=== PATIENT | female | born 1965 ===

== ENCOUNTER 2025-03-18 13:56 | Outpatient (NON) | payer MEDICARE, SELFPAY ==
--- OUTSIDE RECORDS SUMMARY | 2024-11-28 04:45 | XMS_ITS ---
Author Organization [facility] Address [address] [place] [address] Care Team Providers Care Breaking Machine Operator Name Role Phone Tam Key Primary Care Provider [phone] REASON FOR VISIT 4 wk fu Encounters Encounter Location Date Provider Diagnosis [facility] [address] [place] [address] 11/28/2024 Tam Key Plan Of Treatment No Information Progress Notes * Nabila CLARKDOB:[birth year] (59 yo F)Acc No.[id number]:11/28/2024 Progress Notes Patient: Nils Tapianculi Mraley Provider: Jalen Key MD :1965 A ge:59 Y S ex:Female Date:11/28/2024 Address:[address] [place], [place] [phone] Subjective: * Chief Complaints: * 4 wk fu Care Plan Details* * Electronic signature of Carol Ann Key MD on 03/18/2025 at 04:28 PM POOL COORDINATOR Sign off status: Pending Visit Status: N /S (No-Show) * Provider: Jalen Key MD Date: 0 11/28/2024 Generated for Kellie carvalho/Fagloryg/eTransmitting on: 1 05/19/2024 04:28 PM POOL COORDINATOR
--- OUTSIDE RECORDS SUMMARY | 2024-12-19 03:30 | XMS_ITS ---
Author Organization [facility] Address [address] [place] [address] Care Team Providers Care Supply Crib Attendant Name Role Phone Tam Key Primary Care Provider [phone] REASON FOR VISIT follow up Encounters Encounter Location Date Provider Diagnosis [facility] [address] [place] [address] 12/19/2024 Tam Key Plan Of Treatment No Information Progress Notes * Nabila CLARKDOB:[birth year] (59 yo F)Acc No.[id number]:12/19/2024 Progress Notes Patient: Nils Tapianculi Marley Provider: Jalen Key MD :1965 A ge:59 Y S ex:Female Date:12/19/2024 Address:[address] [place], [place] [phone] Subjective: * Chief Complaints: * F ollow up Care Plan Details* * Electronic signature of Carol Ann Key MD on 03/18/2025 at 04:28 PM TAPEMAN Sign off status: Pending Visit Status: N /S (No-Show) * Provider: Jalen Key MD Date: 0 12/19/2024 Generated for Kellie carvalho/Fagloryg/eTransmitting on: 1 05/19/2024 04:28 PM TAPEMAN
--- OUTSIDE RECORDS SUMMARY | 2024-12-26 03:45 | XMS_ITS ---
Author Organization [facility] Address [address] [place] [address] Care Team Providers Care Mailroom Supervisor Name Role Phone Tam Key Primary Care Provider [phone] REASON FOR VISIT Follow up Encounters Encounter Location Date Provider Diagnosis [facility] [address] [place] [address] 12/26/2024 Tam Key Plan Of Treatment No Information Progress Notes * Nabila CLARKDOB:[birth year] (59 yo F)Acc No.[id number]:12/26/2024 Progress Notes Patient: Nils Tapianculi Marley Provider: Jalen Key MD :1965 A ge:59 Y S ex:Female Date:12/26/2024 Address:[address] [place], [place] [phone] Subjective: * Chief Complaints: * F ollow up Care Plan Details* * Electronic signature of Carol Ann Key MD on 03/18/2025 at 04:27 PM LOOM FIXER APPRENTICE Sign off status: Pending Visit Status: N /S (No-Show) * Provider: aJlen Key MD Date: 0 12/26/2024 Generated for Kellie carvalho/Fagloryg/eTransmitting on: 1 05/19/2024 04:27 PM LOOM FIXER APPRENTICE
--- OUTSIDE RECORDS SUMMARY | 2025-01-16 04:30 | XMS_ITS ---
Author Organization [facility] Address [address] [place] [address] Care Team Providers Care Pump House Engineer Name Role Phone Tam Key Primary Care Provider REASON FOR VISIT CHECK UP Encounters Encounter Location Date Provider Diagnosis [facility] [address] [place] [address] 01/16/2025 Tam Key Plan Of Treatment No Information Progress Notes * Nabila CLARKDOB:[birth year] (59 yo F)Acc No.[id number]:01/16/2025 Progress Notes Patient: Nils Tapianculi Marley Provider: Jalen Key MD :1965 A ge:59 Y S ex:Female Date:01/16/2025 Address:[address] [place], [place] [phone] Subjective: * Chief Complaints: * C HECK UP Care Plan Details* * Electronic signature of Carol Ann Key MD on 03/18/2025 at 04:26 PM FURNACE PUNCHER Sign off status: Pending Visit Status: N /S (No-Show) * Provider: Jalen Key MD Date: Generated for Kellie carvalho/Yee/eTransmitting on: 1 05/19/2024 04:26 PM FURNACE PUNCHER
--- OUTSIDE RECORDS SUMMARY | 2025-01-24 08:15 | XMS_ITS ---
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 Name Role Phone Tam Key Primary Care Provider [phone] Allergies No Known Allergies REASON FOR VISIT [facility] / F/U Medications Medication SIG (Take, Route, Frequency, Duration) Notes Start Date End Date Status Gabapentin 600 MG Tablet 1 tablet Orally three times daily; Duration: 90 days Active ARIPiprazole 5 MG Tablet 1 tablet Orally Once a day; Duration: 90 days Active OLANZapine 5 MG Tablet 1 tablet Orally Once a day; Duration: 90 days Active Mirtazapine 15 MG Tablet 1 tablets at bedtime Orally Once a day; Duration: 90 days Active Topiramate 50 MG Tablet 1.5 tablets Orally twice daily; Duration: 90 days Active Vitamin D3 125 MCG (5000 UT) Tablet 1 tablet Orally Once a day; Duration: 90 days Last seen 208 days ago - needs appointment for further refills Active Pantoprazole Sodium 40 MG Tablet Delayed Release 1 tablet Orally Twice a day; Duration: 90 days Active Vitamin B-12 3000 MCG/ML Liquid 1 mls orally once a day; Duration: 90 days Last seen 208 days ago - needs appointment for further refills Active Folic Acid 200 MCG/ML Liquid 2 mL Orally Once a day; Duration: 90 days Last seen 208 days ago - needs appointment for further refills Active Iron Supplement 220 (44 Fe) MG/5ML Solution TAKE 10.2ML BY MOUTH ONCE DAILY; Duration: 90 days Last seen 208 days ago - needs appointment for further refills Active Bisacodyl 10 MG Suppository 1 suppository as needed Rectal Once a day; Duration: 90 days Active oxyBUTYnin Chloride 5 MG/5ML Solution 5 ML BY MOUTH TWO TIMES DAILY Orally Twice a day; Duration: 90 days Active Enulose 10 GM/15ML Solution TAKE 15ML BY MOUTH THREE TIMES A DAY NEEDED; Duration: 30 Last seen 208 days ago - needs appointment for further refills Not-Taking/ PRN Famotidine 20 MG Tablet TAKE 1 TABLET BY MOUTH TWO TIMES DAILY Orally twice a day; Duration: 90 days Not-Taking/ PRN Ferrous Sulfate 300 (60 Fe) MG/5ML Solution 5 mL Orally daily; Duration: 90 days 01/06/2025 Active Vitamin C 500 MG Tablet Chewable CHEW AND SWALLOW 1 TABLET BY MOUTH DAILY; Duration: 90 Not-Taking/ PRN Ondansetron 4 MG Tablet Disintegrating 1 tablet on the tongue and allow to dissolve for nausea when needed Orally 3 times a day; Duration: 90 days Active Albuterol Sulfate HFA 108 (90 Base) MCG/ACT Aerosol Solution 2 - 4 puff when having SHORTNESS OF BREATH Inhalation every 6 hrs; Duration: 90 days Active Melatonin 1 MG/4ML Liquid 4 mL at bedtime as needed Orally Once a day; Duration: 90 days 02/05/2024 Not-Taking/ PRN levETIRAcetam 100 MG/ML Solution 10 ML BY MOUTH EVERY EIGHT HOURS Orally 3 times a day; Duration: 90 days Not-Taking/ PRN Parenteral Electrolytes ; Duration: 90 days 1 dose into vein evry 12 hours; See sticky note Not-Taking/ PRN HYDROcodone-Acetamin ophen 7.5-325 MG Tablet 1 tablet as needed Orally 3 times a day; Duration: 30 days 11/11/2024 Active Multivitamin & Mineral ; Duration: 90 days Active Maalox Max 400-400-40 MG/5ML Suspension 10 mL as needed Orally every 6 hours as needed; Duration: 90 days Active Sodium Chloride Flush 0.9 % Solution 10 mL Intravenous 4 times a day; Duration: 90 days Active Sucralfate 1 GM/10ML Suspension TAKE 10 ML BY MOUTH FOUR TIMES DAILY, ONE HOUR BEFORE MEALS AND AT BEDTIME, ON AN EMPTY STOMACH 90; Duration: 90 Active Heparin Sodium Lock Flush ; Duration: 90 days 5 mL into the vein daily Active Narcan 4 MG/0.1ML Liquid in case of overdose Nasally Once; Duration: 1 days 01/24/2025 Active Methocarbamol 750 MG Tablet 1 tablet Orally 3 times a day; Duration: 90 days Active levETIRAcetam 1000 MG Tablet Disintegrating Soluble 1 tablet on the tongue and allow to dissolve Orally Twice a day; Duration: 90 days Active Fosfomycin Tromethamine 3 GM Packet 3gm Orally one time; Duration: 1 days 02/05/2024 Active Gabapentin 300 MG Capsule 1 capsule Orally 3 times a day; Duration: 90 days Active Midodrine HCl 10 MG Tablet 1 TABLET VIA J TUBE THREE TIMES DAILY J Tube 3 times a day; Duration: 90 days Active oxyCODONE HCl 5 MG/5ML Solution 10 mL as needed Orally 3 times a day; Duration: 30 days 01/24/2025 Active Social History Tobacco Use: Social History Observation Description Date Details (start date - stop date) Former Smoker NA - NA Social History Social Determinants Social Info Question Answer Notes PRAPARE Date Completed/Updated: 01/24/2025 What is your current housing situation? I choose not to answer this question Are you worried about losing your housing? I cho ose not to answer this question What is the highest level of school that you have finished? I choose not to answer this question What is your current work situation? I choose no t to answer this question In the past year, have you o r any family members you live with been unable to get any of the following when it was really needed? Check all that apply I choose not to answer this question Has lack of transportation k ept you from medical appointments, meetings, work or from getting things needed for daily living? I choose not to answer this question How often do you see or talk to people that you care about and feel close to? (For example: talking to friends on the phone, visiting friends or family, going to sabianism or club meetings) I choose not to answer this question How stressed are you? Stress is when someone feels tense, nervous, anxious, or can't sleep at night because their mind is troubled I choose not to answer this question PRAPARE Score: 1 Sexual History: Social Info Question Answer Notes Details of Sexual History Are you sexually active? No Are you having any sexual problems? No Have you had any sexually transmitted diseases ( STDs)? No How many sexual partners have you had? 4 Sexual Abuse History: none Sexual History Had sex in the past 12 months (vaginal, oral, or anal)? No Have you ever had a Sexually transmitted disease ? 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 Yes Communication needs (hearing , visual or cognitive): No Good ability to interact with other people: Yes Insecurities in? (list all that apply) None Advanced Care Planning in min? (Must have copy of legal document) No Advanced Care Planning Date 01/24/2025 Reviewed/Updated 01/24/2025 Drugs/Alcohol: Social Info Question Answer Notes Drugs Have you used drugs other than those for medical reasons in the past 12 months? No Caffeine Intake: none Tobacco Use: Social Info Question Answer Notes Are you a second hand smoker? Are you a second hand sm oker? No Tobacco Control (Standard) Tobacco use: Former smoker How long has it been since you last smoked? 1-5 years Section Notes: no alcohol / drugs / smoking at this time Problems Problem Type SNOMED Code ICD Code Onset Dates Problem Status W/U Status Risk Notes Problem Colostomy present (723464383) Status post colostomy (Z93.3) Active confirmed Vital Signs Temperature 98 degrees Fahrenheit 01/24/2025 Blood pressure systolic 130 mm Hg 01/25/20 25 Blood pressure diastolic 72 mm Hg 025 Heart Rate 65 /min 01/24/2025 Respiratory Rate 16 /min 01/24/2025 Height 61 in 01/24/2025 Weight 149.0 lbs 01/24/2025 BMI 28.15 kg/m2 01/24/2025 Oximetry 98 % 01/24/2025 Height-cm 154.94 cm 01/24/2025 Weight-kg 67.59 kg 01/24/2025 Encounters Encounter Location Date Provider Diagnosis [facility] [address] [place] [address] 01/24/2025 Tamdavey Kye BMI 28.0-28.9,adult Z68.28 ; Exercise counseling Z71.82 ; Dietary counseling Z71.3 ; Open wound T14.8XXA ; Acute lower UTI N39.0 ; Chronic pain G89.29 ; Conversion disorder with seizures or convulsions F44.5 ; Intestinal malabsorption, unspecified K90.9 ; Status post colostomy Z93.3 and Bladder incontinence R32 Assessments Encounter Date Diagnosis (ICD Code) Assessment Notes Treatment Notes Treatment Clinical Notes Section Notes 01/24/2025 BMI 28.0-28.9,adult (ICD-10 - Z68.28) Body Mass Index: Care Instructions material was published 01/24/2025 Exercise counseling (ICD-10 - Z71.82) 01/24/2025 Dietary counseling (ICD-10 - Z71.3) 01/24/2025 Open wound (ICD-10 - T14.8XXA) 01/24/2025 Acute lower UTI (ICD-10 - N39.0) 01/24/2025 Chronic pain (ICD-10 - G89.29) 01/24/2025 Conversion disorder with seizures or convulsions (ICD-10 - F44.5) 01/24/2025 Intestinal malabsorption, unspecified (ICD-10 - K90.9) 01/24/2025 Status post colostomy (ICD-10 - Z93.3) 01/24/2025 Bladder incontinence (ICD-10 - R32) 01/24/2025 Other [id number]/02/02 0 25011/11/2024E TAMINOPHEN 325 MG / HYDROcodone BITARTRATE 7.5 MG ORAL HRPOPQ64.0307.5 MG/325.0 MG22.50Sahni Tam - [id number]-lm rt Pharmacy [id number] oxyCODONE HCL15.035 MG37.50Mou Adilson - [id number]-nq rt Pharmacy [id number] Methocarba mol90.814801 MGNANA - [id number]-nn rt Pharmacy [id number] Gabapentin 90.789315 MGNANA - [id number]-xm rt Pharmacy [place] [id number] /5ACETAMINOP HEN 325 MG / HYDROcodone BITARTRATE 5 MG ORAL ANZEZA69.075.0 MG/325.0 AP26Krsghxnqmyg [place] - [id number]-wj rt [facility], [place], [id number] /2024oxyCODONE TQE099.041 MG/PM98FhbatiChava platt Md - [id number], ,[id number] //08/02 025oxyCODONE HCL70.021 MG/ML52.50Anzal ayo Jennings - [id number], ,[id number] /25/202502/28/05 025oxyCODONE HCL70.021 MG/ML52.50Kbrian Islas - [id number], ,NA0IL1 Plan Of Treatment Medication Medication Name Sig Start Date Stop Date Notes Gabapentin 600 MG Tablet 1 tablet Orally three times daily; Duration: 90 days ARIPiprazole 5 MG Tablet 1 tablet Orally Once a day; Duration: 90 days OLANZapine 5 MG Tablet 1 tablet Orally O nce a day; Duration: 90 days Mirtazapine 15 MG Tablet 1 tablets at be dtime Orally Once a day; Duration: 90 days Topiramate 50 MG Tablet 1.5 tablets Oral ly twice daily; Duration: 90 days Vitamin D3 125 MCG (5000 UT) Tablet 1 tablet Orally Once a day; Duration: 90 days Last seen 208 days ago - needs appointment for further refills Pantoprazole Sodium 40 MG Tablet Delayed Release 1 tablet Orally Twice a day; Duration: 90 days Vitamin B-12 3000 MCG/ML Liquid 1 mls orally once a day; Duration: 90 days Last seen 208 days ago - needs appointment for further refills Folic Acid 200 MCG/ML Liquid 2 mL Orally Once a day; Duration: 90 days Last seen days ago - needs appointment for further refills Iron Supplement 220 (44 Fe) MG/5ML Solution TAKE 10.2ML BY MOUTH ONCE DAILY; Duration: 90 days Last seen 208 days ago - needs appointment for further refills Bisacodyl 10 MG Suppository 1 suppository as needed Rectal Once a day; Duration: 90 days oxyBUTYnin Chloride 5 MG/5ML Solution 5 ML BY MOUTH TWO TIMES DAILY Orally Twice a day; Duration: 90 days Ferrous Sulfate 300 (60 Fe) MG/5ML Solution 5 mL Orally daily; Duration: 90 days 01/06/2025 Ondansetron 4 MG Tablet Disintegrating 1 tablet on the tongue and allow to dissolve for nausea when needed Orally 3 times a day; Duration: 90 days Albuterol Sulfate HFA 108 (90 Base) MCG/ACT Aerosol Solution 2 - 4 puff when having SHORTNESS OF BREATH Inhalation every 6 hrs; Duration: 90 days Multivitamin & Mineral ; Duration: 90 days Maalox Max 400-400-40 MG/5ML Suspension 10 mL as needed Orally every 6 hours as needed; Duration: 90 days Sodium Chloride Flush 0.9 % Solution 10 mL Intravenous 4 times a day; Duration: 90 days Heparin Sodium Lock Flush ; Duration: 90 days 5 mL into th e vein daily Narcan 4 MG/0.1ML Liquid in case of over dose Nasally Once; Duration: 1 days 01/24/2025 Methocarbamol 750 MG Tablet 1 tablet Orally 3 times a day; Duration: 90 days levETIRAcetam 1000 MG Tablet Disintegrating Soluble 1 tablet on the tongue and allow to dissolve Orally Twice a day; Duration: 90 days Gabapentin 300 MG Capsule 1 capsule Orally 3 times a day; Duration: 90 days oxyCODONE HCl 5 MG/5ML Solution 10 mL as needed Orally 3 times a day; Duration: 30 days 01/24/2025 Treatment Notes Assessment Notes BMI 28.0-28.9,adult Body Mass Index: Car e Instructions material was published History and Physical Notes * HPI (History of Present Illness) Category Sub-Category Detail Notes Category Not es Family Planning Reproductive Life Plan Do you wa nt to talk about contraception or prevention during your visit today?: No Do any of these apply to you?: I am here for something else Progress Notes * Nabila CONTRERASDOB:[birth year] (59 yo F)Acc No.[id number]:01/24/2025 Progress Note Patient: Nabila Tapia Provider: Jalen Key MD :[id number] A ge:59 Y S ex:Female Date:01/24/2025 Address:[address] [place], [place] [id number] Check In:02:07 PM CSTCheck O ut:03:19 PM [employer]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 N o D o any of these apply to you? 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9) Osteoarthritis Post traumatic stress disorder Schizoaffective disorder, unspecified Sleep apnea History of abdominal hernia Thyroid nodule Tremor Trigger finger, unspecified index finger Bladder incontinence Vitamin D deficiency Weight gain Medication side effects present, initial encounter Abdominal discomfort Acute pancreatitis Arthralgia B12 deficiency Bradycardia Dizziness Esophagitis Easy fatigability Gastric intestinal metaplasia Heart palpitations Hemoptysis H/O gastric bypass Hypotension Incisional hernia Chest pain Nausea & vomiting Has a tremor Medical History Verified * Slurry Blender History: D ate of Last Period L MP M enopause * Surgical History: reverse gastric bypass 09/2018 Total left knee replacement 10/2018 Janessa-en-Y gastric bypass 1994 cholecystectomy Surgical History verified. * Hospitalization/Major Diagno stic Procedure: [facility] admission for 17 days perforated ulcer. malnutrition, severe GI bleeding 01/2024 Hospitalization Verified. * Family History: F ather: . M other: , alzheimer's dementia, arthritis, hearing loss, Lupus, diagnosed with Diabetes, Heart Dz. F amily History Verified.. 4 children. * Social History: T obacco Use: A re you a second hand smoker? A re you a second hand smoker? 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 Y es C ommunication needs (hearing, visual or cognitive): N o G ood ability to interact with other people:?Yes I nsecurities in? (list all that apply) N one A dvanced Care Planning in place? (Must have copy of legal document) N o A dvanced Care Planning Date R eviewed/Updated S exual History: S exual History H ad sex in the past 12 months (vaginal, oral, or anal)? N o H ave you ever had a Sexually transmitted disease? N o Details of Sexual History A re you sexually active? N o A re you having any sexual problems? N o H ave you had any sexually transmitted diseases (STDs)? N o H ow many sexual partners have you had? 4 Sexual Abuse H istory: n one D rugs/Alcohol: D rugs H ave you used drugs other than those for medical reasons in the past 12 months? N o Caffeine I ntake: n one S ocial Determinants: P DEAN Tracey ate Completed/Updated: W hat is your current housing situation? I choose not to answer this question A re you worried about losing your housing??I choose not to answer this question W hat is the highest level of school that you have finished? I choose not to answer this question W hat is your current work situation? I choose not to answer this question I n the past year, have you or any family members you live with been unable to get any of the following when it was really needed? Check all that apply I choose not to answer this question H as lack of transportation kept you from medical appointments, meetings, work or from getting things needed for daily living? I choose not to answer this question H ow often do you see or talk to people that you care about and feel close to? (For example: talking to friends on the phone, visiting friends or family, going to sabianism or club meetings) I choose not to answer this question H ow stressed are you? Stress is when someone feels tense, nervous, anxious, or can't sleep at night because their mind is troubled I choose not to answer this question P RAPARE Score: 1 S ocial History Verified. n o alcohol / drugs / smoking at this time. * Medications: T akingGabapentin 300 MG Capsule 1 capsule Orally 3 times a day Methocarbamol 750 MG Tablet 1 tablet Orally 3 times a day levETIRAcetam 1000 MG Tablet Disintegrating Soluble 1 tablet on the tongue and allow to dissolve Orally Twice a day Heparin Sodium Lock Flush , Notes to Pharmacist: 5 mL into the vein dailySodium Chloride Flush 0.9 % Solution 10 mL Intravenous As needed Fosfomycin Tromethamine 3 GM Packet 3gm Orally one time Multivitamin & Mineral Maalox Max 400-400-40 MG/5ML Suspension 10 mL as needed Orally every 6 hours as needed Midodrine HCl 10 MG Tablet 1 TABLET VIA J TUBE THREE TIMES DAILY J Tube 3 times a day Ondansetron 4 MG Tablet Disintegrating 1 tablet on the tongue and allow to dissolve for nausea when needed Orally Twice a day Albuterol Sulfate HFA 108 (90 Base) MCG/ACT Aerosol Solution 2 - 4 puff when having SHORTNESS OF BREATH Inhalation every 6 hrs Bisacodyl 10 MG Suppository 1 suppository as needed Rectal Once a day oxyBUTYnin Chloride 5 MG/5ML Solution 5 ML BY MOUTH TWO TIMES DAILY Orally Twice a day Sucralfate 1 GM/10ML Suspension TAKE 10 ML BY MOUTH FOUR TIMES DAILY, ONE HOUR BEFORE MEALS AND AT BEDTIME, ON AN EMPTY STOMACH 90 HYDROcodone-Acetaminophen 7.5-325 MG Tablet 1 tablet as needed Orally 3 times a day Ferrous Sulfate 300 (60 Fe) MG/5ML Solution 5 mL Orally daily Taking Gabapentin 300 MG Capsule 1 capsule Orally 3 times a day Taking Methocarbamol 750 MG Tablet 1 tablet Orally 3 times a day Taking levETIRAcetam 1000 MG Tablet Disintegrating Soluble 1 tablet on the tongue and allow to dissolve Orally Twice a day Taking Heparin Sodium Lock Flush , Notes to Pharmacist: 5 mL into the vein dailyTaking Sodium Chloride Flush 0.9 % Solution 10 mL Intravenous As needed Taking Fosfomycin Tromethamine 3 GM Packet 3gm Orally one time Taking Multivitamin & Mineral Taking Maalox Max 400-400-40 MG/5ML Suspension 10 mL as needed Orally every 6 hours as needed Taking Midodrine HCl 10 MG Tablet 1 TABLET VIA J TUBE THREE TIMES DAILY J Tube 3 times a day Taking Ondansetron 4 MG Tablet Disintegrating 1 tablet on the tongue and allow to dissolve for nausea when needed Orally Twice a day Taking Albuterol Sulfate HFA 108 (90 Base) MCG/ACT Aerosol Solution 2 - 4 puff when having SHORTNESS OF BREATH Inhalation every 6 hrs Taking Bisacodyl 10 MG Suppository 1 suppository as needed Rectal Once a day Taking oxyBUTYnin Chloride 5 MG/5ML Solution 5 ML BY MOUTH TWO TIMES DAILY Orally Twice a day Taking Sucralfate 1 GM/10ML Suspension TAKE 10 ML BY MOUTH FOUR TIMES DAILY, ONE HOUR BEFORE MEALS AND AT BEDTIME, ON AN EMPTY STOMACH 90 Taking HYDROcodone-Acetaminophen 7.5-325 MG Tablet 1 tablet as needed Orally 3 times a day Taking Ferrous Sulfate 300 (60 Fe) MG/5ML Solution 5 mL Orally daily Not-Taking/PRNParenteral Electrolytes , Notes to Pharmacist: 1 dose into vein evry 12 hours; See sticky noteVitamin C 500 MG Tablet Chewable CHEW AND SWALLOW 1 TABLET BY MOUTH DAILY levETIRAcetam 100 MG/ML Solution 10 ML BY MOUTH EVERY EIGHT HOURS Orally 3 times a day Melatonin 1 MG/4ML Liquid 4 mL at bedtime as needed Orally Once a day Famotidine 20 MG Tablet TAKE 1 TABLET BY MOUTH TWO TIMES DAILY Orally twice a day Enulose 10 GM/15ML Solution TAKE 15ML BY MOUTH THREE TIMES A DAY NEEDED , Notes to Pharmacist: Last seen 208 days ago - needs appointment for further refillsFolic Acid 1 MG Tablet TAKE 1 TABLET BY MOUTH ONCE DAILY , Notes to Pharmacist: Last seen 208 days ago - needs appointment for further refillsIron Supplement 220 (44 Fe) MG/5ML Solution TAKE 10.2ML BY MOUTH ONCE DAILY , Notes to Pharmacist: Last seen 208 days ago - needs appointment for further refillsVitamin B-12 1000 MCG Tablet TAKE 1 TABLET BY MOUTH ONCE DAILY , Notes to Pharmacist: Last seen 208 days ago - needs appointment for further refillsVitamin D3 125 MCG (5000 UT) Tablet TAKE 1 TABLET BY MOUTH ONCE DAILY , Notes to Pharmacist: Last seen days ago - needs appointment for further refillsPantoprazole Sodium 40 MG Tablet Delayed Release 1 tablet Orally Twice a day OLANZapine 5 MG Tablet 1 tablet Orally Once a day Mirtazapine 7.5 MG Tablet 1 tablets at bedtime Orally Once a day Gabapentin 600 MG Tablet 1 tablet Orally three times daily ARIPiprazole 5 MG Tablet 1 tablet Orally Once a day Topiramate 50 MG Tablet 1.5 tablets Orally twice daily Medication List reviewed and reconciled with the patientNot-Taking/PRN Parenteral Electrolytes , Notes to Pharmacist: 1 dose into vein evry 12 hours; See sticky noteNot-Taking/PRN Vitamin C 500 MG Tablet Chewable CHEW AND SWALLOW 1 TABLET BY MOUTH DAILY Not-Taking/PRN levETIRAcetam 100 MG/ML Solution 10 ML BY MOUTH EVERY EIGHT HOURS Orally 3 times a day Not-Taking/PRN Melatonin 1 MG/4ML Liquid 4 mL at bedtime as needed Orally Once a day Not-Taking/PRN Famotidine 20 MG Tablet TAKE 1 TABLET BY MOUTH TWO TIMES DAILY Orally twice a day Not-Taking/PRN Enulose 10 GM/15ML Solution TAKE 15ML BY MOUTH THREE TIMES A DAY NEEDED , Notes to Pharmacist: Last seen days ago - needs appointment for further refillsNot-Taking/PRN Folic Acid 1 MG Tablet TAKE 1 TABLET BY MOUTH ONCE DAILY , Notes to Pharmacist: Last seen days ago - needs appointment for further refillsNot-Taking/PRN Iron Supplement 220 (44 Fe) MG/5ML Solution TAKE 10.2ML BY MOUTH ONCE DAILY , Notes to Pharmacist: Last seen days ago - needs appointment for further refillsNot-Taking/PRN Vitamin B-12 1000 MCG Tablet TAKE 1 TABLET BY MOUTH ONCE DAILY , Notes to Pharmacist: Last seen days ago - needs appointment for further refillsNot-Taking/PRN Vitamin D3 125 MCG (5000 UT) Tablet TAKE 1 TABLET BY MOUTH ONCE DAILY , Notes to Pharmacist: Last seen days ago - needs appointment for further refillsNot-Taking/PRN Pantoprazole Sodium 40 MG Tablet Delayed Release 1 tablet Orally Twice a day Not-Taking/PRN OLANZapine 5 MG Tablet 1 tablet Orally Once a day Not-Taking/PRN Mirtazapine 7.5 MG Tablet 1 tablets at bedtime Orally Once a day Not-Taking/PRN Gabapentin 600 MG Tablet 1 tablet Orally three times daily Not-Taking/PRN ARIPiprazole 5 MG Tablet 1 tablet Orally Once a day Not-Taking/PRN Topiramate 50 MG Tablet 1.5 tablets Orally twice daily Medication List reviewed and reconciled with the patient * Allergies: Omkar RobAllergies Verified. 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 Mandi C arlson INSTRUCTIONAL ASSISTANT Ht* 61 in 01/24/2025 02:47:40 PM HOUSECALLS NURSE Mandi C arlson INSTRUCTIONAL ASSISTANT Ht-cm* 154.94 cm 01/24/2025 02:47:40 PM HOUSECALLS NURSE Mandi C arlson INSTRUCTIONAL ASSISTANT BMI* 28.15Index 01/24/2025 02:47:40 PM HOUSECALLS NURSE Mandi C arlson INSTRUCTIONAL ASSISTANT BP* 130/72mm Hg 01/24/2025 02:47:40 PM HOUSECALLS NURSE Mandi C arlson INSTRUCTIONAL ASSISTANT Temp* 98F 01/24/2025 02:47:40 PM HOUSECALLS NURSE Mandi C arlson INSTRUCTIONAL ASSISTANT HR* 65/min 01/24/2025 02:47:40 PM HOUSECALLS NURSE Mandi C arlson INSTRUCTIONAL ASSISTANT RR* 16/min 01/24/2025 02:47:40 PM HOUSECALLS NURSE Mandi C arlson INSTRUCTIONAL ASSISTANT Oxygen sat %* 98% 01/24/2025 02:47:40 PM HOUSECALLS NURSE Mandi C arlson INSTRUCTIONAL ASSISTANT Assessment: * Assessment: 1. B LA 28.0-28.9,adult - Z68.28 (Primary) 2 . E xercise counseling - Z71.82 3 . O pen wound - T14.8XXA 4 . D ietary counseling - Z71.3? 5. A cute lower UTI - N39.0 6 . C hronic pain - G89.29 7. 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 S tatus post colostomy - Z93.3 1 0. B ladder incontinence - R32 Plan: * Treatment: 2. O pen wound Start oxyCODONE HCl Solution, 5 MG/5ML, 10 mL as needed, Orally, 3 times a day, 30 days, 900 ML, Refills 0; S tart Narcan Liquid, 4 MG/0.1ML, in case of overdose, Nasally, Once, 1 days, 1, Refills 1. 3. C hronic pain Refill Gabapentin Capsule, 300 MG, 1 capsule, Orally, 3 times a day, 90 days, 270, Refills 0; R efill Methocarbamol Tablet, 750 MG, 1 tablet, Orally, 3 times a day, 90 days, 270, Refills 0. ? 4. C onversion disorder with seizures or convulsions Refill levETIRAcetam Tablet Disintegrating Soluble, 1000 MG, 1 tablet on the tongue and allow to dissolve, Orally, Twice a day, 90 days, 180, Refills 0; R efill Albuterol Sulfate HFA Aerosol Solution, 108 (90 Base) MCG/ACT, 2 - 4 puff when having SHORTNESS OF BREATH, Inhalation, every 6 hrs, 90 days, 3 Each, Refills 0. 5. I ntestinal malabsorption, unspecified Refill Ondansetron Tablet Disintegrating, 4 MG, 1 tablet on the tongue and allow to dissolve for nausea when needed, Orally, 3 times a day, 90 days, 270 Tablet, Refills 0. 6. S tatus post colostomy Refill Bisacodyl Suppository, 10 MG, 1 suppository as needed, Rectal, Once a day, 90 days, 90, Refills 0. 7. B ladder incontinence Refill oxyBUTYnin Chloride Solution, 5 MG/5ML, 5 ML BY MOUTH TWO TIMES DAILY, Orally, Twice a day, 90 days, 900, Refills 0. 8. O thers Refill Heparin Sodium Lock Flush, 90 days, Refills 0, Notes to Pharmacist: 5 mL into the vein daily; R efill Sodium Chloride Flush Solution, 0.9 %, 10 mL, Intravenous, 4 times a day, 90 days, 3600 ML, Refills 0; R efill Multivitamin & Mineral, 90 days, Refills 0; R efill Maalox Max Suspension, 400-400-40 MG/5ML, 10 mL as needed, Orally, every 6 hours as needed, 90 days, Refills 0; Refill Ferrous Sulfate Solution, 300 (60 Fe) MG/5ML, 5 mL, Orally, daily, 90 days, 450, Refills 0; R efill Folic Acid Liquid, 200 MCG/ML, 2 mL, Orally, Once a day, 90 days, 180 ML, Refills 0, Notes to Pharmacist: Last seen 208 days ago - needs appointment for further refills; R efill Iron Supplement Solution, 220 (44 Fe) MG/5ML, TAKE 10.2ML BY MOUTH ONCE DAILY, 90 days, Refills 0, Notes to Pharmacist: Last seen 208 days ago - needs appointment for further refills; R efill Vitamin B-12 Liquid, 3000 MCG/ML, 1 mls, orally, once a day, 90 days, 90 ML, Refills 0, Notes to Pharmacist: Last seen 208 days ago - needs appointment for further refills; R efill Vitamin D3 Tablet, 125 MCG (5000 UT), 1 tablet, Orally, Once a day, 90 days, 90 Tablet, Refills 0, Notes to Pharmacist: Last seen 208 days ago - needs appointment for further refills; R efill Pantoprazole Sodium Tablet Delayed Release, 40 MG, 1 tablet, Orally, Twice a day, 90 days, 180, Refills 0; R efill OLANZapine Tablet, 5 MG, 1 tablet, Orally, Once a day, 90 days, 90, Refills 0; R efill Mirtazapine Tablet, 15 MG, 1 tablets at bedtime, Orally, Once a day, 90 days, 90 Tablet, Refills 0; R efill Gabapentin Tablet, 600 MG, 1 tablet, Orally, three times daily, 90 days, 270 Tablet, Refills 0; R efill ARIPiprazole Tablet, 5 MG, 1 tablet, Orally, Once a day, 90 days, 90, Refills 0; R efill Topiramate Tablet, 50 MG, 1.5 tablets, Orally, twice daily, 90 days, 270 Tablet, Refills 0. ? Clinical Notes: [id number]//[id number]/5ACETAMINOPHEN 325 MG / H YDROcodone BITARTRATE 7.5 MG ORAL BMLJVG48.0307.5 MG/325.0 MG22.50Sahni Tam Vann [id number]/507/oxyCODONE H CL15.035 MG37.50Mou Adilson Vann [id number]-kcgh [facility], [id number]//Methocarb amol90.365220 MGNANA - [id number]-xenr Pharmacy [facility], [id number]//Gabapenti n90.282611 MGNANA - [id number]-fcso Pharmacy [facility], [id number]//ETAMINO PHEN 325 MG / H YDROcodone BITARTRATE 5 MG ORAL TDOTVN81.075.0 MG/325.0 OI36WrbacutflayAustin morrow - [id number]-yinr Pharmacy [facility], [id number]//oxyCODONE H CL120.041 MG/JF68DookmyChava Sherman Md - [id number], ,[id number]//08/2024oxyCODONE H CL70.021 MG/ML52.50Laura Jennings - [id number], ,[id number]//oxyCODONE H CL70.021 MG/ML52.50Adriana Islas - [id number], ,NA0IL1 * Preventive Medicine: Counseling: C are goal follow-up plan: BMI management provided Y es Above Normal BMI Follow-up G iving encouragement to exercise, Lifestyle education regarding diet Exercise Counseling Provided- Y es Nutrition/Dietary Counseling provided?Yes * Electronic signature of Carol Ann Key MD on 03/18/2025 at 04:27 PM HOUSECALLS NURSE Sign off status: Pending Visit Status: González MCNAIR (Check Out) * Provider: Jalen Key MD Date: Generated for Kellie carvalho/Yee/eTransmhusam on: 05/19/2024 04:27 PM HOUSECALLS NURSE
--- OUTSIDE RECORDS SUMMARY | 2025-02-07 08:45 | XMS_ITS ---
Author Organization [facility] Address [address] [place] [address] Care Team Providers Care White Sourer Name Role Phone Tam Key Primary Care Provider REASON FOR VISIT 2w Encounters Encounter Location Date Provider Diagnosis [facility] [address] [place] [address] 02/07/2025 Tam Key Plan Of Treatment No Information Progress Notes * Nabila CLARKDOB:[birth year] (59 yo F)Acc No.[id number]:02/07/2025 Progress Notes Patient: Nils Tapianculi Marley Provider: Jalen Key MD :1965 A ge:59 Y S ex:Female Date:02/07/2025 Address:[address] [place], [place] [phone] Subjective: * Chief Complaints: * 2 w Care Plan Details* * Electronic signature of Carol Ann Key MD on 03/18/2025 at 04:27 PM IMPLEMENTATION SPECIALIST Sign off status: Pending Visit Status: C ANCPHONE (Voice) * Provider: Jalen Key MD Date: 04/09/2024 Generated for Kellie ng/Fagloryg/eTransmitting on: 1 05/19/2024 04:27 PM IMPLEMENTATION SPECIALIST
--- OUTSIDE RECORDS SUMMARY | 2025-03-10 08:15 | XMS_ITS ---
Author Organization [facility] Address [address] [place] [address] Care Team Providers Care Beet Worker Name Role Phone Tam Key Primary Care Provider [phone] REASON FOR VISIT 1 month f/u Cont Med refill Encounters Encounter Location Date Provider Diagnosis [facility] [address] [place] [address] 03/10/2025 Tam Key Plan Of Treatment No Information Progress Notes * Nabila CLARKDOB:[birth year] (59 yo F)Acc No.[id number]:03/10/2025 Progress Notes Patient: Nils Tapianca Donell Provider: Jalen Key MD :1965 A ge:59 Y S ex:Female Date:03/10/2025 Address:[address] [place], [place] [phone] Subjective: * Chief Complaints: * 1 month f/u Cont Med refill Care Plan Details* * Electronic signature of Carol Ann Key MD on 03/18/2025 at 04:27 PM HEALTH PROGRAM ANALYST Sign off status: Pending Visit Status: N /S (No-Show) * Provider: Jalen Key MD Date: 05/11/2024 Generated for Printi ng/Faxing/eTransmitting on: 05/19/2024 04:27 PM HEALTH PROGRAM ANALYST
[2025-03-18 15:03] LABS: Immature Granulocyte Percent A 0.4 % (0.0-0.0); Lymphocytes Absolute Auto 4.42 K/mm3 (1.10-4.50); Mean Corpuscular HGB Conc 34.0 g/dL (32-36); Mean Corpuscular Hemoglobin 29.4 pg (27.0-31.0); Mean Corpuscular Volume 86.6 fL (78.0-102.0); Nucleated Red Blood Cells Absolute Auto 0.06 K/mm3 (0.00-0.00); Nucleated Red Blood Cells Perc 0.7 % (0-0.0); Platelet Count Result 476 K/mm3 (150-420); Red Blood Count 2.31 M/mm3 (4.20-5.40); White Blood Count 9.1 K/mm3 (4.8-10.8)
[2025-03-18 15:15] LABS: Alanine Aminotransferase 21 U/L (6-35); Albumin Level 2.7 g/dL (3.5-5.1); Alkaline Phosphatase 192 U/L (38-126); Anion Gap 6 mmol/L (4-12); Aspartate Amino Transferase 22 U/L (14-36); Bilirubin,Total 0.1 mg/dL (0.2-1.3); Blood Urea Nitrogen 18 mg/dL (7-17); Calcium 8.2 mg/dL (8.4-10.2); Carbon Dioxide 23 mmol/L (22-30); Chloride 109 mmol/L (98-107); Estimated Glomerular Filt Rate > 60; Glucose 102 mg/dL (65-110); Magnesium 2.2 mg/dL (1.6-2.3); Osmolality Calculated 287 mOsm/kg (285-295); Potassium 4.1 mmol/L (3.4-5.0); Sodium 138 mmol/L (137-145); Total Protein 5.8 g/dL (6.3-8.2); Triglycerides 116 mg/dL (<150)
[2025-03-18 15:21] LABS: Hemoglobin 6.8 g/dL (12.0-15.0)
[2025-03-18 15:22] LABS: Hematocrit 20.0 % (35.0-49.0)
--- OUTSIDE RECORDS SUMMARY | 2025-03-18 16:27 | XMS_ITS | Patient Health Record ---
Author Organization [facility] Centers Address [address] [place] [address] Care Team Providers Care Patient Access Coordinator Name Role Phone Tam Key Primary Care Provider [phone] Rose Hodge Unavailable [phone] Allergies No Known Allergies Results Component Value Reference Range Flag Notes ARUP MISCELLANEOUS TEST Reviewed date:02/16/2025 10:58:47 PM Interpretation:Negative Performing Lab:[facility], [address] [place] [address] Notes/Report: ARUP MISC TEST RESULT SEE NOTE N Test name Result Flag Units RefIntvl Fentanyl, S/P, Quant <0.10 ng/mL Norfentanyl, S/P, Quant <0.10 ng/mL INTERPRETIVE INFORMATION: Fentanyl and Metabolite, Serum or Plasma, Quantitative Methodology: Quantitative Liquid Chromatography-Tandem Mass Spectrometry Positive cutoff: 0.1 ng/mL For medical purposes only; not valid for forensic use. The absence of expected drug(s) and/or drug metabolite(s) may indicate non-compliance, inappropriate timing of specimen collection relative to drug administration, poor drug absorption, or limitations of testing. The concentration value must be greater than or equal to the cutoff to be reported as positive. Interpretive questions should be directed to the laboratory. This test was developed and its performance characteristics determined by [facility]. It has not been cleared or approved by the US Food and Drug Administration. This test was performed in a CLIA certified laboratory and is intended for clinical purposes. Performed By: [facility] [address] [place], [place] [id number] Manager Registration: Jose Holliday MD, PhD CLIA Number: [id number] CANNABINOIDS, CONF Reviewed date:02/16/2025 10:58:47 PM Interpretation:159 Performing Lab:[facility], [address] [place] [address] Notes/Report: 52-TZA-0-CARBOXY-THC, S/P, QUANT 159 N INTERPRETIVE INFORMATION: THC Metabolite, Serum or Plasma, Quantitative Methodology: Quantitative Liquid Chromatography-Tandem Mass Spectrometry. Positive cutoff: 5 ng/mL For medical purposes only; not valid for forensic use. The drug analyte detected in this assay, 9-carboxy THC, is a metabolite of wqkqx-8-pwakpxhcdnsaitmlo nol (THC). Detection of 9-carboxy THC suggests use of, or exposure to, a product containing THC. This test cannot distinguish between prescribed or non-prescribed forms of THC, nor can it distinguish between active or passive use. The plasma half-life for 9-carboxy THC metabolite is estimated to range from 4-12 hours. This test was developed and its performance characteristics determined by [facility]. It has not been cleared or approved by the US Food and Drug Administration. This test was performed in a CLIA certified laboratory and is intended for clinical purposes. Performed By: [facility] [address] [place] [id number] Manager Registration: Jose Holliday MD, PhD CLIA Number: [id number] TRAMADOL AND METABOLITE, JUAN NTITATIVE, SERUM OR PLASMA Reviewed date:02/22/2025 11:24:10 AM Interpretation:Negative Performing Lab:[facility], [address] [place] [id number] Notes/Report: TRAMADOL, SERUM/PLASMA None Det Serum or Plasma Reporting Limit: 10 ng/mL Synonym(s): Ultrex(R); Ultram(R) Peak plasma levels following a single 100 mg oral dose: 230-380 ng/mL. Steady-state plasma levels following a 100 mg 4 times daily regimen: 420-770 ng/mL. Analysis by [facility] Liquid Chromatography/ Tandem Mass Spectrometry (LC-MS/MS) O-DESMETHYLTRAMADOL, SERUM/PLASMA None Det Serum or Plasma Reporting Limit: 10 ng/mL Synonym(s): Tramadol Metabolite Peak plasma concentration following a single 100 mg oral dose: 35-75 ng O-Desmethyltramadol/mL. Steady-state plasma concentration following a 100 mg 4 times daily regimen: 80-140 ng O-Desmethyltramadol/mL. The ratio of whole blood concentration to serum or plasma concentration is unknown for this analyte. Analysis by [facility] Liquid Chromatography/ Tandem Mass Spectrometry (LC-MS/MS) This test was developed and its performance characteristics determined by [facility]. It has not been cleared or approved by the US Food and Drug Administration. Digital data review may have taken place remotely by qualified [facility] staff utilizing a secure VPN connection for some or all of the reported results. This is in accordance with and follows CLIA regulations. Testing performed at [facility] [address] [place] [phone] Thanh Myers, PhD, -AB, [facility], Manager Registration [facility] [id number] DRUG SCREEN 9, SERUM OR PLAS MA W/ CONFIRM * Reviewed date:02/16/2025 10:58:47 PM Interpretation:THC Performing Lab:[facility], [address] [place] [address] Notes/Report: AMPHETAMINES, S/P, SCREEN Negative N Presumptively Negative by immunoassay. Testing by mass spectrometry is available on request. Interpretive Information: Amphetamines Screen, S/P Methodology: Immunoassay Positive Cutoff: 20 ng/mL METHAMPHETAMINE, S/P, SCREEN Negative N Presumptively Negative by immunoassay. Testing by mass spectrometry is available on request. Interpretive Information: Methamphetamine Screen, S/P Methodology: Immunoassay Positive Cutoff: 20 ng/mL BARBITURATES, S/P, SCREEN Negative N Presumptively Negative by immunoassay. Testing by mass spectrometry is available on request. Interpretive Information: Barbiturates Screen, S/P Methodology: Immunoassay Positive Cutoff: 50 ng/mL BENZODIAZEPINES, S/P, SCREEN Negative N Presumptively Negative by immunoassay. Testing by mass spectrometry is available on request. Interpretive Information: Benzodiazepines Screen, S/P Methodology: Immunoassay Positive Cutoff: 50 ng/mL BUPRENORPHINE, S/P, SCREEN Negative N Presumptively Negative by immunoassay. Testing by mass spectrometry is available on request. Interpretive Information: Buprenorphine Screen, S/P Methodology: Immunoassay Positive Cutoff: 1 ng/mL COCAINE, S/P, SCREEN Negative N Presumptively Negative by immunoassay. Testing by mass spectrometry is available on request. Interpretive Information: Cocaine Screen, S/P Methodology: Immunoassay Positive Cutoff: 20 ng/mL METHADONE, S/P, SCREEN Negative N Presumptively Negative by immunoassay. Testing by mass spectrometry is available on request. Interpretive Information: Methadone Screen, S/P Methodology: Immunoassay Positive Cutoff: 25 ng/mL OPIATES, S/P, SCREEN Negative N Presumptively Negative by immunoassay. Testing by mass spectrometry is available on request. Interpretive Information: Opiates Screen, S/P Methodology: Immunoassay Positive Cutoff: 20 ng/mL OXYCODONE, S/P, SCREEN Negative N Presumptively Negative by immunoassay. Testing by mass spectrometry is available on request. Interpretive Information: Oxycodone/Oxymorphone Screen, S/P Methodology: Immunoassay Positive Cutoff: 20 ng/mL PHENCYCLIDINE, S/P, SCREEN Negative N Presumptively Negative by immunoassay. Testing by mass spectrometry is available on request. Interpretive Information: Phencyclidine Screen, S/P Methodology: Immunoassay Positive Cutoff: 10 ng/mL CANNABINOIDS, S/P, SCREEN Presumptivepos N Presumptive positive results are automatically reflexed to confirmation testing by mass spectrometry. Interpretive Information: Carboxy-THC Screen, S/P Methodology: Immunoassay Positive Cutoff: 20 ng/mL This test does not distinguish between the delta-8 and delta-9 forms of Carboxy-THC or their metabolites. DRUG SCREEN COMMENTS, SERUM OR PLASMA See Note N Interpretive Information: Drug Screen with Reflex to Quant S/P Presumptive negative results for drug(s) and/or drug metabolite(s) may indicate non-compliance, inappropriate timing of specimen collection relative to drug administration, poor drug absorption, or limitations of testing. The concentration at which the screening test can detect a drug or metabolite varies within a drug class. For medical purposes only; not valid for forensic use. This test was developed and its performance characteristics determined by [facility]. It has not been cleared or approved by the US Food and Drug Administration. This test was performed in a CLIA certified laboratory and is intended for clinical purposes. Performed By: [facility] [address] [place] [id number] Manager Registration: Jose Holliday MD, PhD CLIA Number: [id number] Reason For Referral Reason Please dispense ONE BLOOD PRESSURE APPARATUS with APPROPRIATE SIZED CUFF. Thank you. Diagnosis 1 Hypertension, unspec ified type (I10) Diagnosis 2 Severe protein-calor ie malnutrition (E43) Diagnosis 3 Metabolic encephalop athy (G93.41) Referral Organization [facility] Referring Provider First Name [facility] Referring Provider Last Name [facility] Referring Provider [facility] Referred Provider Specialty DME Referral Priority Routine Reason Please evaluate and treat this lady with iron deficiency anemia secondary to multiple abdominal surgeries, GI bleed and resultant total parenteral nutrition. TPN insufficient with iron content. kindly also evaluate for iron infusion. Diagnosis 1 Iron deficiency anem ia (D50.9) Referral Organization [facility] Referring Provider First Name [facility] Referring Provider Last Name [facility] Referring Provider [facility] Referred Provider Specialty Hematology General Notes Niko Huff 02/14 11:07:48 AM [employer] > Faxed to [facility] Referrals. Referral Priority Routine Reason Please dispense ONE BLOOD PRESSURE APPARATUS with APPROPRIATE SIZED CUFF. Thank you. Diagnosis 1 Hypertension, unspec ified type (I10) Referral Organization [facility] Referring Provider First Name [facility] Referring Provider Last Name [facility] Referring Provider [facility] Referred Provider Specialty DME Referral Priority Routine Medications Medication SIG (Take, Route, Frequency, Duration) Notes Start Date End Date Status Albuterol Sulfate HFA 108 (90 Base) MCG/ACT Aerosol Solution 2 - 4 puff when having SHORTNESS OF BREATH Inhalation every 6 hrs; Duration: 90 days Active Ondansetron 4 MG Tablet Disintegrating 1 tablet on the tongue and allow to dissolve for nausea when needed Orally 3 times a day; Duration: 90 days Active Maalox Max 400-400-40 MG/5ML Suspension 10 mL as needed Orally every 6 hours as needed; Duration: 90 days Active Enulose 10 GM/15ML Solution TAKE 15ML BY MOUTH THREE TIMES A DAY NEEDED; Duration: 30 Last seen 208 days ago - needs appointment for further refills Not-Taking/ PRN Multivitamin & Mineral ; Duration: 90 days Active Famotidine 20 MG Tablet TAKE 1 TABLET BY MOUTH TWO TIMES DAILY Orally twice a day; Duration: 90 days Not-Taking/ PRN fentaNYL 25 MCG/HR Patch 72 Hour 1 patch to skin for SEVERE PAIN Transdermal every three days; Duration: 30 days 02/10/2025 Active Melatonin 1 MG/4ML Liquid 4 mL at bedtime as needed Orally Once a day; Duration: 90 days 02/05/2024 Not-Taking/ PRN levETIRAcetam 100 MG/ML Solution 10 ML BY MOUTH EVERY EIGHT HOURS Orally 3 times a day; Duration: 90 days Not-Taking/ PRN Sodium Chloride Flush 0.9 % Solution 10 mL Intravenous 4 times a day; Duration: 90 days Active Heparin Sodium Lock Flush ; Duration: 90 days 5 mL into the vein daily Active levETIRAcetam 1000 MG Tablet Disintegrating Soluble 1 tablet on the tongue and allow to dissolve Orally Twice a day; Duration: 90 days Active Vitamin C 500 MG Tablet Chewable CHEW AND SWALLOW 1 TABLET BY MOUTH DAILY; Duration: 90 Not-Taking/ PRN Methocarbamol 750 MG Tablet 1 tablet Orally 3 times a day; Duration: 90 days Active Parenteral Electrolytes ; Duration: 90 days 1 dose into vein evry 12 hours; See sticky note Not-Taking/ PRN Gabapentin 300 MG Capsule 1 capsule Orally 3 times a day; Duration: 90 days Active Narcan 4 MG/0.1ML Liquid in case of overdose Nasally Once; Duration: 01/24/2025 Active Topiramate 50 MG Tablet 1.5 tablets Orally twice daily; Duration: 90 days Active ARIPiprazole 5 MG Tablet 1 tablet Orally Once a day; Duration: 90 days Active Sucralfate 1 GM/10ML Suspension TAKE 10 ML BY MOUTH FOUR TIMES DAILY, ONE HOUR BEFORE MEALS AND AT BEDTIME, ON AN EMPTY STOMACH 90; Duration: 90 Active Gabapentin 600 MG Tablet 1 tablet Orally three times daily; Duration: 90 days Active Midodrine HCl 10 MG Tablet 1 TABLET VIA J TUBE THREE TIMES DAILY J Tube 3 times a day; Duration: 90 days Active Fosfomycin Tromethamine 3 GM Packet 3gm Orally one time; Duration: 02/05/2024 Active OLANZapine 5 MG Tablet 1 tablet Orally Once a day; Duration: 90 days Active Pantoprazole Sodium 40 MG Tablet Delayed Release 1 tablet Orally Twice a day; Duration: 90 days Active Vitamin D3 125 MCG (5000 UT) Tablet 1 tablet Orally Once a day; Duration: 90 days Active Vitamin B-12 3000 MCG/ML Liquid 1 mls orally once a day; Duration: 90 days Active Iron Supplement 220 (44 Fe) MG/5ML Solution TAKE 10.2ML BY MOUTH ONCE DAILY; Duration: 90 days Active Folic Acid 200 MCG/ML Liquid 2 mL Orally Once a day; Duration: 90 days Active Ferrous Sulfate 300 (60 Fe) MG/5ML Solution 5 mL Orally daily; Duration: 90 days 01/06/2025 Active Mirtazapine 30 MG Tablet 1 tablet at bedtime Orally Once a day; Duration: 30 day(s) 02/10/2025 Active oxyBUTYnin Chloride 5 MG/5ML Solution 5 ML BY MOUTH TWO TIMES DAILY Orally Twice a day; Duration: 90 days Active Bisacodyl 10 MG Suppository 1 suppository as needed Rectal Once a day; Duration: 90 days Active Immunizations Vaccine Route Administration Date Status Comme nts FLU VAC NO PRSV 4 ROCKY >6 MO Unknown 2020 Administ ered FLU VAC NO PRSV 4 ROCKY >6 MO Unknown 02/10/2023 Administ ered FLU VAC TRIVAL (3 ROCKY) NO TX SV >6 MO Unknown 01/08/2016 Administered FLU VAC TRIVAL (3 ROCKY) NO TX SV >6 MO Unknown 01/02/2024 Administered Flucelvax, quadrivalent, wit h preservative Unknown 03/29/2022 Administered influenza, recombinant, quadrivalent,injectable, preservative free Unknown 04/10/2019 Administered Influenza, seasonal, injecta ble (split), for 3 yrs and up Unknown 04/10/2017 Administered Pfizer COVID-19 Unknown 10/14/2020 Administered Pfizer COVID-19 Unknown 12/21/2020 Administered Social History Tobacco Use: Social History Observation Description Date Details (start date - stop date) Former Smoker NA - NA Social History Social Determinants Social Info Question Answer Notes PRAPARE Date Completed/Updated: 02/10/2025 What is your current housing situation? I [...] phone, visiting friends or family, going to yazdanism or club meetings) I choose not to [...] had a Sexually transmitted disease ? 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 Yes Communication needs (hearing , visual or cognitive): No Good ability to interact with other people: Yes Insecurities in? (list all that apply) None Advanced Care Planning in pl min? (Must have copy of legal document) No Advanced Care Planning Date 02/10/2025 Reviewed/Updated 02/10/2025 Drugs/Alcohol: Social Info Question Answer Notes Drugs Have you used drugs other than those for medical reasons in the past 12 months? No Caffeine Intake: none Drug/Alcohol: Social Info Question Answer Notes AUDIT-C (Standard) Did you have a drink containing alcohol in the past year? No Points 0 Interpretation Negative Tobacco Use: Social Info Question Answer Notes Are you a second hand smoker? Are you a second hand sm oker? No Tobacco Control (Standard) Tobacco use: Former smoker How long has it been since you last smoked? 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) Active confirmed Problem Dissociative disorder (26893422) Dissociative and conversion disorder, unspecified (F44.9) Active confirmed Problem Metabolic encephalopathy (08960976) Metabolic encephalopathy (G93.41) Active confirmed Problem Intestinal malabsorption (122115744) Intestinal malabsorption, unspecified (K90.9) Active confirmed Problem Fibromyalgia (740888451) Fibromyalgia (M79.7) Active confirmed Problem 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) Active confirmed Problem Allergic rhinitis (86243297) Allergic rhinitis (J30.9) Active confirmed Problem Obesity (395418243) Obesity (BMI 30-39.9) (E66.9) Active confirmed Problem Insomnia (376071327) Insomnia (G47.00) Active confirmed Problem Hyperlipidemia (00839129) Hyperlipidemia (E78.5) 024 Active confirmed Problem Chronic pain (29407239) Other chronic pain (G89.29) Active confirmed Problem Vitamin D deficiency (54829952) Vitamin D deficiency (E55.9) Active confirmed Problem Anemia (084577645) Anemia (D64.9) Active confir med Problem Anxiety disorder (267251778) Anxiety disorder (F41.9) Active confirmed Problem Constipation (10504016) Constipation (K59.00) Active confirmed Problem Sleep apnea (73649148) Sleep apnea (G47.30) Active confirmed Problem Dental caries (71265331) Dental caries (K02.9) Active confirmed Problem Malnutrition (0257924) Malnutrition (E46) Active confirmed Problem Gastritis (8802550) Gastritis (K29.70) Active confirmed Problem Iron deficiency anemia (10244064) Iron deficiency anemia (D50.9) Active confirmed Problem Arachnoid cyst (12939298) Arachnoid cyst (G93.0) Active confirmed Problem Steatosis of liver (938825109) Hepatic steatosis (K76.0) Active confirmed Problem Major depressive disorder (069404008) Major depressive disorder (F32.9) Active confirmed Problem Post traumatic stress disorder (95429100) Post traumatic stress disorder (F43.10) Active confirmed Problem Osteoarthritis (850294664) Osteoarthritis (M19.90) Active confirmed Problem Chronic pain (72419432) Chronic pain (G89.29) Active confirmed Problem Bladder incontinence (132771480) Bladder incontinence (R32) Active confirmed Problem 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) Active confirmed Problem Thyroid nodule (566788387) Thyroid nodule (E04.1) Active confirmed Problem Nightmares (541274558) Nightmares (F51.5) Active confirmed Problem Severe protein calorie malnutrition (935583002) Severe protein-calorie malnutrition (E43) Active confirmed Problem History of endocrine disorder (026309441) Hx of caloric malnutrition (Z86.39) Active confirmed Problem Microcytic anemia (210873714) Microcytic anemia (D50.9) Active confirmed Problem Hallucinations (4004492) Auditory hallucination (R44.0) Active confirmed Problem Colostomy present (034090649) Status post colostomy (Z93.3) Active confirmed Problem Periodontal disease (9280204) Periodontal disease (K05.6) Active confirmed Problem Osteoarthritis of knee (852943795) Knee osteoarthritis (M17.9) Active confirmed Problem Memory deficit (832270951) Memory deficit (R41.3) Active confirmed Problem Malabsorption (47062617) Malabsorption (K90.9) Active confirmed Problem Dependence on wheelchair (971232757) Wheelchair dependence (Z99.3) 024 Active confirmed Problem Essential hypertension (37967513) Hypertension, unspecified type (I10) Active confirmed Problem Intestinal malabsorption (320588353) Intestinal malabsorption, unspecified type (K90.9) Active confirmed Problem BMI 30+ - obesity (647207194) BMI 32.0-32.9,adult (Z68.32) Active confirmed Problem Gastroesophageal reflux disease with esophagitis and hemorrhage (K21.01) Active confirmed Problem Body mass index 30+ - obesity (310757251) BMI 30.0-30.9,adult (Z68.30) Active confirmed Problem Body mass index 30.00 to 34.99 (236845785347687) BMI 31.0-31.9,adult (Z68.31) Active confirmed Problem History of psychiatric disorder (478202959) H/O borderline personality disorder (Z86.59) Active confirmed Problem Persistent vomiting (399404055) Persistent vomiting (R11.15) Active confirmed Vital Signs Heart Rate 83 /min 02/10/2025 Temperature 98 degrees Fahrenheit 02/10/2025 Respiratory Rate 16 /min 02/10/2025 Blood pressure diastolic 95 mm Hg 02/10/2025 Oximetry 97 % 02/10/2025 Height-cm 154.94 cm 02/10/2025 Weight-kg 66.23 kg 02/10/2025 Height 61 in 02/10/2025 Blood pressure systolic 115 mm Hg 02/10/2025 Weight 146.0 lbs 02/10/2025 BMI 27.58 kg/m2 02/10/2025 Encounters Encounter Location Date Provider Diagnosis [facility] [address] [place] [address] 01/24/2025 Tam Key BMI 28.0-28.9,adult Z68.28 ; Exercise counseling Z71.82 ; Dietary counseling Z71.3 ; Open wound T14.8XXA ; Acute lower UTI N39.0 ; Chronic pain G89.29 ; Conversion disorder with seizures or convulsions F44.5 ; Intestinal malabsorption, unspecified K90.9 ; Status post colostomy Z93.3 and Bladder incontinence R32 [facility] [address] [place] [address] 10/31/2024 Tam Key Metabolic encephalopathy G93.41 ; Hypertension, unspecified type I10 ; BMI 29.0-29.9,adult Z68.29 ; Exercise counseling Z71.82 and Dietary counseling Z71.3 [facility] [address] [place] [address] 02/10/2025 Tam Key Insomnia G47.00 ; Chronic pain G89.29 ; Abdominal wound dehiscence, sequela T81.321S ; Hypertension, unspecified type I10 ; Iron deficiency anemia D50.9 ; BMI 27.0-27.9,adult Z68.27 ; Exercise counseling Z71.82 and Dietary counseling Z71.3 [facility] [address] [place] [address] 03/18/2025 Tam Key [place] [address] [place] [address] 03/18/2024 [facility] [address] [place] [address] 03/20/2024 [facility] [address] [place] [address] 03/20/2024 Tam Key Unspecified abdomina l pain R10.9 [facility] [address] [place] [address] 03/29/2024 Tam Key [facility] [address] [place] [address] 04/04/2024 Tam Yesi [facility] [address] [place] [address] 04/17/2024 Tam Yesi [facility] [address] [place] [address] 04/17/2024 Tam Ysei [facility] [address] [place] [address] 04/18/2024 Tam Yesi [facility] [address] [place] [address] 04/18/2024 Tam Key Unspecified abdomina l pain R10.9 [facility] [address] [place] [address] 05/01/2024 Tam Yesi [facility] [address] [place] [address] 05/16/2024 Tam Yesi [facility] [address] [place] [address] 06/28/2024 Tam Key Insomnia G47.00 [facility] [address] [place] [address] 07/01/2024 Tam Yesi [facility] [address] [place] [address] 07/17/2024 Tam Yesi [facility] [address] [place] [address] 07/17/2024 Tam Key Insomnia G47.00 ; Unspecified abdominal pain R10.9 and Acute lower UTI N39.0 [facility] [address] [place] [address] 09/06/2024 Tam Key Insomnia G47.00 [facility] [address] [place] [address] 10/08/2024 [facility] [address] [place] [address] 10/11/2024 [facility] [address] [place] [address] 10/23/2024 [facility] [address] [place] [address] 10/25/2024 [facility] [address] [place] [address] 11/04/[address] [facility] [address] [place] [address] 11/05/2024 Tamdavey Key Unspecified abdomina l pain R10.9 [facility] [address] [place] [address] 11/06/2024 Tam Key Unspecified abdomina l pain R10.9 [facility] [address] [place] [address] 11/06/2024 [facility] [address] [place] [address] 11/11/2024 [facility] [facility] [address] [place] [address] 12/03/2024 [facility] [address] [place] [address] 12/09/2024 [facility] [address] [place] [address] 12/26/2024 [facility] [address] [place] [address] 12/30/2024 [facility] [address] [place] [address] 01/06/2025 [facility] [address] [place] [address] 01/24/2025 [facility] [address] [place] [address] 01/26/2025 [place] deficiency anem ia D50.9 [facility] [address] [place] [address] 01/27/2025 [facility] [address] [place] [address] 01/27/2025 [facility] [address] [place] [address] 01/27/2025 [facility] [address] [place] [address] 02/11/2025 [facility] [address] [place] [address] 02/16/2025 [facility] [address] [place] [address] 02/18/2025 [facility] [address] [place] [address] 02/25/2025 [facility] [address] [place] [address] 03/04/2025 [facility] [address] [place] [address] 03/11/2025 [facility] [address] [place] [address] 03/11/2025 [facility] Assessments Encounter Date Diagnosis (ICD Code) Assessment Notes Treatment Notes Treatment Clinical Notes Section Notes 03/20/2024 Unspecified abdominal pain (ICD-10 - R10.9) 04/18/2024 Unspecified abdominal pain (ICD-10 - R10.9) 06/28/2024 Insomnia (ICD-10 - G47.00) 09/06/2024 Insomnia (ICD-10 - G47.00) 10/31/2024 Metabolic encephalopathy (ICD-10 - G93.41) 10/31/2024 Hypertension, unspecified type (ICD-10 - I10) 1.Take medications as prescribed - emphasized importance of compliance. 2. Eat a low sodium diet and include fruits/vegetable s, lean meats, and low fat dairy products. 3. Get 30 minutes of moderate-intensi ty exercise daily to help maintain a healthy weight. 4. Follow up with your provider as scheduled. 5. Please check blood pressure 2-3 times per week and bring readings to next appointment. 6. Avoid smoking (if you smoke). Use caution with over the counter medications such as sudafed, ibuprofen and naproxen, as these can increase your blood pressure. 07/17/2024 Insomnia (ICD-10 - G47.00) 11/05/2024 Unspecified abdominal pain (ICD-10 - R10.9) 11/06/2024 Unspecified abdominal pain (ICD-10 - R10.9) 01/24/2025 BMI 28.0-28.9,adult (ICD-10 - Z68.28) Body Mass Index: Care Instructions material was published 01/26/2025 Iron deficiency anemia (ICD-10 - D50.9) 02/10/2025 Insomnia (ICD-10 - G47.00) Patient reported ongoing sleep difficulties. Previously received sleep medication in hospital. Currently taking mirtazapine, recently increased to address sleep issues. - Increase mirtazapine to 30 mg; start taking 2 tablets as directed. - Dispense 30 tablets of mirtazapine. 02/10/2025 Chronic pain (ICD-10 - G89.29) Persistent, constant pain reported, especially in the foot. Pain medication (oxycodone) not fully effective; Tylenol tried without relief. Pharmacy limitations resulted in only two weeks of liquid oxycodone dispensed. Patient expressed emotional distress due to pain and barriers to medication access. - Disontinue oxycodone 10 mg three times a day and plan to take Fentanyl patch considering patient is on TPN and should avoid oral medications as well, needs better pain control. - Monitor pharmacy refill schedule and ensure monthly in-person visits for controlled medication refills. - Urinalysis ordered for controlled medication monitoring. 02/10/2025 Abdominal wound dehiscence, sequela (ICD-10 - T81.321S) continue daily dressing per surgical team recommendations. 01/24/2025 Exercise counseling (ICD-10 - Z71.82) 10/31/2024 BMI 29.0-29.9,adult (ICD-10 - Z68.29) Body Mass Index: Care Instructions material was printed 07/17/2024 Unspecified abdominal pain (ICD-10 - R10.9) 10/31/2024 Exercise counseling (ICD-10 - Z71.82) 07/17/2024 Acute lower UTI (ICD-10 - N39.0) 01/24/2025 Open wound (ICD-10 - T14.8XXA) 01/24/2025 Dietary counseling (ICD-10 - Z71.3) 02/10/2025 Hypertension, unspecified type (ICD-10 - I10) Diastolic blood pressure noted at 95, raising concern for elevated blood pressure. Patient takes midodrine three times daily for blood pressure management. Provider advised home blood pressure monitoring. - Continue midodrine three times daily. - Monitor blood pressure at home as instructed. 02/10/2025 Iron deficiency anemia (ICD-10 - D50.9) currently on TPn awaiting hematology appointment for inron infusion. 01/24/2025 Acute lower UTI (ICD-10 - N39.0) 10/31/2024 Dietary counseling (ICD-10 - Z71.3) 02/10/2025 BMI 27.0-27.9,adult (ICD-10 - Z68.27) Body Mass Index: Care Instructions material was published 02/10/2025 Exercise counseling (ICD-10 - Z71.82) Patient advised to exercise 30-45 minutes per day 5 to 7 days a week. Patient advised to build up gradually as tolerated. Regular physical activity such as walking, climbing stairs, doing regional controller or even dancing help build and strengthen muscles, increases appetite, helps manage stress, and improves health and alertness. 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 5 MG/325.0 MG22.50Sahni [facility] [id number] [id number] / oxyCODO NE HCL15.035 MG37.50Mou Adilson - [id number]-[id number] art Pharmacy [place], [id number] / Methoca .12174 0 MGNANA - [id number]-r art Pharmacy [facility], [id number] / Gabapen tin90.498706 MGNANA - [id number]-[id number] art Pharmacy [facility], [id number] 60/ ETAMI NOPHEN 325 MG / HYDROcodone BITARTRATE 5 MG ORAL UURKLD29.075.0 MG/325.0 KG77Vrtnyinclj aAustin - [id number]-h art Pharmacy [place], [id number] /09/2024oxyCODON E UGR391.041 MG/IF01MjynzhChava platt Md - [id number], ,[id number] /oxyCODONE HCL70.021 MG/ML52.50Anza susie Jennings - [id number], ,[id number] /oxyCODONE HCL70.021 MG/ML52.50Chevy Islas - [id number], ,[id number] 10/31/2024 Other medications previously sent to pharmacy under care of [facility] Plan Of Treatment Pending Test Test Name Order Date MISCELLANEOUS SO * 02/10/2025 Insurance Providers Payer Name Payer Address Payer Phone Subscriber Number Group Number Insured Name Patient Relationship to Insured Coverage Start Date Coverage End Date [employer] [address] [place] [address] [id number] Nabila Clark Self - patient is the insured 5 Medicaid [facility] Secondary To Medicare [address] [place] [address] [id number] Nabila Clark Self - patient is the insured Dental [employer] [facility] [address] [place] [address] [phone] [id number] Nabila Clark Self - patient is the insured Medical (General) History Medical History History ICD Code congenital heart defect (heart murmur) headaches Hx of seizures, last episode 2013 Intestinal malabsorption, unspecified ty pe K90.9 History of gastric bypass Z98.84 Acute abdominal pain R10.9 Gastroesophageal reflux disease with eso phagitis and hemorrhage K21.01 Microcytic anemia D50.9 Acute pancreatitis K85.90 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 Allergic rhinitis J30.9 Anemia D64.9 Iron deficiency anemia D50.9 Anxiety disorder F41.9 Arachnoid cyst G93.0 Arthralgia of multiple sites M25.50 Auditory hallucination R44.0 B12 deficiency E53.8 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 59 Hx of caloric malnutrition Z86.39 History of Janessa-en-Y gastric bypass Z98. 84 History of trigeminal neuralgia Z86.69 Hyperlipidemia E78.5 Hypotension I95.9 Incisional hernia K43.2 Insomnia G47.00 Intestinal malabsorption, unspecified K9 0.9 Knee osteoarthritis M17.9 Left sided chest pain R07.9 Malnutrition E46 Major depressive disorder F32.9 Memory deficit R41.3 Nausea & vomiting R11.2 Need for immunization against influenza Z23 Nightmares F51.5 Obesity (BMI 30-39.9) E66.9 Osteoarthritis M19.90 Post traumatic stress disorder F43.10 Schizoaffective disorder, unspecified F2 5.9 Sleep apnea G47.30 History of abdominal hernia Z87.19 Thyroid nodule E04.1 Tremor R25.1 Trigger finger, unspecified index finger M65.329 Bladder incontinence R32 Vitamin D deficiency E55.9 Weight gain R63.5 Medication side effects present, initial encounter T50.905A Abdominal discomfort R10.9 Acute pancreatitis K85.90 Arthralgia M25.50 B12 deficiency E53.8 Bradycardia R00.1 Dizziness R42 Esophagitis K20.90 Easy fatigability R53.83 Gastric intestinal metaplasia K31.A0 Heart palpitations R00.2 Hemoptysis R04.2 H/O gastric bypass Z98.84 Hypotension I95.9 Incisional hernia K43.2 Chest pain R07.9 Nausea & vomiting R11.2 Has a tremor R25.1 Surgical History Surgery Date(Month/Year) reverse gastric bypass 09/2018 Total left knee replacement 10/2018 Janessa-en-Y gastric bypass 1994 cholecystectomy Hospitalization History Reason Date(Month/Year) [facility] admis paty for 17 days perforated ulcer. malnutrition, severe GI bleeding 01/2024
--- OUTSIDE RECORDS SUMMARY | 2025-03-18 16:27 | XMS_ITS | Encounter Summary ---
Author Organization Health Address [address] [place] [address] Care Team Providers Care Import Export Coordinator Name Role Phone Unavailable Primary Care Provider Unavailabl e Encounter Details Date Type Department Care Team (Latest Contact Info) Description 01/08/2024 Lab Requisition [facility] [address] [place] [address] Rose Hodge Encounter for screening for other suspected endocrine disorder; Encounter for screening for diabetes mellitus; Encounter for screening for diseases of the blood and blood-forming organs and certain disorders involving the immune mechanism; Encounter for screening for infections with a predominantly sexual mode of transmission; Other specified health status; Encounter for screening for lipoid disorders Social History Tobacco Use Types Packs/Day Years Used Date Smoking Tobacco: Never Assessed Comments Unknown Sex and Gender Information Value Date Recorded Sex Assigned at Not on file Legal Sex Female 12:28 PM CDT Gender Identity Not on file Sexual Orientation Not on file documented as of this encounter Plan of Treatment Not on file documented as of this encounter Procedures Procedure Name Priority Date/Time Associated Diagnosis Comments DIFFERENTIAL Routine 01/08/2024 12:25 PM CDT Encounter for screening for diseases of the blood and blood-forming organs and certain disorders involving the immune mechanism TSH W/ REFLEX FREE T4 Routine 01/08/2024 12:25 PM CDT Encounter for screening for other suspected endocrine disorder HEPATITIS C ANTIBODY Routine 01/08/2024 12:25 PM CDT Encounter for screening for infections with a predominantly sexual mode of transmission CBC Routine 01/08/2024 12:25 PM CDT Encounter for screening for diseases of the blood and blood-forming organs and certain disorders involving the immune mechanism PREALBUMIN Routine 01/08/2024 12:25 PM CDT Other specified health status LIPID PANEL Routine 01/08/2024 12:25 PM CDT Encounter for screening for lipoid disorders COMPREHENSIVE METABOLIC PANEL Routine 01/08/2024 12:25 PM CDT Encounter for screening for diabetes mellitus documented in this encounter Results * (ABNORMAL) Lipid panel (01/08/2024 12:25 PM CDT) CHOLESTEROL 160 <200 MG/DL 01/09/2024 5:34 AM CDT [facility] HDL 32(L) >40 MG/DL 01/09/2024 5:34 AM CDT [facility] TRIGLYCERIDE 152(H) <150 MG/DL 01/09/2024 5:34 AM CDT [facility] LDL, CALCULATED 98 <130 MG/DL 5:34 AM CDT [facility] Blood Venous blood specimen / Unknown 01/08/2024 12:25 PM CDT 01/09/2024 4:33 AM CDT [facility] LAB BLOOD ORDERABLES Final Resul t [facility] [address] [place] [address] ([place] [address] * (ABNORMAL) Prealbumin (01/08/2024 12:25 PM CDT) Pathologist [facility] PREALBUMIN 12(L) 18 - 38 MG/DL 01/09/2024 5:34 AM CDT [facility] Blood Venous blood specimen / Unknown 01/08/2024 12:25 PM CDT 01/09/2024 4:33 AM CDT [employer] [facility] BLOOD ORDERABLES Final Resul t [facility] [address] [place] [address] ([facility]) [place] [address] * Hepatitis C antibody (01/08/2024 12:25 PM CDT) Pathologist [facility] HEPATITIS C AB Negative Negative [employer] IT CONSULTING MANAGER I2000 INSTRUMENT 01/09/2024 6:10 AM CDT [facility] Blood Venous blood specimen / Unknown 01/08/2024 12:25 PM CDT 01/09/2024 4:33 AM CDT us Rose Hodge LAB BLOOD ORDERABLES Final Resul t [facility] [address] [facility] [address] [facility] [address] ([facility]) [place] [address] * (ABNORMAL) DIFFERENTIAL (01/08/2024 12:25 PM CDT) [facility] Differential Type Automated Differential 01/09/2024 5:09 AM CDT [facility] % NEUTROPHIL 73.0(H) 40.0 - 70.0 % 01/09/2024 5:09 AM CDT [facility] % LYMPHOCYTE 16.2(L) 25.0 - 45.0 % 01/09/2024 5:09 AM CDT [facility] % MONOCYTE 7.6 2.0 - 12.0 % 01/09/2024 5:09 AM CDT [facility] % EOSINOPHIL 2.1 0.0 - 6.0 % 01/09/2024 5:09 AM CDT [facility] % BASOPHIL 1.1 0.0 - 2.0 % 01/09/2024 5:09 AM CDT [facility] ABSOLUTE NEUTROPHIL 8.2(H) 1.3 - 7.5 K/UL 01/09/2024 5:09 AM CDT [facility] ABSOLUTE LYMPHOCYTE 1.8 1.3 - 4.2 K/UL 01/09/2024 5:09 AM CDT [facility] ABSOLUTE MONOCYTE 0.8 0.2 - 1.0 K/UL 01/09/2024 5:09 AM CDT [facility] ABSOLUTE EOSINOPHIL 0.2 0.0 - 0.5 K/UL 01/09/2024 5:09 AM CDT [facility] ABSOLUTE BASOPHIL 0.1 <=0.2 K/UL 01/09/2024 5:09 AM CDT [facility] NUCLEATED RBC'S 0.0 /100 5:09 AM CDT [facility] Blood Venous blood specimen / Unknown 01/08/2024 12:25 PM CDT 01/09/2024 4:33 AM CDT us Rose Hodge LAB BLOOD ORDERABLES Final Resul t [facility] [address] [facility] [address] [facility] [address] ([facility]) [place] [address] * (ABNORMAL) CBC (01/08/2024 12:25 PM CDT) WBC 11.2 3.9 - 12.0 K/UL 01/09/2024 5:09 AM CDT [facility] RBC 3.48(L) 3.80 - 5.40 M/UL 01/09/2024 5:09 AM CDT [facility] HEMOGLOBIN 11.1(L) 11.7 - 16.0 GM/DL 01/09/2024 5:09 AM CDT [facility] HEMATOCRIT 34.4(L) 35.0 - 49.0 % 01/09/2024 5:09 AM CDT [facility] MCV 98.9 80.0 - 99.0 FL 01/09/2024 5:09 AM CDT [facility] MCH 32.1 26.0 - 35.0 PG 01/09/2024 5:09 AM CDT [facility] MCHC 32.4 32.0 - 37.0 GM/DL 01/09/2024 5:09 AM CDT [facility] RDW 21.4(H) 11.6 - 15.0 % 01/09/2024 5:09 AM CDT [facility] PLATELET 432 150 - 450 K/UL 01/09/2024 5:09 AM CDT [facility] MPV 9.0 6.5 - 11.0 FL 01/09/2024 5:09 AM CDT [facility] Blood Venous blood specimen / Unknown 01/08/2024 12:25 PM CDT 01/09/2024 4:33 AM CDT us Rose Hodge LAB BLOOD ORDERABLES Final Resul t [facility] [address] [facility] Room [address] [place] [address] ([facility]) [place] [address] * (ABNORMAL) Comprehensive metabolic panel (01/08/2024 12:25 PM CDT) BLOOD UREA NITROGEN 20 6 - 20 MG/DL 01/09/2024 5:34 AM CDT [facility] SODIUM 136 135 - 145 MMOL/L 01/09/2024 5:34 AM CDT [facility] POTASSIUM 4.3 3.5 - 5.2 MMOL/L 01/09/2024 5:34 AM CDT [facility] CHLORIDE 105 98 - 108 MMOL/L 01/09/2024 5:34 AM CDT [facility] CO2 CONTENT 20(L) 24 - 32 MMOL/L 01/09/2024 5:34 AM CDT [facility] GLUCOSE 159(H) 65 - 110 MG/DL 01/09/2024 5:34 AM CDT [facility] CALCIUM 9.1 8.6 - 10.6 MG/DL 01/09/2024 5:34 AM CDT [facility] CREATININE 0.52 0.40 - 1.20 MG/DL 01/09/2024 5:34 AM CDT [facility] TOTAL PROTEIN 7.5 6.0 - 8.0 GM/DL 01/09/2024 5:34 AM CDT [facility] ALBUMIN 3.0(L) 3.4 - 5.0 GM/DL 01/09/2024 5:34 AM CDT [facility] ALK PHOS 157(H) 40 - 125 U/L 01/09/2024 5:34 AM CDT [facility] ALT 27 7 - 50 U/L 01/09/2024 5:34 AM CDT [facility] AST 36 10 - 40 U/L 01/09/2024 5:34 AM CDT [facility] BILIRUBIN, TOTAL 0.3 0.0 - 1.2 MG/DL 01/09/2024 5:34 AM CDT [facility] ANION GAP 11 3 - 11 MMOL/L 01/09/2024 5:34 AM CDT [facility] ESTIMATED GFR, CKD-EPI 109 >=60 mL/min/1.7 3m*2 01/09/2024 5:34 AM CDT [facility] Blood Venous blood specimen / Unknown 01/08/2024 12:25 PM CDT 01/09/2024 4:33 AM CDT [facility] BLOOD ORDERABLES Final Resul t Performing Organization Address City/[facility] Co de Phone Number [facility] [address] [address] ([facility]) [place] [address] * TSH W/ Reflex Free T4 (01/08/2024 12:25 PM CDT) TSH W/ FT4 REFLEX 2.18 0.35 - 4.00 MCIU/ML 01/09/2024 5:38 AM CDT [facility] Blood Venous blood specimen / Unknown 01/08/2024 12:25 PM CDT 01/09/2024 4:33 AM CDT [facility] BLOOD ORDERABLES Final Resul t Performing Organization Address City/[facility] Co de Phone Number [facility] [address] [place] [address] ([facility]) [place] [address] documented in this encounter Visit Diagnoses Diagnosis Encounter for screening for other suspected endocrine disorder Encounter for screening for diabetes mellitus Encounter for screening for diseases of the blood and blood-forming organs and certain disorders involving the immune mechanism Encounter for screening for infections with a predominantly sexual mode of transmission Other specified health status Encounter for screening for lipoid disorders documented in this encounter
--- OUTSIDE RECORDS SUMMARY | 2025-03-18 16:27 | XMS_ITS | Encounter Summary ---
Author Organization Health Address [address] [place] [address] Care Team Providers Care Entry Level Software Developer Name Role Phone Unavailable Primary Care Provider Unavailabl e Encounter Details Date Type Department Care Team (Late st Contact Info) Description 02/10/2025 Lab Requisition [facility] [address] [place] [address] [place] Key Other chronic pain Social History Tobacco Use Types Packs/Day Years [...] Procedure Name Priority Date/Time Associated Diagnosis Comments OUTREACH VENIPUNCTURE Routine 02/10/2025 3:10 PM SALES COACH Other chronic pain [facility] Routine 02/10/2025 3:10 PM SALES COACH Other chronic pain DRUG SCREEN 9 PANEL W/CONF Routine 02/10/2025 3:10 PM SALES COACH Other chronic pain CANNABINOIDS, CONF Routine 02/10/2025 3: 10 PM SALES COACH Other chronic pain documented in this encounter Results * Cannabinoids, Conf (02/10/2025 3:10 PM SALES COACH) 90-Pni-9-carboxy-TH C, S/P, Quant 159 ng/mL 02/16/2025 7:04 AM SALES COACH [facility] Comment: INTERPRETIVE INFORMATION: THC Metabolite, Serum or Plasma, Quantitative Methodology: Quantitative Liquid Chromatography-Tandem Mass Spectrometry. Positive cutoff: 5 ng/mL For medical purposes only; not valid for forensic use. The drug analyte detected in this assay, 9-carboxy THC, is a metabolite of cvyqd-4-scbpgkipjqxvzmmkbhuy (THC). Detection of 9-carboxy THC suggests use of, or exposure to, a product containing THC. This test cannot distinguish between prescribed or non-prescribed forms of THC, nor can it distinguish between active or passive use. The plasma half-life for 9-carboxy THC metabolite is estimated to range from 4-12 hours. This test was developed and its performance characteristics determined by [employer]. It has not been cleared or approved by the US Food and Drug Administration. This test was performed in a CLIA certified laboratory and is intended for clinical purposes. Performed By: [facility] [address] [place] [address] Manager Mail: Jose Holliday MD, PhD CLIA Number: [id number] Blood Venous blood specimen / Unknown 02/10/2025 3:10 PM SALES COACH 02/11/2025 2:34 AM SALES COACH [facility] BLOOD ORDERABLES Final Resul t [facility] [address] [place] [address] * - [facility] Test (02/10/2025 3:10 PM SALES COACH) [facility] Test Result SEE NOTE 02/14/2025 6:38 PM SALES COACH [facility] Comment: Test name Result Flag Units RefIntvl Fentanyl, [...] developed and its performance characteristics determined by [employer]. It has not been cleared or approved by the US Food and Drug Administration. This test was performed in a CLIA certified laboratory and is intended for clinical purposes. Performed By: [facility] [address] [address] [place] [address] Manager Mail: Jose Holliday MD, PhD CLIA Number: [id number] Blood Venous blood specimen / Unknown 02/10/2025 3:10 PM SALES COACH 02/11/2025 2:38 AM SALES COACH [facility] BLOOD ORDERABLES Final Resul t [address] [address] * Drug Screen 9 Panel W/Conf (02/10/2025 3:10 PM SALES COACH) Amphetamines, S/P, Screen Negative 02/14/2025 1:57 AM SALES COACH [facility] Comment: Presumptively Negative by immunoassay. Testing by mass spectrometry is available on request. Interpretive Information: Amphetamines Screen, S/P Methodology: Immunoassay Positive Cutoff: 20 ng/mL Methamphetamine, S/P, Screen Negative 02/14/2025 1:57 AM SALES COACH [facility] Comment: Presumptively Negative by immunoassay. Testing by mass spectrometry is available on request. Interpretive Information: Methamphetamine Screen, S/P Methodology: Immunoassay Positive Cutoff: 20 ng/mL Barbiturates, S/P, Screen Negative 02/14/2025 1:57 AM SALES COACH [facility] Comment: Presumptively Negative by immunoassay. Testing by mass spectrometry is available on request. Interpretive Information: Barbiturates Screen, S/P Methodology: Immunoassay Positive Cutoff: 50 ng/mL Benzodiazepines, S/P, Screen Negative 02/14/2025 1:57 AM SALES COACH [facility] Comment: Presumptively Negative by immunoassay. Testing by mass spectrometry is available on request. Interpretive Information: Benzodiazepines Screen, S/P Methodology: Immunoassay Positive Cutoff: 50 ng/mL Buprenorphine, S/P, Screen Negative 02/14/2025 1:57 AM SALES COACH [facility] Comment: Presumptively Negative by immunoassay. Testing by mass spectrometry is available on request. Interpretive Information: Buprenorphine Screen, S/P Methodology: Immunoassay Positive Cutoff: 1 ng/mL Cocaine, S/P, Screen Negative 02/14/2025 1:57 AM SALES COACH [facility] Comment: Presumptively Negative by immunoassay. Testing by mass spectrometry is available on request. Interpretive Information: Cocaine Screen, S/P Methodology: Immunoassay Positive Cutoff: 20 ng/mL Methadone, S/P, Screen Negative 02/14/2025 1:57 AM SALES COACH [facility] Comment: Presumptively Negative by immunoassay. Testing by mass spectrometry is available on request. Interpretive Information: Methadone Screen, S/P Methodology: Immunoassay Positive Cutoff: 25 ng/mL Opiates, S/P, Screen Negative 02/14/2025 1:57 AM SALES COACH [facility] Comment: Presumptively Negative by immunoassay. Testing by mass spectrometry is available on request. Interpretive Information: Opiates Screen, S/P Methodology: Immunoassay Positive Cutoff: 20 ng/mL Oxycodone, S/P, Screen Negative 02/14/2025 1:57 AM SALES COACH [facility] Comment: Presumptively Negative by immunoassay. Testing by mass spectrometry is available on request. Interpretive Information: Oxycodone/Oxymorphone Screen, S/P Methodology: Immunoassay Positive Cutoff: 20 ng/mL Phencyclidine, S/P, Screen Negative 02/14/2025 1:57 AM SALES COACH [facility] Comment: Presumptively Negative by immunoassay. Testing by mass spectrometry is available on request. Interpretive Information: Phencyclidine Screen, S/P Methodology: Immunoassay Positive Cutoff: 10 ng/mL Cannabinoids, S/P, Screen Presumptivepos ng/mL 02/14/2025 1:57 AM SALES COACH [facility] Comment: Presumptive positive results are automatically reflexed to confirmation testing by mass spectrometry. Interpretive Information: Carboxy-THC Screen, S/P Methodology: Immunoassay Positive Cutoff: 20 ng/mL This test does not distinguish between the delta-8 and delta-9 forms of Carboxy-THC or their metabolites. Drug Screen Comments, Serum or Plasma See Note 02/14/2025 1:57 AM SALES COACH [facility] Comment: Interpretive Information: Drug Screen with Reflex to [...] developed and its performance characteristics determined by [employer]. It has not been cleared or approved by the US Food and Drug Administration. This test was performed in a CLIA certified laboratory and is intended for clinical purposes. Performed By: [facility] [address] [address] [place] [address] Manager Mail: Jose Holliday MD, PhD CLIA Number: [id number] Blood Venous blood specimen / Unknown 02/10/2025 3:10 PM SALES COACH 02/11/2025 2:34 AM SALES COACH [facility] BLOOD ORDERABLES Final Resul t Performing Organization Address [facility] de Phone Number [facility] [address] [place] [address] * Outreach Venipuncture (02/10/2025 3:10 PM SALES COACH) Blood Venous blood specimen / Unknown 02/10/2025 3:10 PM SALES COACH 02/11/2025 2:34 AM SALES COACH [facility] BLOOD ORDERABLES Final Resul t [facility] [address] [facility] Room [address] [place] [address] ([facility]) [place] [address] documented in this encounter Visit Diagnoses Diagnosis Other chronic pain documented in this encounter
--- OUTSIDE RECORDS SUMMARY | 2025-03-18 16:27 | XMS_ITS | Encounter Summary ---
Author Organization [facility] Address [address] [place] [address] Care Team Providers Care Ladderman Name Role Phone Unavailable Primary Care Provider Unavailabl e Encounter Details Date Type Department Care Team (Late st Contact Info) Description 02/05/2024 Lab Requisition CLINICAL PATH LAB [address] [place] [address] TuckerRenetta anthonyica Urinary tract infection, site not specified Social History Tobacco Use Types Packs/Day Years [...] Procedure Name Priority Date/Time Associated Diagnosis Comments URINE CULTURE Routine 02/05/2024 10:00 AM MEDICAL LOGISTICS SPECIALIST Urinary tract infection, site not specified documented in this encounter Results * (ABNORMAL) Urine culture (02/05/2024 10:00 AM MEDICAL LOGISTICS SPECIALIST) Urine Culture >100,000 CFU/ML Escherichia coli(A) 02/09/2024 7:03 AM MEDICAL LOGISTICS SPECIALIST [facility] Urine Culture >100,000 CFU/ML Klebsiella pneumoniae(A) 02/09/2024 7:03 AM MEDICAL LOGISTICS SPECIALIST [facility] Urine Urine specimen obtained by clean catch procedure / Unknown 02/05/2024 10:00 AM MEDICAL LOGISTICS SPECIALIST 02/06/2024 4:08 AM MEDICAL LOGISTICS SPECIALIST Narrative Organism Antibiotic Method Susceptibility Escherichia coli Ampicillin LAB SUSCEPTIBIL ITY METHOD (KIP) >=32 ug/ml: Resistant Escherichia coli Ampicillin + Sulbactam LAB SUSC EPTIBILITY METHOD (KIP) >=32 ug/ml: Resistant Escherichia coli Cefazolin LAB SUSCEPTIBIL ITY METHOD (KIP) 16 ug/ml: Susceptible Comment:Cefazolin re sults are used to predict results for oral cephalosporins when used for therapy of uncomplicated UTI caused by E. coli, K. pneumoniae and P. mirabilis. Escherichia coli Cefepime LAB SUSCEPTIBIL ITY METHOD (KIP) <=0.12 ug/ml: Susceptible Escherichia coli Ceftazidime LAB SUSCEPTIBIL ITY METHOD (KPI) <=1 ug/ml: Susceptible Escherichia coli Ceftriaxone LAB SUSCEPTIBIL ITY METHOD (KIP) <=0.25 ug/ml: Susceptible Escherichia coli Ciprofloxacin LAB SUSCEPTIBIL ITY METHOD (KIP) >=4 ug/ml: Resistant Escherichia coli ESBL LAB SUSCEPTIBIL ITY METHOD (KIP) Neg ug/ml: Negative Escherichia coli Gentamicin LAB SUSCEPTIBIL ITY METHOD (KIP) <=1 ug/ml: Susceptible Escherichia coli Imipenem LAB SUSCEPTIBIL ITY METHOD (KIP) <=0.25 ug/ml: Susceptible Escherichia coli Levofloxacin LAB SUSCEPTIBIL ITY METHOD (KIP) >=8 ug/ml: Resistant Escherichia coli Nitrofurantoin LAB SUSCEPTIBIL ITY METHOD (KIP) <=16 ug/ml: Susceptible Escherichia coli Piperacillin + Tazobactam LAB SUSCEPTIBILITY METHOD (KIP) <=4 ug/ml: Susceptible Escherichia coli Tobramycin LAB SUSCEPTIBIL ITY METHOD (KIP) <=1 ug/ml: Susceptible Escherichia coli Trimethoprim + Sulfamethoxazole LAB SUSCEPTIBILITY METHOD (KIP) >=320 ug/ml: Resistant Klebsiella pneumoniae Ampicillin + Sulbactam LAB SUSCEPTIBILITY METHOD (KIP) 8 ug/ml: Susceptible Klebsiella pneumoniae Cefazolin LAB SUSCEPTIBILITY METHOD (KIP) <=4 ug/ml: Susceptible Comment:Cefazolin re sults are used to predict results for oral cephalosporins when used for therapy of uncomplicated UTI caused by E. coli, K. pneumoniae and P. mirabilis. Klebsiella pneumoniae Cefepime LAB SUSCEPTIBILITY METHOD (KIP) <=0.12 ug/ml: Susceptible Klebsiella pneumoniae Ceftazidime LAB SUSCEPTIBILITY METHOD (KIP) <=1 ug/ml: Susceptible Klebsiella pneumoniae Ceftriaxone LAB SUSCEPTIBILITY METHOD (KIP) <=0.25 ug/ml: Susceptible Klebsiella pneumoniae Ciprofloxacin LAB SUSCEPTIBILITY METHOD (KIP) <=0.25 ug/ml: Susceptible Klebsiella pneumoniae ESBL LAB SUSCEPTIBILITY METHOD (KIP) Neg ug/ml: Negative Klebsiella pneumoniae Gentamicin LAB SUSCEPTIBILITY METHOD (KIP) <=1 ug/ml: Susceptible Klebsiella pneumoniae Imipenem LAB SUSCEPTIBILITY METHOD (KIP) <=0.25 ug/ml: Susceptible Klebsiella pneumoniae Levofloxacin LAB SUSCEPTIBILITY METHOD (KIP) <=0.12 ug/ml: Susceptible Klebsiella pneumoniae Nitrofurantoin LAB SUSCEPTIBILITY METHOD (KIP) 64 ug/ml: Intermediate Klebsiella pneumoniae Piperacillin + Tazobactam LAB SUSCEPTIBILITY METHOD (KIP) <=4 ug/ml: Susceptible Klebsiella pneumoniae Tobramycin LAB SUSCEPTIBILITY METHOD (KIP) <=1 ug/ml: Susceptible Klebsiella pneumoniae Trimethoprim + Sulfamethoxazole LAB SUSCEPTIBILITY METHOD (KIP) <=20 ug/ml: Susceptible [facility] MICROBIOLOGY - GENERAL ORDER AUGUST Final Result [facility] [address] [facility] [address] [address] ([facility]) [place] [address] documented in this encounter Visit Diagnoses Diagnosis Urinary tract infection, site not specified documented in this encounter
--- OUTSIDE RECORDS SUMMARY | 2025-03-18 16:27 | XMS_ITS ---
Author Organization [facility] Care Team Providers Care Electrical Technician Name Role Phone Dash Echeverria Unavailable Unavailable Monica Blood Unavailable Unavailable Allergies and adverse reactions No Known Allergies Care Team Name Role Address Phone Organization Dates Dash Echeverria [facility] [address] [place], [address], [place] (Office): : [facility] 06/12/2023 - 07/08/2023 Monica Blood [address] [facility] , [place], [address], [place] (Office): [facility] 06/12/2023 - 07/08/2023 Goals Section Goals Description Status Target Date Minimize pain and discomfort with wound through next review Active 08/31/2023 The resident will maintain a dequate nutritional and hydration status aeb weight stable, no s/sx of malnutrition or dehydration through review date. Active 08/31/2023 The resident will remain linda e of side effects or complications related to tube feeding through review date. Active This resident will remain fr ee of potential adverse reactions from medication through next review Active 08/31/2023 Ambulation, will maintain ab ility to ambulate with walker and one, up to 20ft Active 08/31/2023 Care team will avoid inadver tently triggering any past trauma events through the next review Active 08/31/2023 Minimize risk for skin break down and No pressure ulcer will develop by the next review Active 08/31/2023 Minimize risks of developing a urinary tract infection through next review Active 08/31/2023 Minimize/manage risk for falls Active 0 08/31/2023 Promote healing of wound, following 02/18/23 lea john Active 08/31/2023 Promote weight stability through next review. Ac tive 08/31/2023 Resident will continue to pe rform current level of ADL function through review date Active 08/31/2023 Resident will have no advers e reaction related to black box medication through next review Active 08/31/2023 Resident will maintain accep table quality of life through next review Active 08/31/2023 Resident will receive servic es as directed per screening requirements through the next review Active 08/31/2023 Resident will safely utilize d the designated side rails to promote independence with bed mobility and repositioning through next review Active 08/31/2023 Resident wishes will be honored thru next review Active 08/31/2023 The resident will maintain o ptimal quality of life within limitation imposed by visual function through review date. Active 08/31/2023 The resident will not have a n interruption in normal activities due to pain through next review Active 08/31/2023 The resident will verbalize adequate pain relief of pain or ability to cope with incompletely relieved pain through next review Active 08/31/2023 Will participate in rehabili tation program and return to prior living arrangements thru next review. Active 08/31/2023 Immunizations Immunization Status Vaccine Details Vaccine Code CodeSystem Date Notes Influenza completed Influenza, high-dose, split virus, quadrivalent, injectable, preservative free 197 CVX created date: 04/03/2023 administer ed date: 02/10/2023 Influenza completed Influenza, high-dose, split virus, quadrivalent, injectable, preservative free 197 CVX created date: 04/03/2023 administer ed date: 03/29/2022 Influenza completed Influenza, high-dose, split virus, quadrivalent, injectable, preservative free 197 CVX created date: 04/03/2023 administer ed date: 2020 Influenza completed Influenza, high-dose, split virus, quadrivalent, injectable, preservative free 197 CVX created date: 04/03/2023 administer ed date: 04/10/2019 Influenza completed Influenza, high-dose, split virus, quadrivalent, injectable, preservative free 197 CVX created date: 04/03/2023 administer ed date: 04/10/2017 Influenza completed Influenza, high-dose, split virus, quadrivalent, injectable, preservative free 197 CVX created date: 04/03/2023 administer ed date: 01/08/2016 TB 1 Step Mantoux (PPD) completed tuberculin skin test; unspecified formulation lotNumber: [id number] expiry: 03/03/2026 Mfg: Mantoux Tubersol Given 0.1 ml Left Forearm subcutaneously 98 CVX created date: 03/28/2023 consent date: 03/28/2023 administer ed date: 03/14/2023 Educated by on 03/14/2023 TB 2 Step Mantoux Skin Test completed tuberculin skin test; unspecified formulation lotNumber: [id number] expiry: 03/28/2023 Mfg: Mantoux Tubersol Given 0.1 ml Right Forearm subcutaneously Step 1 of Multi-step with next step required 98 CVX created date: 03/28/2023 consent date: 03/28/2023 administer ed date: 03/28/2023 SARS-COV-2 (COVID-19) completed SARS-COV-2 (COVID-19) vaccine, UNSPECIFIED Step 2 of Multi-step with next step required 213 CVX created date: 04/03/2023 administer ed date: 12/21/2020 SARS-COV-2 (COVID-19) completed SARS-COV-2 (COVID-19) vaccine, UNSPECIFIED Step 1 of Multi-step with next step required 213 CVX created date: 04/03/2023 administer ed date: 10/14/2020 SARS-COV-2 (COVID-19) Updated monovalent completed SARS-COV-2 (COVID-19) vaccine, mRNA, spike protein, LNP, preservative free, steff-sucrose, 30 mcg/0.3 mL dose lotNumber: [id number] expiry: 08/02/2023 Mfg: pfizer Given 0.3 ml Left Deltoid intramuscularly 309 CVX created date: 04/03/2023 consent date: 04/03/2023 administer ed date: 04/03/2023 Mental Status Section Date Assessment Total Score Description 07/07/2023 CAM 0 No delirium ind icated 06/21/2023 BIMS 15 cognitively int act CAM 0 No delirium ind icated PHQ-9 04 minimal depress ion Insurance Providers Coverage Status Coverage Type Relationship to Subscriber Member Identifier Subscriber Identifier Group Identifier Payer Identifier and Other information 2023 Code: 2 Code System OID:2.16.840 .1.646792.3. 221.5 Code System Name: Source of Payment Typology (PHDSC) Display: Medicaid Translation: Code: 48 Code System: OID:2.16.840 .1.906178.6. 255.1336 Code System Name: Insurance Type Code ([id number]) Display Name: Medicaid Code: SELF Code System Name: HL7 RoleCode Code System OID:2.16.840.1 .607107.5.111 Display Name: Self [id number] Root: [id number] Payer Name: [place] Address: [facility] City: [place] State: [place] Country: [facility] Code: 81 Code System OID:2.16.840 .1.487579.3. 221.5 Code System Name: Source of Payment Typology (PHDSC) Display: Self Pay Translation: Code: 09 Code System: OID:2.16.840 .1.556631.6. 255.1336 Code System Name: Insurance Type Code ([id number]) Display Name: Self-pay Code: 1 Code System OID:2.16.840 .1.460598.3. 221.5 Code System Name: Source of Payment Typology (PHDSC) Display: Medicare Translation: Code: MB Code System: OID:2.16.840 .1.158855.6. 255.1336 Code System Name: Insurance Type Code ([id number]) Display Name: Medicare Part B 2023 Code: 349 Code System OID:2.16.840 .1.193364.3. 221.5 Code System Name: Source of Payment Typology (PHDAZ) Display: Other Translation: Code: C1 Code System: OID:2.16.840 .1.472970.6. 255.1336 Code System Name: Insurance Type Code ([id number]) Display Name: Commercial Insurance Code: SELF Code System Name: HL7 RoleCode Code System OID:2.16.840.1 .088610.5.111 Display Name: Self [id number] Root: [id number] Payer Name: [email or web address] Address: [address] 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 [address] active 6 BORDERLINE PERSONALITY DISORDER [address] active 7 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 [address] active 8 DEFICIENCY OF OTHER SPECIFIED B GROUP VITAMINS [address] active 9 DEPENDENCE ON RENAL DIALYSIS 3 04/23/[address] completed 10 DEPRESSION, UNSPECIFIED [address] active 11 ENCOUNTER FOR ATTENTION TO OTHER ARTIFICIAL OPENINGS OF DIGESTIVE TRACT [address] active 12 ENCOUNTER FOR SURGICAL AFTERCARE FOLLOWING SURGERY ON THE DIGESTIVE SYSTEM [address] active 13 END STAGE RENAL DISEASE [address] active 14 ESOPHAGITIS, UNSPECIFIED WITHOUT BLEEDING [address] active 15 FATTY (CHANGE OF) LIVER, NOT ELSEWHERE CLASSIFIED [address] active 16 [address]ROMYALGIA [address] active 17 GASTRO-ESOPHAGEAL REFLUX DISEASE WITHOUT ESOPHAGITIS [address] active 18 HYPERLIPIDEMIA, UNSPECIFIED [address] active 19 IRON DEFICIENCY ANEMIA, UNSPECIFIED [address] active 20 MORBID (SEVERE) OBESITY DUE TO EXCESS CALORIES [address] active 21 OBSTRUCTIVE SLEEP APNEA (ADULT) (PEDIATRIC) [address] active 22 PERITONEAL ABSCESS [address] active 23 SCHIZOAFFECTIVE DISORDER, UNSPECIFIED [address] active 24 UNSPECIFIED GLAUCOMA [address] active 25 UNSPECIFIED OSTEOARTHRITIS, UNSPECIFIED SITE [address] active 26 UNSPECIFIED SEVERE PROTEIN-CALORIE MALNUTRITION [address] active Reason for Referral No Reasons for Referral Entered Social History Social History Observation Description Start Date End Date Code Code System Current Smoking Status Tobacco smoking consumption unknown 222981845 SNOMED CT Sex Assigned At Female 1965 79997-1 LOINC Gender Identity Female [id number] [address] Sexual Orientation Heterosexual (finding) 68038052 SNOMED CT Vital Signs Code Code System Vitals Name Values and Units Timing Information 92385-4 LOINC Pain Level Value=4.0 07/08/2023 8462-4 LOINC Blood Pressure-Diastolic Value=70 Un its=mmHg 07/07/2023 8480-6 LOINC Blood Pressure-Systolic Iiwii=669 Un its=mmHg 07/07/2023 96788-4 LOINC O2 % BldC Oximetry Value=96.0 Units= % 07/07/2023 9279-1 LOINC Respiratory Rate Value=18.0 Units=/m in 07/07/2023 8310-5 LOINC Body Temperature Value=97.6 Units= F 07/07/2023 8867-4 LOINC Heart rate Value=74.0 Units=/min 08/2023 42593-6 LOINC Weight Hilda=405.0 Units=Lbs 06/2023 8302-2 LOINC Height Value=61.0 Units=Inches 03/13/2023
--- OUTSIDE RECORDS SUMMARY | 2025-03-18 16:27 | XMS_ITS | Clinical Summary ---
Author Organization [employer] Address [address] [place] [address] Care Team Providers Care Rubber Extrusion Machine Operator Name Role Phone Unavailable Primary Care Provider Unavailabl e Source Comments This disclosure is being made pursuant to the Chalkboard program and maynot contain all information available regarding this patient.[employer] Immunizations Immunization Administration Dates Next Due Influenza Split 06/19/2012,02/01/2011 Family History Medical History Relation Name Comments Other Other 1 Heart disease - All Family: Noted on 2011-02-03 13:44:31 Other Other 2 Hypertension - All Family: Noted on 2011-02-03 13:44:31 Other Other 3 Diabetes mellit us - All Family: Noted on 2011-02-03 13:44:31 Other Other 4 Depressive diso rder - All Family: Noted on 2011-02-03 13:44:31 Other Other 5 Mental disorder - All Family: Noted on 2011-02-03 13:44:31 Other Other 6 Smoking tobacco - All Family: Noted on 2011-02-03 13:44:31 Other Other 7 Systemic lupus - All Family: Noted on 2011-02-03 13:44:31 Other Other 8 Alzheimer's dis ease - All Family: Noted on 2011-02-03 13:44:31 Other Other 9 Asthma - All Fa suha: Noted on 2011-02-03 13:44:31 Relation Name Status Comments Other 1 Other 2 Other 3 Other 4 Other 5 Other 6 Other 7 Other 8 Other 9 Social History Tobacco Use Types Packs/Day Years Used Date Smoking Tobacco: Every Day Comments Unknown Sex and Gender Information Value Date Recorded Sex Assigned at Not on file Legal Sex Female 9:19 PM CDT Gender Identity Not on file Sexual Orientation Not on file Last Filed Vital Signs Vital Sign Reading Time Taken Comments Blood Pressure 118/76 01/03/2013 10:10 AM CDT Pulse 72 01/03/2013 10:10 AM CDT Temperature 35.9 C (96.7 F) 06/14/2012 9:15 AM CDT Respiratory Rate - - Oxygen Saturation - - Inhaled Oxygen Concentration - - Weight 83.8 kg (184 lb 12.8 oz) 013 10:10 AM CDT Height 156.2 cm (5' 1.5) 01/03/2013 10 :10 AM CDT Body Mass Index 34.35 01/03/2013 10:10 AM CDT Plan of Treatment Health Maintenance Due Date Last Done Comments Breast Cancer Screening-Mammogram 1967 CT Colonography 1967 Cervical Cancer Screening 1967 Colonoscopy 1967 Colorectal Cancer Screening 1967 Fecal DNA Test 1967 HPV 1967 Lab-Hepatitis C Screening 1967 Sigmoidoscopy 1967 Annual Wellness Visit 06/04/1985 Hepatitis B Vaccine (1 of 3 - 19+ 3-dose series) 06/04/1986 Tetanus/Pertussis Vaccine Teen/Adult (1 - Tdap) 06/04/1986 FOBT/FIT 1987 Pap Smear 06/04/1988 Pneumococcal Vaccines 50+ (1 of 1 - PCV) 06/04/2017 Zoster (Shingles) Vaccine 50 + (1 of 2) 06/04/2017 Lab-Cholesterol Screening 06/14/20172012, 09/22/2011 COVID-19 Vaccine ( - 2024-2 6 season) 2024 Influenza Vaccine (#1) 2024 3, 02/01/2011 RSV Adult (1 - 1-dose 75+ series) 06/04/2042 HIB Vaccine Aged Out No longer eligi ble based on patient's age to complete this topic HPV Vaccine (9-26yo & Shared Decision 27-45yo) Aged Out No longer eligible b ased on patient's age to complete this topic Hepatitis A Vaccine Aged Out No longe r eligible based on patient's age to complete this topic IPV Vaccine Aged Out No longer eligi ble based on patient's age to complete this topic Meningococcal Conjugate Vaccine Aged Out No longer eligible b ased on patient's age to complete this topic RSV < 20 Months Aged Out No longer el igible based on patient's age to complete this topic Procedures Procedure Name Priority Date/Time Associated Diagnosis Comments LIPID PANEL Routine 06/14/2012 from Last 3 Months or Most Recently Relevant to Health Maintenance Results * (ABNORMAL) Lipid panel (06/14/2012) Cholesterol 209(H) >0 <200 MG/DL [facility] Triglycerides 89 >0 <200 MG/DL [facility] HDL Cholesterol 66 >>60 < MG/DL [facility] LDL, Calculated 125.2 > < MG/DL [facility] Cholesterol/HDL Ratio 3.2 > < [facility] 06/14/2012 us Scooter Prescott MD LAB BLOOD ORDERABLES Final R esult [facility] from Last 3 Months or Most Recently Relevant to Health Maintenance
--- OUTSIDE RECORDS SUMMARY | 2025-03-18 16:27 | XMS_ITS | Encounter Summary ---
Author Organization Health Address [address] [place] [address] Care Team Providers Care Bowling Alley Floors Installer Name Role Phone Unavailable Primary Care Provider Unavailabl e Encounter Details Date Type Department Care Team (Latest Contact Info) Description 01/08/2024 Lab Requisition [facility] [address] [place] [address] Rose Hodge Encounter for screening for infections with a predominantly sexual mode of transmission; Other specified health status Social History Tobacco Use Types Packs/Day Years [...] Date/Time Associated Diagnosis Comments OUTREACH VENIPUNCTURE Routine 01/08/2024 12:25 PM CDT Encounter for screening for infections with a predominantly sexual mode of transmission BIOPLEX TOTAL SYPHILIS (IGG AND IGM) SEROLOGY Routine 01/08/2024 12:25 PM CDT Encounter for screening for infections with a predominantly sexual mode of transmission HIV ANTIBODY/ANTIGEN SCREEN WITH REFLEX Routine 01/08/2024 12:25 PM CDT Encounter for screening for infections with a predominantly sexual mode of transmission MAGNESIUM Routine 01/08/2024 12:25 PM CDT Other specified health status documented in this encounter Results * Outreach Venipuncture (01/08/2024 12:25 PM CDT) Blood Venous blood specimen / Unknown 01/08/2024 12:25 PM CDT 01/09/2024 4:33 AM CDT Rose Hodge LAB BLOOD ORDERABLES Final Resul t [facility] [address] [facility] [address] [address] ([facility]) [place] [address] * Magnesium (01/08/2024 12:25 PM CDT) MAGNESIUM 1.8 1.8 - 2.4 MG/DL 01/09/2024 5:24 AM CDT [facility] Blood Venous blood specimen / Unknown 01/08/2024 12:25 PM CDT 01/09/2024 4:33 AM CDT Zahroof Valves LAB BLOOD ORDERABLES Final Resul t Performing Organization Address [facility] Co de Phone Number [facility] [address] [facility] [address] [address] ([facility]) [place] [address] * Total Syphilis (01/08/2024 12:25 PM CDT) Total Syphilis Non-Reacti ve Non-Reacti ve 01/09/2024 6:01 AM CDT [facility] Blood Venous blood specimen / Unknown 01/08/2024 12:25 PM CDT 01/09/2024 4:33 AM CDT Zahroof Valves LAB BLOOD ORDERABLES Final Resul t Performing Organization Address [facility] Co de Phone Number [facility] [address] [facility] [address] [address] ([facility]) [place] [address] * HIV Antibody/Antigen Screen with Reflex (01/08/2024 12:25 PM CDT) Screening, 5th Generation HIV Antigen-Antibod y Non-Reacti ve Non-React libby 01/09/2024 7:02 AM CDT [facility] Screening, HIV-1 Antibody Non-Reacti ve Non-React libby 01/09/2024 7:02 AM CDT [facility] Screening, HIV-1 Antigen Non-Reacti ve Non-React libby 01/09/2024 7:02 AM CDT [facility] Screening, HIV-2 Antibody Non-Reacti ve Non-React libby 01/09/2024 7:02 AM CDT [facility] Blood Venous blood specimen / Unknown 01/08/2024 12:25 PM CDT 01/09/2024 4:33 AM CDT us Rose Hodge LAB BLOOD ORDERABLES Final Resul t [facility] [address] [facility] [address] [place] [address] ([facility]) [place] [address] documented in this encounter Visit Diagnoses Diagnosis Encounter for screening for infections with a predominantly sexual mode of transmission Other specified health status documented in this encounter
--- OUTSIDE RECORDS SUMMARY | 2025-03-18 16:27 | XMS_ITS | Encounter Summary ---
Author Organization Health Address [address] [place] [address] Care Team Providers Care Catering Driver Name Role Phone Unavailable Primary Care Provider Unavailabl e Encounter Details Date Type Department Care Team (Late st Contact Info) Description 02/10/2025 Lab Requisition [facility] [address] [place] [address] Tam Key Other chronic pain Social History [...] Procedure Name Priority Date/Time Associated Diagnosis Comments TRAMADOL AND METABOLITE, QUANTITATIVE, SERUM OR PLASMA Routine 02/10/2025 3:11 PM BUSINESS COMMUNICATIONS INSTRUCTOR Other chronic pain documented in this encounter Results * Tramadol and Metabolite, Quantitative, Serum or Plasma (02/10/2025 3:11 PM BUSINESS COMMUNICATIONS INSTRUCTOR) Tramadol, Serum/Plasma None Det ng/mL 02/19/2025 8:04 AM BUSINESS COMMUNICATIONS INSTRUCTOR [facility] Comment: Serum or Plasma Reporting Limit: 10 ng/mL Synonym(s): Ultrex(R); Ultram(R) Peak plasma levels following a single 100 mg oral dose: 230-380 ng/mL. Steady-state plasma levels following a 100 mg 4 times daily regimen: 420-770 ng/mL. Analysis by High Performance Liquid Chromatography/ Tandem Mass Spectrometry (LC-MS/MS) O-Desmethyltramad ol, Serum/Plasma None Det ng/mL 02/19/2025 8:04 AM BUSINESS COMMUNICATIONS INSTRUCTOR [facility] Comment: Serum or Plasma Reporting Limit: 10 ng/mL [...] developed and its performance characteristics determined by [employer]. It has not been cleared or approved by the [place] Food and Drug Administration. Digital data review may have taken place remotely by qualified [facility] staff utilizing a secure VPN connection for some or all of the reported results. This is in accordance with and follows CLIA regulations. Testing performed at [employer] [address] [place] [id number] Thanh Myers, PhD, [facility], [facility], Food Products Tester [facility] [id number] Blood Venous blood specimen / Unknown 02/10/2025 3:11 PM BUSINESS COMMUNICATIONS INSTRUCTOR 02/11/2025 2:33 AM BUSINESS COMMUNICATIONS INSTRUCTOR Tam Key LAB MICROBIOLOGY - GENERAL ORDER AUGUST Final Result [facility] [address] [place] [address] documented in this encounter Visit Diagnoses Diagnosis Other chronic pain documented in this encounter
--- OUTSIDE RECORDS SUMMARY | 2025-03-18 16:27 | XMS_ITS | Clinical Summary ---
Author Organization [facility] Address [address] [place] [address] Care Team Providers Care Intelligence Director Name Role Phone Yesi Caldera MD, [facility] Primary Care Provider [phone] Allergies No known active allergies Medications * This document contains information received from the source organization and may not represent a complete record from that organization. sucralfate (CARAFATE) 1 G tabletIndications :reflux Take 1 tablet (1 g total) by mouth 4 (four) times daily before meals and nightly. Indications: reflux 12/12/19 23 Active VENTOLIN HFA 108 (90 Base) MCG/ACT inhalerIndication s:Shortness of breath Inhale 1 puff into the lungs every 4 (four) hours as needed for Wheezing or Shortness of breath. Indications: Shortness of breath 10/16/19 24 Active mirtazapine (REMERON) 7.5 MG Tab tabletIndications :Restless Leg Syndrome Take 1 tablet by mouth nightly at bedtime. Indications: Restless Leg Syndrome 10/16/19 24 Active TF peptide based w/MCT (VITAL AF 1.2) LiquidIndications :Nutrition 85 mL/hr by Per J Tube route nightly at bedtime. Indications: Nutrition 11/28/19 24 Active vitamin B-1 (THIAMINE) 100 MG tablet 1 tablet (100 mg total) by Tube route daily. 30 tablet 11/29/19 24 Active ARIPiprazole (ABILIFY) 5 MG tablet 1 tablet (5 mg total) daily. 11/30/19 24 Active OLANZapine (ZYPREXA ZYDIS) 5 MG TABLET DISPERSIBLE disintegrating tabletIndications :depression 1 tablet nightly at bedtime. Indications: depression 11/29/19 24 Active ARIPiprazole (ABILIFY) 15 MG tabletIndications :psychiatric disorder Take 15 mg by mouth daily. Indications: psychiatric disorder 12/01/19 24 Active acetaminophen (TYLENOL) 500 MG tabletIndications :pain Take 1,000 mg by mouth every 6 (six) hours as needed for Pain. Indications: pain 12/01/19 24 Active levETIRAcetam (KEPPRA) 100 MG/ML solutionIndicatio ns:Seizure Take 10 mLs by mouth every 8 (eight) hours. Indications: Seizure 01/04/20 24 Active oxybutynin (DITROPAN) 5 MG/5ML syrupIndications: Overactive Bladder Take 5 mg by mouth daily. Indications: Overactive Bladder 01/04/20 24 Active Parenteral Electrolytes (TPN ELECTROLYTES IV)Indications:Nu trition Inject 1 Dose into the vein every 12 (twelve) hours. Total ADLE=6392, Infusion volume 1800 ml, cycle 12 hours (12 hours on, 12 off), Rate:150 ml/hr via CADD pump. Amino acid 90 gm, Dextrose 250 gm, Lip 36 gm Electrolytes Sodium 100 mEq, Potassium 60 mEq, Calcium 4.6 mEq, Magnesium 30 mEq, Phosphorus 16 mM, chloride 172.5 mEq, Acetate 79.2 mEq Trace elements: Tralement 1 mL Patient additives: Infuvite 10 mL 3x per week Indications: Nutrition 01/04/20 24 Active sodium chloride 0.9 % solutionIndicatio ns:first line supervisor Inject 10 mLs into the vein as needed (first line supervisor). Flush CVC lumens daily and PRN. Flush before and after TPN administration. Indications: first line supervisor 01/05/20 24 Active Heparin Sodium, Porcine, (HEPARIN, PORCINE, LOCK FLUSH IV)Indications:li ne maintenance Inject 5 mLs into the vein daily. Flush CVC lumens per [facility] method after use and daily when line is not in use. Indications: first line supervisor 01/05/20 24 Active melatonin 1 MG/4ML oral liquidIndications :Sleep Disorder Take 1 mg by mouth nightly at bedtime. Gtube Indications: Sleep Disorder 05/07/19 25 Active vitamin C (ASCORBIC ACID) 500 MG tabletIndications :Vitamin C Imbalance (Inactive) Take 500 mg by mouth daily. Gtube Indications: Excess or Deficiency of Vitamin C 05/07/19 25 Active ondansetron (ZOFRAN-ODT) 4 MG disintegrating tabletIndications :Nausea Take 4 mg by mouth 2 (two) times daily as needed for Nausea. Indications: Nausea 05/07/19 25 Active bisacodyl (DULCOLAX) 10 MG suppositoryIndica tions:Constipatio n Place 10 mg rectally daily as needed for Constipation. Indications: Constipation 05/07/19 25 Active famotidine (PEPCID) 20 MG tabletIndications :Gastroesophageal reflux Take 20 mg by mouth 2 (two) times daily. Indications: Gastroesophageal reflux 05/07/19 25 Active pantoprazole (PROTONIX) 40 MG packetIndications :Gastroesophageal reflux Take 40 mg by mouth 2 (two) times a day. Indications: Gastroesophageal reflux 05/07/19 25 Active Vitamin D3 125 mcg TabIndications:De layed Bone Healing,Vitamin D Deficiency 125 mcg by Per G-J tube route daily. Indications: Delayed Healing of the Bone, Vitamin D Deficiency 05/07/19 25 Active HYDROmorphone (DILAUDID) 1 MG/ML oral liquidIndications :Chronic Pain 2 mg by Per J Tube route every 6 (six) hours as needed for Pain. Indications: Chronic Pain 05/07/19 25 Active Multiple Vitamin (INFUVITE ADULT IV)Indications:Vi tamin Deficiency 2 vials by Intravascular route 3 (three) times a week. add to TPN prior to infusion Indications: Vitamin Deficiency 05/07/19 25 Active midodrine (PROAMATINE) 10 MG tabletIndications :Hypotension Take 10 mg by mouth 3 (three) times daily. Indications: Disorder of Low Blood Pressure 05/07/19 25 Active Active Problems Problem Noted Date Diagnosed Date SBO (small bowel obstruction) 03/04/2025 Leukocytosis 11/21/2023 Altered mental status 11/19/2023 Internal hernia 01/17/2023 History of Janessa-en-Y gastric bypass 01/17/2023 History of bowel resection 01/17/2023 Abdominal pain 01/01/2023 Anemia, unspecified Encounters Date Type Department Care Team Description 03/04/2025 3:02 PM [facility] - 03/05/2025 10:50 PM [facility] Hospital Encounter [address] [address] Jerod Bashir MD Zhen, MD Will Toro Ashis, Constipation; Abdominal Pain Discharge Disposition: Transfer to Acute Care Hospital 03/04/2025 Travel from Last 3 Months Social History Tobacco Use Types Packs/Day Years Used Date Smoking Tobacco: Never Smokeless Tobacco: Never Tobacco Cessation:Counseling Given: Not Answered OASIS D0700: Social Isolation Answer Da te Recorded Frequency of experiencing loneliness or isolatio n Sometimes 05/07/2024 OASIS A1250: Transportation Answer Date Recorded Lack of Transportation (Medical) No 05/07/2024 Lack of Transportation (Non-Medical) No 05/07/2024 Patient Unable or Declines to Respond No 05/07/2024 OASIS B1300: Health Literacy Answer Jayden e Recorded Frequency of needing help to read materials from doctor or pharmacy Always 05/07/2024 Humiliation, Afraid, Rape, and Kick questionnair e Answer Date Recorded Within the last year, have y ou been afraid of your partner or ex-partner? No 01/01/2023 Within the last year, have y ou been humiliated or emotionally abused in other ways by your partner or ex-partner? No Within the last year, have y ou been kicked, hit, slapped, or otherwise physically hurt by your partner or ex-partner? No 01/01/2023 Within the last year, have y ou been raped or forced to have any kind of sexual activity by your partner or ex-partner? No 01/01/2023 Social Connection and Isolation Panel Answer Date Recorded In a typical week, how many times do you talk on the phone with family, friends, or neighbors? More than three times a week 01/01/2023 How often do you get togethe r with friends or relatives? More than three times a week 01/01/2023 How often do you attend chur ch or druze services? 1 to 4 times per year 01/01/2023 Active Member of Clubs or Organizations Not on f ile 01/01/2023 Attends Club or Organization Meetings Not on sandip e 01/01/2023 Are you , , di vorced, , never , or living with a partner? 01/01/2023 AUDIT-C Answer Date Recorded Q1: How often do you have a drink containing alcohol? Never 01/01/2023 Q2: How many drinks containi ng alcohol do you have on a typical day when you are drinking? Patient does not drink 3 Q3: How often do you have si x or more drinks on one occasion? Never 01/01/2023 Overall Financial Resource Strain (CARDIA) Answe r Date Recorded How hard is it for you to pa y for the very basics like food, housing, medical care, and heating? Not very hard 01/01/2023 [facility] - Occupational Stress Questionnaire Answer Date Recorded Do you feel stress - tense, restless, nervous, or anxious, or unable to sleep at night because your mind is troubled all the time - these days? To some extent 01/01/2023 Exercise Vital Sign Answer Date Recorde d On average, how many days pe r week do you engage in moderate to strenuous exercise (like a brisk walk)? 7 days 01/01/2023 On average, how many minutes do you engage in exercise at this level? 30 min 01/01/2023 Hunger Vital Sign Answer Date Recorded Within the past 12 months, y ou worried that your food would run out before you got the money to buy more. Never true 01/02/20 23 Within the past 12 months, t he food you bought just didn't last and you didn't have money to get more. Never true 01/01/2023 PRAPARE - Transportation Answer Date Re corded In the past 12 months, has l ack of transportation kept you from medical appointments or from getting medications? No 01/01/2023 In the past 12 months, has l ack of transportation kept you from meetings, work, or from getting things needed for daily living? Patient declined 01/01/2023 Housing Stability Vital Sign Answer Jayden e Recorded In the last 12 months, was t here a time when you were not able to pay the mortgage or rent on time? No 01/01/2023 In the last 12 months, how many places have you lived? 1 01/01/2023 In the last 12 months, was t here a time when you did not have a steady place to sleep or slept in a [place] [facility] [place] (including now)? No 01/01/2023 Hunger Vital Sign Answer Date Recorded Within the past 12 months, y ou worried that your food would run out before you got the money to buy more. Never true 03/05/20 25 Within the past 12 months, t he food you bought just didn't last and you didn't have money to get more. Never true 03/05/2025 Comments Unknown Sex and Gender Information Value Date Recorded Sex Assigned at Female 03/04/2025 5:15 PM [facility] Legal Sex Female 9:10 PM [facility] Gender Identity Not on file Sexual Orientation Not on file Last Filed Vital Signs Vital Sign Reading Time Taken Comments Blood Pressure 115/70 03/05/2025 8:04 PM [facility] Pulse 93 03/05/2025 8:04 PM [facility] Temperature 36.7 C (98.1 F) 03/05/2025 8:04 PM [facility] Respiratory Rate 18 03/05/2025 4:00 PM [facility] Oxygen Saturation 100% 03/05/2025 8:04 PM [facility] Inhaled Oxygen Concentration - - Weight 69.9 kg (154 lb) 03/04/2025 3:13 PM [facility] Height 154.9 cm (5' 1) 03/04/2025 3:13 PM [facility] Body Mass Index 29.1 03/04/2025 3:13 PM [facility] Plan of Treatment Health Maintenance Due Date Last Done Comments Cervical Cancer Screening Pap Smear (Age 30 to 64) Every 3 Years 1967 Colorectal Cancer Screening Colonoscopy (10 Years) 1967 Annual Physical 06/04/1970 DTaP, Tdap and Td Vaccines (1 - Tdap) 06/04/1986 Hepatitis B Vaccines (1 of 3 - 19+ 3-dose series) 06/04/1986 Cervical Cancer Screening Pap with HPV Testing (Age 30 to 64) Every 5 Years 06/04/1997 Cervical Cancer Screening with HPV 06/04/1997 Mammogram Screening 2007 Pneumococcal Vaccine: 50+ Years (1 of 1 - PCV) 06/04/2017 Zoster Vaccines (1 of 2) 06/04/2017 COVID-19 Vaccine (4 - season) 2024 04/03/2023, 12/21/2020, 12/21/2020, Additional history exists Influenza Adult (#1) 2025 01/02/2024, 02/10/2023, 03/29/2022, Additional history exists Hepatitis C Completed 01/08/2024, 11/20/2023 Hepatitis A Vaccines Aged Out No long er eligible based on patient's age to complete this topic Meningococcal B Vaccine Aged Out No l onger eligible based on patient's age to complete this topic Meningococcal Vaccine Aged Out No kiera osiel eligible based on patient's age to complete this topic RSV Immunizations Under 20 Months Aged Out No longer eligible based on patient's age to complete this topic Goals Goal Patient Goal Type Associated Problems Recent Progress Patient-Stated? Author Family - family caregiver with be involved in care transitions and discharge planning Lifestyle No Wanda Butterfield RN Procedures Procedure Name Priority Date/Time Associated Diagnosis Comments LACTIC ACID STAT 03/05/2025 5:40 AM [facility] PHOSPHORUS, INORGANIC PHOSPHATE STAT 03/05/2025 5:40 AM [facility] MAGNESIUM STAT 03/05/2025 5:40 AM [facility] HC CBC AUTO W/AUTO DIFF STAT 03/05/2025 5:40 AM [facility] BASIC METABOLIC PANEL STAT 03/05/2025 5:40 AM [facility] POCT GLUCOSE - DOCKED DEVICE Routine 03/05/2025 5:28 AM [facility] CT ABD+PEL W CON STAT 03/04/2025 4:42 PM [facility] LIPASE STAT 03/04/2025 3:23 PM [facility] COMPREHENSIVE METABOLIC PANEL STAT 03/04/2025 3:23 PM [facility] HC CBC AUTO W/AUTO DIFF STAT 03/04/2025 3:23 PM [facility] HEPATITIS PANEL,ACUTE Routine 11/20/2023 1:04 AM CDT from Last 3 Months or Most Recently Relevant to Health Maintenance Results * PHOSPHORUS, INORGANIC PHOSPHATE (03/05/2025 5:40 AM [facility]) PHOSPHORUS 3.0 2.5 - 4.9 MG/DL 03/05/2025 6:22 AM [facility] BLOOD VENOUS BLOOD SPECIMEN / Unknown 03/05/2025 5:40 AM [facility] WORK[facility] us Carlos Richey MD LABORATORY Final Result Performing Organization Address [facility] Co de Phone Number [facility] [address] [place] [address], [id number] * MAGNESIUM (03/05/2025 5:40 AM [facility]) [facility] MAGNESIUM 1.8 1.6 - 2.6 MG/DL 03/05/2025 6:22 AM [facility] BLOOD VENOUS BLOOD SPECIMEN / Unknown 03/05/2025 5:40 AM [facility] us Carlos Richey MD LABORATORY Final Result Performing Organization Address [facility] de Phone Number [facility] [address] [place] [address], [id number] * LACTIC ACID (03/05/2025 5:40 AM [facility]) [facility] LACTIC ACID VENOUS 1.2 0.4 - 2.0 MMOL/L 03/05/2025 6:15 AM [facility] BLOOD VENOUS BLOOD SPECIMEN / Unknown 03/05/2025 5:40 AM [facility] us Carlos Richey MD LABORATORY Final Result Performing Organization Address [facility] de Phone Number [facility] [address] [place] [address], [id number] * (ABNORMAL) CBC W/DIFF (03/05/2025 5:40 AM [facility]) Only the most recent of2 resultswithin the time period is included. Pathologist [facility] WBC 7.04 4.00 - 10.80 x10'3/uL 03/05/2025 5:57 AM [facility] RBC 3.30(L) 4.10 - 5.40 x10'6/uL 03/05/2025 5:57 AM [facility] HGB 9.6(L) 12.0 - 16.0 G/DL 03/05/2025 5:57 AM [facility] HCT 29.1(L) 36.0 - 47.0 % 03/05/2025 5:57 AM [facility] MCV 88.2 78.0 - 100.0 FL 03/05/2025 5:57 AM [facility] MCH 29.1 27.0 - 31.0 PG 03/05/2025 5:57 AM [facility] MCHC 33.0 33.0 - 36.0 G/DL 03/05/2025 5:57 AM [facility] RDW 18.7(H) 11.5 - 14.5 % 03/05/2025 5:57 AM [facility] PLT 542(H) 150 - 350 x10'3/uL 03/05/2025 5:57 AM [facility] MPV 9.2 7.4 - 10.4 FL 03/05/2025 5:57 AM [facility] DIFFERENTIAL TYPE AUTOMATED DIFFERENTIAL 03/05/2025 5:57 AM [facility] SEG NEUTROPHILS 58.5 % 5:57 AM [facility] LYMPHOCYTES 33.9 % 03/05/2025 5:57 AM [facility] MONOCYTES 5.7 % 03/05/2025 5:57 AM [facility] EOSINOPHILS 1.0 % 03/05/2025 5:57 AM [facility] BASOPHILS 0.6 % 03/05/2025 5:57 AM [facility] IMMATURE GRANS % 0.3 % 03/05/20 5:57 AM [facility] ABS. NEUTROPHILS 4.12 1.60 - 8.30 x10'3/uL 03/05/2025 5:57 AM [facility] ABS. LYMPHOCYTES 2.39 0.80 - 4.70 x10'3/uL 03/05/2025 5:57 AM [facility] ABS. MONOCYTES 0.40 0.00 - 1.50 x10'3/uL 03/05/2025 5:57 AM [facility] ABS. EOSINOPHILS 0.07 0.00 - 0.40 x10'3/uL 03/05/2025 5:57 AM [facility] ABS. BASOPHILS 0.04 0.00 - 0.20 x10'3/uL 03/05/2025 5:57 AM [facility] ABS. IMMATURE GRANULOCYTES 0.02 0.00 - 0.03 x10'3/uL 03/05/2025 5:57 AM [facility] ABS. NUCLEATED RBC'S 0.00 0.00 - 0.01 x10'3/uL 03/05/2025 5:57 AM [facility] NRBC % 0.0 % 03/05/2025 5:57 AM [facility] BLOOD VENOUS BLOOD SPECIMEN / Unknown 03/05/2025 5:40 AM [facility] us Carlos Richey MD LABORATORY Final Result [facility] [address] [place] [address], [id number] * (ABNORMAL) BASIC METABOLIC PANEL (03/05/2025 5:40 AM [facility]) SODIUM S/P/B 138 136 - 145 MMOL/L 03/05/2025 6:22 AM [facility] POTASSIUM S/P/B 3.7 3.5 - 5.1 MMOL/L 03/05/2025 6:22 AM [facility] CHLORIDE S/P/B 104 97 - 115 MMOL/L 03/05/2025 6:22 AM [facility] CO2 25.1 21.0 - 32.0 MMOL/L 03/05/2025 6:22 AM [facility] GLUCOSE 148(H) 74 - 106 MG/DL 03/05/2025 6:22 AM [facility] BUN 13 7 - 18 MG/DL 03/05/2025 6:22 AM [facility] CREATININE S/P/B 0.47(L) 0.55 - 1.02 MG/DL 03/05/2025 6:22 AM [facility] CALCIUM S/P/B 9.5 8.5 - 10.1 MG/DL 03/05/2025 6:22 AM [facility] ANION GAP 8.9 2.0 - 10.0 MMOL/L 03/05/2025 6:22 AM [facility] OSMOLALITY (CALC) 289 MOSM/KG 025 6:22 AM [facility] Comment:REFERENCE RANGE NOT ESTABLISHED GFR ESTIMATE >90 >90 ML/MIN/1. 73 M2 03/05/2025 6:22 AM [facility] GFR NOTES GFR REFERENCE S: 03/05/2025 6:22 AM [facility] Comment: THE ESTIMATED GFR IS CALCULATED USING THE 2020 CKD-EPI EQUATION. THE FOLLOWING CATEGORIES FOR GRADING RENAL FUNCTION ARE RECOMMENDED BY THE INTERNATIONAL SOCIETY OF NEPHROLOGY (KDIGO 2012 CLINICAL PRACTICE GUIDELINE). G1,NORMAL OR HIGH: >89 ml/min/1.73 m2 G2,MILDLY DECREASED: 60-89 ml/min/1.73 m2 G3A,MILDLY TO MODERATELY DECREASED: 45-59 ml/min/1.73 m2 G3B,MODERATELY TO SEVERELY DECREASED: 30-44 ml/min/1.73 m2 G4,SEVERELY DECREASED: 15-29 ml/min/1.73 m2 G5,KIDNEY FAILURE: <15 ml/min/1.73 m2 BLOOD VENOUS BLOOD SPECIMEN / Unknown 03/05/2025 5:40 AM [facility] us Carlos Richey MD LABORATORY Final Result Performing Organization Address [facility] Co de Phone Number [facility] [address] [place] [address], [place] [phone] * (ABNORMAL) POCT glucose (03/05/2025 5:28 AM [facility]) GLUCOSE POC 133(H) 70 - 109 03/05/2025 6:49 AM [facility] 03/05/2025 5:28 AM [facility] us Carlos Richey MD POCT ORDERABLES - DEVICE Final Result Performing Organization Address [facility] de Phone Number [facility] [address] [place] [address], [place] [phone] * CT ABD+PEL W CON (03/04/2025 4:42 PM [facility]) Anatomical Region Laterality Modality Abdomen Computed Tomogra phy 03/04/2025 5:27 PM [facility] Impressions 03/04/2025 6:26 PM [facility] IMPRESSION: 1. Decompressed small bowel within the mid abdomen with suggestion of proximal and distal transition points, as above. The decompressed bowel enhances normally. However, although less likely, cannot completely exclude closed loop obstruction, possibly secondary to multiple adhesions. 2. Dilated fluid-filled loops of jejunum proximal to the decompressed small bowel extending to the gastrojejunal anastomosis, possible mild low-grade mechanical obstruction. No CT evidence of bowel perforation. 3. Stool-filled proximal large bowel with otherwise normal appearance of the ostomy. 4. Wall thickening and fluid-filled distal esophagus. Findings can be seen in the setting of esophagitis and/or reflux. Small hiatal hernia. 5. Mild biliary ductal dilatation. No findings of biliary obstruction on MRCP dated 11/20/2023. 6. Additional chronic, incidental, and nonemergent findings as detailed above. Dictated By: Robbie Manning DO on 03/04/2025 5:27 PM The attending radiologist has reviewed the image(s) and agrees with the content of this report. Ordered By: JEROD BASHIR Interpreted By: Robbie Manning DO, 03/04/2025 5:27 PM Narrative 03/04/2025 6:26 PM [facility] [address] [address] EXAMINATION: CT ABD+PEL W CON EXAM TIME: 03/04/2025 4:26 PM INDICATION: Constipation. History of gastric bypass with attempted reversal with complications resulting in colostomy. Abdominal pain and no bowel movement for greater than 10 days. COMPARISON: CT abdomen and pelvis 01/01/2023. Abdominal radiograph 11/24/2023. TECHNIQUE: Computed tomography of the abdomen, and pelvis was performed after administration of intravenous contrast, 100mL of IOPAMIDOL 76 % IV SOLN, without immediate complication, according to routine protocol. A dose lowering technique was used for this procedure, which may include, but is not limited to, dose reduction technique, automated exposure control, and/or the use of iterative reconstruction, in accordance with ALARA (As Low As Reasonably Achievable)/Image Gently principle. FINDINGS: Lower Chest: Small calcified granuloma at the left lung base with calcified left hilar lymph nodes as evidence for prior granulomatous disease. There is linear scarring/atelectasis in the left lower lobe. Mitral annular calcifications. Partially included PICC line. Surgical anastomosis at the gastroesophageal junction, possibly secondary to prior fundoplication or related to reported history of gastric bypass. Small hiatal hernia. Fluid within the distal esophagus with a mildly thickened appearance of the distal esophageal wall near the gastroesophageal junction. Hepatobiliary: The liver is normal in size and contour. Cholecystectomy clips are noted. Mild central biliary ductal dilatation, overall similar to the comparison CT. The common bile duct measures up to 1.4 cm with smooth tapering to the ampulla. Pancreas: Mild diffuse fatty atrophy of the pancreas. Spleen: Spleen is absent. Small presumed splenic tissue/residual spleen in the left upper quadrant. Adrenal glands: Unremarkable. Genitourinary: The kidneys enhance symmetrically. No obstructive renal calculus or hydronephrosis. No urinary bladder wall thickening. No reproductive abnormality is seen. Gastrointestinal: There are surgical changes of gastric bypass. The duodenum and hepatobiliary limb are decompressed. There is a dilated fluid-filled appearance of the jejunum adjacent to the presumed gastrojejunal anastomosis in the left upper abdomen. There is decompressed small bowel in the anterior abdominal wall with suggestion of a distal transition point within the mid lower abdomen (axial series 2 image 93) and an additional transition point near the gastrojejunal anastomosis (axial series 2 image 76) series. The decompressed segment of small bowel demonstrates normal enhancement. There is a colostomy in the right mid abdomen. Stool filled large bowel at this location extending to the cecum with mildly thickened wall distally. The terminal ileum is unremarkable. Rectum and excluded descending colon is unremarkable to a surgical anastomosis in the left upper abdomen. Peritoneum: No free intraperitoneal air. No free intraperitoneal fluid. Vascular: The abdominal aorta is normal in caliber. The visceral arteries are patent. Lymphatics: No mesenteric or retroperitoneal lymphadenopathy. No pelvic or inguinal lymphadenopathy. Musculoskeletal: No acute osseous abnormality or destructive bony lesion. Multilevel degenerative changes throughout the spine. Procedure Note Woody Salomon MD - 03/04/[address] [address] EXAMINATION: CT ABD+PEL W CON EXAM TIME: 03/04/2025 4:26 PM INDICATION: Constipation. History of gastric bypass with attemptedreversal with complications resulting in colostomy. Abdominal pain and nobowel movement for greater than 10 days. COMPARISON: CT abdomen and pelvis 01/01/2023. Abdominal radiograph11/24/2023. TECHNIQUE: Computed tomography of the abdomen, and pelvis was performedafter administration of intravenous contrast, 100mL of IOPAMIDOL 76 % IVSOLN, without immediate complication, according to routine protocol. Adose lowering technique was used for this procedure, which may include,but is not limited to, dose reduction technique, automated exposurecontrol, and/or the use of iterative reconstruction, in accordance withALARA (As Low As Reasonably Achievable)/Image Gently principle. FINDINGS: Lower Chest: Small calcified granuloma at the left lung base withcalcified left hilar lymph nodes as evidence for prior granulomatousdisease. There is linear scarring/atelectasis in the left lower lobe.Mitral annular calcifications. Partially included PICC line. Surgicalanastomosis at the gastroesophageal junction, possibly secondary to priorfundoplication or related to reported history of gastric bypass. Smallhiatal hernia. Fluid within the distal esophagus with a mildly thickenedappearance of the distal esophageal wall near the gastroesophagealjunction. Hepatobiliary: The liver is normal in size and contour. Cholecystectomyclips are noted. Mild central biliary ductal dilatation, overall similarto the comparison CT. The common bile duct measures up to 1.4 cm withsmooth tapering to the ampulla. Pancreas: Mild diffuse fatty atrophy of the pancreas. Spleen: Spleen is absent. Small presumed splenic tissue/residual spleen inthe left upper quadrant. Adrenal glands: Unremarkable. Genitourinary: The kidneys enhance symmetrically. No obstructive renalcalculus or hydronephrosis. No urinary bladder wall thickening. Noreproductive abnormality is seen. Gastrointestinal: There are surgical changes of gastric bypass. Theduodenum and hepatobiliary limb are decompressed. There is a dilatedfluid-filled appearance of the jejunum adjacent to the presumedgastrojejunal anastomosis in the left upper abdomen. There is decompressedsmall bowel in the anterior abdominal wall with suggestion of a distaltransition point within the mid lower abdomen (axial series 2 image 93)and an additional transition point near the gastrojejunal anastomosis(axial series 2 image 76) series. The decompressed segment of small boweldemonstrates normal enhancement. There is a colostomy in the right midabdomen. Stool filled large bowel at this location extending to the cecumwith mildly thickened wall distally. The terminal ileum is unremarkable.Rectum and excluded descending colon is unremarkable to a surgicalanastomosis in the left upper abdomen. Peritoneum: No free intraperitoneal air. No free intraperitoneal fluid. Vascular: The abdominal aorta is normal in caliber. The visceral arteriesare patent. Lymphatics: No mesenteric or retroperitoneal lymphadenopathy. No pelvicor inguinal lymphadenopathy. Musculoskeletal: No acute osseous abnormality or destructive bony lesion.Multilevel degenerative changes throughout the spine. IMPRESSION: 1. Decompressed small bowel within the mid abdomen with suggestion ofproximal and distal transition points, as above. The decompressed bowelenhances normally. However, although less likely, cannot completelyexclude closed loop obstruction, possibly secondary to multiple adhesions.2. Dilated fluid-filled loops of jejunum proximal to the decompressedsmall bowel extending to the gastrojejunal anastomosis, possible mildlow-grade mechanical obstruction. No CT evidence of bowel perforation. 3. Stool-filled proximal large bowel with otherwise normal appearance ofthe ostomy. 4. Wall thickening and fluid-filled distal esophagus. Findings can be seenin the setting of esophagitis and/or reflux. Small hiatal hernia. 5. Mild biliary ductal dilatation. No findings of biliary obstruction onMRCP dated 11/20/2023. 6. Additional chronic, incidental, and nonemergent findings as detailedabove. Dictated By: Robbie Manning DO on 03/04/2025 5:27 PM The attending radiologist has reviewed the image(s) and agrees with thecontent of this report. Ordered By: JEROD BASHIR Interpreted By: Robbie Manning DO, 03/04/2025 5:27 PM Jerod Bashir MD CT Final Result * (ABNORMAL) LIPASE (03/04/2025 3:23 PM CHILD DAY CARE CENTER WORKER) Pathologist [facility] LIPASE 8(L) 13 - 75 UNITS/L 03/04/2025 3:59 PM CHILD [employer] CARE CENTER WORKER [facility] BLOOD VENOUS BLOOD SPECIMEN / Unknown 03/04/2025 3:23 PM CHILD [employer] WORKER Jerod Bashir MD LABORATORY Final Result [facility] [address] [place] [address], [id number] * (ABNORMAL) COMPREHENSIVE METABOLIC PANEL (03/04/2025 3:23 PM CHILD [facility] [employer]ARE [facility] WORKER) Pathologist [facility] SODIUM S/P/B 136 136 - 145 MMOL/L 03/04/2025 3:59 PM CHILD [employer] [facility]ARE C[facility] WORKER [facility] POTASSIUM S/P/B 3.7 3.5 - 5.1 MMOL/L 03/04/2025 3:59 PM [facility] CHLORIDE S/P/B 103 97 - 115 MMOL/L 03/04/2025 3:59 PM [facility] CO2 25.3 21.0 - 32.0 MMOL/L 03/04/2025 3:59 PM [facility] GLUCOSE 147(H) 74 - 106 MG/DL 03/04/2025 3:59 PM [facility] BUN 17 7 - 18 MG/DL 03/04/2025 3:59 PM [facility] CREATININE S/P/B 0.43(L) 0.55 - 1.02 MG/DL 03/04/2025 3:59 PM [facility] CALCIUM S/P/B 9.2 8.5 - 10.1 MG/DL 03/04/2025 3:59 PM [facility] BILIRUBIN TOTAL S/P/B 0.3 0.2 - 1.0 MG/DL 03/04/2025 3:59 PM [facility] ALKALINE PHOSPHATASE S/P/B 180(H) 46 - 118 U/L 03/04/2025 3:59 PM [facility] AST 22 15 - 37 U/L 03/04/2025 3:59 PM [facility] ALT 16 13 - 56 U/L 03/04/2025 3:59 PM [facility] TOTAL PROTEIN S/P/B 8.0 6.4 - 8.2 G/DL 03/04/2025 3:59 PM [facility] ALBUMIN S/P/B 2.6(L) 3.4 - 5.0 G/DL 03/04/2025 3:59 PM [facility] ANION GAP 7.7 2.0 - 10.0 MMOL/L 03/04/2025 3:59 PM [facility] OSMOLALITY (CALC) 286 MOSM/KG 025 3:59 PM [facility]ILD [facility] [facility] WORKER [facility] Comment:REFERENCE RANGE NOT ESTABLISHED GFR ESTIMATE >90 >90 ML/MIN/1. 73 M2 03/04/2025 3:59 PM CHILD [employer] [facility] WORKER [facility] GFR NOTES GFR REFERENCE S: 03/04/2025 3:59 PM CHILD [employer] CARE C[employer] WORKER [facility] Comment: THE ESTIMATED GFR IS CALCULATED USING THE 2020 CKD-EPI EQUATION. THE FOLLOWING CATEGORIES FOR GRADING RENAL FUNCTION ARE RECOMMENDED BY THE INTERNATIONAL SOCIETY OF NEPHROLOGY (KDIGO 2012 CLINICAL PRACTICE GUIDELINE). G1,NORMAL OR HIGH: >89 ml/min/1.73 m2 G2,MILDLY DECREASED: 60-89 ml/min/1.73 m2 G3A,MILDLY TO MODERATELY DECREASED: 45-59 ml/min/1.73 m2 G3B,MODERATELY TO SEVERELY DECREASED: 30-44 ml/min/1.73 m2 G4,SEVERELY DECREASED: 15-29 ml/min/1.73 m2 G5,KIDNEY FAILURE: <15 ml/min/1.73 m2 BLOOD VENOUS BLOOD SPECIMEN / Unknown 03/04/2025 3:23 PM CHILD [employer] [facility] C[facility] WORKER us Jerod Bashir MD LABORATORY Final Result [facility] [address] [place] [address], [id number] * HEPATITIS PANEL,ACUTE (11/20/2023 1:04 AM CDT) HEPATITIS B SURFACE AG NON-REACT ROSENDA NON-REACT ROSENDA 11/20/2023 2:44 AM CDT [facility] Comment:HBsAg NOT DETECTED. HEP B CORE IGM NON-REACT ROSENDA NON-REACT ROSENDA 11/20/2023 2:44 AM CDT [facility] Comment: IgM ANTI HBc NOT DETECTED. DOES NOT EXCLUDE THE POSSIBILITY OF EXPOSURE TO OR INFECTION WITH HBV. NO RETEST REQUIRED. HIGH DOSES OF BIOTIN MAY INTERFERE WITH THIS TEST RESULT. CORRELATION TO CLINICAL HISTORY AND PRESENTATION RECOMMENDED. HAV IGM NON-REACT ROSENDA NON-REACT ROSENDA 11/20/2023 2:44 AM CDT [facility] Comment: IgM ANTI HAV NOT DETECTED. DOES NOT EXCLUDE THE POSSIBILITY OF EXPOSURE TO OR INFECTION WITH HAV. LEVELS OF IgM ANTI HAV MAY BE BELOW THE CUTOFF IN EARLY INFECTION. HEPATITIS C AB NON-REACT ROSENDA NON-REACT ROSENDA 11/20/2023 2:44 AM CDT [facility] Comment: ANTIBODIES TO HCV NOT DETECTED. DOES NOT EXCLUDE THE POSSIBILITY OF EXPOSURE TO HCV. 11/20/2023 1:04 AM CDT us Mikhail Vieira MD LABORATORY Final Result [facility] [address] 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 Expl anation Power of Sort Operations Supervisor * Full Code (Latest Code Status on File) Date Activated Date Inactivated Comments 05/07/2024 1:05 PM 03/04/2025 3:03 PM * Full Code Date Activated Date Inactivated Comments 03/07/2024 11:29 PM 05/07/2024 1:05 PM * Full Code Date Activated Date Inactivated Comments 01/05/2024 9:24 AM 03/07/2024 11:29 PM * Full Code Date Activated Date Inactivated Comments 12/02/2023 9:30 AM 01/05/2024 9:24 AM * Full Code Date Activated Date Inactivated Comments 11/19/2023 10:32 PM 11/29/2023 5:56 PM Care Teams Intelligence Director Relationship Specialty Start Date End Date Tam Key MD [address] [place] [address] PCP - General FAMILY PRACTICE 03/29/24
--- OUTSIDE RECORDS SUMMARY | 2025-03-18 16:27 | XMS_ITS | Clinical Summary ---
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 Name Role Phone Unavailable Primary Care Provider Unavailabl e Encounters Date Type Department Care Team Description 02/10/2025 Lab Requisition [facility] [address] [place] [address] Tam Key Other chronic pain 02/10/2025 Lab Requisition [facility] [address] [place] [address] Tam Key Other chronic pain from Last 3 Months Social History Tobacco Use Types Packs/Day Years Used Date Smoking Tobacco: Never Assessed Comments Unknown Sex and Gender Information Value Date Recorded Sex Assigned at Not on file Legal Sex Female 12:28 PM CDT Gender Identity Not on file Sexual Orientation Not on file Plan of Treatment Health Maintenance Due Date Last Done Comments CT Colonography 1967 Colonoscopy 1967 Colorectal Cancer Screening 1967 FIT-DNA (Cologuard ) 1967 FIT 1967 FOBT 1967 Sigmoidoscopy 1967 DTaP,Tdap,and Td Vaccines (1 - Tdap) 06/04/1986 Hepatitis B Vaccines (1 of 3 - 19+ 3-dose series) 06/04/1986 Cervical Cancer Screening 06/04/1988 Mammogram 2007 Pneumococcal Vaccine: 50+ Ye ars (1 of 1 - PCV) 06/04/2017 Zoster Vaccines (1 of 2) 06/04/2017 Medicare Initial AWV [id number] 04/03/2023 COVID-19 Vaccine ( - 2024-2 6 season) 2024 Influenza Vaccine (#1) 2024 RSV Vaccine 60+ and Patients (1 - 1-dose 75+ series) 06/04/2042 HIV Screening Completed 01/08/2024 Hepatitis C Screening Completed 01/08/2024 HIB Vaccines Aged Out No longer eligi ble based on patient's age to complete this topic HPV Vaccines (No Doses Required) Completed Hepatitis A Vaccines Aged Out No long er eligible based on patient's age to complete this topic IPV Vaccines Aged Out No longer eligi ble based on patient's age to complete this topic Meningococcal ACWY Vaccine Aged Out N o longer eligible based on patient's age to complete this topic Meningococcal B Vaccine Aged Out No l onger eligible based on patient's age to complete this topic RSV Pediatric <20 Months Aged Out No longer eligible based on patient's age to complete this topic Procedures Procedure Name Priority Date/Time Associated Diagnosis Comments TRAMADOL AND METABOLITE, QUANTITATIVE, SERUM OR PLASMA Routine 02/10/2025 3:11 PM ASSEMBLY MEMBER Other chronic pain CANNABINOIDS, CONF Routine 02/10/2025 3: 10 PM ASSEMBLY MEMBER Other chronic pain [facility]CELLANEOUS [facility] Routine 02/10/2025 3:10 PM ASSEMBLY MEMBER Other chronic pain DRUG SCREEN 9 PANEL W/CONF Routine 02/10/2025 3:10 PM ASSEMBLY MEMBER Other chronic pain OUTREACH VENIPUNCTURE Routine 02/10/2025 3:10 PM ASSEMBLY MEMBER Other chronic pain HEPATITIS C ANTIBODY Routine 01/08/2024 12:25 PM CDT Encounter for screening for infections with a predominantly sexual mode of transmission HIV ANTIBODY/ANTIGEN SCREEN WITH REFLEX Routine 01/08/2024 12:25 PM CDT Encounter for screening for infections with a predominantly sexual mode of transmission from Last 3 Months or Most Recently Relevant to Health Maintenance Results * Tramadol and Metabolite, Quantitative, Serum or Plasma (02/10/2025 3:11 PM ASSEMBLY MEMBER) Tramadol, Serum/Plasma None Det ng/mL 02/19/2025 8:04 AM ASSEMBLY MEMBER [facility] Comment: Serum or Plasma Reporting Limit: 10 ng/mL Synonym(s): Ultrex(R); Ultram(R) Peak plasma levels following a single 100 mg oral dose: 230-380 ng/mL. Steady-state plasma levels following a 100 mg 4 times daily regimen: 420-770 ng/mL. Analysis by [facility] Liquid Chromatography/ Tandem Mass Spectrometry (LC-MS/MS) O-Desmethyltramad ol, Serum/Plasma None Det ng/mL 02/19/2025 8:04 AM ASSEMBLY MEMBER [facility] Comment: Serum or Plasma Reporting Limit: [...] developed and its performance characteristics determined by [facility]. It has not been cleared or approved by the US Food and Drug Administration. Digital data review may have taken place remotely by qualified [facility] staff utilizing a secure VPN connection for some or all of the reported results. This is in accordance with and follows CLIA regulations. Testing performed at [facility] [employer] [address] [place] [id number] Thanh Myers, PhD, F-ABFT, DABCC-TC, Clinical Research Associate [facility] [id number] Blood Venous blood specimen / Unknown 02/10/2025 3:11 PM ASSEMBLY MEMBER 02/11/2025 2:33 AM ASSEMBLY MEMBER [facility] MICROBIOLOGY - GENERAL ORDER AUGUST Final Result Performing Organization Address City/[facility]/ZIP Co de Phone Number [facility] [address] [place] [address] * Outreach Venipuncture (02/10/2025 3:10 PM ASSEMBLY MEMBER) Blood Venous blood specimen / Unknown 02/10/2025 3:10 PM ASSEMBLY MEMBER 02/11/2025 2:34 AM ASSEMBLY MEMBER [facility] BLOOD ORDERABLES Final Resul t [facility] [address] [address] ([facility]) [place] [address] * - [facility] Misc Test (02/10/2025 3:10 PM ASSEMBLY MEMBER) [facility] Test Result SEE NOTE 02/14/2025 6:38 PM ASSEMBLY MEMBER [facility] Comment: Test name Result Flag Units [...] developed and its performance characteristics determined by [facility] [email or web address]. It has not been cleared or approved by the US Food and Drug Administration. This test was performed in a CLIA certified laboratory and is intended for clinical purposes. Performed By: [facility] [email or web address] [address] [place], [place] [id number] Clinical Research Associate: Jose Holliday MD, PhD CLIA Number: [id number] Blood Venous blood specimen / Unknown 02/10/2025 3:10 PM ASSEMBLY MEMBER 02/11/2025 2:38 AM ASSEMBLY MEMBER [facility] BLOOD ORDERABLES Final Resul t [address] [address] * Drug Screen 9 Panel W/Conf (02/10/2025 3:10 PM ASSEMBLY MEMBER) [facility] Amphetamines, S/P, Screen Negative 02/14/2025 1:57 AM ASSEMBLY MEMBER [facility] Comment: Presumptively Negative by immunoassay. Testing by mass spectrometry is available on request. Interpretive Information: Amphetamines Screen, S/P Methodology: Immunoassay Positive Cutoff: 20 ng/mL Methamphetamine, S/P, Screen Negative 02/14/2025 1:57 AM ASSEMBLY MEMBER [facility] Comment: Presumptively Negative by immunoassay. Testing by mass spectrometry is available on request. Interpretive Information: Methamphetamine Screen, S/P Methodology: Immunoassay Positive Cutoff: 20 ng/mL Barbiturates, S/P, Screen Negative 02/14/2025 1:57 AM ASSEMBLY MEMBER [facility] Comment: Presumptively Negative by immunoassay. Testing by mass spectrometry is available on request. Interpretive Information: Barbiturates Screen, S/P Methodology: Immunoassay Positive Cutoff: 50 ng/mL Benzodiazepines, S/P, Screen Negative 02/14/2025 1:57 AM ASSEMBLY MEMBER [facility] Comment: Presumptively Negative by immunoassay. Testing by mass spectrometry is available on request. Interpretive Information: Benzodiazepines Screen, S/P Methodology: Immunoassay Positive Cutoff: 50 ng/mL Buprenorphine, S/P, Screen Negative 02/14/2025 1:57 AM ASSEMBLY MEMBER [facility] Comment: Presumptively Negative by immunoassay. Testing by mass spectrometry is available on request. Interpretive Information: Buprenorphine Screen, S/P Methodology: Immunoassay Positive Cutoff: 1 ng/mL Cocaine, S/P, Screen Negative 02/14/2025 1:57 AM ASSEMBLY MEMBER [facility] Comment: Presumptively Negative by immunoassay. Testing by mass spectrometry is available on request. Interpretive Information: Cocaine Screen, S/P Methodology: Immunoassay Positive Cutoff: 20 ng/mL Methadone, S/P, Screen Negative 02/14/2025 1:57 AM ASSEMBLY MEMBER [facility] Comment: Presumptively Negative by immunoassay. Testing by mass spectrometry is available on request. Interpretive Information: Methadone Screen, S/P Methodology: Immunoassay Positive Cutoff: 25 ng/mL Opiates, S/P, Screen Negative 02/14/2025 1:57 AM ASSEMBLY MEMBER [facility] Comment: Presumptively Negative by immunoassay. Testing by mass spectrometry is available on request. Interpretive Information: Opiates Screen, S/P Methodology: Immunoassay Positive Cutoff: 20 ng/mL Oxycodone, S/P, Screen Negative 02/14/2025 1:57 AM ASSEMBLY MEMBER [facility] Comment: Presumptively Negative by immunoassay. Testing by mass spectrometry is available on request. Interpretive Information: Oxycodone/Oxymorphone Screen, S/P Methodology: Immunoassay Positive Cutoff: 20 ng/mL Phencyclidine, S/P, Screen Negative 02/14/2025 1:57 AM ASSEMBLY MEMBER [facility] Comment: Presumptively Negative by immunoassay. Testing by mass spectrometry is available on request. Interpretive Information: Phencyclidine Screen, S/P Methodology: Immunoassay Positive Cutoff: 10 ng/mL Cannabinoids, S/P, Screen Presumptivepos ng/mL 02/14/2025 1:57 AM ASSEMBLY MEMBER [facility] Comment: Presumptive positive results are automatically reflexed to confirmation testing by mass spectrometry. Interpretive Information: Carboxy-THC Screen, S/P Methodology: Immunoassay Positive Cutoff: 20 ng/mL This test does not distinguish between the delta-8 and delta-9 forms of Carboxy-THC or their metabolites. Drug Screen Comments, Serum or Plasma See Note 02/14/2025 1:57 AM ASSEMBLY MEMBER [facility] Comment: Interpretive Information: Drug Screen [...] developed and its performance characteristics determined by [facility]. It has not been cleared or approved by the US Food and Drug Administration. This test was performed in a CLIA certified laboratory and is intended for clinical purposes. Performed By: [address] [address] Clinical Research Associate: Jose Holliday MD, PhD CLIA Number: [id number] Blood Venous blood specimen / Unknown 02/10/2025 3:10 PM ASSEMBLY MEMBER 02/11/2025 2:34 AM ASSEMBLY MEMBER Tam Yesi LAB BLOOD ORDERABLES Final Resul t [facility] [address] [place] [address] * Cannabinoids, Conf (02/10/2025 3:10 PM ASSEMBLY MEMBER) 80-Orf-6-carboxy-TH C, S/P, Quant 159 ng/mL 02/16/2025 7:04 AM ASSEMBLY MEMBER [facility] Comment: INTERPRETIVE INFORMATION: THC Metabolite, Serum or Plasma, Quantitative Methodology: Quantitative Liquid Chromatography-Tandem Mass Spectrometry. Positive cutoff: 5 ng/mL For medical purposes only; not valid for forensic use. The drug analyte detected in this assay, 9-carboxy THC, is a metabolite of xbnrx-6-tcnveuzvtycjloqcocal (THC). Detection of 9-carboxy THC suggests use of, or exposure to, a product containing THC. This test cannot distinguish between prescribed or non-prescribed forms of THC, nor can it distinguish between active or passive use. The plasma half-life for 9-carboxy THC metabolite is estimated to range from 4-12 hours. This test was developed and its performance characteristics determined by [facility]. It has not been cleared or approved by the US Food and Drug Administration. This test was performed in a CLIA certified laboratory and is intended for clinical purposes. Performed By: [facility] [email or web address] [address] [place] [address] Clinical Research Associate: Jose Holliday MD, PhD CLIA Number: [id number] Blood Venous blood specimen / Unknown 02/10/2025 3:10 PM ASSEMBLY MEMBER 02/11/2025 2:34 AM ASSEMBLY MEMBER Tam Key LAB BLOOD ORDERABLES Final Resul t Performing Organization Address [facility] Co de Phone Number [facility] [address] [place] [address] * Hepatitis C antibody (01/08/2024 12:25 PM CDT) HEPATITIS C AB Negative Negative GOMEZ GAS FITTER I2000 INSTRUMENT 01/09/2024 6:10 AM CDT [facility] Blood Venous blood specimen / Unknown 01/08/2024 12:25 PM CDT 01/09/2024 4:33 AM CDT Rose Hodge LAB BLOOD ORDERABLES Final Resul t Performing Organization Address City/[facility] Co de Phone Number [facility] [address] [address] ([place] [address] * HIV Antibody/Antigen Screen with Reflex (01/08/2024 [...] Hodge LAB BLOOD ORDERABLES Final Resul t Performing Organization Address City/State/[facility] Co de Phone Number [facility] [address] [address] ([facility]) [place] [address] from Last 3 Months or Most Recently Relevant to Health Maintenance Insurance [place] MEDICA[place] [employer] MEDICARE ADVANTAGE-MEDICARE [facility]
--- OUTSIDE RECORDS SUMMARY | 2025-03-18 16:27 | XMS_ITS ---
Author Organization [facility] Address [address] [place] [address] Care Team Providers Care Motor Adjuster Name Role Phone Unavailable Unavailable Unavailable Allergies, Adverse Reactions, Alerts Allergy Name Allergy Type Status Severity Reaction(s) Onset Date Inactive Date Treating Clinician Comments No Known Allergies Allergy Active 2023-03 19:26:1 0 Problems This patient has no known problems. Procedures Procedure Date / Time Performed Performing Clinician Marleen ce Details Central Venous Catheter (CVC) 2023-02-24 06:00:00 Access Site Other Access Use Start Date 2023-03-15 00:00:0 0 DIALYSIS TREATMENT INFORMATION Conventional Hemodialysis Date Type Treatment Start Date Treatment End Date Pre-Treatment Vitals Post-Treatment Vitals Weight Gain BFR DFR Actual UF Dialysis Access 2023 In-Ce nter Hemod ialys is Treat ment 2023-04-21 T22:07:00. 000Z 2023-04-22 T01:42:33. 000Z BP Sitting (Pre-Dialysis) 97/40 mmHg BP Sitting (Post-D ialysis ) 109/ 45 mmHg Sitting Heart Rate Pre-Dialysis 96 BPM Sitting H eart Rate Post-Dialysis 88 BPM Temperature Pre-Dialysis 98 degF Temperature Post -Dialysis 97.5 degF April 19, 2023 In-Center Hemodialysis Treatment [id number]:13:00.000Z [id number]:31:42.000Z BP Sitting (Pre-Dialysis) 97/51 mmHg BP Sitting (Post-Dialysis) 115/56 mmHg Concurrent Access: falseCentral Venous Catheter (CVC) Other Arterial Sitting Heart Rate Pre-Dialysis 91 BPM Sitting H eart Rate Post-Dialysis 90 BPM Temperature Pre-Dialysis 98.2 degF Temperature Post -Dialysis 97.7 degF April 17, 2023 In-Center Hemodialysis Treatment [id number]:07:25.000Z [id number]:40:26.000Z BP Sitting (Pre-Dialysis) 94/45 mmHg BP Sitting (Post-Dialysis) 99/51 mmHg Concurrent Access: falseCentral Venous Catheter (CVC) Other Arterial Sitting Heart Rate Pre-Dialysis 81 BPM Sitting H eart Rate Post-Dialysis 82 BPM Temperature Pre-Dialysis 97.5 degF Temperature Post -Dialysis 98.1 degF April 14, 2023 In-Center Hemodialysis Treatment [id number]:08:00.000Z [id number]:37:48.000Z BP Sitting (Pre-Dialysis) 90/51 mmHg BP Sitting (Post-Dialysis) 101/47 mmHg Concurrent Access: falseCentral Venous Catheter (CVC) Other Arterial Sitting Heart Rate Pre-Dialysis 93 BPM Sitting H eart Rate Post-Dialysis 90 BPM Temperature Pre-Dialysis 98.1 degF Temperature Post -Dialysis 97 degF April 12, 2023 In-Center Hemodialysis Treatment [id number]:22:39.000Z [id number]:45:39.000Z BP Sitting (Pre-Dialysis) 157/72 mmHg BP Sitting (Post-Dialysis) 93/57 mmHg Concurrent Access: falseCentral Venous Catheter (CVC) Other Arterial Sitting Heart Rate Pre-Dialysis 107 BPM Sitting H eart Rate Post-Dialysis 85 BPM Temperature Pre-Dialysis 98.2 degF Temperature Post -Dialysis 97.5 degF April 10, 2023 In-Center Hemodialysis Treatment [id number]:52:00.000Z [id number]:31:32.000Z BP Sitting (Pre-Dialysis) 99/54 mmHg BP Sitting (Post-Dialysis) 106/54 mmHg Concurrent Access: falseCentral Venous Catheter (CVC) Other Arterial Sitting Heart Rate Pre-Dialysis 88 BPM Sitting H eart Rate Post-Dialysis 89 BPM Temperature Pre-Dialysis 97.6 degF Temperature Post -Dialysis 98.7 degF April 07, 2023 In-Center Hemodialysis Treatment [id number]:27:00.000Z [id number]:53:20.000Z BP Sitting (Pre-Dialysis) 121/47 mmHg BP Sitting (Post-Dialysis) 105/56 mmHg Concurrent Access: falseCentral Venous Catheter (CVC) Other Arterial Sitting Heart Rate Pre-Dialysis 86 BPM Sitting H eart Rate Post-Dialysis 88 BPM Temperature Pre-Dialysis 97.3 degF Temperature Post -Dialysis 97.4 degF April 05, 2023 In-Center Hemodialysis Treatment [id number]:09:00.000Z [id number]:40:15.000Z BP Sitting (Pre-Dialysis) 106/59 mmHg BP Sitting (Post-Dialysis) 104/47 mmHg Concurrent Access: falseCentral Venous Catheter (CVC) Other Arterial Sitting Heart Rate Pre-Dialysis 87 BPM Sitting H eart Rate Post-Dialysis 86 BPM Temperature Pre-Dialysis 97.6 degF Temperature Post -Dialysis 98 degF April 02, 2023 In-Center Hemodialysis Treatment [id number]:23:00.000Z [id number]:59:00.000Z BP Sitting (Pre-Dialysis) 114/51 mmHg BP Sitting (Post-Dialysis) 108/53 mmHg Concurrent Access: falseCentral Venous Catheter (CVC) Other Arterial Sitting Heart Rate Pre-Dialysis 87 BPM Sitting H eart Rate Post-Dialysis 85 BPM Temperature Pre-Dialysis 97.2 degF Temperature Post -Dialysis 97.2 degF March 31, 2023 In-Center Hemodialysis Treatment [id number]:28:00.000Z [id number]:35:09.000Z BP Sitting (Pre-Dialysis) 119/41 mmHg BP Sitting (Post-Dialysis) 92/47 mmHg Concurrent Access: falseCentral Venous Catheter (CVC) Other Arterial Sitting Heart Rate Pre-Dialysis 96 BPM Sitting H eart Rate Post-Dialysis 84 BPM Temperature Pre-Dialysis 97.4 degF Temperature Post -Dialysis 97 degF March 29, 2023 In-Center Hemodialysis Treatment [id number]:21:21.000Z [id number]:25:22.000Z BP Sitting (Pre-Dialysis) 129/51 mmHg BP Sitting (Post-Dialysis) 98/54 mmHg Concurrent Access: falseCentral Venous Catheter (CVC) Other Arterial Sitting Heart Rate Pre-Dialysis 92 BPM Sitting H eart Rate Post-Dialysis 90 BPM Temperature Pre-Dialysis 97.8 degF Temperature Post -Dialysis 97.2 degF March 28, 2023 In-Center Hemodialysis Treatment [id number]:10:47.000Z [id number]:07:47.000Z BP Sitting (Pre-Dialysis) 122/64 mmHg BP Sitting (Post-Dialysis) 100/59 mmHg Concurrent Access: falseCentral Venous Catheter (CVC) Other Arterial Sitting Heart Rate Pre-Dialysis 95 BPM Sitting H eart Rate Post-Dialysis 99 BPM Temperature Pre-Dialysis 97.2 degF Temperature Post -Dialysis 97.2 degF March 24, 2023 In-Center Hemodialysis Treatment [id number]:10:43.000Z [id number]:29:43.000Z BP Sitting (Pre-Dialysis) 120/67 mmHg BP Sitting (Post-Dialysis) 110/60 mmHg Concurrent Access: falseCentral Venous Catheter (CVC) Other Arterial Sitting Heart Rate Pre-Dialysis 74 BPM Sitting H eart Rate Post-Dialysis 92 BPM Temperature Pre-Dialysis 97 degF Temperature Post -Dialysis 97.8 degF March 22, 2023 In-Center Hemodialysis Treatment [id number]:55:40.000Z [id number]:28:41.000Z BP Sitting (Pre-Dialysis) 124/69 mmHg BP Sitting (Post-Dialysis) 113/57 mmHg Concurrent Access: falseCentral Venous Catheter (CVC) Other Arterial Sitting Heart Rate Pre-Dialysis 79 BPM Sitting H eart Rate Post-Dialysis 83 BPM Temperature Pre-Dialysis 97.2 degF Temperature Post -Dialysis 97.6 degF March 21, 2023 In-Center Hemodialysis Treatment [id number]:54:33.000Z [id number]:03:34.000Z BP Sitting (Pre-Dialysis) 123/63 mmHg BP Sitting (Post-Dialysis) 117/67 mmHg Concurrent Access: falseCentral Venous Catheter (CVC) Other Arterial Sitting Heart Rate Pre-Dialysis 81 BPM Sitting H eart Rate Post-Dialysis 88 BPM Temperature Pre-Dialysis 97 degF Temperature Post -Dialysis 97.2 degF March 17, 2023 In-Center Hemodialysis Treatment [id number]:08:00.000Z [id number]:08:56.000Z BP Sitting (Pre-Dialysis) 155/84 mmHg BP Sitting (Post-Dialysis) 124/67 mmHg Concurrent Access: falseCentral Venous Catheter (CVC) Other Arterial Sitting Heart Rate Pre-Dialysis 99 BPM Sitting H eart Rate Post-Dialysis 94 BPM Temperature Pre-Dialysis 97 degF Temperature Post -Dialysis 97.5 degF March 15, 2023 In-Center Hemodialysis Treatment [id number]:26:56.000Z [id number]:56:56.000Z BP Sitting (Pre-Dialysis) 149/74 mmHg BP Sitting (Post-Dialysis) 143/68 mmHg Concurrent Access: falseCentral Venous Catheter (CVC) Other Arterial Sitting Heart Rate Pre-Dialysis 106 BPM Sitting H eart Rate Post-Dialysis 123 BPM Temperature Pre-Dialysis 97 degF Temperature Post -Dialysis 97.9 degF Encounters No encounter information to report Immunizations Ordered Immunization Name Filled Immunization Name Date Status Comments Refusal Reason TST-PPD intradermal 2023-03-22 12:50:00 Influenza Vaccination 2023-01-18 05:00:00
--- OUTSIDE RECORDS SUMMARY | 2025-03-18 16:27 | XMS_ITS | Clinical Summary ---
Author Organization [facility] Address [address] [place] [address] Phone Care Team Providers Care Material Handler 2Nd Shift Name Role Phone Chava Sherman MD Primary Care Provider [phone] Allergies No known active allergies Medications albuterol sulfate HFA 90 mcg/actuation aerosol inhaler Take 1 Puff by inhalation every 6 hours as needed for Shortness of Breath or Wheezing. 4 Active bisacodyL (DULCOLAX) 10 mg Suppository Insert 10 mg by rectum 2 times daily as needed. 5 Active levETIRAcetam (KEPPRA) 100 mg/mL Solution Take 10 mL by mouth every 8 hours. 4 Active midodrine (PROAMATINE) 10 mg Tablet Take 5 mg by mouth every 8 hours. 5 Active mirtazapine (REMERON) 7.5 mg tablet Take 7.5 mg by mouth daily at bedtime. 4 Active OLANZapine (ZyPREXA) 20 mg tablet Take 20 mg by mouth daily at bedtime. Active ondansetron (ZOFRAN ODT) 4 mg Tablet, Rapid Dissolve Take 4 mg by mouth 2 times daily as needed. 5 Active oxyBUTYnin (DITROPAN) 5 mg/5 mL Syrup Take 5 mg by mouth daily. 4 Active phenytoin (DILANTIN) 125 mg/5 mL suspension Take 75 mg by mouth 2 times daily. Active omeprazole (PriLOSEC) 40 mg Capsule, Delayed Release(E.C.) Take 40 mg by mouth daily. Active melatonin 5 mg Tablet Take 5 mg by mouth nightly as needed for Insomnia. Active gabapentin (NEURONTIN) 250 mg/5 mL solution Take 300 mg by mouth every 8 hours. Active ARIPiprazole 10 mg Film Take 1 Each by mouth daily. 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 Partial small bowel obstruction 06/21/2024 Protein-calorie malnutrition, severe 06/19/2024 Complete intestinal obstruction 06/19/2024 Large bowel obstruction 06/18/2024 Jejunostomy tube fell out 06/18/2024 Mood disorder 06/18/2024 Seizure disorder 06/18/2024 Encounters Date Type Department Care Team Description 03/04/2025 External Device Data [facility] ABSTRACTION Provider, Abstract 02/25/2025 External Device Data [facility] ABSTRACTION Provider, Abstract 02/25/2025 External Device Data [facility] ABSTRACTION Provider, Abstract 02/04/2025 External Device Data [facility] ABSTRACTION Provider, Abstract 01/21/2025 External Device Data [facility] ABSTRACTION Provider, Abstract 01/14/2025 External Device Data [facility] ABSTRACTION Provider, Abstract 01/07/2025 External Device Data [facility] ABSTRACTION Provider, Abstract 12/31/2024 External Device Data [facility] ABSTRACTION Provider, Abstract 12/18/2024 External Device Data [facility] ABSTRACTION Provider, Abstract from Last 3 Months Social History Tobacco Use Types Packs/Day Years Used Date Smoking Tobacco: Former Cigarettes 0 Q uit: 2017 Tobacco Cessation:Counseling Given: Not Answered Alcohol Use Standard Drinks/Week Comments Never 0 (1 standard drink = 0.6 oz pur e alcohol) Feeling Safe Answer Date Recorded Are you in a relationship wi th someone who hurts you emotionally and/or physically? No 06/19/2024 Food Insecurity Answer Date Recorded Patient needs follow up regardin 08/07/2024 Transportation Needs Answer Date Record ed Patient needs follow up regardin 08/07/2024 Housing Stability Answer Date Recorded Social/Environmental Concerns No concerns Utility Needs Answer Date Recorded Patient needs follow up regardin 08/07/2024 Comments Unknown Sex and Gender Information Value Date Recorded Sex Assigned at Not on file Legal Sex Female 1:58 PM CDT Gender Identity Not on file Sexual Orientation Not on file Last Filed Vital Signs Vital Sign Reading Time Taken Comments Blood Pressure 100/57 06/22/2024 7:18 AM CDT Pulse 79 06/22/2024 7:18 AM CDT Temperature 36.7 C (98 F) 06/22/2024 3:50 AM CDT Respiratory Rate 14 06/22/2024 3:50 AM CDT Oxygen Saturation 100% 06/22/2024 3:50 AM CDT Inhaled Oxygen Concentration - - Weight 72.9 kg (160 lb 11.2 oz) 06/22/2024 3:50 AM CDT Height 154.9 cm (5' 1) 06/18/2024 4:46 PM CDT Body Mass Index 30.36 06/18/2024 4:46 PM CDT Plan of Treatment Health Maintenance Due Date Last Done Comments DIABETES ANNUAL FOOT EXAM 06/04/1985 DIABETES ANNUAL RETINAL EXAM 06/04/1985 DIABETES MICROALBUMIN ANNUAL SCREEN 06/04/1985 LDL CHOLESTEROL ANNUAL 06/04/1985 DTAP/TDAP/TD VACCINES (1 - Tdap) 06/04/1986 HEPATITIS B VACCINES (1 of 3 - 19+ 3-dose series) 06/04/1986 HPV/Cotest (21-29) 06/04/1988 CERVICAL CANCER SCREENING 06/04/1997 HPV/Cotest (30-65) 06/04/1997 PAP SMEAR 06/04/1997 BREAST CANCER SCREENING 07/08/2010 07/08/2009 COLORECTAL SCREENING 06/04/2012 Colorectal Cancer Screening 06/04/2012 FIT-DNA Q 3 years 06/04/2012 FIT/FOBT Q 1 year 06/04/2012 Flex Sig/CT Colonography Q 5 years 06/04/2012 ZOSTER VACCINE (1 of 2) 06/04/2017 INFLUENZA VACCINE (#1) 2024 , 02/10/2023, 03/29/2022, Additional history exists COVID-19 Vaccine (2 - 2024-2 6 season) 2024 04/03/2023 DIABETES HBA1C Q 6 MONTHS 02/18/20252024, 05/09/2024, 01/12/2023 Insurance MEDICARE PART A AND B Advance Directives For more information, please contact: [phone] * Full Code (Latest Code Status on File) Date Activated Date Inactivated Comments 06/18/2024 8:12 PM 06/22/2024 12:19 PM Care Teams Material Handler 2Nd Shift Relationship Specialty Start Date End Date Chava Sherman MD [address] [place] [phone] PCP - General Internal Medicine 06/19/24
--- OUTSIDE RECORDS SUMMARY | 2025-03-18 16:28 | XMS_ITS | Encounter Summary ---
Author Organization [facility] Address [address] [place] [address] Care Team Providers Care Quality Assurance Director Name Role Phone Chava Sherman MD Primary Care Provider Encounter Details Date Type Department Care Team (Late st Contact Info) Description 08/29/2024 Lab Requisition [facility] Services [address] [place] [address] [place] [phone] Pérez Pinzon MD [address] [place] [address] Social History Tobacco Use Types Packs/Day Years Used Date Smoking Tobacco: Former Cigarettes 0 Q uit: 2017 Alcohol Use Standard Drinks/Week Comments Never 0 [...] Procedure Name Priority Date/Time Associated Diagnosis Comments CBC WITH DIFFERENTIAL Stat 08/29/2024 2:25 AM CDT TRIGLYCERIDE Stat 08/29/2024 2:25 AM CDT PHOSPHORUS Stat 08/29/2024 2:25 AM CDT MAGNESIUM LEVEL Stat 08/29/2024 2:25 AM CDT COMPREHENSIVE METABOLIC PANEL Stat 08/29/2024 2:25 AM CDT documented in this encounter Results * PHOSPHORUS (08/29/2024 2:25 AM CDT) PHOSPHORUS 4.0 2.5 - 4.8 mg/dL 08/29/2024 7:42 AM CDT [facility] Blood Collection / Unknown 08/29/2024 2:25 AM CDT 08/29/2024 6:20 AM CDT us Pérez Pinzon MD CHEMISTRY ORDERABLES Final Resul t [facility] [id number] [address] [place] [address] * TRIGLYCERIDE (08/29/2024 2:25 AM CDT) TRIGLYCERIDE 99 <150 mg/dL 08/29/2024 7:42 AM CDT [facility] Blood Collection / Unknown 08/29/2024 2:25 AM CDT 08/29/2024 6:20 AM CDT Narrative [facility] - 08/29/2024 7:42 AM CDT TRIGLYCERIDES mg/dL Normal < 150 Borderline High 150 - 199 High 200 - 499 Very High >= 500 Based on AHA/NCEP Guidelines. us Pérez Pinzon MD CHEMISTRY ORDERABLES Final Resul t Performing Organization Address City/[facility]/ZIP Co de Phone Number [facility] [id number] [address] [place] [phone] * MAGNESIUM LEVEL (08/29/2024 2:25 AM CDT) Pathologist [facility] MAGNESIUM 1.9 1.6 - 2.6 mg/dL 08/29/2024 7:42 AM CDT [facility] Blood Collection / Unknown 08/29/2024 2:25 AM CDT 08/29/2024 6:20 AM CDT Pérez Pinzon MD CHEMISTRY ORDERABLES Final Resul t [facility] [employer] [facility] [id number] [address] [place] [address] * (ABNORMAL) CBC WITH DIFFERENTIAL (08/29/2024 2:25 AM CDT) Pathologist [facility] WBC 6.7 3.5 - 11.0 K/uL 08/29/2024 7:50 AM T [facility] [employer] [facility] RBC 2.66(L) 3.80 - 5.00 M/uL 08/29/2024 7:50 AM T [facility] [employer] [facility] HEMOGLOBIN 8.2(L) 11.7 - 15.7 g/dL 08/29/2024 7:50 AM [facility] [employer] [facility] HEMATOCRIT 24.9(L) 35.0 - 47.0 % 08/29/2024 7:50 AM [facility] [employer] [facility] MCV 93.6 80.8 - 100.0 fL 08/29/2024 7:50 AM [facility] MCH 30.6 26.4 - 34.0 pg 08/29/2024 7:50 AM T [facility] MCHC 32.7 31.4 - 36.3 g/dL 08/29/2024 7:50 AM [facility] RDW 19.5(H) 11.0 - 15.0 % 08/29/2024 7:50 AM [facility] PLATELETS 443 150 - 450 K/uL 08/29/2024 7:50 AM CDT [facility] MPV 8.3 7.5 - 11.2 fL 08/29/2024 7:50 AM CDT [facility] NEUTROPHILS 51 50 - 75 % 08/29/2024 7:50 AM CDT [facility] LYMPHOCYTES 35 19 - 48 % 08/29/2024 7:50 AM CDT [facility] MONOCYTES 7 0 - 10 % 08/29/2024 7:50 AM CDT [facility] EOSINOPHILS 6 0 - 6 % 08/29/2024 7:50 AM CDT [facility] BASOPHILS 1 0 - 2 % 08/29/2024 7:50 AM CDT [facility] NEUTROPHIL ABSOLUTE 3.39 >=0.50 K/uL 08/29/2024 7:50 AM CDT [facility] LYMPHOCYTE ABSOLUTE 2.35 K/uL 08/29/2024 7:50 AM CDT [facility] MONOCYTE ABSOLUTE 0.43 K/uL 08/29/2024 7:50 AM CDT [facility] EOSINOPHIL ABSOLUTE 0.42 K/uL 08/29/2024 7:50 AM CDT [facility] BASOPHILS ABSOLUTE 0.07 K/uL 08/29/2024 7:50 AM CDT [facility] Blood 08/29/2024 2:25 AM CDT 08/29/2024 6:20 AM CDT us Pérez Pinzon MD HEMATOLOGY ORDERABLES Final Resu lt [facility] [id number] [address] [place] [address] * (ABNORMAL) COMPREHENSIVE METABOLIC PANEL (08/29/2024 2:25 AM CDT) SODIUM 137 136 - 145 mmol/L 08/29/2024 7:42 AM CDT [facility] [employer] [facility] POTASSIUM 3.8 3.2 - 4.9 mmol/L 08/29/2024 7:42 AM CDT [facility] CHLORIDE 108 98 - 111 mmol/L 08/29/2024 7:42 AM [facility] CO2 25 22 - 29 mmol/L 08/29/2024 7:42 AM [facility] CALCIUM 8.8 8.4 - 10.5 mg/dL 08/29/2024 7:42 AM [facility] BUN 21 6 - 24 mg/dL 08/29/2024 7:42 AM [facility] CREATININE 0.49(L) 0.50 - 1.20 mg/dL 08/29/2024 7:42 AM [facility] GLUCOSE 92 70 - 115 mg/dL 08/29/2024 7:42 AM [facility] TOTAL PROTEIN 7.3 6.0 - 8.4 g/dL 08/29/2024 7:42 AM [facility] ALBUMIN 2.8(L) 3.5 - 5.2 g/dL 08/29/2024 7:42 AM [facility] BILIRUBIN TOTAL 0.2(L) 0.3 - 1.2 mg/dL 08/29/2024 7:42 AM [facility] ALKALINE PHOSPHATASE 190(H) 25 - 117 U/L 08/29/2024 7:42 AM [facility] AST 39(H) <=33 U/L 08/29/2024 7:42 AM [facility] ALT 20 <=55 U/L 08/29/2024 7:42 AM [facility] GFR >60 >=60 mL/min/1.7 3 sq meter 08/29/2024 7:42 AM [facility] Comment:eGFR calculated with 2020 CKD-EPI equation. Vegetarian diet, extremely high or low muscle mass, and may affect results. Cystatin C with Glomerular Filtration Rate is a suitable alternative for these patients. ANION GAP 4(L) 7 - 16 mmol/L 08/29/2024 7:42 AM [facility] Blood Collection / Unknown 08/29/2024 2:25 AM CDT 08/29/2024 6:20 AM CDT us Pérez Pinzon MD CHEMISTRY ORDERABLES Final Resul t [facility] [id number] [address] [place] [address] documented in this encounter Visit Diagnoses Not on filedocumented in this encounter Care Teams Quality Assurance Director Relationship Specialty Start Date End Date Chava Sherman MD [address] [place] [phone] PCP - General Internal Medicine 06/19/24 documented as of this encounter
--- OUTSIDE RECORDS SUMMARY | 2025-03-18 16:28 | XMS_ITS | Encounter Summary ---
Author Organization [facility] Address [address] [place] [address] Care Team Providers Care Antique Finisher Name Role Phone Yesi Caldera MD, Tam Primary Care Provider [phone] Reason for Visit * Reason Onset Date Comments Advice 11/21/2024 Nurse Triage - A fter Hours ([id number]) Encounter Details Date Type Department Care Team (Late st Contact Info) Description 11/21/2024 Telephone [facility] Home Care [facility] [address] [place] [address] Tam Key MD [address] [place] [address] Advice (Nurse Triage - After Hours ([id number]) ) Social History Tobacco Use Types Packs/Day Years Used Date Smoking Tobacco: Never Smokeless Tobacco: Never OASIS D0700: Social Isolation Answer Da te [...] week 01/01/2023 How often do you attend [facility] or latter-day services? 1 to 4 times per year [...] you are drinking? Patient does not drink Q3: How often do you have si x or more drinks on one occasion? Never 01/01/2023 Overall Financial Resource Strain (CARDIA) Answe r Date Recorded How hard is it for you to pa y for the very basics like food, housing, medical care, and heating? Not very hard 01/01/2023 [facility] - Occupational [...] place to sleep or slept in a penitentiary (including now)? No 01/01/2023 Comments Unknown Sex and Gender Information Value Date Recorded Sex Assigned at Female 03/04/2025 5:15 PM CUTTING MACHINE TENDER Legal Sex Female 9:10 PM CUTTING MACHINE TENDER Gender Identity Not on file Sexual Orientation Not on file documented as of this encounter Functional Status * Are you deaf or do you have serious difficulty hearing Answer Date of Assessment Author Status No 11/20/2023 7:29 AM Kathleen Obando RN Active * Are you blind or do you have serious difficulty seeing, even when wearing glasses? Answer Date of Assessment Author Status No 11/20/2023 7:29 AM Kathleen Obando RN Active * Do you have serious difficulty walking or climbing stairs? Answer Date of Assessment Author Status Yes 11/20/2023 7:29 AM Kathleen Obando RN Active * Do you have difficulty dressing or bathing? Answer Date of Assessment Author Status Yes 11/20/2023 7:29 AM Kathleen Obando RN Active * Because of a physical, mental, or emotional condition, do you have difficulty doing errands alone such as visiting a doctor's office or shopping? Answer Date of Assessment Author Status Yes 11/20/2023 7:29 AM CDT Kathleen Calvin, RN Active documented as of this encounter Mental Status * Because of a physical, mental, or emotional condition, do you have serious difficulty concentrating, remembering, or making decisions? Answer Entry Date Author Status Yes 11/20/2023 7:29 AM CDT Kathleen Calvin, RN Active documented in this encounter Progress Notes * Belinda Whittington - 11/21/2024 5:05 PM CDT Nurse Triage - After Hours ([id number]) Comments Calling To See If You Have This Pt On Your Case Load Is She Getting Home Health Services -[facility]) Assessment Notes 1st attempt chart accessed no answer music only plays [email or web address] 2nd attempt chart accessed Reached a verifiable voicemail from a Marianela Computer Lab Assistant at [facility] [place], no contact No Contact or Duplicate Contact Call (Adult) guideline. [email or web address] documented in this encounter Plan of Treatment Not on file documented as of this encounter Goals Goal Patient Goal Type Associated Problems Recent Progress Patient-Stated? Author Family - family caregiver with be involved in care transitions and discharge planning Lifestyle No Wanda Butterfield RN documented as of this encounter Visit Diagnoses Not on filedocumented in this encounter Additional Health Concerns Infection Onset Date Last Indicated Resolved Time MRSA 11/20/2023 11/20/2023 documented as of this encounter Care Teams Antique Finisher Relationship Specialty Start Date End Date Tam Key MD [address] [place] [address] PCP - General FAMILY PRACTICE 03/29/24 documented as of this encounter
--- OUTSIDE RECORDS SUMMARY | 2025-03-18 16:28 | XMS_ITS | Encounter Summary ---
Author Organization [facility] Address [address] [place] [address] Care Team Providers Care Client Specialist Name Role Phone Chava Sherman MD Primary Care Provider [phone] Encounter Details Date Type Department Care Team (Late st Contact Info) Description 09/16/2024 Lab Requisition [facility] Services [address] [place] [address] [place] [phone] Pérez Pinzon MD [address] [place] [address] Social History Tobacco Use Types [...] Procedure Name Priority Date/Time Associated Diagnosis Comments TRIGLYCERIDE Stat 09/16/2024 3:49 AM CDT PHOSPHORUS Stat 09/16/2024 3:49 AM CDT MAGNESIUM LEVEL Stat 09/16/2024 3:49 AM CDT COMPREHENSIVE METABOLIC PANEL Stat 09/16/2024 3:49 AM CDT documented in this encounter Results * PHOSPHORUS (09/16/2024 3:49 AM CDT) PHOSPHORUS 4.5 2.5 - 4.8 mg/dL 09/16/2024 7:14 AM CDT [facility] Blood Collection / Unknown 09/16/2024 3:49 AM CDT 09/16/2024 6:01 AM CDT us Pérez Pinzon MD CHEMISTRY ORDERABLES Final Resul t Performing Organization Address City/[facility]/ZIP Co de Phone Number [facility] [id number] [address] [place] [address] [phone] * TRIGLYCERIDE (09/16/2024 3:49 AM CDT) Pathologist [facility] TRIGLYCERIDE 63 <150 mg/dL 09/16/2024 7:14 AM CDT [facility] Blood Collection / Unknown 09/16/2024 3:49 AM CDT 09/16/2024 6:01 AM CDT Narrative [facility] - 09/16/2024 7:14 AM CDT TRIGLYCERIDES mg/dL Normal < 150 Borderline High 150 - 199 High 200 - 499 Very High >= 500 Based on AHA/NCEP Guidelines. us Pérez Pinzon MD CHEMISTRY ORDERABLES Final Resul t Performing Organization Address City/[facility]/ZIP Co de Phone Number [facility] [id number] [address] [place] [phone] * MAGNESIUM LEVEL (09/16/2024 3:49 AM CDT) MAGNESIUM 1.9 1.6 - 2.6 mg/dL 09/16/2024 7:14 AM T [facility] Blood Collection / Unknown 09/16/2024 3:49 AM CDT 09/16/2024 6:01 AM CDT Pérez Pinzon MD CHEMISTRY ORDERABLES Final Resul t [facility] [id number] [address] [place] [address] * (ABNORMAL) COMPREHENSIVE METABOLIC PANEL (09/16/2024 3:49 AM CDT) SODIUM 137 136 - 145 mmol/L 09/16/2024 7:14 AM [facility] POTASSIUM 4.0 3.2 - 4.9 mmol/L 09/16/2024 7:14 AM [facility] CHLORIDE 108 98 - 111 mmol/L 09/16/2024 7:14 AM [facility] CO2 23 22 - 29 mmol/L 09/16/2024 7:14 AM [facility] CALCIUM 8.4 8.4 - 10.5 mg/dL 09/16/2024 7:14 AM [facility] BUN 23 6 - 24 mg/dL 09/16/2024 7:14 AM [facility] CREATININE 0.48(L) 0.50 - 1.20 mg/dL 09/16/2024 7:14 AM [facility] GLUCOSE 101 70 - 115 mg/dL 09/16/2024 7:14 AM [facility] TOTAL PROTEIN 6.8 6.0 - 8.4 g/dL 09/16/2024 7:14 AM [facility] ALBUMIN 2.6(L) 3.5 - 5.2 g/dL 09/16/2024 7:14 AM [facility] BILIRUBIN TOTAL 0.1(L) 0.3 - 1.2 mg/dL 09/16/2024 7:14 AM [facility] ALKALINE PHOSPHATASE 191(H) 25 - 117 U/L 09/16/2024 7:14 AM [facility] AST 34(H) <=33 U/L 09/16/2024 7:14 AM [facility] ALT 15 <=55 U/L 09/16/2024 7:14 AM [facility] GFR >60 >=60 mL/min/1.7 3 sq meter 09/16/2024 7:14 AM [facility] Comment:eGFR calculated with 2020 CKD-EPI equation. Vegetarian diet, extremely high or low muscle mass, and may affect results. Cystatin C with Glomerular Filtration Rate is a suitable alternative for these patients. ANION GAP 6(L) 7 - 16 mmol/L 09/16/2024 7:14 AM [facility] Blood Collection / Unknown 09/16/2024 3:49 AM CDT 09/16/2024 6:01 AM CDT us Pérez Pinzon MD CHEMISTRY ORDERABLES Final Resul t [facility] [id number] [address] [place] [address] documented in this encounter Visit Diagnoses Not on filedocumented in this encounter Care Teams Client Specialist Relationship Specialty Start Date End Date Chava Sherman MD [address] [place], [place] [phone] PCP - General Internal Medicine 06/19/24 documented as of this encounter
--- OUTSIDE RECORDS SUMMARY | 2025-03-18 16:28 | XMS_ITS | Encounter Summary ---
Author Organization [facility] Address [address] [place] [address] Care Team Providers Care Silvering Applicator Name Role Phone Chava Sherman MD Primary Care Provider Encounter Details Date Type Department Care Team (Late st Contact Info) Description 08/12/2024 Lab Requisition [facility] Services [address] [place] [address] [place] [phone] Pérez Pinzon MD [address] [place] [address] Social History Tobacco Use Types [...] Priority Date/Time Associated Diagnosis Comments TRIGLYCERIDE Stat 08/12/2024 3:11 AM CDT PHOSPHORUS Stat 08/12/2024 3:11 AM CDT MAGNESIUM LEVEL Stat 08/12/2024 3:11 AM CDT COMPREHENSIVE METABOLIC PANEL Stat 08/12/2024 3:11 AM CDT documented in this encounter Results * PHOSPHORUS (08/12/2024 3:11 AM CDT) PHOSPHORUS 4.4 2.5 - 4.8 mg/dL 08/12/2024 7:08 AM CDT [facility] Blood Collection / Unknown 08/12/2024 3:11 AM CDT 08/12/2024 5:54 AM CDT us Pérez Pinzon MD CHEMISTRY ORDERABLES Final Resul t Performing Organization Address City/[facility]/ZIP Co de Phone Number [facility] [id number] [address] [place] [address] [phone] * (ABNORMAL) TRIGLYCERIDE (08/12/2024 3:11 AM CDT) TRIGLYCERIDE 157(H) <150 mg/dL 08/12/2024 7:08 AM CDT [facility] Blood Collection / Unknown 08/12/2024 3:11 AM CDT 08/12/2024 5:54 AM CDT Narrative [facility] - 08/12/2024 7:08 AM CDT TRIGLYCERIDES mg/dL Normal < 150 Borderline High 150 - 199 High 200 - 499 Very High >= 500 Based on AHA/NCEP Guidelines. us Pérez Pinzon MD CHEMISTRY ORDERABLES Final Resul t Performing Organization Address City/[facility]/ZIP Co de Phone Number [facility] [id number] [address] [place] [phone] * MAGNESIUM LEVEL (08/12/2024 3:11 AM CDT) MAGNESIUM 1.9 1.6 - 2.6 mg/dL 08/12/2024 7:08 AM [facility] Blood Collection / Unknown 08/12/2024 3:11 AM CDT 08/12/2024 5:54 AM CDT Pérez Pinzon MD CHEMISTRY ORDERABLES Final Resul t [facility] [id number] [address] [place] [address] [phone] * (ABNORMAL) COMPREHENSIVE METABOLIC PANEL (08/12/2024 3:11 AM CDT) SODIUM 134(L) 136 - 145 mmol/L 08/12/2024 7:08 AM [facility] POTASSIUM 4.2 3.2 - 4.9 mmol/L 08/12/2024 7:08 AM [facility] CHLORIDE 107 98 - 111 mmol/L 08/12/2024 7:08 AM [facility] CO2 22 22 - 29 mmol/L 08/12/2024 7:08 AM [facility] CALCIUM 8.9 8.4 - 10.5 mg/dL 08/12/2024 7:08 AM [facility] BUN 26(H) 6 - 24 mg/dL 08/12/2024 7:08 AM [facility] CREATININE 0.49(L) 0.50 - 1.20 mg/dL 08/12/2024 7:08 AM [facility] GLUCOSE 102 70 - 115 mg/dL 08/12/2024 7:08 AM [facility] TOTAL PROTEIN 7.5 6.0 - 8.4 g/dL 08/12/2024 7:08 AM [facility] ALBUMIN 2.7(L) 3.5 - 5.2 g/dL 08/12/2024 7:08 AM [facility] BILIRUBIN TOTAL 0.3 0.3 - 1.3 mg/dL 08/12/2024 7:08 AM [facility] ALKALINE PHOSPHATASE 229(H) 25 - 117 U/L 08/12/2024 7:08 AM [facility] AST 37(H) <=33 U/L 08/12/2024 7:08 AM [facility] ALT 28 <=55 U/L 08/12/2024 7:08 AM [facility] GFR >60 >=60 mL/min/1.7 3 sq meter 08/12/2024 7:08 AM [facility] Comment:eGFR calculated with 2020 CKD-EPI equation. Vegetarian diet, extremely high or low muscle mass, and may affect results. Cystatin C with Glomerular Filtration Rate is a suitable alternative for these patients. ANION GAP 5(L) 7 - 16 mmol/L 08/12/2024 7:08 AM [facility] Blood Collection / Unknown 08/12/2024 3:11 AM CDT 08/12/2024 5:54 AM T Pérez Pinzon MD CHEMISTRY ORDERABLES Final Resul t [facility] [id number] [address] [place] [address] documented in this encounter Visit Diagnoses Not on filedocumented in this encounter Care Teams Silvering Applicator Relationship Specialty Start Date End Date Chava Sherman MD [address] [place] [phone] PCP - General Internal Medicine 06/19/24 documented as of this encounter
--- OUTSIDE RECORDS SUMMARY | 2025-03-18 16:28 | XMS_ITS | Clinical Summary ---
Author Organization [facility] Address [address] [place] [address] Phone Care Team Providers Care Tactical Intelligence Officer Name Role Phone Radha Spivey MD Primary Care Provider [phone] Allergies No known active allergies Medications Ibuprofen 200 MG PO CAPS take 2 Tabs by mouth daily as needed. Active Naproxen 500 MG PO TBECIndications :DJD (degenerative joint disease) of knee Take 1 Tab by mouth 2 times daily. 60 Tab 3 0 Active cyclobenzaprine 5 MG PO TABSIndications :Low back pain Take 1 Tab by mouth nightly as needed. 60 Tab 1 0 Active fluoxetine 10 MG PO CAPSIndications :PTSD (post-traumatic stress disorder) Take 1 Cap by mouth daily. 90 Cap 1 0 Active fluticasone-jose meterol 250-50 MCG/DOSE IN AEPBIndications :Asthma take 1 Puff by inhalation 2 times daily. 3 Inhaler 3 0 Active omeprazole 20 MG PO [id number] cations:GERD (gastroesophage al reflux disease) Take 1 Cap by mouth daily. 90 Cap 3 0 Active albuterol (PROAIR HFA) 108 (90 BASE) MCG/ACT IN AERSIndications :Asthma take 2 Puffs by inhalation every 6 hours as needed for Wheezing. 2 Inhaler 3 0 Active hydrocodone-min taminophen (VICODIN) 5-500 MG PO TABS 1QDPRN - TAKE ONE TABLET BY MOUTH EVERY DAY NEEDED 30 Each 0 1 Active alprazolam 0.25 MG PO TABS TAKE ONE TABLET BY MOUTH EVERY DAY AT BEDTIME NEEDED 30 Each 0 1 Active Active Problems Problem Noted Date Diagnosed Date Asthma 03/08/2010 GERD (gastroesophageal reflux disease) 0 Low back pain 11/30/2009 Fibrocystic breast 10/29/2009 Preventative health care (Adult) 03/23/2009 Overview (07/10/2009): 07/08/09 Mammogram DJD (degenerative joint disease) of knee 009 S/P Gastric Bypass - 2000 in [place] 03/23/20 09 Depression 03/23/2009 Headache 03/23/2009 r/o PTSD (Post-Traumatic Stress Disorder) 2008 Immunizations Immunization Administration Dates Next Due PUR FLU W/PRES AGE 3+ FULL IM 03/08/2010 Family History Medical History Relation Name Comments Diabetes Mother Relation Name Status Comments Father unknown Mother (Age 62) Lupus Social History Tobacco Use Types Packs/Day Years Used Date Smoking Tobacco: Every Day Cigarettes 0.5 26 Alcohol Use Standard Drinks/Week Comments No 0 (1 standard drink = 0.6 oz pur e alcohol) Comments No Sex and Gender Information Value Date Recorded Sex Assigned at Not on file Legal Sex Female 3:48 AM PHONOGRAPH NEEDLE TIP MAKER Gender Identity Not on file Sexual Orientation Not on file 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 [employer] Not on file Not on file Not on file Last Filed Vital Signs Vital Sign Reading Time Taken Comments Blood Pressure 100/60 05/27/2010 2:56 PM PHONOGRAPH NEEDLE TIP MAKER Pulse 60 05/27/2010 2:56 PM PHONOGRAPH NEEDLE TIP MAKER Temperature 36.9 C (98.5 F) 05/27/2010 2:56 PM PHONOGRAPH NEEDLE TIP MAKER Respiratory Rate - - Oxygen Saturation - - Inhaled Oxygen Concentration - - Weight 84.8 kg (187 lb) 05/27/2010 2:56 PM PHONOGRAPH NEEDLE TIP MAKER With steel toe shoes Height 154.9 cm (5' 1) 04/24/2009 2:27 PM PHONOGRAPH NEEDLE TIP MAKER Body Mass Index 35.33 04/24/2009 2:27 PM PHONOGRAPH NEEDLE TIP MAKER Plan of Treatment Health Maintenance Due Date Last Done Comments TdaP Immunization 1965 Hepatitis B Immunization (1 of 3 - 19+ 3-dose series) 06/04/1986 Pneumococcal Immunization (5 0+ years) (1 of 2 - PCV) 06/04/1986 Pap Smear 06/04/1988 Cervical Cancer Screening (CCS) 06/04/1997 HPV/Cotest 06/04/1997 Mammogram 07/08/2010 07/08/2009 Cologuard 06/04/2012 Colonoscopy 06/04/2012 Colorectal Cancer Screening 06/04/2012 Immunochemical Fecal Occult Blood 06/04/2012 Respiratory Syncytial Virus (RSV) Immunization (Adult) (1 - Risk 50-74 years 1-dose series) 06/04/2017 Zoster Immunization (1 of 2) 06/04/2017 Influenza Immunization (#1) 12/02/202406/01, 02/01/2011, 03/08/2010 SARS-COV-2 Immunization (1 - 2024- season) 2024 Hepatitis C Virus (HCV) Screening Completed 01/08/2024, 11/20/2023 Human Papillomavirus (HPV) Immunization (No Doses Required) Completed Meningococcal Immunization (ACWY) Aged Out No longer eligible b ased on patient's age to complete this topic Rotavirus Immunization Aged Out No lo nger eligible based on patient's age to complete this topic Procedures Procedure Name Priority Date/Time Associated Diagnosis Comments [facility] DIA BILATERAL DIGITAL W CAD Routine 07/08/2009 1:48 PM CDT Breast lump from Last 3 Months or Most Recently Relevant to Health Maintenance Results * [facility] DIAG BILATERAL DIGITAL W CAD (07/08/2009 1:48 PM CDT) Anatomical Region Laterality Modality breast Bilateral Mammography 07/08/2009 1:48 PM CDT Impressions 07/08/2009 4:45 PM CDT IMPRESSION: 1. No mammographic or sonographic finding is seen in the areas of palpable concern. The lateral left breast lump and superior right breast lump corresponds to ridges of normal appearing fibroglandular tissue. Any further management should be based on clinical assessment. 2. There is no mammographic or sonographic evidence of malignancy. 3. In the absence of clinical concern, a bilateral screening mammogram is recommended in one year. Written results and recommendations were given to the patient at the conclusion of this examination today. Mammogram BI-RADS: 1 - Negative. Ultrasound BI-RADS: 1 - Negative. Narrative 07/08/2009 4:45 PM CDT Dictating Physician: Rose Dow M.D. Exam: [facility] Bilateral Digital W CAD and bilateral breast sonogram Date: Jul 08, 2009 1:48:00 PM Comparison: None History: Self-detected lateral left breast lump with associated tenderness. Physician- detected superior right breast lump. Findings: DIAGNOSTIC MAMMOGRAM: Bilateral standard views were obtained. Current study was also evaluated with a Computer Aided Detection (CAD) system. The tissue density of both breasts is heterogeneously dense. No significant masses, calcifications, or other significant findings are seen. There has been no significant interval change. No mammographic finding seen to account for the patient's breast symptoms. Further evaluation with ultrasound was subsequently performed. BREAST SONOGRAM: Direct real-time ultrasound was performed to evaluate the areas of palpable concern. She directs attention toward the lateral left breast centered at 3:00 position where she reports a palpable area of thickening with associated tenderness. There is sonographically benign appearing tissue, and no cystic or solid mass or area of abnormal shadowing seen. Area of concern corresponds to a ridge of fibroglandular tissue and underlying rib. Attention was then directed toward the superior right breast in the area physician-detected concern. There is a palpable area thickening centered at 10:00 position 4 cm from the nipple. Coordinated breast ultrasound exam demonstrates sonographically benign appearing tissue, and no cystic or solid mass or area of abnormal shadowing is seen. Area of palpable concern corresponds to a rigid fibroglandular tissue. Procedure Note Rose Dow MD - 07/08/2009 Dictating Physician: Rose Dow M.D. Exam: [facility] Bilateral Digital W CAD and bilateral breast sonogram Date: Jul 08, 2009 1:48:00 PM Comparison: None History: Self-detected lateral left breast lump with associatedtenderness. Physician-detected superior right breast lump. Findings: DIAGNOSTIC MAMMOGRAM: Bilateral standard views were obtained. Current study was also evaluatedwith a Computer Aided Detection (CAD) system. The tissue density of both breasts is heterogeneously dense. Nosignificant masses, calcifications, or other significant findings areseen. There has been no significant interval change. No mammographicfinding seen to account for the patient's breast symptoms. Furtherevaluation with ultrasound was subsequently performed. BREAST SONOGRAM: Direct real-time ultrasound was performed to evaluate the areas ofpalpable concern. She directs attention toward the lateral left breastcentered at 3:00 position where she reports a palpable area of thickeningwith associated tenderness. There is sonographically benign appearingtissue, and no cystic or solid mass or area of abnormal shadowing seen.Area of concern corresponds to a ridge of fibroglandular tissue andunderlying rib. Attention was then directed toward the superior right breast in the areaphysician-detected concern. There is a palpable area thickening centeredat 10:00 position 4 cm from the nipple. Coordinated breast ultrasound examdemonstrates sonographically benign appearing tissue, and no cystic orsolid mass or area of abnormal shadowing is seen. Area of palpable concerncorresponds to a rigid fibroglandular tissue. IMPRESSION: 1. No mammographic or sonographic finding is seen in the areas of palpableconcern. The lateral left breast lump and superior right breast lumpcorresponds to ridges of normal appearing fibroglandular tissue. Anyfurther management should be based on clinical assessment. 2. There is no mammographic or sonographic evidence of malignancy. 3. In the absence of clinical concern, a bilateral screening mammogram isrecommended in one year. Written results and recommendations were given to the patient at theconclusion of this examination today. Mammogram BI-RADS: 1 - Negative. Ultrasound BI-RADS: 1 - Negative. Pedro Martínez MD IMG MAMMO ORDERABLES F inal Result from Last 3 Months or Most Recently Relevant to Health Maintenance Insurance [facility] Advance Directives * No Code Status (Latest Code Status on File) Date Activated Date Inactivated Comments 05/27/2010 2:58 PM Patient doesn' t have and not interested Care Teams Tactical Intelligence Officer Relationship Specialty Start Date End Date Radha Spivey MD [address] [place] [address] PCP - General Family Medicine 02/06/14
--- OUTSIDE RECORDS SUMMARY | 2025-03-18 16:28 | XMS_ITS | Encounter Summary ---
Author Organization [facility] Address [address] [place] [address] Care Team Providers Care Communication Equipment Repairer Name Role Phone Chava Sherman MD Primary Care Provider [phone] Encounter Details Date Type Department Care Team (Late st Contact Info) Description 08/24/2024 Lab Requisition [facility] Services [address] [place] [phone] Pérez Pinzon MD [address] [place] [address] Social History Tobacco Use Types [...] Procedure Name Priority Date/Time Associated Diagnosis Comments C-REACTIVE PROTEIN Stat 08/24/2024 3: 34 AM CDT documented in this encounter Results * (ABNORMAL) C-REACTIVE PROTEIN (08/24/2024 3:34 AM CDT) CRP 4.8(H) <=0.5 mg/dL 08/24/2024 4:49 AM CDT [facility] Blood 08/24/2024 3:34 AM CDT 08/24/2024 4:31 AM CDT Pérez Pinzon MD CHEMISTRY ORDERABLES Final Resul t [facility] [address] [facility] [id number] [address] [place] [phone] documented in this encounter Visit Diagnoses Not on filedocumented in this encounter Care Teams Communication Equipment Repairer Relationship Specialty Start Date End Date Chava Sherman MD [address] [place] [phone] PCP - General Internal Medicine 06/19/24 documented as of this encounter
--- OUTSIDE RECORDS SUMMARY | 2025-03-18 16:28 | XMS_ITS | Encounter Summary ---
Author Organization [facility] Address [address] [place] [address] Care Team Providers Care Oil Pipe Inspector Name Role Phone Chava Sherman MD Primary Care Provider [phone] Encounter Details Date Type Department Care Team (Late st Contact Info) Description 08/10/2024 Lab Requisition [facility] Laboratory Services [address] [place] [address] [phone] Pérez Pinzon MD [address] [place] [phone] Social History Tobacco Use Types [...] Procedure Name Priority Date/Time Associated Diagnosis Comments SPUTUM CULTURE WITH GRAM STAIN Stat 08/09/2024 9:00 PM CDT documented in this encounter Results * (ABNORMAL) SPUTUM CULTURE WITH GRAM STAIN (08/09/2024 9:00 PM CDT) CULTURE PSEUDOMONAS AERUGINOSA(A) 08/12/2024 7:19 AM CDT [facility] Comment: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 If inpatient, place patient in Contact Isolation. GRAM STAIN >25 PMN WBC/LPF 7:19 AM CDT [facility] GRAM STAIN Smear contains </=10 squamous epithelial cells per low power field 08/12/2024 7:19 AM CDT [facility] GRAM STAIN 1+ (Rare or Occasional) Mixed sandeep with no predominate morphology 08/12/2024 7:19 AM CDT [facility] Sputum 08/09/2024 9:00 PM CDT 08/10/2024 3:59 AM CDT Narrative Organism Antibiotic Method Susceptibility Pseudomonas aeruginosa CEFEPIME 8: Susceptible Pseudomonas aeruginosa IMIPENEM >=16: Resistant Pseudomonas aeruginosa MEROPENEM >=16: Resistant Pseudomonas aeruginosa TOBRAMYCIN <=1: Susceptible Pseudomonas aeruginosa CIPROFLOXACIN 0.5: Susceptible Pseudomonas aeruginosa LEVOFLOXACIN 2: Intermediate Pseudomonas aeruginosa PIPERACILLIN/ TAZOBACTAM >=128: Resistant Pseudomonas aeruginosa CEFTAZIDIME/ AVIBACTAM 2: Susceptible Pérez Pinzon MD MICROBIOLOGY - GENERAL ORDERABLE S Final Result [facility] [id number] [address] [place] [address] [phone] documented in this encounter Visit Diagnoses Not on filedocumented in this encounter Care Teams Oil Pipe Inspector Relationship Specialty Start Date End Date Chava Sherman MD [address] [place] [phone] PCP - General Internal Medicine 06/19/24 documented as of this encounter
--- OUTSIDE RECORDS SUMMARY | 2025-03-18 16:28 | XMS_ITS | Encounter Summary ---
Author Organization [facility] Address [address] [place] [address] Care Team Providers Care Electronics Recycler Name Role Phone Chava Sherman MD Primary Care Provider Encounter Details Date Type Department Care Team (Late st Contact Info) Description 09/09/2024 Lab Requisition [facility] Laboratory Services [address] [place] [address] [place] [address] [phone] Pérez Pinzon MD [address] [place] [phone] Social History Tobacco Use Types [...] Priority Date/Time Associated Diagnosis Comments TRIGLYCERIDE Stat 09/09/2024 3:20 AM CDT PHOSPHORUS Stat 09/09/2024 3:20 AM CDT MAGNESIUM LEVEL Stat 09/09/2024 3:20 AM CDT COMPREHENSIVE METABOLIC PANEL Stat 09/09/2024 3:20 AM CDT documented in this encounter Results * PHOSPHORUS (09/09/2024 3:20 AM CDT) PHOSPHORUS 4.3 2.5 - 4.8 mg/dL 09/09/2024 7:53 AM CDT [facility] Blood Collection / Unknown 09/09/2024 3:20 AM CDT 09/09/2024 6:05 AM CDT us Pérez Pinzon MD CHEMISTRY ORDERABLES Final Resul t Performing Organization Address City/[facility]/ZIP Co de Phone Number [facility] [id number] [address] [place] [address] [phone] * TRIGLYCERIDE (09/09/2024 3:20 AM CDT) Pathologist [facility] TRIGLYCERIDE 63 <150 mg/dL 09/09/2024 7:53 AM CDT [facility] Blood Collection / Unknown 09/09/2024 3:20 AM CDT 09/09/2024 6:05 AM CDT Narrative [facility] - 09/09/2024 7:53 AM CDT TRIGLYCERIDES mg/dL Normal < 150 Borderline High 150 - 199 High 200 - 499 Very High >= 500 Based on AHA/NCEP Guidelines. us Pérez Pinzon MD CHEMISTRY ORDERABLES Final Resul t Performing Organization Address City/[facility]/ZIP Co de Phone Number [facility] [id number] [address] [place] [phone] * MAGNESIUM LEVEL (09/09/2024 3:20 AM CDT) MAGNESIUM 1.9 1.6 - 2.6 mg/dL 09/09/2024 7:53 AM T [facility] Blood Collection / Unknown 09/09/2024 3:20 AM CDT 09/09/2024 6:05 AM CDT Pérez Pinzon MD CHEMISTRY ORDERABLES Final Resul t [facility] [id number] [address] [place] [address] * (ABNORMAL) COMPREHENSIVE METABOLIC PANEL (09/09/2024 3:20 AM CDT) SODIUM 135(L) 136 - 145 mmol/L 09/09/2024 7:53 AM [facility] POTASSIUM 4.1 3.2 - 4.9 mmol/L 09/09/2024 7:53 AM [facility] CHLORIDE 106 98 - 111 mmol/L 09/09/2024 7:53 AM [facility] CO2 23 22 - 29 mmol/L 09/09/2024 7:53 AM [facility] CALCIUM 8.4 8.4 - 10.5 mg/dL 09/09/2024 7:53 AM [facility] BUN 21 6 - 24 mg/dL 09/09/2024 7:53 AM [facility] CREATININE 0.47(L) 0.50 - 1.20 mg/dL 09/09/2024 7:53 AM [facility] GLUCOSE 108 70 - 115 mg/dL 09/09/2024 7:53 AM [facility] TOTAL PROTEIN 6.9 6.0 - 8.4 g/dL 09/09/2024 7:53 AM [facility] ALBUMIN 2.8(L) 3.5 - 5.2 g/dL 09/09/2024 7:53 AM [facility] BILIRUBIN TOTAL 0.2(L) 0.3 - 1.2 mg/dL 09/09/2024 7:53 AM [facility] ALKALINE PHOSPHATASE 184(H) 25 - 117 U/L 09/09/2024 7:53 AM [facility] AST 21 <=33 U/L 09/09/2024 7:53 AM [facility] ALT 9 <=55 U/L 09/09/2024 7:53 AM [facility] GFR >60 >=60 mL/min/1.7 3 sq meter 09/09/2024 7:53 AM [facility] Comment:eGFR calculated with 2020 CKD-EPI equation. Vegetarian diet, extremely high or low muscle mass, and may affect results. Cystatin C with Glomerular Filtration Rate is a suitable alternative for these patients. ANION GAP 6(L) 7 - 16 mmol/L 09/09/2024 7:53 AM [facility] Blood Collection / Unknown 09/09/2024 3:20 AM CDT 09/09/2024 6:05 AM CDT us Pérez Pinzon MD CHEMISTRY ORDERABLES Final Resul t [facility] [id number] [address] [place] [address] documented in this encounter Visit Diagnoses Not on filedocumented in this encounter Care Teams Electronics Recycler Relationship Specialty Start Date End Date Chava Sherman MD [address] [place], [place] [phone] PCP - General Internal Medicine 06/19/24 documented as of this encounter
--- OUTSIDE RECORDS SUMMARY | 2025-03-18 16:28 | XMS_ITS | Encounter Summary ---
Author Organization [facility] Address [address] [place] [address] Care Team Providers Care Dining Service Inspector Name Role Phone Chava Sherman MD Primary Care Provider [phone] Encounter Details Date Type Department Care Team (Late st Contact Info) Description 08/10/2024 Lab Requisition [facility] Laboratory Services [address] [place] [address] [phone] Pérez Pinzon MD [address] [place] [phone] Social History Tobacco Use Types [...] Associated Diagnosis Comments CBC WITH DIFFERENTIAL Stat 08/10/2024 2:00 AM CDT documented in this encounter Results * (ABNORMAL) CBC WITH DIFFERENTIAL (08/10/2024 2:00 AM CDT) [facility] WBC 10.4 3.5 - 11.0 K/uL 08/10/2024 3:59 AM [facility] RBC 2.81(L) 3.80 - 5.00 M/uL 08/10/2024 3:59 AM [facility] HEMOGLOBIN 8.4(L) 11.7 - 15.7 g/dL 08/10/2024 3:59 AM [facility] HEMATOCRIT 25.5(L) 35.0 - 47.0 % 08/10/2024 3:59 AM [facility] MCV 90.9 80.8 - 100.0 fL 08/10/2024 3:59 AM [facility] MCH 30.0 26.4 - 34.0 pg 08/10/2024 3:59 AM [facility] MCHC 33.1 31.4 - 36.3 g/dL 08/10/2024 3:59 AM [facility] RDW 19.3(H) 11.0 - 15.0 % 08/10/2024 3:59 AM [facility] PLATELETS 482(H) 150 - 450 K/uL 08/10/2024 3:59 AM [facility] MPV 8.7 7.5 - 11.2 fL 08/10/2024 3:59 AM [facility] NEUTROPHILS 64 50 - 75 % 08/10/2024 3:59 AM [facility] LYMPHOCYTES 25 19 - 48 % 08/10/2024 3:59 AM [facility] MONOCYTES 7 0 - 10 % 08/10/2024 3:59 AM [facility] EOSINOPHILS 3 0 - 6 % 08/10/2024 3:59 AM [facility] BASOPHILS 1 0 - 2 % 08/10/2024 3:59 AM [facility] NEUTROPHIL ABSOLUTE 6.61 >=0.50 K/uL 08/10/2024 3:59 AM CDT [facility] LYMPHOCYTE ABSOLUTE 2.56 K/uL 08/10/2024 3:59 AM CDT [facility] MONOCYTE ABSOLUTE 0.73 K/uL 08/10/2024 3:59 AM CDT [facility] EOSINOPHIL ABSOLUTE 0.34 K/uL 08/10/2024 3:59 AM CDT [facility] - [facility] BASOPHILS ABSOLUTE 0.14 K/uL 08/10/2024 3:59 AM CDT [facility] Blood 08/10/2024 2:00 AM CDT 08/10/2024 3:55 AM CDT us Pérez Pinzon MD HEMATOLOGY ORDERABLES Final Resu lt [facility] [id number] [address] [place] [address] [phone] documented in this encounter Visit Diagnoses Not on filedocumented in this encounter Care Teams Dining Service Inspector Relationship Specialty Start Date End Date Chava Sherman MD [address] [place] [phone] PCP - General Internal Medicine 06/19/24 documented as of this encounter
--- OUTSIDE RECORDS SUMMARY | 2025-03-18 16:28 | XMS_ITS | Encounter Summary ---
Author Organization [facility] Address [address] [place] [address] Care Team Providers Care Termination Clerk Name Role Phone Chava Sherman MD Primary Care Provider [phone] Encounter Details Date Type Department Care Team (Late st Contact Info) Description 08/21/2024 Lab Requisition [facility] Laboratory Services [address] [place] [address] [place] [address] [phone] Pérez Pinzon MD [address] [place] [phone] Social History Tobacco Use Types [...] Associated Diagnosis Comments CBC WITH DIFFERENTIAL Stat 08/21/2024 4:00 AM CDT documented in this encounter Results * (ABNORMAL) CBC WITH DIFFERENTIAL (08/21/2024 4:00 AM CDT) [facility] WBC 8.4 3.5 - 11.0 K/uL 08/21/2024 7:21 AM [facility] RBC 2.68(L) 3.80 - 5.00 M/uL 08/21/2024 7:21 AM [facility] HEMOGLOBIN 8.1(L) 11.7 - 15.7 g/dL 08/21/2024 7:21 AM [facility] HEMATOCRIT 24.8(L) 35.0 - 47.0 % 08/21/2024 7:21 AM [facility] MCV 92.4 80.8 - 100.0 fL 08/21/2024 7:21 AM [facility] MCH 30.2 26.4 - 34.0 pg 08/21/2024 7:21 AM [facility] MCHC 32.7 31.4 - 36.3 g/dL 08/21/2024 7:21 AM [facility] RDW 20.6(H) 11.0 - 15.0 % 08/21/2024 7:21 AM [facility] PLATELETS 469(H) 150 - 450 K/uL 08/21/2024 7:21 AM [facility] MPV 8.7 7.5 - 11.2 fL 08/21/2024 7:21 AM [facility] NEUTROPHILS 60 50 - 75 % 08/21/2024 7:21 AM [facility] LYMPHOCYTES 28 19 - 48 % 08/21/2024 7:21 AM [facility] MONOCYTES 7 0 - 10 % 08/21/2024 7:21 AM [facility] EOSINOPHILS 4 0 - 6 % 08/21/2024 7:21 AM [facility] BASOPHILS 2 0 - 2 % 08/21/2024 7:21 AM [facility] NEUTROPHIL ABSOLUTE 5.07 >=0.50 K/uL 08/21/2024 7:21 AM CDT [facility] LYMPHOCYTE ABSOLUTE 2.34 K/uL 08/21/2024 7:21 AM CDT [facility] MONOCYTE ABSOLUTE 0.56 K/uL 08/21/2024 7:21 AM CDT [facility] EOSINOPHIL ABSOLUTE 0.31 K/uL 08/21/2024 7:21 AM CDT [facility] - [facility] BASOPHILS ABSOLUTE 0.17 K/uL 08/21/2024 7:21 AM CDT [facility] Blood Collection / Unknown 08/21/2024 4:00 AM CDT 08/21/2024 5:54 AM CDT Pérez Pinzon MD HEMATOLOGY ORDERABLES Final Resu lt [facility] [id number] [address] [place] [address] [phone] documented in this encounter Visit Diagnoses Not on filedocumented in this encounter Care Teams Termination Clerk Relationship Specialty Start Date End Date Chava Sherman MD [address] [place] [phone] PCP - General Internal Medicine 06/19/24 documented as of this encounter
--- OUTSIDE RECORDS SUMMARY | 2025-03-18 16:28 | XMS_ITS | Encounter Summary ---
Author Organization [facility] Address [address] [place] [address] Care Team Providers Care Senior Industrial Engineer Name Role Phone Chava Sherman MD Primary Care Provider Encounter Details Date Type Department Care Team (Late st Contact Info) Description 08/10/2024 Lab Requisition [facility] Laboratory Services [address] [place] [address] [phone] Pérez Pinzon MD [address] [place] [phone] Social History Tobacco Use Types [...] Procedure Name Priority Date/Time Associated Diagnosis Comments PHOSPHORUS Stat 08/10/2024 4:48 AM CDT MAGNESIUM LEVEL Stat 08/10/2024 4:48 AM CDT COMPREHENSIVE METABOLIC PANEL Stat 08/10/2024 4:48 AM CDT documented in this encounter Results * PHOSPHORUS (08/10/2024 4:48 AM CDT) PHOSPHORUS 4.0 2.5 - 4.8 mg/dL 08/10/2024 5:47 AM CDT [facility] Blood 08/10/2024 4:48 AM CDT 08/10/2024 5:28 AM CDT us Pérez Pinzon MD CHEMISTRY ORDERABLES Final Resul t Performing Organization Address [facility]/ZIP Co de Phone Number [facility] [id number] [address] [place] [address] [phone] * MAGNESIUM LEVEL (08/10/2024 4:48 AM CDT) Pathologist [facility] MAGNESIUM 2.0 1.6 - 2.6 mg/dL 08/10/2024 5:47 AM CDT [facility] Blood 08/10/2024 4:48 AM CDT 08/10/2024 5:28 AM CDT us Pérez Pinzon MD CHEMISTRY ORDERABLES Final Resul t Performing Organization Address City/[facility]/ZIP Co de Phone Number [facility] [id number] [address] [place] [address] [phone] * (ABNORMAL) COMPREHENSIVE METABOLIC PANEL (08/10/2024 4:48 AM CDT) Pathologist [facility] SODIUM 134(L) 136 - 145 mmol/L 08/10/2024 5:47 AM CDT [facility] POTASSIUM 4.4 3.2 - 4.9 mmol/L 08/10/2024 5:47 [facility] CHL[facility] 105 98 - 111 mmol/L 08/10/2024 5:47 AM [facility] CO2 21(L) 22 - 29 mmol/L 08/10/2024 5:47 AM [facility] CALCIUM 8.4 8.4 - 10.5 mg/dL 08/10/2024 5:47 AM [facility] BUN 18 6 - 24 mg/dL 08/10/2024 5:47 AM [facility] CREATININE 0.50 0.50 - 1.20 mg/dL 08/10/2024 5:47 AM [facility] GLUCOSE 153(H) 70 - 115 mg/dL 08/10/2024 5:47 AM [facility] TOTAL PROTEIN 7.3 6.0 - 8.4 g/dL 08/10/2024 5:47 AM [facility] ALBUMIN 2.4(L) 3.5 - 5.2 g/dL 08/10/2024 5:47 AM [facility] BILIRUBIN TOTAL 0.3 0.3 - 1.3 mg/dL 08/10/2024 5:47 AM [facility] ALKALINE PHOSPHATASE 266(H) 25 - 117 U/L 08/10/2024 5:47 AM [facility] AST 42(H) <=33 U/L 08/10/2024 5:47 AM [facility] ALT 37 <=55 U/L 08/10/2024 5:47 AM [facility] GFR >60 >=60 mL/min/1.7 3 sq meter 08/10/2024 5:47 AM [facility] Comment:eGFR calculated with 2020 CKD-EPI equation. Vegetarian diet, extremely high or low muscle mass, and may affect results. Cystatin C with Glomerular Filtration Rate is a suitable alternative for these patients. ANION GAP 8 7 - 16 mmol/L 08/10/2024 5:47 AM [facility] Blood 08/10/2024 4:48 AM CDT 08/10/2024 5:28 AM CDT us Pérez Pinzon MD CHEMISTRY ORDERABLES Final Resul t [facility] [id number] [address] [place] [phone] documented in this encounter Visit Diagnoses Not on filedocumented in this encounter Care Teams Senior Industrial Engineer Relationship Specialty Start Date End Date Chava Sherman MD [address] [place] [phone] PCP - General Internal Medicine 06/19/24 documented as of this encounter
--- OUTSIDE RECORDS SUMMARY | 2025-03-18 16:28 | XMS_ITS | Encounter Summary ---
Author Organization [facility] Address [address] [place] [address] Care Team Providers Care Squadron Worker Name Role Phone Chava Sherman MD Primary Care Provider Encounter Details Date Type Department Care Team (Late st Contact Info) Description 08/17/[address] [facility] Laboratory Services [address] [place] [address] [phone] Pérez Pinzon MD [address] [place] [phone] Social History Tobacco Use Types [...] Procedure Name Priority Date/Time Associated Diagnosis Comments PROCALCITONIN Stat 08/17/2024 2:32 AM CDT C-REACTIVE PROTEIN Stat 08/17/2024 2: 32 AM CDT documented in this encounter Results * PROCALCITONIN (08/17/2024 2:32 AM CDT) PROCALCITONIN 0.04 <=0.49 ng/mL 08/17/2024 4:05 AM CDT [facility] Blood 08/17/2024 2:32 AM CDT 08/17/2024 3:21 AM CDT Narrative [facility] - 08/17/2024 4:05 AM CDT Interpretation of Results: Sepsis: <0.5 ng/ml - Sepsis unlikely; local bacterial infection possible >=0.5 and <2 ng/ml - Sepsis possible; other conditions possible >=2 and <10 ng/ml - Sepsis likely >=10 ng/ml - Sever bacterial Sepsis or Septic Shock Lower respiratory tract infection: <0.1 ng/ml - No bacterial infection; antibiotics strongly discouraged >=0.1 and <0.25 ng/ml - Bacterial infection unlikely; antibiotics discouraged >=0.25 and <0.5 ng/ml - Bacterial infection possible; recommend antibiotics >=0.5 ng/ml - Bacterial infection present; antibiotics strongly recommended Cut-offs for clinical decision making are variable and depend on the clinical setting (e.g. Primary Care, Emergency Room, Intensive Care Unit, Post-Operative or Trauma patients). Decision to prescribe or withhold antibiotics should be reassessed within the next 6-24 hours based on patient's clinical picture and repeat Procalcitonin level. us Pérez Pinzon MD CHEMISTRY ORDERABLES Final Resul t [facility] [id number] [address] [place] [phone] * (ABNORMAL) C-REACTIVE PROTEIN (08/17/2024 2:32 AM CDT) Pathologist [facility] CRP 4.6(H) <=0.5 mg/dL 08/17/2024 3:53 AM CDT [facility] Blood 08/17/2024 2:32 AM CDT 08/17/2024 3:21 AM CDT Pérez Pinzon MD CHEMISTRY ORDERABLES Final Resul t [facility] - [facility] [id number] [address] [place] [address] [phone] documented in this encounter Visit Diagnoses Not on filedocumented in this encounter Care Teams Squadron Worker Relationship Specialty Start Date End Date Chava Sherman MD [address] [place] [phone] PCP - General Internal Medicine 06/19/24 documented as of this encounter
--- OUTSIDE RECORDS SUMMARY | 2025-03-18 16:28 | XMS_ITS | Encounter Summary ---
Author Organization [facility] Address [address] [place] [address] Care Team Providers Care Reed Or Wind Instrument Repairer Name Role Phone Chava Sherman MD Primary Care Provider Encounter Details Date Type Department Care Team (Late st Contact Info) Description 08/15/2024 Lab Requisition [facility] Laboratory Services [address] [place] [address] [place] [address] [phone] Pérez Pinzon MD [address] [place] [phone] Social History Tobacco Use Types [...] Associated Diagnosis Comments CBC WITH DIFFERENTIAL Stat 08/15/2024 2:15 AM CDT TRIGLYCERIDE Stat 08/15/2024 2:15 AM CDT PHOSPHORUS Stat 08/15/2024 2:15 AM CDT MAGNESIUM LEVEL Stat 08/15/2024 2:15 AM CDT COMPREHENSIVE METABOLIC PANEL Stat 08/15/2024 2:15 AM CDT documented in this encounter Results * PHOSPHORUS (08/15/2024 2:15 AM CDT) PHOSPHORUS 4.4 2.5 - 4.8 mg/dL 08/15/2024 8:38 AM CDT [facility] Blood Collection / Unknown 08/15/2024 2:15 AM CDT 08/15/2024 5:53 AM CDT us Pérez Pinzon MD CHEMISTRY ORDERABLES Final Resul t [facility] [id number] [address] [place] [address] * TRIGLYCERIDE (08/15/2024 2:15 AM CDT) TRIGLYCERIDE 63 <150 mg/dL 08/15/2024 8:38 AM CDT [facility] Blood Collection / Unknown 08/15/2024 2:15 AM CDT 08/15/2024 5:53 AM CDT Narrative [facility] - 08/15/2024 8:38 AM CDT TRIGLYCERIDES mg/dL Normal < 150 Borderline High 150 - 199 High 200 - 499 Very High >= 500 Based on AHA/NCEP Guidelines. us Pérez Pinzon MD CHEMISTRY ORDERABLES Final Resul t Performing Organization Address City/[facility]/ZIP Co de Phone Number [facility] [id number] [address] [place] [phone] * MAGNESIUM LEVEL (08/15/2024 2:15 AM CDT) Pathologist [facility] MAGNESIUM 1.8 1.6 - 2.6 mg/dL 08/15/2024 8:38 AM CDT [facility] Blood Collection / Unknown 08/15/2024 2:15 AM CDT 08/15/2024 5:53 AM CDT Pérez Pinzon MD CHEMISTRY ORDERABLES Final Resul t [facility] [id number] [address] [place] [address] * (ABNORMAL) CBC WITH DIFFERENTIAL (08/15/2024 2:15 AM CDT) [facility] WBC 14.9(H) 3.5 - 11.0 K/uL 08/15/2024 7:59 AM T [facility] RBC 2.49(L) 3.80 - 5.00 M/uL 08/15/2024 7:59 AM T [facility] HEMOGLOBIN 7.5(L) 11.7 - 15.7 g/dL 08/15/2024 7:59 AM [facility] HEMATOCRIT 22.8(L) 35.0 - 47.0 % 08/15/2024 7:59 AM [facility] MCV 91.6 80.8 - 100.0 fL 08/15/2024 7:59 AM T [facility] MCH 30.0 26.4 - 34.0 pg 08/15/2024 7:59 AM T [facility] MCHC 32.8 31.4 - 36.3 g/dL 08/15/2024 7:59 AM T [facility] RDW 20.8(H) 11.0 - 15.0 % 08/15/2024 7:59 AM [facility] PLATELETS 477(H) 150 - 450 K/uL 08/15/2024 7:59 AM CDT [facility] MPV 8.3 7.5 - 11.2 fL 08/15/2024 7:59 AM CDT [facility] NEUTROPHILS 73 50 - 75 % 08/15/2024 7:59 AM CDT [facility] LYMPHOCYTES 17(L) 19 - 48 % 08/15/2024 7:59 AM CDT [facility] MONOCYTES 7 0 - 10 % 08/15/2024 7:59 AM CDT [facility] EOSINOPHILS 3 0 - 6 % 08/15/2024 7:59 AM CDT [facility] BASOPHILS 1 0 - 2 % 08/15/2024 7:59 AM CDT [facility] NEUTROPHIL ABSOLUTE 10.80 >=0.50 K/uL 08/15/2024 7:59 AM CDT [facility] LYMPHOCYTE ABSOLUTE 2.46 K/uL 08/15/2024 7:59 AM CDT [facility] MONOCYTE ABSOLUTE 1.03 K/uL 08/15/2024 7:59 AM CDT [facility] EOSINOPHIL ABSOLUTE 0.48 K/uL 08/15/2024 7:59 AM CDT [facility] BASOPHILS ABSOLUTE 0.09 K/uL 08/15/2024 7:59 AM CDT [facility] Blood 08/15/2024 2:15 AM CDT 08/15/2024 5:53 AM CDT Pérez Pinzon MD HEMATOLOGY ORDERABLES Final Resu lt [facility] [employer] [facility] [id number] [address] [place] [phone] * (ABNORMAL) COMPREHENSIVE METABOLIC PANEL (08/15/2024 2:15 AM CDT) SODIUM 134(L) 136 - 145 mmol/L 08/15/2024 8:38 AM CDT [facility] POTASSIUM 3.9 3.2 - 4.9 mmol/L 08/15/2024 8:38 AM [facility] CHLORIDE 104 98 - 111 mmol/L 08/15/2024 8:38 AM [facility] CO2 25 22 - 29 mmol/L 08/15/2024 8:38 AM [facility] CALCIUM 8.3(L) 8.4 - 10.5 mg/dL 08/15/2024 8:38 AM [facility] BUN 18 6 - 24 mg/dL 08/15/2024 8:38 AM [facility] CREATININE 0.54 0.50 - 1.20 mg/dL 08/15/2024 8:38 AM [facility] GLUCOSE 161(H) 70 - 115 mg/dL 08/15/2024 8:38 AM [facility] TOTAL PROTEIN 6.5 6.0 - 8.4 g/dL 08/15/2024 8:38 AM [facility] ALBUMIN 2.5(L) 3.5 - 5.2 g/dL 08/15/2024 8:38 AM [facility] BILIRUBIN TOTAL 0.3 0.3 - 1.3 mg/dL 08/15/2024 8:38 AM [facility] ALKALINE PHOSPHATASE 218(H) 25 - 117 U/L 08/15/2024 8:38 AM [facility] AST 22 <=33 U/L 08/15/2024 8:38 AM [facility] ALT 16 <=55 U/L 08/15/2024 8:38 AM [facility] GFR >60 >=60 mL/min/1.7 3 sq meter 08/15/2024 8:38 AM [facility] Comment:eGFR calculated with 2020 CKD-EPI equation. Vegetarian diet, extremely high or low muscle mass, and may affect results. Cystatin C with Glomerular Filtration Rate is a suitable alternative for these patients. ANION GAP 5(L) 7 - 16 mmol/L 08/15/2024 8:38 AM [facility] Blood Collection / Unknown 08/15/2024 2:15 AM CDT 08/15/2024 5:53 AM CDT Pérez Pinzon MD CHEMISTRY ORDERABLES Final Resul t [facility] [id number] [address] [place] [address] documented in this encounter Visit Diagnoses Not on filedocumented in this encounter Care Teams Reed Or Wind Instrument Repairer Relationship Specialty Start Date End Date Chava Sherman MD [address] [place] [phone] PCP - General Internal Medicine 06/19/24 documented as of this encounter
--- OUTSIDE RECORDS SUMMARY | 2025-03-18 16:28 | XMS_ITS | Encounter Summary ---
Author Organization [facility] Address [address] [place] [address] Care Team Providers Care Accounts Payable Or Receivable Clerk Name Role Phone Chava Sherman MD Primary Care Provider [phone] Encounter Details Date Type Department Care Team (Late st Contact Info) Description 09/02/2024 Lab Requisition [facility] Laboratory Services [address] [place] [address] [place] [address] [phone] Pérez Pinzon MD [address] [place] [phone] Social History Tobacco Use Types [...] Priority Date/Time Associated Diagnosis Comments PHOSPHORUS Stat 09/02/2024 3:16 AM CDT MAGNESIUM LEVEL Stat 09/02/2024 3:16 AM CDT COMPREHENSIVE METABOLIC PANEL Stat 09/02/2024 3:16 AM CDT documented in this encounter Results * PHOSPHORUS (09/02/2024 3:16 AM CDT) PHOSPHORUS 4.6 2.5 - 4.8 mg/dL 09/02/2024 7:33 AM CDT [facility] [employer] [facility] Blood Collection / Unknown 09/02/2024 3:16 AM CDT 09/02/2024 6:31 AM CDT us Pérez Pinzon MD CHEMISTRY ORDERABLES Final Resul t Performing Organization Address City/[facility]/ZIP Co de Phone Number [facility] [employer] [facility] [id number] [address] [place] [address] [phone] * MAGNESIUM LEVEL (09/02/2024 3:16 AM CDT) MAGNESIUM 1.9 1.6 - 2.6 mg/dL 09/02/2024 7:33 AM CDT [facility] [employer] [facility] Blood Collection / Unknown 09/02/2024 3:16 AM CDT 09/02/2024 6:31 AM CDT us Pérez Pinzon MD CHEMISTRY ORDERABLES Final Resul t [facility] [employer] [facility] [id number] [address] [place] [address] * (ABNORMAL) COMPREHENSIVE METABOLIC PANEL (09/02/2024 3:16 AM CDT) SODIUM 139 136 - 145 mmol/L 09/02/2024 7:33 AM CDT [facility] [employer] [facility] POTASSIUM 4.4 3.2 - 4.9 mmol/L 09/02/2024 7:33 AM [facility] CHLORIDE 108 98 - 111 mmol/L 09/02/2024 7:33 AM [facility] CO2 24 22 - 29 mmol/L 09/02/2024 7:33 AM [facility] CALCIUM 8.5 8.4 - 10.5 mg/dL 09/02/2024 7:33 AM [facility] BUN 22 6 - 24 mg/dL 09/02/2024 7:33 AM [facility] CREATININE 0.47(L) 0.50 - 1.20 mg/dL 09/02/2024 7:33 AM [facility] GLUCOSE 97 70 - 115 mg/dL 09/02/2024 7:33 AM [facility] TOTAL PROTEIN 6.6 6.0 - 8.4 g/dL 09/02/2024 7:33 AM [facility] ALBUMIN 2.6(L) 3.5 - 5.2 g/dL 09/02/2024 7:33 AM [facility] BILIRUBIN TOTAL 0.1(L) 0.3 - 1.2 mg/dL 09/02/2024 7:33 AM [facility] ALKALINE PHOSPHATASE 189(H) 25 - 117 U/L 09/02/2024 7:33 AM [facility] AST 26 <=33 U/L 09/02/2024 7:33 AM [facility] ALT 12 <=55 U/L 09/02/2024 7:33 AM [facility] GFR >60 >=60 mL/min/1.7 3 sq meter 09/02/2024 7:33 AM [facility] Comment:eGFR calculated with 2020 CKD-EPI equation. Vegetarian diet, extremely high or low muscle mass, and may affect results. Cystatin C with Glomerular Filtration Rate is a suitable alternative for these patients. ANION GAP 7 7 - 16 mmol/L 09/02/2024 7:33 AM [facility] Blood Collection / Unknown 09/02/2024 3:16 AM CDT 09/02/2024 6:31 AM CDT us Pérez Pinzon MD CHEMISTRY ORDERABLES Final Resul t [facility] [id number] [address] [place] [address] documented in this encounter Visit Diagnoses Not on filedocumented in this encounter Care Teams Accounts Payable Or Receivable Clerk Relationship Specialty Start Date End Date Chava Sherman MD [address] [place] [phone] PCP - General Internal Medicine 06/19/24 documented as of this encounter
--- OUTSIDE RECORDS SUMMARY | 2025-03-18 16:28 | XMS_ITS | Encounter Summary ---
Author Organization [facility] Address [address] [place] [address] Care Team Providers Care Virology Teacher Name Role Phone Chava Sherman MD Primary Care Provider [phone] Encounter Details Date Type Department Care Team (Late st Contact Info) Description 08/16/[address] [facility] Laboratory Services [address] [place] [address] [place] [address] [phone] Pérez Pinzon MD [address] [place] [address] Social History Tobacco Use Types [...] Name Priority Date/Time Associated Diagnosis Comments PHOSPHORUS Routine 08/16/2024 12:59 PM CDT MAGNESIUM LEVEL Routine 08/16/2024 12:59 PM CDT COMPREHENSIVE METABOLIC PANEL Routine 08/16/2024 12:59 PM CDT documented in this encounter Results * PHOSPHORUS (08/16/2024 12:59 PM CDT) PHOSPHORUS 4.7 2.5 - 4.8 mg/dL 08/16/2024 2:52 PM CDT [facility] Blood Collection / Unknown 08/16/2024 12:59 PM CDT 08/16/2024 2:30 PM CDT us Pérez Pinzon MD CHEMISTRY ORDERABLES Final Resul t Performing Organization Address City/[facility]/ZIP Co de Phone Number [facility] [id number] [address] [place] [address] [phone] * MAGNESIUM LEVEL (08/16/2024 12:59 PM CDT) MAGNESIUM 1.8 1.6 - 2.6 mg/dL 08/16/2024 2:52 PM CDT [facility] Blood Collection / Unknown 08/16/2024 12:59 PM CDT 08/16/2024 2:30 PM CDT us Pérez Pinzon MD CHEMISTRY ORDERABLES Final Resul t [facility] [id number] [address] [place] [address] * (ABNORMAL) COMPREHENSIVE METABOLIC PANEL (08/16/2024 12:59 PM CDT) SODIUM 134(L) 136 - 145 mmol/L 08/16/2024 2:52 PM CDT [facility] POTASSIUM 4.4 3.2 - 4.9 mmol/L 08/16/2024 2:52 PM [facility] CHLORIDE 104 98 - 111 mmol/L 08/16/2024 2:52 PM [facility] CO2 25 22 - 29 mmol/L 08/16/2024 2:52 PM [facility] CALCIUM 8.4 8.4 - 10.5 mg/dL 08/16/2024 2:52 PM [facility] BUN 22 6 - 24 mg/dL 08/16/2024 2:52 PM [facility] CREATININE 0.50 0.50 - 1.20 mg/dL 08/16/2024 2:52 PM [facility] GLUCOSE 161(H) 70 - 115 mg/dL 08/16/2024 2:52 PM [facility] TOTAL PROTEIN 6.5 6.0 - 8.4 g/dL 08/16/2024 2:52 PM [facility] ALBUMIN 2.4(L) 3.5 - 5.2 g/dL 08/16/2024 2:52 PM [facility] BILIRUBIN TOTAL 0.2(L) 0.3 - 1.3 mg/dL 08/16/2024 2:52 PM [facility] ALKALINE PHOSPHATASE 205(H) 25 - 117 U/L 08/16/2024 2:52 PM [facility] AST 32 <=33 U/L 08/16/2024 2:52 PM [facility] ALT 23 <=55 U/L 08/16/2024 2:52 PM [facility] GFR >60 >=60 mL/min/1.7 3 sq meter 08/16/2024 2:52 PM [facility] Comment:eGFR calculated with 2020 CKD-EPI equation. Vegetarian diet, extremely high or low muscle mass, and may affect results. Cystatin C with Glomerular Filtration Rate is a suitable alternative for these patients. ANION GAP 5(L) 7 - 16 mmol/L 08/16/2024 2:52 PM [facility] Blood Collection / Unknown 08/16/2024 12:59 PM CDT 08/16/2024 2:30 PM CDT Pérez Pinzon MD CHEMISTRY ORDERABLES Final Resul t [facility] [id number] [address] [place] [address] documented in this encounter Visit Diagnoses Not on filedocumented in this encounter Care Teams Virology Teacher Relationship Specialty Start Date End Date Chava Sherman MD [address] [place] [phone] PCP - General Internal Medicine 06/19/24 documented as of this encounter
--- OUTSIDE RECORDS SUMMARY | 2025-03-18 16:28 | XMS_ITS | Encounter Summary ---
Author Organization [facility] Address [address] [place] [address] Care Team Providers Care Die Stamping Press Operator Name Role Phone Chava Sherman MD Primary Care Provider Encounter Details Date Type Department Care Team (Late st Contact Info) Description 08/30/2024 Lab Requisition [facility] Laboratory Services [address] [place] [address] [place] [address] [phone] Pérez Pinzon MD [address] [place] [phone] Social History Tobacco Use Types [...] Procedure Name Priority Date/Time Associated Diagnosis Comments BASIC METABOLIC PANEL Stat 08/30/2024 2:55 AM CDT documented in this encounter Results * (ABNORMAL) BASIC METABOLIC PANEL (08/30/2024 2:55 AM CDT) SODIUM 137 136 - 145 mmol/L 08/30/2024 7:24 AM CDT [facility] POTASSIUM 4.2 3.2 - 4.9 mmol/L 08/30/2024 7:24 AM [facility] CHLORIDE 107 98 - 111 mmol/L 08/30/2024 7:24 AM CDT [facility] CO2 24 22 - 29 mmol/L 08/30/2024 7:24 AM [facility] CALCIUM 8.5 8.4 - 10.5 mg/dL 08/30/2024 7:24 AM T [facility] BUN 24 6 - 24 mg/dL 08/30/2024 7:24 AM [facility] CREATININE 0.47(L) 0.50 - 1.20 mg/dL 08/30/2024 7:24 AM [facility] GLUCOSE 103 70 - 115 mg/dL 08/30/2024 7:24 AM [facility] GFR >60 >=60 mL/min/1.7 3 sq meter 08/30/2024 7:24 AM [facility] Comment:eGFR calculated with 2020 CKD-EPI equation. Vegetarian diet, extremely high or low muscle mass, and may affect results. Cystatin C with Glomerular Filtration Rate is a suitable alternative for these patients. ANION GAP 6(L) 7 - 16 mmol/L 08/30/2024 7:24 AM [facility] Blood Collection / Unknown 08/30/2024 2:55 AM CDT 08/30/2024 6:38 AM CDT us Pérez Pinzon MD CHEMISTRY ORDERABLES Final Resul t [facility] [id number] [address] [place] [address] documented in this encounter Visit Diagnoses Not on filedocumented in this encounter Care Teams Die Stamping Press Operator Relationship Specialty Start Date End Date Chava Sherman MD [address] [place] [phone] PCP - General Internal Medicine 06/19/24 documented as of this encounter
--- OUTSIDE RECORDS SUMMARY | 2025-03-18 16:28 | XMS_ITS | Encounter Summary ---
Author Organization [facility] Address [address] [place] [address] Care Team Providers Care Coat Joiner Name Role Phone Chava Sherman MD Primary Care Provider [phone] Encounter Details Date Type Department Care Team (Late st Contact Info) Description 08/10/2024 Lab Requisition [facility] Services [address] [place] [address] [phone] Pérez Pinzon MD [address] [place] [phone] Social History Tobacco Use Types [...] Procedure Name Priority Date/Time Associated Diagnosis Comments T4 TOTAL Stat 08/10/2024 2:00 AM CDT PROTIME-INR Stat 08/10/2024 2:00 AM CDT TSH Stat 08/10/2024 2:00 AM CDT T4 FREE Stat 08/10/2024 2:00 AM CDT PREALBUMIN Stat 08/10/2024 2:00 AM CDT documented in this encounter Results * (ABNORMAL) PREALBUMIN (08/10/2024 2:00 AM CDT) PREALBUMIN 15(L) 16 - 38 mg/dL 08/12/2024 8:58 AM CDT [facility] Blood 08/10/2024 2:00 AM CDT 08/10/2024 3:51 AM CDT us Pérez Pinzon MD CHEMISTRY ORDERABLES Final Resul t [facility] [id number] [address] [place] [address] * PROTIME-INR (08/10/2024 2:00 AM CDT) PROTIME 11.3 9.0 - 11.5 Seconds 08/10/2024 4:27 AM CDT [facility] INR 1.1 <=3.0 08/10/2024 4:27 AM CDT [facility] Blood 08/10/2024 2:00 AM CDT 08/10/2024 3:51 AM CDT us Pérez Pinzon MD HEMATOLOGY ORDERABLES Final Resu lt [facility] [id number] [address] [place] [phone] * T4 TOTAL (08/10/2024 2:00 AM CDT) Pathologist [facility] T4 TOTAL 6.4 4.5 - 11.7 ug/dL 08/12/2024 9:18 AM CDT [facility] Blood 08/10/2024 2:00 AM CDT 08/10/2024 3:51 AM CDT us Pérez Pinzon MD CHEMISTRY ORDERABLES Final Resul t [facility] [id number] [address] [place], [place] [address] * T4 FREE (08/10/2024 2:00 AM CDT) [facility] T4 FREE 1.01 0.70 - 1.48 ng/dL 08/10/2024 8:50 AM CDT [facility] Blood 08/10/2024 2:00 AM CDT 08/10/2024 3:51 AM CDT us Pérez Pinzon MD CHEMISTRY ORDERABLES Edited Resu lt - Final Performing Organization Address [facility]/ZIP Co de Phone Number [facility] [id number] [address] [place] [address] [phone] * TSH (08/10/2024 2:00 AM CDT) [facility] TSH 1.74 0.27 - 4.20 uIU/mL 08/10/2024 8:50 AM CDT [facility] Blood 08/10/2024 2:00 AM CDT 08/10/2024 3:51 AM CDT us Pérez Pinzon MD CHEMISTRY ORDERABLES Edited Resu lt - Final Performing Organization Address City/[facility]/ZIP Co de Phone Number [facility] [id number] [address] [place] [phone] documented in this encounter Visit Diagnoses Not on filedocumented in this encounter Care Teams Coat Joiner Relationship Specialty Start Date End Date Chava Sherman MD [address] [place] [phone] PCP - General Internal Medicine 06/19/24 documented as of this encounter
--- OUTSIDE RECORDS SUMMARY | 2025-03-18 16:28 | XMS_ITS | Encounter Summary ---
Author Organization [facility] Address [address] [place] [address] Care Team Providers Care Cobol Application Developer Name Role Phone Chava Sherman MD Primary Care Provider [phone] Encounter Details Date Type Department Care Team (Late st Contact Info) Description 08/26/[address] [facility] Laboratory Services [address] [place] [address] [phone] Pérez Pinzon MD [address] [place] [address] Social History Tobacco Use Types [...] Priority Date/Time Associated Diagnosis Comments TRIGLYCERIDE Stat 08/26/2024 3:00 AM CDT PHOSPHORUS Stat 08/26/2024 3:00 AM CDT MAGNESIUM LEVEL Stat 08/26/2024 3:00 AM CDT COMPREHENSIVE METABOLIC PANEL Stat 08/26/2024 3:00 AM CDT documented in this encounter Results * TRIGLYCERIDE (08/26/2024 3:00 AM CDT) Pathologist [facility] TRIGLYCERIDE 90 <150 mg/dL 08/26/2024 5:39 AM CDT [facility] Blood 08/26/2024 3:00 AM CDT 08/26/2024 4:57 AM CDT Narrative [facility] - 08/26/2024 5:39 AM CDT TRIGLYCERIDES mg/dL Normal < 150 Borderline High 150 - 199 High 200 - 499 Very High >= 500 Based on AHA/NCEP Guidelines. us Pérez Pinzon MD CHEMISTRY ORDERABLES Final Resul t Performing Organization Address [facility]/ZIP Co de Phone Number [facility] [id number] [address] [place] [address] [phone] * PHOSPHORUS (08/26/2024 3:00 AM CDT) Pathologist [facility] PHOSPHORUS 4.3 2.5 - 4.8 mg/dL 08/26/2024 5:39 AM CDT [facility] Blood 08/26/2024 3:00 AM CDT 08/26/2024 4:57 AM CDT us Pérez Pinzon MD CHEMISTRY ORDERABLES Final Resul t Performing Organization Address City/[facility]/ZIP Co de Phone Number [facility] [id number] [address] [place] [address] [phone] * MAGNESIUM LEVEL (08/26/2024 3:00 AM CDT) [facility] MAGNESIUM 1.9 1.6 - 2.6 mg/dL 08/26/2024 5:39 AM T [facility] Blood 08/26/2024 3:00 AM CDT 08/26/2024 4:57 AM CDT Pérez Pinzon MD CHEMISTRY ORDERABLES Final Resul t [facility] [id number] [address] [place] [address] * (ABNORMAL) COMPREHENSIVE METABOLIC PANEL (08/26/2024 3:00 AM CDT) [facility] SODIUM 136 136 - 145 mmol/L 08/26/2024 5:39 AM [facility] POTASSIUM 4.3 3.2 - 4.9 mmol/L 08/26/2024 5:39 AM [facility] CHLORIDE 104 98 - 111 mmol/L 08/26/2024 5:39 AM [facility] CO2 25 22 - 29 mmol/L 08/26/2024 5:39 AM [facility] CALCIUM 8.8 8.4 - 10.5 mg/dL 08/26/2024 5:39 AM [facility] BUN 23 6 - 24 mg/dL 08/26/2024 5:39 AM [facility] CREATININE 0.42(L) 0.50 - 1.20 mg/dL 08/26/2024 5:39 AM [facility] GLUCOSE 93 70 - 115 mg/dL 08/26/2024 5:39 AM [facility] TOTAL PROTEIN 7.0 6.0 - 8.4 g/dL 08/26/2024 5:39 AM [facility] ALBUMIN 2.7(L) 3.5 - 5.2 g/dL 08/26/2024 5:39 AM [facility] BILIRUBIN TOTAL 0.2(L) 0.3 - 1.2 mg/dL 08/26/2024 5:39 AM CDT [facility] ALKALINE PHOSPHATASE 194(H) 25 - 117 U/L 08/26/2024 5:39 AM [facility] AST 33 <=33 U/L 08/26/2024 5:39 AM [facility] ALT 18 <=55 U/L 08/26/2024 5:39 AM [facility] GFR >60 >=60 mL/min/1.7 3 sq meter 08/26/2024 5:39 AM [facility] Comment:eGFR calculated with 2020 CKD-EPI equation. Vegetarian diet, extremely high or low muscle mass, and may affect results. Cystatin C with Glomerular Filtration Rate is a suitable alternative for these patients. ANION GAP 7 7 - 16 mmol/L 08/26/2024 5:39 AM [facility] Blood 08/26/2024 3:00 AM CDT 08/26/2024 4:57 AM CDT Pérez Pinzon MD CHEMISTRY ORDERABLES Final Resul t [facility] [id number] [address] [place] [phone] documented in this encounter Visit Diagnoses Not on filedocumented in this encounter Care Teams Cobol Application Developer Relationship Specialty Start Date End Date Chava Sherman MD [address] [place] [phone] PCP - General Internal Medicine 06/19/24 documented as of this encounter
--- OUTSIDE RECORDS SUMMARY | 2025-03-18 16:28 | XMS_ITS | Encounter Summary ---
Author Organization [facility] Address [address] [place] [address] Care Team Providers Care Loom Operator Name Role Phone Chava Sherman MD Primary Care Provider [phone] Encounter Details Date Type Department Care Team (Late st Contact Info) Description 08/22/2024 Lab Requisition [facility] Laboratory Services [address] [place] [address] [place] [address] [phone] Pérez Pinzon MD [address] [place] [address] Social History Tobacco Use Types [...] Associated Diagnosis Comments CBC WITH DIFFERENTIAL Stat 08/22/2024 1:45 AM CDT TRIGLYCERIDE Stat 08/22/2024 1:45 AM CDT PHOSPHORUS Stat 08/22/2024 1:45 AM CDT MAGNESIUM LEVEL Stat 08/22/2024 1:45 AM CDT COMPREHENSIVE METABOLIC PANEL Stat 08/22/2024 1:45 AM CDT documented in this encounter Results * PHOSPHORUS (08/22/2024 1:45 AM CDT) PHOSPHORUS 4.5 2.5 - 4.8 mg/dL 08/22/2024 7:59 AM CDT [facility] Blood Collection / Unknown 08/22/2024 1:45 AM CDT 08/22/2024 6:39 AM CDT us Pérez Pinzon MD CHEMISTRY ORDERABLES Final Resul t [facility] [id number] [address] [place] [phone] * TRIGLYCERIDE (08/22/2024 1:45 AM CDT) TRIGLYCERIDE 87 <150 mg/dL 08/22/2024 7:59 AM CDT [facility] Blood Collection / Unknown 08/22/2024 1:45 AM CDT 08/22/2024 6:39 AM CDT Narrative [facility] - 08/22/2024 7:59 AM CDT TRIGLYCERIDES mg/dL Normal < 150 Borderline High 150 - 199 High 200 - 499 Very High >= 500 Based on AHA/NCEP Guidelines. us Pérez Pinzon MD CHEMISTRY ORDERABLES Final Resul t Performing Organization Address City/[facility]/ZIP Co de Phone Number [facility] [id number] [address] [place] [phone] * MAGNESIUM LEVEL (08/22/2024 1:45 AM CDT) Pathologist [facility] MAGNESIUM 1.9 1.6 - 2.6 mg/dL 08/22/2024 7:59 AM CDT [facility] Blood Collection / Unknown 08/22/2024 1:45 AM CDT 08/22/2024 6:39 AM CDT Pérez Pinzon MD CHEMISTRY ORDERABLES Final Resul t [facility] [id number] [address] [place] [address] * (ABNORMAL) CBC WITH DIFFERENTIAL (08/22/2024 1:45 AM CDT) [facility] WBC 10.8 3.5 - 11.0 K/uL 08/22/2024 7:50 AM T [facility] RBC 2.50(L) 3.80 - 5.00 M/uL 08/22/2024 7:50 AM T [facility] HEMOGLOBIN 7.5(L) 11.7 - 15.7 g/dL 08/22/2024 7:50 AM [facility] HEMATOCRIT 23.1(L) 35.0 - 47.0 % 08/22/2024 7:50 AM T [facility] MCV 92.5 80.8 - 100.0 fL 08/22/2024 7:50 AM T [facility] MCH 30.1 26.4 - 34.0 pg 08/22/2024 7:50 AM T [facility] MCHC 32.6 31.4 - 36.3 g/dL 08/22/2024 7:50 AM T [facility] RDW 20.2(H) 11.0 - 15.0 % 08/22/2024 7:50 AM [facility] PLATELETS 470(H) 150 - 450 K/uL 08/22/2024 7:50 AM CDT [facility] - [facility] MPV 8.7 7.5 - 11.2 fL 08/22/2024 7:50 AM CDT [facility] - [facility] NEUTROPHILS 69 50 - 75 % 08/22/2024 7:50 AM CDT [facility] LYMPHOCYTES 21 19 - 48 % 08/22/2024 7:50 AM CDT [facility] - [facility] MONOCYTES 7 0 - 10 % 08/22/2024 7:50 AM CDT [facility] EOSINOPHILS 2 0 - 6 % 08/22/2024 7:50 AM CDT [facility] BASOPHILS 1 0 - 2 % 08/22/2024 7:50 AM CDT [facility] NEUTROPHIL ABSOLUTE 7.49 >=0.50 K/uL 08/22/2024 7:50 AM CDT [facility] LYMPHOCYTE ABSOLUTE 2.27 K/uL 08/22/2024 7:50 AM CDT [facility] MONOCYTE ABSOLUTE 0.80 K/uL 08/22/2024 7:50 AM CDT [facility] EOSINOPHIL ABSOLUTE 0.20 K/uL 08/22/2024 7:50 AM CDT [facility] BASOPHILS ABSOLUTE 0.09 K/uL 08/22/2024 7:50 AM CDT [facility] Blood 08/22/2024 1:45 AM CDT 08/22/2024 6:39 AM CDT Pérez Pinzon MD HEMATOLOGY ORDERABLES Final Resu lt [facility] [id number] [address] [place] [address] * (ABNORMAL) COMPREHENSIVE METABOLIC PANEL (08/22/2024 1:45 AM CDT) SODIUM 139 136 - 145 mmol/L 08/22/2024 7:59 AM CDT [facility] POTASSIUM 4.4 3.2 - 4.9 mmol/L 08/22/2024 7:59 AM CDT [facility] CHLORIDE 105 98 - 111 mmol/L 08/22/2024 7:59 AM [facility] CO2 26 22 - 29 mmol/L 08/22/2024 7:59 AM [facility] CALCIUM 8.7 8.4 - 10.5 mg/dL 08/22/2024 7:59 AM [facility] BUN 17 6 - 24 mg/dL 08/22/2024 7:59 AM [facility] CREATININE 0.45(L) 0.50 - 1.20 mg/dL 08/22/2024 7:59 AM [facility] GLUCOSE 115 70 - 115 mg/dL 08/22/2024 7:59 AM [facility] TOTAL PROTEIN 6.8 6.0 - 8.4 g/dL 08/22/2024 7:59 AM [facility] ALBUMIN 2.9(L) 3.5 - 5.2 g/dL 08/22/2024 7:59 AM [facility] BILIRUBIN TOTAL 0.2(L) 0.3 - 1.2 mg/dL 08/22/2024 7:59 AM [facility] ALKALINE PHOSPHATASE 178(H) 25 - 117 U/L 08/22/2024 7:59 AM [facility] AST 20 <=33 U/L 08/22/2024 7:59 AM [facility] ALT 10 <=55 U/L 08/22/2024 7:59 AM [facility] GFR >60 >=60 mL/min/1.7 3 sq meter 08/22/2024 7:59 AM [facility] Comment:eGFR calculated with 2020 CKD-EPI equation. Vegetarian diet, extremely high or low muscle mass, and may affect results. Cystatin C with Glomerular Filtration Rate is a suitable alternative for these patients. ANION GAP 8 7 - 16 mmol/L 08/22/2024 7:59 AM [facility] Blood Collection / Unknown 08/22/2024 1:45 AM CDT 08/22/2024 6:39 AM CDT Pérez Pinzon MD CHEMISTRY ORDERABLES Final Resul t [facility] - [facility] [id number] [address] [place] [phone] documented in this encounter Visit Diagnoses Not on filedocumented in this encounter Care Teams Loom Operator Relationship Specialty Start Date End Date Chava Sherman MD [address] [place] [address] [phone] PCP - General Internal Medicine 06/19/24 documented as of this encounter
--- OUTSIDE RECORDS SUMMARY | 2025-03-18 16:28 | XMS_ITS ---
Author Organization [facility] Care Team Providers Care Order Entry Clerk Name Role Phone Adam Carina Unavailable Unavailable Deon Hankins Unavailable Unavailable Dash Echeverria Unavailable Unavailable Lawrence Prescott Unavailable Unavailable Ibanca, Dasha Unavailable Unavailable Fyartemio, Antonio Unavailable Unavailable Gerard, Krushen Unavailable Unavailable Allergies and adverse reactions No Known Allergies Care Team Name Role Address Phone Organization Dates Dash Echeverria PCP [address] [place], [address], [facility] (Office): [phone] [facility] 07/21/2023 - 10/17/2023 Carina Medina [address] [facility] [address], [address], [facility] - 10/17/2023 Deon Hankins [address] [facility] [address], [place], [address], [place] (Office): [facility] - 10/17/2023 Lawrence Prescott [address] [place], [address], [facility] (Office): [facility] 07/21/2023 - 10/17/2023 Dasha Bianca [facility] (Office): [facility] 07/21/2023 - 10/17/2023 Antonio Tolentino [address] [place], [address], [facility] (Office): : [facility] 07/21/2023 - 10/17/2023 Clay Gee Hetal Fernández [facility], [place], [address], [facility] (Office): : [facility] 07/21/2023 - 10/17/2023 Goals Section Goals Description Status Target Date I will be enabled to live to the limit of my potential ability physically, mentally and spiritually. Active 11/09/2023 I will be free of any discom fort or adverse side effects of antibiotic therapy through the review date. Active 11/09/2023 I will be free of any discom fort or adverse side effects of diuretic therapy through the review date. Active 11/09/2023 I will benefit from side rails and have increase d bed mobility, Active 11/09/2023 I will continue to make miller erna regarding ADL's and activities to attend. Active 11/09/2023 I will not develop alteration in skin integrity. Active 11/09/2023 I will not exhibit symptomat ic UTI AEB: no fever, no dysuria, no alteration in mental or physical functioning Active I will verbalize/communicate an understanding of the discharge plan and describe the desired outcome by the review date. Active 11/09/2023 Preventing significant weigh t loss by next review Active 11/09/2023 Resident feels safe and secu re in facility through next review period Active 11/09/2023 Resident will decrease the r isk of injury r/t fall by next review date. Active 11/09/2023 Resident's pain will not int erfere with resident's quality of life through next review. Active 11/09/2023 The resident will be free of any discomfort or adverse side effects of anti-psychotic use through the review date. Active 11/09/2023 The resident will be free of any discomfort or adverse side effects of hypnotic use through the review date. Active 11/08 The resident will improve cu rrent level of function in ADLs through the review date. Active 11/09/2023 The resident will remain linda e of side effects or complications related to tube feeding through review date. Active The resident will remain saf e and free of thoughts/attempts of self harm through the next review. Active 11/09/2023 Mental Status Section Date Assessment Total Score Description 10/17/2023 BIMS 14 cognitively int act CAM 0 No delirium ind icated PHQ-9 12 moderate depres paty 10/17/2023 BIMS 14 cognitively int act CAM 0 No delirium ind icated PHQ-9 12 moderate depres paty Insurance Providers Coverage Status Coverage Type Relationship to Subscriber Member Identifier Subscriber Identifier Group Identifier Payer Identifier and Other information 2023 Code: 51 Code System OID:2.16.840.1 .781541.3.221. 5 Code System Name: Source of Payment Typology (PHDSC) Display: Managed Care (Private) Translation: Code: Code System: OID:2.16.840.1 .958788.6.255. 1336 Code System Name: Insurance Type Code ([id number]) Display Name: Health Maintenance Organization (HMO) Plan Code: SELF Code System Name: HL7 RoleCode Code System OID:2.16.840.1 .415955.5.111 Display Name: Self [id number] Root: [id number] Payer Name: Human Address: [place] [address] City: [place] State: [place] Country: [employer] [facility] Code: 2 Code System OID:2.16.840.1 .544056.3.221. 5 Code System Name: Source of Payment Typology (PHDSC) Display: Medicaid Translation: Code: 48 Code System: OID:2.16.840.1 .647940.6.255. 1336 Code System Name: Insurance Type Code ([id number]) Display Name: Medicaid Plan of Treatment Section Interventions Intervention Code Code System Display Name Proposed D ate Problems Problem # Description Date of onset Resolved Date Code CodeSystem Concern Status 1 PEPTIC ULCER, SITE UNSPECIFIED, UNSPECIFIED ACUTE OR CHRONIC, WITHOUT HEMORRHAGE OR PERFORATION [address] active 2 PERSONAL HISTORY OF OTHER DISEASES OF THE DIGESTIVE SYSTEM [address] active 3 OTHER INSOMNIA [address] active 4 SCHIZOAFFECTIVE DISORDER, BIPOLAR TYPE [address] active 5 ACUTE KIDNEY FAILURE, UNSPECIFIED [address] active 6 ALTERED MENTAL STATUS, UNSPECIFIED [address] active 7 BARIATRIC SURGERY STATUS [address] active 8 BIPOLAR DISORDER, UNSPECIFIED [address] active 9 DIFFICULTY IN WALKING, NOT ELSEWHERE CLASSIFIED [address] active 10 ESSENTIAL (PRIMARY) HYPERTENSION [address] active 11 GASTRO-ESOPHAGEAL REFLUX DISEASE WITHOUT ESOPHAGITIS [address] active 12 GASTROINTESTINAL HEMORRHAGE, UNSPECIFIED [address] active 13 GASTROSTOMY STATUS [address] active 14 HYPERLIPIDEMIA, UNSPECIFIED [address] active 15 MUSCLE WEAKNESS (GENERALIZED) [address] active 16 NEED FOR ASSISTANCE WITH PERSONAL CARE [id number] active 17 OBSTRUCTIVE SLEEP APNEA (ADULT) (PEDIATRIC) [address] active 18 OTHER RETENTION OF URINE [address] active 19 PERSONAL HISTORY OF URINARY (TRACT) INFECTIONS [address] active 20 PNEUMONIA DUE TO MYCOPLASMA PNEUMONIAE [address] active 21 PRESENCE OF UROGENITAL IMPLANTS [address] active 22 SCHIZOAFFECTIVE DISORDER, UNSPECIFIED [address] active 23 SEPSIS, UNSPECIFIED ORGANISM 024 11/06/[address] completed 24 TYPE 2 DIABETES MELLITUS WITHOUT COMPLICATIONS [address] active 25 UNSPECIFIED PROTEIN-CALORIE MALNUTRITION [address] active Reason for Referral No Reasons for Referral Entered Social History Social History Observation Description Start Date End Date Code Code System Current Smoking Status Tobacco smoking consumption unknown 156952410 SNOMED CT Sex Assigned At Female 1965 76092-3 [facility] Gender Identity Sexual Orientation Vital Signs Code Code System Vitals Name Values and Units Timing Information 10442-7 [facility] Pain Level Value=0.0 10/17/2023 9279-1 [facility] Respiratory Rate Value=18.0 Units=/m in 10/15/2023 8462-4 [facility] Blood Pressure-Diastolic Value=70 Un its=mmHg 10/15/2023 8480-6 [facility] Blood Pressure-Systolic Mlbdp=409 Un its=mmHg 10/15/2023 8310-5 [facility] Body Temperature Value=97.8 Units= F 10/15/2023 8867-4 [facility] Heart rate Value=86.0 Units=/min 40269-8 [facility] O2 % BldC Oximetry Value=98.0 Units= % 10/15/2023 52857-3 [facility] Weight Rgymn=786.0 Units=Lbs 01/2024 8302-2 [facility] Height Value=61.0 Units=Inches 10/10/2023
--- OUTSIDE RECORDS SUMMARY | 2025-03-18 16:29 | XMS_ITS | Encounter Summary ---
Author Organization [facility] Address [address] [place] [address] Care Team Providers Care Check Pilot Name Role Phone Chava Sherman MD Primary Care Provider Encounter Details Date Type Department Care Team (Late st Contact Info) Description 10/03/2024 Lab Requisition [facility] Laboratory Services [address] [place] [address] [place] [address] [phone] Pérez Pinzon MD [address] [place] [address] Social History Tobacco Use Types [...] Priority Date/Time Associated Diagnosis Comments TRIGLYCERIDE Stat 10/03/2024 3:00 AM CDT PHOSPHORUS Stat 10/03/2024 3:00 AM CDT MAGNESIUM LEVEL Stat 10/03/2024 3:00 AM CDT COMPREHENSIVE METABOLIC PANEL Stat 10/03/2024 3:00 AM CDT documented in this encounter Results * PHOSPHORUS (10/03/2024 3:00 AM CDT) PHOSPHORUS 4.1 2.5 - 4.8 mg/dL 10/03/2024 7:52 AM CDT [facility] Blood Collection / Unknown 10/03/2024 3:00 AM CDT 10/03/2024 7:00 AM CDT us Pérez Pinzon MD CHEMISTRY ORDERABLES Final Resul t Performing Organization Address City/[facility]/ZIP Co de Phone Number [facility] [id number] [address] [place] [phone] * TRIGLYCERIDE (10/03/2024 3:00 AM CDT) Pathologist [facility] TRIGLYCERIDE 72 <150 mg/dL 10/03/2024 7:52 AM CDT [facility] Blood Collection / Unknown 10/03/2024 3:00 AM CDT 10/03/2024 7:00 AM CDT Narrative [facility] - 10/03/2024 7:52 AM CDT TRIGLYCERIDES mg/dL Normal < 150 Borderline High 150 - 199 High 200 - 499 Very High >= 500 Based on AHA/NCEP Guidelines. us Pérez Pinzon MD CHEMISTRY ORDERABLES Final Resul t Performing Organization Address City/[facility]/ZIP Co de Phone Number [facility] [id number] [address] [place] [address] * MAGNESIUM LEVEL (10/03/2024 3:00 AM CDT) MAGNESIUM 1.9 1.6 - 2.6 mg/dL 10/03/2024 7:52 AM [facility] Blood Collection / Unknown 10/03/2024 3:00 AM CDT 10/03/2024 7:00 AM CDT Pérez Pinzon MD CHEMISTRY ORDERABLES Final Resul t [facility] [id number] [address] [place] [address] * (ABNORMAL) COMPREHENSIVE METABOLIC PANEL (10/03/2024 3:00 AM CDT) SODIUM 138 136 - 145 mmol/L 10/03/2024 7:52 AM [facility] POTASSIUM 4.1 3.2 - 4.9 mmol/L 10/03/2024 7:52 AM [facility] CHLORIDE 107 98 - 111 mmol/L 10/03/2024 7:52 AM [facility] CO2 25 22 - 29 mmol/L 10/03/2024 7:52 AM [facility] CALCIUM 8.7 8.4 - 10.5 mg/dL 10/03/2024 7:52 AM [facility] BUN 22 6 - 24 mg/dL 10/03/2024 7:52 AM [facility] CREATININE 0.53 0.50 - 1.20 mg/dL 10/03/2024 7:52 AM [facility] GLUCOSE 133(H) 70 - 115 mg/dL 10/03/2024 7:52 AM [facility] TOTAL PROTEIN 6.8 6.0 - 8.4 g/dL 10/03/2024 7:52 AM [facility] ALBUMIN 3.0(L) 3.5 - 5.2 g/dL 10/03/2024 7:52 AM [facility] BILIRUBIN TOTAL 0.1(L) 0.3 - 1.2 mg/dL 10/03/2024 7:52 AM [facility] ALKALINE PHOSPHATASE 183(H) 25 - 117 U/L 10/03/2024 7:52 AM [facility] AST 24 <=33 U/L 10/03/2024 7:52 AM [facility] ALT 19 <=55 U/L 10/03/2024 7:52 AM [facility] GFR >60 >=60 mL/min/1.7 3 sq meter 10/03/2024 7:52 AM [facility] Comment:eGFR calculated with 2020 CKD-EPI equation. Vegetarian diet, extremely high or low muscle mass, and may affect results. Cystatin C with Glomerular Filtration Rate is a suitable alternative for these patients. ANION GAP 6(L) 7 - 16 mmol/L 10/03/2024 7:52 AM [facility] Blood Collection / Unknown 10/03/2024 3:00 AM CDT 10/03/2024 7:00 AM CDT us Pérez Pinzon MD CHEMISTRY ORDERABLES Final Resul t [facility] [id number] [address] [place] [address] documented in this encounter Visit Diagnoses Not on filedocumented in this encounter Care Teams Check Pilot Relationship Specialty Start Date End Date Chava Sherman MD [address] [place] [phone] PCP - General Internal Medicine 06/19/24 documented as of this encounter
--- OUTSIDE RECORDS SUMMARY | 2025-03-18 16:29 | XMS_ITS | Encounter Summary ---
Author Organization [facility] Address [address] [place] [address] Care Team Providers Care Household Appliances Salesperson Name Role Phone Chava Sherman MD Primary Care Provider Encounter Details Date Type Department Care Team (Late st Contact Info) Description 09/26/2024 Lab Requisition [facility] Laboratory Services [address] [place] [address] [place] [address] [phone] Pérez Pinzon MD [address] [place] [address] Social History Tobacco Use Types [...] Associated Diagnosis Comments CBC WITH DIFFERENTIAL Stat 09/26/2024 2:27 AM CDT TRIGLYCERIDE Stat 09/26/2024 2:27 AM CDT PHOSPHORUS Stat 09/26/2024 2:27 AM CDT MAGNESIUM LEVEL Stat 09/26/2024 2:27 AM CDT COMPREHENSIVE METABOLIC PANEL Stat 09/26/2024 2:27 AM CDT documented in this encounter Results * PHOSPHORUS (09/26/2024 2:27 AM CDT) PHOSPHORUS 4.2 2.5 - 4.8 mg/dL 09/26/2024 7:41 AM CDT [facility] Blood Collection / Unknown 09/26/2024 2:27 AM CDT 09/26/2024 6:46 AM CDT us Pérez Pinzon MD CHEMISTRY ORDERABLES Final Resul t [facility] [id number] [address] [place] [address] * TRIGLYCERIDE (09/26/2024 2:27 AM CDT) TRIGLYCERIDE 73 <150 mg/dL 09/26/2024 7:41 AM CDT [facility] Blood Collection / Unknown 09/26/2024 2:27 AM CDT 09/26/2024 6:46 AM CDT Narrative [facility] - 09/26/2024 7:41 AM CDT TRIGLYCERIDES mg/dL Normal < 150 Borderline High 150 - 199 High 200 - 499 Very High >= 500 Based on AHA/NCEP Guidelines. us Pérez Pinzon MD CHEMISTRY ORDERABLES Final Resul t Performing Organization Address City/[facility]/ZIP Co de Phone Number [facility] [id number] [address] [place] [address] * MAGNESIUM LEVEL (09/26/2024 2:27 AM CDT) Pathologist [facility] MAGNESIUM 1.8 1.6 - 2.6 mg/dL 09/26/2024 7:41 AM CDT [facility] Blood Collection / Unknown 09/26/2024 2:27 AM CDT 09/26/2024 6:46 AM CDT Pérez Pinzon MD CHEMISTRY ORDERABLES Final Resul t [facility] [id number] [address] [place] [address] * (ABNORMAL) CBC WITH DIFFERENTIAL (09/26/2024 2:27 AM CDT) Pathologist [facility] WBC 6.6 3.5 - 11.0 K/uL 09/26/2024 7:49 AM CDT [facility] RBC 2.99(L) 3.80 - 5.00 M/uL 09/26/2024 7:49 AM T [facility] HEMOGLOBIN 9.1(L) 11.7 - 15.7 g/dL 09/26/2024 7:49 AM T [facility] HEMATOCRIT 28.2(L) 35.0 - 47.0 % 09/26/2024 7:49 AM CDT [facility] MCV 94.3 80.8 - 100.0 fL 09/26/2024 7:49 AM CDT [facility] [employer] [facility] MCH 30.4 26.4 - 34.0 pg 09/26/2024 7:49 AM CDT [facility] MCHC 32.3 31.4 - 36.3 g/dL 09/26/2024 7:49 AM CDT [facility] [employer] [facility] RDW 17.2(H) 11.0 - 15.0 % 09/26/2024 7:49 AM CDT [facility] RDW-STDEV 59.5(H) 37.0 - 54.0 fL 09/26/2024 7:49 AM T [facility] LABORATORY [facility] PLATELETS 378 150 - 450 K/uL 09/26/2024 7:49 AM [facility] MPV 10.7 7.5 - 11.2 fL 09/26/2024 7:49 AM [facility] NEUTROPHILS 30(L) 50 - 75 % 09/26/2024 7:49 AM [facility] LYMPHOCYTES 57(H) 19 - 48 % 09/26/2024 7:49 AM T [facility] LABORATORY SERVICES [facility] MONOCYTES 7 0 - 10 % 09/26/2024 7:49 AM [facility] EOSINOPHILS 5 0 - 6 % 09/26/2024 7:49 AM [facility] BASOPHILS 1 0 - 2 % 09/26/2024 7:49 AM [facility] [employer] [facility] IMMATURE GRANULOCYTES 0 % 09/26/2024 7:49 AM [facility] [employer] [facility] NEUTROPHIL ABSOLUTE 2.02 >=0.50 K/uL 09/26/2024 7:49 AM [facility]ORAT[facility] LYMPHOCYTE ABSOLUTE 3.74 K/uL 09/26/2024 7:49 AM [facility] MONOCYTE ABSOLUTE 0.44 K/uL 025 7:49 AM [facility] [employer] [facility] EOSINOPHIL ABSOLUTE 0.34 K/uL 09/26/2024 7:49 AM [facility] BASOPHILS ABSOLUTE 0.05 K/uL 09/26/2024 7:49 AM [facility]OR[facility] IMMATURE GRANULOCYTES ABSOLUTE 0.01 K/uL 09/26/2024 7:49 AM [facility] [employer] [facility] Blood 09/26/2024 2:27 AM CDT 09/26/2024 6:46 AM CDT us Pérez Pinzon MD HEMATOLOGY ORDERABLES Final Resu lt [facility] [id number] [address] [place] [address] * (ABNORMAL) COMPREHENSIVE METABOLIC PANEL (09/26/2024 2:27 AM CDT) [facility] Signature SODIUM 137 136 - 145 mmol/L 09/26/2024 7:41 AM T [facility] POTASSIUM 3.9 3.2 - 4.9 mmol/L 09/26/2024 7:41 AM T [facility] CHLORIDE 110 98 - 111 mmol/L 09/26/2024 7:41 AM [facility] CO2 23 22 - 29 mmol/L 09/26/2024 7:41 AM [facility] CALCIUM 8.6 8.4 - 10.5 mg/dL 09/26/2024 7:41 AM [facility] BUN 26(H) 6 - 24 mg/dL 09/26/2024 7:41 AM [facility] CREATININE 0.48(L) 0.50 - 1.20 mg/dL 09/26/2024 7:41 AM [facility] GLUCOSE 103 70 - 115 mg/dL 09/26/2024 7:41 AM [facility] TOTAL PROTEIN 6.5 6.0 - 8.4 g/dL 09/26/2024 7:41 AM [facility] ALBUMIN 2.9(L) 3.5 - 5.2 g/dL 09/26/2024 7:41 AM [facility] BILIRUBIN TOTAL 0.1(L) 0.3 - 1.2 mg/dL 09/26/2024 7:41 AM [facility] ALKALINE PHOSPHATASE 166(H) 25 - 117 U/L 09/26/2024 7:41 AM [facility] AST 30 <=33 U/L 09/26/2024 7:41 AM [facility] ALT 24 <=55 U/L 09/26/2024 7:41 AM CDT [facility] GFR >60 >=60 mL/min/1.7 3 sq meter 09/26/2024 7:41 AM [facility] Comment:eGFR calculated with 2020 CKD-EPI equation. Vegetarian diet, extremely high or low muscle mass, and may affect results. Cystatin C with Glomerular Filtration Rate is a suitable alternative for these patients. ANION GAP 4(L) 7 - 16 mmol/L 09/26/2024 7:41 AM T [facility] Blood Collection / Unknown 09/26/2024 2:27 AM CDT 09/26/2024 6:46 AM CDT us Pérez Pinzon MD CHEMISTRY ORDERABLES Final Resul t [facility] [id number] [address] [place] [address] documented in this encounter Visit Diagnoses Not on filedocumented in this encounter Care Teams Household Appliances Salesperson Relationship Specialty Start Date End Date Chava Sherman MD [address] [place] [phone] PCP - General Internal Medicine 06/19/24 documented as of this encounter
--- OUTSIDE RECORDS SUMMARY | 2025-03-18 16:29 | XMS_ITS | Encounter Summary ---
Author Organization [facility] Address [address] [place] [address] Care Team Providers Care French Comber Name Role Phone Chava Sherman MD Primary Care Provider Encounter Details Date Type Department Care Team (Late st Contact Info) Description 09/05/2024 Lab Requisition [facility] Laboratory Services [address] [place] [address] [place] [address] [phone] Pérez Pinzon MD [address] [place] [address] Social History Tobacco Use Types [...] Associated Diagnosis Comments CBC WITH DIFFERENTIAL Stat 09/05/2024 2:45 AM CDT TRIGLYCERIDE Stat 09/05/2024 2:45 AM CDT PHOSPHORUS Stat 09/05/2024 2:45 AM CDT MAGNESIUM LEVEL Stat 09/05/2024 2:45 AM CDT COMPREHENSIVE METABOLIC PANEL Stat 09/05/2024 2:45 AM CDT documented in this encounter Results * PHOSPHORUS (09/05/2024 2:45 AM CDT) PHOSPHORUS 4.4 2.5 - 4.8 mg/dL 09/05/2024 7:19 AM CDT [facility] Blood Collection / Unknown 09/05/2024 2:45 AM CDT 09/05/2024 5:15 AM CDT us Pérez Pinzon MD CHEMISTRY ORDERABLES Final Resul t Performing Organization Address City/[facility]/ZIP Co de Phone Number [facility] [id number] [address] [place] [address] * TRIGLYCERIDE (09/05/2024 2:45 AM CDT) TRIGLYCERIDE 68 <150 mg/dL 09/05/2024 7:19 AM CDT [facility] Blood Collection / Unknown 09/05/2024 2:45 AM CDT 09/05/2024 5:15 AM CDT Narrative [facility] - 09/05/2024 7:19 AM CDT TRIGLYCERIDES mg/dL Normal < 150 Borderline High 150 - 199 High 200 - 499 Very High >= 500 Based on AHA/NCEP Guidelines. us Pérez Pinzon MD CHEMISTRY ORDERABLES Final Resul t Performing Organization Address City/[facility]/ZIP Co de Phone Number [facility] [id number] [address] [place] [phone] * MAGNESIUM LEVEL (09/05/2024 2:45 AM CDT) Pathologist [facility] MAGNESIUM 1.9 1.6 - 2.6 mg/dL 09/05/2024 7:19 AM T [facility] Blood Collection / Unknown 09/05/2024 2:45 AM CDT 09/05/2024 5:15 AM CDT Pérez Pinzon MD CHEMISTRY ORDERABLES Final Resul t [facility] [id number] [address] [place] [address] * (ABNORMAL) CBC WITH DIFFERENTIAL (09/05/2024 2:45 AM CDT) [facility] WBC 7.5 3.5 - 11.0 K/uL 09/05/2024 7:37 AM T [facility] RBC 2.67(L) 3.80 - 5.00 M/uL 09/05/2024 7:37 AM [facility] HEMOGLOBIN 8.4(L) 11.7 - 15.7 g/dL 09/05/2024 7:37 AM [facility] HEMATOCRIT 25.2(L) 35.0 - 47.0 % 09/05/2024 7:37 AM [facility] MCV 94.6 80.8 - 100.0 fL 09/05/2024 7:37 AM [facility] MCH 31.5 26.4 - 34.0 pg 09/05/2024 7:37 AM [facility] MCHC 33.3 31.4 - 36.3 g/dL 09/05/2024 7:37 AM [facility] RDW 20.0(H) 11.0 - 15.0 % 09/05/2024 7:37 AM [facility] PLATELETS 441 150 - 450 K/uL 09/05/2024 7:37 AM CDT [facility] MPV 8.1 7.5 - 11.2 fL 09/05/2024 7:37 AM CDT [facility] NEUTROPHILS 47(L) 50 - 75 % 09/05/2024 7:37 AM [facility] LYMPHOCYTES 40 19 - 48 % 09/05/2024 7:37 AM CDT [facility] MONOCYTES 7 0 - 10 % 09/05/2024 7:37 AM CDT [facility] EOSINOPHILS 4 0 - 6 % 09/05/2024 7:37 AM CDT [facility] BASOPHILS 2 0 - 2 % 09/05/2024 7:37 AM CDT [facility] NEUTROPHIL ABSOLUTE 3.49 >=0.50 K/uL 09/05/2024 7:37 AM [facility] LYMPHOCYTE ABSOLUTE 2.98 K/uL 09/05/2024 7:37 AM CDT [facility] MONOCYTE ABSOLUTE 0.52 K/uL 09/05/2024 7:37 AM [facility] EOS[facility] 0.33 K/uL 09/05/2024 7:37 AM [facility] BASOPHILS ABSOLUTE 0.15 K/uL 09/05/2024 7:37 AM [facility] Blood 09/05/2024 2:45 AM CDT 09/05/2024 5:15 AM CDT Pérez Pinzon MD HEMATOLOGY ORDERABLES Final Resu lt [facility] [id number] [facility] [place] [address] * (ABNORMAL) COMPREHENSIVE METABOLIC PANEL (09/05/2024 2:45 AM CDT) SODIUM 135(L) 136 - 145 mmol/L 09/05/2024 7:19 AM CDT [facility] POTASSIUM 4.4 3.2 - 4.9 mmol/L 09/05/2024 7:19 AM [facility] CHLORIDE 107 98 - 111 mmol/L 09/05/2024 7:19 AM [facility] CO2 25 22 - 29 mmol/L 09/05/2024 7:19 AM [facility] CALCIUM 8.5 8.4 - 10.5 mg/dL 09/05/2024 7:19 AM [facility] BUN 21 6 - 24 mg/dL 09/05/2024 7:19 AM [facility] CREATININE 0.49(L) 0.50 - 1.20 mg/dL 09/05/2024 7:19 AM [facility] GLUCOSE 91 70 - 115 mg/dL 09/05/2024 7:19 AM [facility] TOTAL PROTEIN 6.8 6.0 - 8.4 g/dL 09/05/2024 7:19 AM [facility] ALBUMIN 2.6(L) 3.5 - 5.2 g/dL 09/05/2024 7:19 AM [facility] BILIRUBIN TOTAL 0.1(L) 0.3 - 1.2 mg/dL 09/05/2024 7:19 AM [facility] ALKALINE PHOSPHATASE 187(H) 25 - 117 U/L 09/05/2024 7:19 AM [facility] AST 26 <=33 U/L 09/05/2024 7:19 AM [facility] ALT 11 <=55 U/L 09/05/2024 7:19 AM [facility] GFR >60 >=60 mL/min/1.7 3 sq meter 09/05/2024 7:19 AM [facility] Comment:eGFR calculated with 2020 CKD-EPI equation. Vegetarian diet, extremely high or low muscle mass, and may affect results. Cystatin C with Glomerular Filtration Rate is a suitable alternative for these patients. ANION GAP 3(L) 7 - 16 mmol/L 09/05/2024 7:19 AM [facility] Blood Collection / Unknown 09/05/2024 2:45 AM CDT 09/05/2024 5:15 AM CDT us Pérez Pinzon MD CHEMISTRY ORDERABLES Final Resul t [facility] [id number] [address] [place] [address] documented in this encounter Visit Diagnoses Not on filedocumented in this encounter Care Teams French Comber Relationship Specialty Start Date End Date Chava Sherman MD [address] [place] [phone] PCP - General Internal Medicine 06/19/24 documented as of this encounter
--- OUTSIDE RECORDS SUMMARY | 2025-03-18 16:29 | XMS_ITS | Encounter Summary ---
Author Organization [facility] Address [address] [place] [address] Care Team Providers Care Management Developer Name Role Phone Chava Sherman MD Primary Care Provider Encounter Details Date Type Department Care Team (Late st Contact Info) Description 10/07/2024 Lab Requisition [facility] Laboratory Services [address] [place] [address] [place] [address] [phone] Pérez Pinzon MD [address] [place] [phone] Social History Tobacco Use Types [...] Associated Diagnosis Comments CBC WITH DIFFERENTIAL Stat 10/07/2024 1:50 AM CDT TRIGLYCERIDE Stat 10/07/2024 1:50 AM CDT PHOSPHORUS Stat 10/07/2024 1:50 AM CDT MAGNESIUM LEVEL Stat 10/07/2024 1:50 AM CDT COMPREHENSIVE METABOLIC PANEL Stat 10/07/2024 1:50 AM CDT documented in this encounter Results * PHOSPHORUS (10/07/2024 1:50 AM CDT) PHOSPHORUS 4.2 2.5 - 4.8 mg/dL 10/07/2024 9:01 AM CDT [facility] Blood Collection / Unknown 10/07/2024 1:50 AM CDT 10/07/2024 7:07 AM CDT us Pérez Pinzon MD CHEMISTRY ORDERABLES Final Resul t [facility] [id number] [address] [place] [address] * TRIGLYCERIDE (10/07/2024 1:50 AM CDT) TRIGLYCERIDE 66 <150 mg/dL 10/07/2024 9:01 AM CDT [facility] Blood Collection / Unknown 10/07/2024 1:50 AM CDT 10/07/2024 7:07 AM CDT Narrative [facility] - 10/07/2024 9:01 AM CDT TRIGLYCERIDES mg/dL Normal < 150 Borderline High 150 - 199 High 200 - 499 Very High >= 500 Based on AHA/NCEP Guidelines. us Pérez Pinzon MD CHEMISTRY ORDERABLES Final Resul t Performing Organization Address City/[facility]/ZIP Co de Phone Number [facility] [id number] [address] [place] [id number] * MAGNESIUM LEVEL (10/07/2024 1:50 AM CDT) Pathologist [facility] MAGNESIUM 1.7 1.6 - 2.6 mg/dL 10/07/2024 9:01 AM CDT [facility] Blood Collection / Unknown 10/07/2024 1:50 AM CDT 10/07/2024 7:07 AM CDT Pérez Pinzon MD CHEMISTRY ORDERABLES Final Resul t [facility] [id number] [address] [place] [address] * (ABNORMAL) CBC WITH DIFFERENTIAL (10/07/2024 1:50 AM CDT) Pathologist [facility] WBC 6.7 3.5 - 11.0 K/uL 10/07/2024 8:19 AM CDT [facility] RBC 2.82(L) 3.80 - 5.00 M/uL 10/07/2024 8:19 AM T [facility] HEMOGLOBIN 8.6(L) 11.7 - 15.7 g/dL 10/07/2024 8:19 AM T [facility] HEMATOCRIT 26.6(L) 35.0 - 47.0 % 10/07/2024 8:19 AM T [facility] MCV 94.3 80.8 - 100.0 fL 10/07/2024 8:19 AM T [facility] [employer] [facility] MCH 30.5 26.4 - 34.0 pg 10/07/2024 8:19 AM T [facility] MCHC 32.3 31.4 - 36.3 g/dL 10/07/2024 8:19 AM T [facility] [employer] [facility] RDW 15.9(H) 11.0 - 15.0 % 10/07/2024 8:19 AM T [facility] RDW-STDEV 54.9(H) 37.0 - 54.0 fL 10/07/2024 8:19 AM T [facility] PLATELETS 316 150 - 450 K/uL 10/07/2024 8:19 AM [facility] MPV 9.9 7.5 - 11.2 fL 10/07/2024 8:19 AM [facility] NEUTROPHILS 40(L) 50 - 75 % 10/07/2024 8:19 AM T [facility] LYMPHOCYTES 47 19 - 48 % 10/07/2024 8:19 AM T [facility] MONOCYTES 8 0 - 10 % 10/07/2024 8:19 AM [facility] EOSINOPHILS 5 0 - 6 % 10/07/2024 8:19 AM [facility] BASOPHILS 1 0 - 2 % 10/07/2024 8:19 AM [facility] [employer] [facility] IMMATURE GRANULOCYTES 0 % 10/07/2024 8:19 AM [facility] [employer] [facility] NEUTROPHIL ABSOLUTE 2.67 >=0.50 K/uL 10/07/2024 8:19 AM [facility] LYMPHOCYTE ABSOLUTE 3.13 K/uL 10/07/2024 8:19 AM [facility] MONOCYTE ABSOLUTE 0.51 K/uL 025 8:19 AM [facility] [employer] [facility] EOSINOPHIL ABSOLUTE 0.31 K/uL 10/07/2024 8:19 AM [facility] BASOPHILS ABSOLUTE 0.03 K/uL 10/07/2024 8:19 AM [facility] IMMATURE GRANULOCYTES ABSOLUTE 0.01 K/uL 10/07/2024 8:19 AM [facility] [employer] [facility] Blood 10/07/2024 1:50 AM CDT 10/07/2024 7:07 AM CDT us Pérez Pinzon MD HEMATOLOGY ORDERABLES Final Resu lt [facility] [id number] [facility] [place], [place] [address] * (ABNORMAL) COMPREHENSIVE METABOLIC PANEL (10/07/2024 1:50 AM CDT) SODIUM 136 136 - 145 mmol/L 10/07/2024 9:01 AM [facility] POTASSIUM 4.6 3.2 - 4.9 mmol/L 10/07/2024 9:01 AM [facility] CHLORIDE 103 98 - 111 mmol/L 10/07/2024 9:01 AM [facility] CO2 26 22 - 29 mmol/L 10/07/2024 9:01 AM [facility] CALCIUM 8.3(L) 8.4 - 10.5 mg/dL 10/07/2024 9:01 AM [facility] BUN 23 6 - 24 mg/dL 10/07/2024 9:01 AM [facility] CREATININE 0.56 0.50 - 1.20 mg/dL 10/07/2024 9:01 AM [facility] GLUCOSE 107 70 - 115 mg/dL 10/07/2024 9:01 AM [facility] TOTAL PROTEIN 6.2 6.0 - 8.4 g/dL 10/07/2024 9:01 AM [facility] ALBUMIN 2.8(L) 3.5 - 5.2 g/dL 10/07/2024 9:01 AM [facility] BILIRUBIN TOTAL 0.1(L) 0.3 - 1.2 mg/dL 10/07/2024 9:01 AM [facility] ALKALINE PHOSPHATASE 153(H) 25 - 117 U/L 10/07/2024 9:01 AM [facility] AST 24 <=33 U/L 10/07/2024 9:01 AM [facility] ALT 15 <=55 U/L 10/07/2024 9:[address] [facility] GFR >60 >=60 mL/min/1.7 3 sq meter 10/07/2024 9:01 AM [facility] Comment:eGFR calculated with 2020 CKD-EPI equation. Vegetarian diet, extremely high or low muscle mass, and may affect results. Cystatin C with Glomerular Filtration Rate is a suitable alternative for these patients. ANION GAP 7 7 - 16 mmol/L 10/07/2024 9:01 AM [facility] Blood Collection / Unknown 10/07/2024 1:50 AM CDT 10/07/2024 7:07 AM CDT us Pérez Pinzon MD CHEMISTRY ORDERABLES Final Resul t [facility] [id number] [address] [place] [address] documented in this encounter Visit Diagnoses Not on filedocumented in this encounter Care Teams Management Developer Relationship Specialty Start Date End Date Chava Sherman MD [address] [place] [phone] PCP - General Internal Medicine 06/19/24 documented as of this encounter
--- OUTSIDE RECORDS SUMMARY | 2025-03-18 16:29 | XMS_ITS | Encounter Summary ---
Author Organization [facility] Address [address] [place] [address] Care Team Providers Care Switcher Name Role Phone Chava Sherman MD Primary Care Provider Encounter Details Date Type Department Care Team (Late st Contact Info) Description 10/10/2024 Lab Requisition [facility] Laboratory Services [address] [place] [address] [place] [address] [phone] Pérez Pinzon MD [address] [place] [phone] Social History Tobacco Use Types [...] Associated Diagnosis Comments CBC WITH DIFFERENTIAL Stat 10/10/2024 3:25 AM CDT COMPREHENSIVE METABOLIC PANEL Stat 10/10/2024 3:25 AM CDT documented in this encounter Results * (ABNORMAL) CBC WITH DIFFERENTIAL (10/10/2024 3:25 AM CDT) [facility] WBC 5.7 3.5 - 11.0 K/uL 10/10/2024 7:25 AM CDT [facility] [employer] [facility] NRBCS 1 % 10/10/2024 7:25 AM CDT [facility] RBC 2.71(L) 3.80 - 5.00 M/uL 10/10/2024 7:25 AM T [facility] HEMOGLOBIN 8.3(L) 11.7 - 15.7 g/dL 10/10/2024 7:25 AM [facility] HEMATOCRIT 25.3(L) 35.0 - 47.0 % 10/10/2024 7:25 AM [facility] [employer] [facility] MCV 93.4 80.8 - 100.0 fL 10/10/2024 7:25 AM [facility] MCH 30.6 26.4 - 34.0 pg 10/10/2024 7:25 AM [facility] MCHC 32.8 31.4 - 36.3 g/dL 10/10/2024 7:25 AM [facility] RDW 15.7(H) 11.0 - 15.0 % 10/10/2024 7:25 AM T [facility] RDW-STDEV 53.2 37.0 - 54.0 fL 10/10/2024 7:25 AM [facility] [employer] [facility] PLATELETS 365 150 - 450 K/uL 10/10/2024 7:25 AM [facility] MPV 9.9 7.5 - 11.2 fL 10/10/2024 7:25 AM [facility] NEUTROPHILS 35(L) 50 - 75 % 10/10/2024 7:25 AM CDT [facility] LYMPHOCYTES 51(H) 19 - 48 % 10/10/2024 7:25 AM CDT [facility] MONOCYTES 8 0 - 10 % 10/10/2024 7:25 AM CDT [facility] EOSINOPHILS 5 0 - 6 % 10/10/2024 7:25 AM CDT [facility] BASOPHILS 1 0 - 2 % 10/10/2024 7:25 AM CDT [facility] IMMATURE GRANULOCYTES 0 % 10/10/2024 7:25 AM CDT [facility] NEUTROPHIL ABSOLUTE 2.01 >=0.50 K/uL 10/10/2024 7:25 AM CDT [facility] LYMPHOCYTE ABSOLUTE 2.92 K/uL 10/10/2024 7:25 AM CDT [facility] MONOCYTE ABSOLUTE 0.44 K/uL 025 7:25 AM CDT [facility] EOSINOPHIL ABSOLUTE 0.30 K/uL 10/10/2024 7:25 AM CDT [facility] BASOPHILS ABSOLUTE 0.04 K/uL 10/10/2024 7:25 AM CDT [facility] IMMATURE GRANULOCYTES ABSOLUTE 0.01 K/uL 10/10/2024 7:25 AM T [facility] Blood 10/10/2024 3:25 AM CDT 10/10/2024 6:15 AM CDT Pérez Pinzon MD HEMATOLOGY ORDERABLES Final Resu lt [facility] [id number] [facility] [place] [address] * (ABNORMAL) COMPREHENSIVE METABOLIC PANEL (10/10/2024 3:25 AM CDT) SODIUM 138 136 - 145 mmol/L 10/10/2024 7:18 AM CDT [facility] POTASSIUM 4.2 3.2 - 4.9 mmol/L 10/10/2024 7:18 AM [facility] CHLORIDE 105 98 - 111 mmol/L 10/10/2024 7:18 AM [facility] CO2 28 22 - 29 mmol/L 10/10/2024 7:18 AM [facility] CALCIUM 8.7 8.4 - 10.5 mg/dL 10/10/2024 7:18 AM [facility] BUN 23 6 - 24 mg/dL 10/10/2024 7:18 AM [facility] CREATININE 0.48(L) 0.50 - 1.20 mg/dL 10/10/2024 7:18 AM [facility] GLUCOSE 101 70 - 115 mg/dL 10/10/2024 7:18 AM [facility] TOTAL PROTEIN 6.3 6.0 - 8.4 g/dL 10/10/2024 7:18 AM [facility] ALBUMIN 2.9(L) 3.5 - 5.2 g/dL 10/10/2024 7:18 AM [facility] BILIRUBIN TOTAL 0.1(L) 0.3 - 1.2 mg/dL 10/10/2024 7:18 AM [facility] ALKALINE PHOSPHATASE 167(H) 25 - 117 U/L 10/10/2024 7:18 AM [facility] AST 25 <=33 U/L 10/10/2024 7:18 AM [facility] ALT 19 <=55 U/L 10/10/2024 7:18 AM [facility] GFR >60 >=60 mL/min/1.7 3 sq meter 10/10/2024 7:18 AM [facility] Comment:eGFR calculated with 2020 CKD-EPI equation. Vegetarian diet, extremely high or low muscle mass, and may affect results. Cystatin C with Glomerular Filtration Rate is a suitable alternative for these patients. ANION GAP 5(L) 7 - 16 mmol/L 10/10/2024 7:18 AM [facility] Blood Collection / Unknown 10/10/2024 3:25 AM CDT 10/10/2024 6:15 AM CDT Pérez Pinzon MD CHEMISTRY ORDERABLES Final Resul t [facility] [id number] [address] [place] [address] documented in this encounter Visit Diagnoses Not on filedocumented in this encounter Care Teams Switcher Relationship Specialty Start Date End Date Chava Sherman MD [address] [place] [phone] PCP - General Internal Medicine 06/19/24 documented as of this encounter
--- OUTSIDE RECORDS SUMMARY | 2025-03-18 16:29 | XMS_ITS | Encounter Summary ---
Author Organization [facility] Address [address] [place] [address] Care Team Providers Care Senior [employer] Applications Developer Name Role Phone Chava Sherman MD Primary Care Provider [phone] Encounter Details Date Type Department Care Team (Late st Contact Info) Description 09/12/2024 Lab Requisition [facility] Laboratory Services [address] [place] [address] [place] [phone] Pérez Pinzon MD [address] [place] [address] Social History Tobacco Use Types [...] Associated Diagnosis Comments CBC WITH DIFFERENTIAL Stat 09/12/2024 2:30 AM CDT TRIGLYCERIDE Stat 09/12/2024 2:30 AM CDT PHOSPHORUS Stat 09/12/2024 2:30 AM CDT MAGNESIUM LEVEL Stat 09/12/2024 2:30 AM CDT COMPREHENSIVE METABOLIC PANEL Stat 09/12/2024 2:30 AM CDT documented in this encounter Results * PHOSPHORUS (09/12/2024 2:30 AM CDT) PHOSPHORUS 3.9 2.5 - 4.8 mg/dL 09/12/2024 7:39 AM CDT [facility] Blood Collection / Unknown 09/12/2024 2:30 AM CDT 09/12/2024 5:35 AM CDT us Pérez Pinzon MD CHEMISTRY ORDERABLES Final Resul t [facility] [id number] [address] [place] [address] * TRIGLYCERIDE (09/12/2024 2:30 AM CDT) TRIGLYCERIDE 62 <150 mg/dL 09/12/2024 7:39 AM CDT [facility] Blood Collection / Unknown 09/12/2024 2:30 AM CDT 09/12/2024 5:35 AM CDT Narrative [facility] - 09/12/2024 7:39 AM CDT TRIGLYCERIDES mg/dL Normal < 150 Borderline High 150 - 199 High 200 - 499 Very High >= 500 Based on AHA/NCEP Guidelines. us Pérez Pinzon MD CHEMISTRY ORDERABLES Final Resul t Performing Organization Address City/[facility]/ZIP Co de Phone Number [facility] [id number] [address] [place] [phone] * MAGNESIUM LEVEL (09/12/2024 2:30 AM CDT) Pathologist [facility] MAGNESIUM 1.9 1.6 - 2.6 mg/dL 09/12/2024 7:39 AM CDT [facility] Blood Collection / Unknown 09/12/2024 2:30 AM CDT 09/12/2024 5:35 AM CDT Pérez Pinzon MD CHEMISTRY ORDERABLES Final Resul t [facility] [id number] [address] [place] [address] * (ABNORMAL) CBC WITH DIFFERENTIAL (09/12/2024 2:30 AM CDT) Pathologist [facility] WBC 7.7 3.5 - 11.0 K/uL 09/12/2024 9:16 AM CDT [facility] RBC 2.96(L) 3.80 - 5.00 M/uL 09/12/2024 9:16 AM T [facility] HEMOGLOBIN 8.9(L) 11.7 - 15.7 g/dL 09/12/2024 9:16 AM T [facility] HEMATOCRIT 28.2(L) 35.0 - 47.0 % 09/12/2024 9:16 AM T [facility] MCV 95.3 80.8 - 100.0 fL 09/12/2024 9:16 AM T [facility] [employer] [facility] MCH 30.1 26.4 - 34.0 pg 09/12/2024 9:16 AM T [facility] MCHC 31.6 31.4 - 36.3 g/dL 09/12/2024 9:16 AM T [facility] [employer] [facility] RDW 18.7(H) 11.0 - 15.0 % 09/12/2024 9:16 AM T [facility] [employer] [facility] RDW-STDEV 66.4(H) 37.0 - 54.0 fL 09/12/2024 9:16 AM T [facility] PLATELETS 428 150 - 450 K/uL 09/12/2024 9:16 AM [facility] [employer] [facility] MPV 10.4 7.5 - 11.2 fL 09/12/2024 9:16 AM T [facility] [employer] [facility] NEUTROPHILS 50 50 - 75 % 09/12/2024 9:16 AM T [facility] [employer] [facility] LYMPHOCYTES 37 19 - 48 % 09/12/2024 9:16 AM T [facility] MONOCYTES 8 0 - 10 % 09/12/2024 9:16 AM T [facility] EOSINOPHILS 4 0 - 6 % 09/12/2024 9:16 AM [facility] [employer] [facility] BASOPHILS 1 0 - 2 % 09/12/2024 9:16 AM [facility] [employer] [facility] IMMATURE GRANULOCYTES 0 % 09/12/2024 9:16 AM [facility] [employer] [facility] NEUTROPHIL ABSOLUTE 3.84 >=0.50 K/uL 09/12/2024 9:16 AM [facility] [employer] [facility] LYMPHOCYTE ABSOLUTE 2.88 K/uL 09/12/2024 9:16 AM [facility] [employer] [facility] MONOCYTE ABSOLUTE 0.60 K/uL 025 9:16 AM [facility] [employer] [facility] EOSINOPHIL ABSOLUTE 0.32 K/uL 09/12/2024 9:16 AM [facility] [employer] [facility] BASOPHILS ABSOLUTE 0.05 K/uL 09/12/2024 9:16 AM [facility] IMMATURE GRANULOCYTES ABSOLUTE 0.01 K/uL 09/12/2024 9:16 AM [facility] [employer] [facility] Blood 09/12/2024 2:30 AM CDT 09/12/2024 5:35 AM CDT us Pérez Pinzon MD HEMATOLOGY ORDERABLES Final Resu lt [facility] [id number] [address] [place] [address] * (ABNORMAL) COMPREHENSIVE METABOLIC PANEL (09/12/2024 2:30 AM CDT) SODIUM 135(L) 136 - 145 mmol/L 09/12/2024 7:39 AM T [facility] POTASSIUM 4.1 3.2 - 4.9 mmol/L 09/12/2024 7:39 AM [facility] CHLORIDE 106 98 - 111 mmol/L 09/12/2024 7:39 AM [facility] CO2 26 22 - 29 mmol/L 09/12/2024 7:39 AM [facility] CALCIUM 8.7 8.4 - 10.5 mg/dL 09/12/2024 7:39 AM [facility] BUN 22 6 - 24 mg/dL 09/12/2024 7:39 AM [facility] CREATININE 0.47(L) 0.50 - 1.20 mg/dL 09/12/2024 7:39 AM [facility] GLUCOSE 104 70 - 115 mg/dL 09/12/2024 7:39 AM [facility] TOTAL PROTEIN 7.2 6.0 - 8.4 g/dL 09/12/2024 7:39 AM [facility] ALBUMIN 2.8(L) 3.5 - 5.2 g/dL 09/12/2024 7:39 AM [facility] BILIRUBIN TOTAL 0.2(L) 0.3 - 1.2 mg/dL 09/12/2024 7:39 AM [facility] ALKALINE PHOSPHATASE 189(H) 25 - 117 U/L 09/12/2024 7:39 AM [facility] AST 26 <=33 U/L 09/12/2024 7:39 AM [facility] ALT 11 <=55 U/L 09/12/2024 7:39 AM CDT [facility] GFR >60 >=60 mL/min/1.7 3 sq meter 09/12/2024 7:39 AM T [facility] Comment:eGFR calculated with 2020 CKD-EPI equation. Vegetarian diet, extremely high or low muscle mass, and may affect results. Cystatin C with Glomerular Filtration Rate is a suitable alternative for these patients. ANION GAP 3(L) 7 - 16 mmol/L 09/12/2024 7:39 AM T [facility] Blood Collection / Unknown 09/12/2024 2:30 AM CDT 09/12/2024 5:35 AM CDT us Pérez Pinzon MD CHEMISTRY ORDERABLES Final Resul t [facility] [id number] [address] [place] [address] documented in this encounter Visit Diagnoses Not on filedocumented in this encounter Care Teams Senior Oracle Applications Developer Relationship Specialty Start Date End Date Chava Sherman MD [address] [place] [phone] PCP - General Internal Medicine 06/19/24 documented as of this encounter
--- OUTSIDE RECORDS SUMMARY | 2025-03-18 16:29 | XMS_ITS | Encounter Summary ---
Author Organization [facility] Address [address] [place] [address] Care Team Providers Care Director Of Player Personnel Name Role Phone Chava Sherman MD Primary Care Provider Encounter Details Date Type Department Care Team (Late st Contact Info) Description 09/23/2024 Lab Requisition [facility] Laboratory Services [address] [place] [address] [place] [address] [phone] Pérez Pinzon MD [address] [place] [address] Social History Tobacco Use Types [...] Priority Date/Time Associated Diagnosis Comments TRIGLYCERIDE Stat 09/23/2024 2:45 AM CDT PHOSPHORUS Stat 09/23/2024 2:45 AM CDT MAGNESIUM LEVEL Stat 09/23/2024 2:45 AM CDT COMPREHENSIVE METABOLIC PANEL Stat 09/23/2024 2:45 AM CDT documented in this encounter Results * PHOSPHORUS (09/23/2024 2:45 AM CDT) PHOSPHORUS 4.3 2.5 - 4.8 mg/dL 09/23/2024 8:38 AM CDT [facility] Blood Collection / Unknown 09/23/2024 2:45 AM CDT 09/23/2024 5:44 AM CDT us Pérez Pinzon MD CHEMISTRY ORDERABLES Final Resul t Performing Organization Address City/[facility]/ZIP Co de Phone Number [facility] [id number] [address] [place] [address] [phone] * TRIGLYCERIDE (09/23/2024 2:45 AM CDT) Pathologist [facility] TRIGLYCERIDE 67 <150 mg/dL 09/23/2024 8:38 AM CDT [facility] Blood Collection / Unknown 09/23/2024 2:45 AM CDT 09/23/2024 5:44 AM CDT Narrative [facility] - 09/23/2024 8:38 AM CDT TRIGLYCERIDES mg/dL Normal < 150 Borderline High 150 - 199 High 200 - 499 Very High >= 500 Based on AHA/NCEP Guidelines. us Pérez Pinzon MD CHEMISTRY ORDERABLES Final Resul t Performing Organization Address City/[facility]/ZIP Co de Phone Number [facility] [id number] [address] [place] [address] [phone] * MAGNESIUM LEVEL (09/23/2024 2:45 AM CDT) MAGNESIUM 1.9 1.6 - 2.6 mg/dL 09/23/2024 8:38 AM T [facility] Blood Collection / Unknown 09/23/2024 2:45 AM CDT 09/23/2024 5:44 AM CDT Pérez Pinzon MD CHEMISTRY ORDERABLES Final Resul t [facility] [id number] [address] [place] [address] * (ABNORMAL) COMPREHENSIVE METABOLIC PANEL (09/23/2024 2:45 AM CDT) SODIUM 138 136 - 145 mmol/L 09/23/2024 8:38 AM [facility] POTASSIUM 4.2 3.2 - 4.9 mmol/L 09/23/2024 8:38 AM [facility] CHLORIDE 109 98 - 111 mmol/L 09/23/2024 8:38 AM [facility] CO2 24 22 - 29 mmol/L 09/23/2024 8:38 AM [facility] CALCIUM 8.8 8.4 - 10.5 mg/dL 09/23/2024 8:38 AM [facility] BUN 23 6 - 24 mg/dL 09/23/2024 8:38 AM [facility] CREATININE 0.49(L) 0.50 - 1.20 mg/dL 09/23/2024 8:38 AM [facility] GLUCOSE 114 70 - 115 mg/dL 09/23/2024 8:38 AM [facility] TOTAL PROTEIN 7.0 6.0 - 8.4 g/dL 09/23/2024 8:38 AM [facility] ALBUMIN 2.9(L) 3.5 - 5.2 g/dL 09/23/2024 8:38 AM [facility] BILIRUBIN TOTAL 0.1(L) 0.3 - 1.2 mg/dL 09/23/2024 8:38 AM [facility] ALKALINE PHOSPHATASE 180(H) 25 - 117 U/L 09/23/2024 8:38 AM [facility] AST 31 <=33 U/L 09/23/2024 8:38 AM [facility] ALT 23 <=55 U/L 09/23/2024 8:38 AM [facility] GFR >60 >=60 mL/min/1.7 3 sq meter 09/23/2024 8:38 AM [facility] Comment:eGFR calculated with 2020 CKD-EPI equation. Vegetarian diet, extremely high or low muscle mass, and may affect results. Cystatin C with Glomerular Filtration Rate is a suitable alternative for these patients. ANION GAP 5(L) 7 - 16 mmol/L 09/23/2024 8:38 AM [facility] Blood Collection / Unknown 09/23/2024 2:45 AM CDT 09/23/2024 5:44 AM CDT us Pérez Pinzon MD CHEMISTRY ORDERABLES Final Resul t [facility] [id number] [address] [place] [address] documented in this encounter Visit Diagnoses Not on filedocumented in this encounter Care Teams Director Of Player Personnel Relationship Specialty Start Date End Date Chava Sherman MD [address] [place] [phone] PCP - General Internal Medicine 06/19/24 documented as of this encounter
--- OUTSIDE RECORDS SUMMARY | 2025-03-18 16:29 | XMS_ITS | Encounter Summary ---
Author Organization [facility] Address [address] [place] [address] Care Team Providers Care Product Tester Name Role Phone Chava Sherman MD Primary Care Provider Encounter Details Date Type Department Care Team (Late st Contact Info) Description 09/30/2024 Lab Requisition [facility] Laboratory Services [address] [place] [address] [place] [address] [phone] Pérez Pinzon MD [address] [place] [address] Social History Tobacco Use Types [...] Priority Date/Time Associated Diagnosis Comments TRIGLYCERIDE Stat 09/30/2024 3:00 AM CDT PHOSPHORUS Stat 09/30/2024 3:00 AM CDT MAGNESIUM LEVEL Stat 09/30/2024 3:00 AM CDT COMPREHENSIVE METABOLIC PANEL Stat 09/30/2024 3:00 AM CDT documented in this encounter Results * PHOSPHORUS (09/30/2024 3:00 AM CDT) PHOSPHORUS 4.2 2.5 - 4.8 mg/dL 09/30/2024 7:54 AM CDT [facility] Blood Collection / Unknown 09/30/2024 3:00 AM CDT 09/30/2024 5:58 AM CDT us Pérez Pinzon MD CHEMISTRY ORDERABLES Final Resul t Performing Organization Address City/[facility]/ZIP Co de Phone Number [facility] [id number] [address] [place] [address] [phone] * TRIGLYCERIDE (09/30/2024 3:00 AM CDT) Pathologist [facility] TRIGLYCERIDE 68 <150 mg/dL 09/30/2024 7:54 AM CDT [facility] Blood Collection / Unknown 09/30/2024 3:00 AM CDT 09/30/2024 5:58 AM CDT Narrative [facility] - 09/30/2024 7:54 AM CDT TRIGLYCERIDES mg/dL Normal < 150 Borderline High 150 - 199 High 200 - 499 Very High >= 500 Based on AHA/NCEP Guidelines. us Pérez Pinzon MD CHEMISTRY ORDERABLES Final Resul t Performing Organization Address City/[facility]/ZIP Co de Phone Number [facility] [id number] [address] [place] [phone] * MAGNESIUM LEVEL (09/30/2024 3:00 AM CDT) MAGNESIUM 1.8 1.6 - 2.6 mg/dL 09/30/2024 7:54 AM [facility] Blood Collection / Unknown 09/30/2024 3:00 AM CDT 09/30/2024 5:58 AM CDT Pérez Pinzon MD CHEMISTRY ORDERABLES Final Resul t [facility] [id number] [address] [place] [address] * (ABNORMAL) COMPREHENSIVE METABOLIC PANEL (09/30/2024 3:00 AM CDT) SODIUM 137 136 - 145 mmol/L 09/30/2024 7:54 AM [facility] POTASSIUM 4.3 3.2 - 4.9 mmol/L 09/30/2024 7:54 AM [facility] CHLORIDE 106 98 - 111 mmol/L 09/30/2024 7:54 AM [facility] CO2 24 22 - 29 mmol/L 09/30/2024 7:54 AM [facility] CALCIUM 8.6 8.4 - 10.5 mg/dL 09/30/2024 7:54 AM [facility] BUN 20 6 - 24 mg/dL 09/30/2024 7:54 AM [facility] CREATININE 0.48(L) 0.50 - 1.20 mg/dL 09/30/2024 7:54 AM [facility] GLUCOSE 108 70 - 115 mg/dL 09/30/2024 7:54 AM [facility] TOTAL PROTEIN 6.7 6.0 - 8.4 g/dL 09/30/2024 7:54 AM [facility] ALBUMIN 3.0(L) 3.5 - 5.2 g/dL 09/30/2024 7:54 AM [facility] BILIRUBIN TOTAL 0.2(L) 0.3 - 1.2 mg/dL 09/30/2024 7:54 AM [facility] ALKALINE PHOSPHATASE 187(H) 25 - 117 U/L 09/30/2024 7:54 AM [facility] AST 28 <=33 U/L 09/30/2024 7:54 AM [facility] ALT 20 <=55 U/L 09/30/2024 7:54 AM [facility] GFR >60 >=60 mL/min/1.7 3 sq meter 09/30/2024 7:54 AM [facility] Comment:eGFR calculated with 2020 CKD-EPI equation. Vegetarian diet, extremely high or low muscle mass, and may affect results. Cystatin C with Glomerular Filtration Rate is a suitable alternative for these patients. ANION GAP 7 7 - 16 mmol/L 09/30/2024 7:54 AM [facility] Blood Collection / Unknown 09/30/2024 3:00 AM CDT 09/30/2024 5:58 AM CDT us Pérez Pinzon MD CHEMISTRY ORDERABLES Final Resul t [facility] [id number] [address] [place] [address] documented in this encounter Visit Diagnoses Not on filedocumented in this encounter Care Teams Product Tester Relationship Specialty Start Date End Date Chava Sherman MD [address] [place] [phone] PCP - General Internal Medicine 06/19/24 documented as of this encounter
--- OUTSIDE RECORDS SUMMARY | 2025-03-18 16:29 | XMS_ITS | Encounter Summary ---
Author Organization [facility] Address [address] [place] [address] Care Team Providers Care Pharmaceutical Plant Operator Name Role Phone Chava Sherman MD Primary Care Provider [phone] Encounter Details Date Type Department Care Team (Late st Contact Info) Description 09/19/2024 Lab Requisition [facility] Laboratory Services [address] [place] [address] [place] [phone] Pérez Pinzon MD [address] [place] [address] Social History Tobacco Use Types [...] Associated Diagnosis Comments CBC WITH DIFFERENTIAL Stat 09/19/2024 2:17 AM CDT TRIGLYCERIDE Stat 09/19/2024 2:17 AM CDT PHOSPHORUS Stat 09/19/2024 2:17 AM CDT MAGNESIUM LEVEL Stat 09/19/2024 2:17 AM CDT COMPREHENSIVE METABOLIC PANEL Stat 09/19/2024 2:17 AM CDT documented in this encounter Results * PHOSPHORUS (09/19/2024 2:17 AM CDT) PHOSPHORUS 4.0 2.5 - 4.8 mg/dL 09/19/2024 11:[address] [facility] Blood Collection / Unknown 09/19/2024 2:17 AM CDT 09/19/2024 6:14 AM CDT us Pérez Pinzon MD CHEMISTRY ORDERABLES Final Resul t [facility] [id number] [address] [place] [address] * TRIGLYCERIDE (09/19/2024 2:17 AM CDT) TRIGLYCERIDE 90 <150 mg/dL 09/19/2024 11:[address] [facility] Blood Collection / Unknown 09/19/2024 2:17 AM CDT 09/19/2024 6:[address] [facility] - 09/19/2024 11:30 AM CDT TRIGLYCERIDES mg/dL Normal < 150 Borderline High 150 - 199 High 200 - 499 Very High >= 500 Based on AHA/NCEP Guidelines. us Pérez Pinzon MD CHEMISTRY ORDERABLES Final Resul t Performing Organization Address City/[facility]/ZIP Co de Phone Number [facility] [id number] [address] [place] [phone] * MAGNESIUM LEVEL (09/19/2024 2:17 AM CDT) Pathologist [facility] MAGNESIUM 2.1 1.6 - 2.6 mg/dL 09/19/2024 11:30 AM CDT [facility] Blood Collection / Unknown 09/19/2024 2:17 AM CDT 09/19/2024 6:14 AM CDT Pérez Pinzon MD CHEMISTRY ORDERABLES Final Resul t [facility] [id number] [address] [place] [address] * (ABNORMAL) CBC WITH DIFFERENTIAL (09/19/2024 2:17 AM CDT) Pathologist [facility] WBC 6.6 3.5 - 11.0 K/uL 09/19/2024 7:[address] [facility] RBC 2.99(L) 3.80 - 5.00 M/uL 09/19/2024 7:[address] [facility] HEMOGLOBIN 9.0(L) 11.7 - 15.7 g/dL 09/19/2024 7:[address] [facility] HEMATOCRIT 28.4(L) 35.0 - 47.0 % 09/19/2024 7:[address] [facility] MCV 95.0 80.8 - 100.0 fL 09/19/2024 7:52 AM T [facility] [employer] [facility] MCH 30.1 26.4 - 34.0 pg 09/19/2024 7:[address] [facility] MCHC 31.7 31.4 - 36.3 g/dL 09/19/2024 7:52 AM T [facility] [employer] [facility] RDW 17.6(H) 11.0 - 15.0 % 09/19/2024 7:[address] [facility] RDW-STDEV 61.9(H) 37.0 - 54.0 fL 09/19/2024 7:52 AM T [facility] LABORATORY [facility] PLATELETS 383 150 - 450 K/uL 09/19/2024 7:52 AM [facility] LABORAT[facility] MPV 10.3 7.5 - 11.2 fL 09/19/2024 7:52 AM [facility] [employer] [facility] NEUTROPHILS 41(L) 50 - 75 % 09/19/2024 7:52 AM T [facility] LABORATORY [facility] LYMPHOCYTES 47 19 - 48 % 09/19/2024 7:52 AM T [facility]OR[facility] MONOCYTES 7 0 - 10 % 09/19/2024 7:52 AM [facility]OR[facility] EOSINOPHILS 4 0 - 6 % 09/19/2024 7:52 AM [facility] LABOR[facility] BASOPHILS 1 0 - 2 % 09/19/2024 7:52 AM [facility] [employer] [facility] IMMATURE GRANULOCYTES 0 % 09/19/2024 7:52 AM [facility] [employer] [facility] NEUTROPHIL ABSOLUTE 2.73 >=0.50 K/uL 09/19/2024 7:52 AM [facility] LABORAT[facility] LYMPHOCYTE ABSOLUTE 3.08 K/uL 09/19/2024 7:52 AM [facility] [employer] [facility] MONOCYTE ABSOLUTE 0.43 K/uL 025 7:52 AM [facility] [employer] [facility] EOSINOPHIL ABSOLUTE 0.29 K/uL 09/19/2024 7:52 AM [facility] [employer] [facility] BASOPHILS ABSOLUTE 0.06 K/uL 09/19/2024 7:52 AM [facility]OR[facility] IMMATURE GRANULOCYTES ABSOLUTE 0.02 K/uL 09/19/2024 7:52 AM [facility] [employer] [facility] Blood 09/19/2024 2:17 AM CDT 09/19/2024 6:14 AM CDT us Préez Pinzon MD HEMATOLOGY ORDERABLES Final Resu lt [facility] [id number] [facility] [place], [place] [id number] * (ABNORMAL) COMPREHENSIVE METABOLIC PANEL (09/19/2024 2:17 AM CDT) SODIUM 136 136 - 145 mmol/L 09/19/2024 11:[address] [facility] POTASSIUM 3.8 3.2 - 4.9 mmol/L 09/19/2024 11:[address] [facility] CHLORIDE 107 98 - 111 mmol/L 09/19/2024 11:[address] [facility] CO2 25 22 - 29 mmol/L 09/19/2024 11:[address] [facility] CALCIUM 8.7 8.4 - 10.5 mg/dL 09/19/2024 11:[address] [facility] BUN 23 6 - 24 mg/dL 09/19/2024 11:[address] [facility] CREATININE 0.46(L) 0.50 - 1.20 mg/dL 09/19/2024 11:[address] [facility] GLUCOSE 105 70 - 115 mg/dL 09/19/2024 11:[address] [facility] TOTAL PROTEIN 6.9 6.0 - 8.4 g/dL 09/19/2024 11:[address] [facility] ALBUMIN 2.9(L) 3.5 - 5.2 g/dL 09/19/2024 11:[address] [facility] BILIRUBIN TOTAL 0.1(L) 0.3 - 1.2 mg/dL 09/19/2024 11:[address] [facility] ALKALINE PHOSPHATASE 184(H) 25 - 117 U/L 09/19/2024 11:[address] [facility] AST 34(H) <=33 U/L 09/19/2024 11:[address] [facility] ALT 21 <=55 U/L 09/19/2024 11:[address] [facility] GFR >60 >=60 mL/min/1.7 3 sq meter 09/19/2024 11:[address] [facility] Comment:eGFR calculated with 2020 CKD-EPI equation. Vegetarian diet, extremely high or low muscle mass, and may affect results. Cystatin C with Glomerular Filtration Rate is a suitable alternative for these patients. ANION GAP 4(L) 7 - 16 mmol/L 09/19/2024 11:30 AM [facility] Blood Collection / Unknown 09/19/2024 2:17 AM CDT 09/19/2024 6:14 AM CDT Pérez Pinzon MD CHEMISTRY ORDERABLES Final Resul t [facility] [id number] [address] [place] [address] documented in this encounter Visit Diagnoses Not on filedocumented in this encounter Care Teams Pharmaceutical Plant Operator Relationship Specialty Start Date End Date Chava Sherman MD [address] [place] [phone] PCP - General Internal Medicine 06/19/24 documented as of this encounter
--- OUTSIDE RECORDS SUMMARY | 2025-04-18 18:00 | XMS_ITS | Clinical Summary ---
Author Organization Unknown Care Team Providers Care Asbestos Coverer Name Role Phone ARNIE ALCALA, YAKELIN Unavailable Unavailable NICOLAS WHITE, OLIVIA Unavailable Unavailable AGGIE RN, ARMAAN Unavailable Unavailable LINDA RN, LONI Unavailable Unavailable LISA DAVNEPORT, PATTI Unavailable Unavailable SHASTA LEMUS, SIMI Unavailable Unavailable Payers Payer Name Policy Type Policy Number Effective Date Expira tion Date [employer] MEDICARE FFS - ORDER DRIVEN [id number] MEDICARE - [place] - PDGM [id number] Problems Condition Name Condition Details Condition Category [...] OF VAD Active 04-03 00:00: 00 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) DRUG THERAPY Active 04-03 00:00: 00 [...] 500 mg capsule 10-22 00:00: 00 Yes [id number] 2 capsule EVERY 6 HOURS 2 capsule EVERY 6 HOURS (route: oral) Med Classific ation: Analgesic , Anti-infl ammatory or Antipyret ic albuterol sulfate HFA 90 mcg/actuati on aerosol inhaler 10-22 00:00: 00 Yes [id number] 2 puff EVERY 6 HOURS 2 puff EVERY 6 HOURS (route: inhalation ) Med Classific ation: Respirato ry Therapy Agents aripiprazol e 10 mg disintegrat ing tablet 10-22 00:00: 00 Yes [id number] 1 tablet BEDTIME 1 tablet BEDTIME (route: oral) Med Classific ation: Central Nervous System Agents gabapentin 300 mg capsule 10-22 00:00: 00 Yes [id number] 1 capsule 3 TIMES DAILY 1 capsule 3 TIMES DAILY (route: oral) Med Classific ation: Central Nervous System Agents levetiracet am 1,000 mg tablet 10-22 00:00: 00 Yes [id number] 1 tablet 2 TIMES DAILY 1 tablet 2 TIMES DAILY (route: oral) Med Classific ation: Central Nervous System Agents methocarbam ol 750 mg tablet 10-22 00:00: 00 03-11 23:59 :00 No [id number] 1 tablet 3 TIMES DAILY 1 tablet 3 TIMES DAILY (route: oral) Med Classific ation: Locomotor System midodrine 5 mg tablet 10-22 00:00: 00 12-20 23:59 :00 No [id number] 1 tablet 3 TIMES DAILY 1 tablet 3 TIMES DAILY (route: oral) Med Classific ation: Cardiovas cular Therapy Agents mirtazapine 7.5 mg tablet 10-22 00:00: 00 Yes [id number] 1 tablet BEDTIME 1 tablet BEDTIME (route: oral) Med Classific ation: Central Nervous System Agents omeprazole 40 mg capsule,del ayed release 10-22 00:00: 00 Yes [id number] 1 capsule 2 TIMES DAILY 1 capsule 2 TIMES DAILY (route: oral) Med Classific ation: Gastroint estinal Therapy Agents oxybutynin chloride 5 mg/5 mL oral syrup 10-22 00:00: 00 Yes [id number] 5 mL 2 TIMES DAILY 5 mL 2 TIMES DAILY (route: oral) Med Classific ation: Genitouri nary Therapy oxycodone 5 mg tablet 10-22 00:00: 00 03-11 23:59 :00 No [id number] 1 tablet EVERY 4 HOURS 1 tablet EVERY 4 HOURS (route: oral) Med Classific ation: Analgesic , Anti-infl ammatory or Antipyret ic sodium chloride 0.9 % injection solution 10-22 00:00: 00 Yes [id number] 10 mL DIRECTED 10 mL DIRECTED (route: injection) Med Classific ation: Electroly te Balance-N utritiona l Products sucralfate 1 gram tablet 10-22 00:00: 00 Yes [id number] 1 tablet 4 TIMES DAILY 1 tablet 4 TIMES DAILY (route: oral) Med Classific ation: Gastroint estinal Therapy Agents TPN Electrolyte s 35 mEq-20 mEq-5 mEq/20 mL intravenous solution 10-22 00:00: 00 Yes [id number] 1800 mL DIRECTED 1800 mL DIRECTED (route: intravenou s) Med Classific ation: Electroly te Balance-N utritiona l Products Wound Wash Saline 0.9 % [employer] 10-22 00:00: 00 12-03 23:59 :00 No [id number] Per instruc tions DIRECTED Per instructio ns DIRECTED (route: topical) Med Classific ation: Dermatolo gical sodium chloride 0.9 % irrigation solution 10-22 00:00: 00 12-03 23:59 :00 No [id number] Per instruc tions DIRECTED Per instructio ns DIRECTED (route: irrigation ) Med Classific ation: Electroly te Balance-N utritiona l Products Vashe 0.033 % irrigation solution 12-03 00:00: 00 Yes [id number] Per instruc tions DIRECTED Per instructio ns DIRECTED (route: irrigation ) Med Classific ation: Dermatolo gical zinc gluconate 50 mg tablet 12-03 00:00: 00 Yes [id number] 1 tablet DAILY 1 tablet DAILY (route: oral) Med Classific ation: Electroly te Balance-N utritiona l Products midodrine 2.5 mg tablet 12-21 00:00: 00 Yes [id number] 1 tablet 3 TIMES DAILY 1 tablet 3 TIMES DAILY (route: oral) Med Classific ation: Cardiovas cular Therapy Agents ondansetron 4 mg disintegrat ing tablet 12-21 00:00: 00 Yes [id number] 1 tablet EVERY 6 HOURS 1 tablet EVERY 6 HOURS (route: oral) Med Classific ation: Gastroint estinal Therapy Agents menthol 0.44 %-zinc oxide 20.6 % topical ointment 2024-04 00:00: 00 Yes [id number] Per instruc tions DIRECTED Per instructio ns DIRECTED (route: topical) Med Classific ation: Dermatolo gical fentanyl 25 mcg/hr transdermal patch 2024-04 00:00: 00 03-11 23:59 :00 No [id number] 1 patch, transde rmal 72 hours EVERY 72 HOURS 1 patch, transderma l 72 hours EVERY 72 HOURS (route: transderma l) Med Classific ation: Analgesic , Anti-infl ammatory or Antipyret ic polyethylen e glycol 3350 17 gram/dose oral powder 2024-04 00:00: 00 Yes [id number] 17 g 2 TIMES DAILY 17 g 2 TIMES DAILY (route: oral) Med Classific ation: Gastroint estinal Therapy Agents Senna with Docusate Sodium 8.6 mg-50 mg tablet 2024-04 00:00: 00 Yes [id number] 2 tablet 2 TIMES DAILY 2 tablet 2 TIMES DAILY (route: oral) Med Classific ation: Gastroint estinal Therapy Agents oxycodone 5 mg/5 mL oral solution 2024-04 00:00: 00 Yes [id number] 5 mL EVERY 4 HOURS 5 mL [...] ORDERS FROM THE FOLLOWING PHYSICIANS: DR LYLE SOCIAL SERVICES COUNSELOR/TREATING PROVIDERS [code = HOME HEALTH AGENCY MAY ACCEPT ORDERS FROM THE FOLLOWING PHYSICIANS: DR LYLE SOCIAL SERVICES COUNSELOR/TREATING PROVIDERS] Future Scheduled Test SKILLED NU RSE [...] CMP, MAGNESIUM, TRIGLYCERIDES, PHOSPHOROUS FAX RESULTS TO [facility] [phone] GAITAN [phone] [code = USING ASEPTIC TECHNIQUE, SKILLED NURSE TO OBTAIN BLOOD SPECIMEN VIA VENIPUNCTURE OR PICC LINE FOR LABS TWICE WEEKLY: CBC W/ DIFF, CMP, MAGNESIUM, TRIGLYCERIDES, PHOSPHOROUS FAX RESULTS TO [facility] [phone] GAITAN [phone]] Future Scheduled Test PATIENT MANZANO S A [...] MAINTAIN SITUATIONAL AWARENESS AND WILL NOTIFY CLINICAL SECURITY SYSTEMS MANAGER AND PHYSICIAN/PROVIDER WITH ANY CHANGE IN CONDITION. [code = SKILLED NURSE TO PERFORM ENVIRONMENTAL SAFETY RISK ASSESSMENT AND FALL RISK ASSESSMENT AND PROVIDE INSTRUCTION TO IMPLEMENT ENVIRONMENTAL SAFETY AND FALL PREVENTION STRATEGIES THROUGHOUT THE CERTIFICATION PERIOD. SKILLED NURSE WILL MAINTAIN SITUATIONAL AWARENESS AND WILL NOTIFY CLINICAL SECURITY SYSTEMS MANAGER AND PHYSICIAN/PROVIDER WITH ANY CHANGE IN CONDITION.] [...] CARE WILL BE ESTABLISHED THAT MEETS PATIENT'S NURSING HOME NEEDS AND INCLUDES PATIENT GOAL FOR HOME [...] BY THE END OF THE CERTIFICATION PERIOD. Progress Notes Progress Notes <paragraph>[Visit Date: 2024 by JO MACHUCA RN]:</paragraph><paragraph>PATIENT WAS SEEN TODAY FOR ROUTINE NURSING VISIT WITH LAB DRAW AND WOUND CARE. UPON MY ARRIVAL I KNOCK AT THE DOOR AND PATIENT YELLED FOR ME TO COME IN, PATIENT WAS IN BED IN HER BEDROOM RESTING. PATIENT IS ALERT AND ORIENTED X3, PLEASANT AND COOPERATIVE PATIENT THROUGHOUT THE ENTIRE VISIT. PATIENT REMAINS HOMEBOUND DUE TO THE TAXING EFFORT IT TAKES TO LEAVE THE HOME, THE NEED FOR AN PAYMENT ANALYST AND HER WHEELCHAIR. PATIENT DENIES ANY EMERGENCY ROOM VISITS, MEDICATION CHANGES, OR FALLS SINCE THE LAST NURSING VISIT.</paragraph><paragraph></paragraph><paragraph>VITAL SIGNS TAKEN AND WERE WITHIN NORMAL LIMITS, HEART RATE AND RHYTHM WITHIN NORMAL LIMITS, BILATERAL LUNG SOUNDS CLEAR TO ALL MAYORGA, ABDOMEN IS SOFT AND NONDISTENDED WITH BOWEL SOUNDS PRESENT, OSTOMY CONTINUES TO DRAIN LIGHT BROWN COLORED STOOL AND STOMA IS BEEFY RED COLOR. PATIENT VOICES THAT SHE IS INCONTINENT OF URINE BUT NOT HAVING ANY PAIN OR DISCOMFORT AT THIS TIME, NO EDEMA NOTED.</paragraph><paragraph></paragraph><paragraph>USING ASEPTIC TECHNIQUE WOUND CARE WAS PROVIDED TO THE WOUND ON HER STOMACH AND IS DOCUMENTED IN [facility] FOR THIS NURSE DOES NOT HAVE ACCESS TO THE [facility]. PATIENT TOLERATED PROCEDURE WELL WITHOUT ANY COMPLAINTS OF PAIN OR DISCOMFORT.</paragraph><paragraph></paragraph><paragraph>LABS DRAWN PER ASEPTIC TECHNIQUE AND TAKEN TO [facility] TO BE RAN. ALCOHOL PADS HE IS TO SCRUB THE HUB FOR 15 SECONDS, 10 CC OF NORMAL SALINE FLUSHED INTO THE PICC LINE, 10 CC OF BLOOD DRAWN FOR WASTE BLOOD, 10 CC OF BLOOD DRAWN FOR SPECIMEN, PICC LINE WAS THEN FLUSHED WITH 20 CC OF NORMAL SALINE FOLLOWED BY 5ML OF HEPARIN 10 UNITS PER MILLILITER. LINE WAS THEN CAPPED WITH GREEN ANTIBACTERIAL CAP.</paragraph><paragraph></paragraph><paragraph>WHILE THIS NURSE WAS AT THE PATIENT'S HOME TODAY I NOTICED THAT HER PICC LINE DRESSING WAS COMING OFF SO, USING ASEPTIC TECHNIQUE ND WASHED HANDS THIS NURSE DONNED GLOVES AND A DRESSING KIT FROM THE KIT PROVIDED THE MASK ON MYSELF AND GAVE THE MASK TO THE PATIENT I REMOVED THE OLD DRESSING THAT WAS COMING OFF, TOOK OFF MY GLOVES WASH MY HANDS AND PUT ON THE SECOND PAIR OF STERILE GLOVES AND USING STERILE TECHNIQUE WE CLEANSED THE SITE WITH CHLORAPREP X30 SECONDS USING BACK AND FORTH AND CIRCULAR MOTION FROM PICC INSERTION SITE OUT FOR 30 SECONDS, AND NEW TRANSPARENT DRESSING WAS APPLIED. PATIENT TOLERATED PROCEDURE WELL WITHOUT ANY COMPLAINTS OF PAIN OR DISCOMFORT.</paragraph><paragraph></paragraph><paragraph>AT TODAY'S VISIT EDUCATION WAS PROVIDED ON INFECTION CONTROL, ANXIETY, AND WOUND CARE PATIENT WAS ABLE TO PROVIDE TEACH BACK AND VOICED UNDERSTANDING.</paragraph><paragraph></paragraph><paragraph>PATIENT HAS NO FURTHER QUESTIONS FOR THIS NURSE, SO WE REVIEWED THE CALENDAR FOR THE NEXT SCHEDULED VISIT, I REMINDED HER THAT [facility], AND TO CALL [facility] FIRST WITH ANY QUESTIONS, CONCERNS OR CHANGES SHE MAY HAVE. PATIENT VOICED UNDERSTANDING AND AGREES WITH ALL OF THE ABOVE.</paragraph> Encounters Start Date/Time End Date/Time Encounter Type Admission Type Attending [facility] Care Department Encounter ID Discharge Date Discharge Status Discharge Condition Discharge Reason Percent Goals Met 2025-02-19 00:00:00 2025-04-19 00:00:00 Outpatient RECERTIFIC SIMI HARP [facility] [id number] 46.67
== END 2025-03-18 13:57 | disposition home or self-care (01) ==
DX: T81.89XD Other complications of procedures, not elsewhere classified, subsequent encounter (principal); K28.4 Chronic or unspecified gastrojejunal ulcer with hemorrhage; G40.909 Epilepsy, unspecified, not intractable, without status epilepticus; E46 Unspecified protein-calorie malnutrition; Z79.899 Other long term (current) drug therapy
CPT/HCPCS: 36415; 80053; 83735; 84100; 84478; 85025

== ENCOUNTER 2025-03-24 13:24 | Outpatient (NON) | payer MEDICARE, SELFPAY ==
--- OUTSIDE RECORDS SUMMARY | 2024-11-28 04:45 | XMS_ITS ---
Author Organization [facility] Address [address] [place] [address] Care Team Providers Care Books Binder Name Role Phone Tam Key Primary Care Provider [phone] REASON FOR VISIT 4 wk fu Encounters Encounter Location Date Provider Diagnosis [facility] [address] [place] [address] 11/28/2024 Tam Key Plan Of Treatment Next Appt Details Provider Name:Tam Key, 04/10/2025 10:15:00 AM, [address] [place], [address], Progress Notes * Nabila CONTRERASDOB:[birth year] (59 yo F)Acc No.[id number]:11/28/2024 Progress Notes Patient: Herberth Nabila nunez Provider: Jalen Key MD :1965 A ge:59 Y S ex:Female Date:11/28/2024 Address:[address] [place] [phone] Subjective: * Chief Complaints: * 4 wk fu Care Plan Details* * Electronic signature of Carol Ann Key MD on 03/24/2025 at 03:13 PM CENTER AISLE CASHIER Sign off status: Pending Visit Status: N /S (No-Show) * Provider: Jalen Key MD Date: 0 11/28/2024 Generated for Kellie carvalho/Yee/Anabela on: 1 05/25/2024 03:13 PM CENTER AISLE CASHIER
--- OUTSIDE RECORDS SUMMARY | 2024-12-19 03:30 | XMS_ITS ---
Author Organization [facility] Address [address] [place] [address] Care Team Providers Care Laundry Machine Mechanic Name Role Phone Tam Key Primary Care Provider [phone] REASON FOR VISIT follow up Encounters Encounter Location Date Provider Diagnosis [facility] [address] [place] [address] 12/19/2024 Tam Key Plan Of Treatment Next Appt Details Provider Name:Tam Key, 04/10/2025 10:15:00 AM, [address] [place], [address], Progress Notes * Nabila CONTRERASDOB:[birth year] (59 yo F)Acc No.[id number]:12/19/2024 Progress Notes Patient: Herberth Nabila nunez Provider: Jalen Key MD :1965 A ge:59 Y S ex:Female Date:12/19/2024 Address:[address] [place] [phone] Subjective: * Chief Complaints: * F ollow up Care Plan Details* * Electronic signature of Carol Ann Key MD on 03/24/2025 at 03:13 PM US ADMINISTRATIVE LAW JUDGE Sign off status: Pending Visit Status: N /S (No-Show) * Provider: Jalen Key MD Date: 0 12/19/2024 Generated for Kellie carvalho/Yee/Anabela on: 1 05/25/2024 03:13 PM US ADMINISTRATIVE LAW JUDGE
--- OUTSIDE RECORDS SUMMARY | 2024-12-26 03:45 | XMS_ITS ---
Author Organization [facility] Address [address] [place] [address] Care Team Providers Care Auger Machine Offbearer Name Role Phone Tam Key Primary Care Provider REASON FOR VISIT Follow up Encounters Encounter Location Date Provider Diagnosis [facility] [address] [place] [address] 12/26/2024 Tam Key Plan Of Treatment Next Appt Details Provider Name:Tam Key, 04/10/2025 10:15:00 AM, [address] [place], [address], Progress Notes * Nabila CONTRERASDOB:[birth year] (59 yo F)Acc No.[id number]:12/26/2024 Progress Notes Patient: Herberth Nabila nunez Provider: Jalen Key MD :1965 A ge:59 Y S ex:Female Date:12/26/2024 Address:[address] [place] [phone] Subjective: * Chief Complaints: * F ollow up Care Plan Details* * Electronic signature of Carol Ann Key MD on 03/24/2025 at 03:12 PM SNOW RANGER Sign off status: Pending Visit Status: N /S (No-Show) * Provider: Jalen Key MD Date: 0 12/26/2024 Generated for Kellie carvalho/Yee/Anabela on: 1 05/25/2024 03:12 PM SNOW RANGER
--- OUTSIDE RECORDS SUMMARY | 2025-01-16 04:30 | XMS_ITS ---
Author Organization [facility] Address [address] [place] [address] Care Team Providers Care Greeting Card Editor Name Role Phone Tam Key Primary Care Provider REASON FOR VISIT CHECK UP Encounters Encounter Location Date Provider Diagnosis [facility] [address] [place] [address] 01/16/2025 Tam Key Plan Of Treatment Next Appt Details Provider Name:Tam Key, 04/10/2025 10:15:00 AM, [address] [place], [address], Progress Notes * Nabila CONTRERASDOB:[birth year] (59 yo F)Acc No.[id number]:01/16/2025 Progress Notes Patient: Herberth Nabila nunez Provider: Jalen Key MD :1965 A ge:59 Y S ex:Female Date:01/16/2025 Address:[address] [place] [phone] Subjective: * Chief Complaints: * C HECK UP Care Plan Details* * Electronic signature of Carol Ann Key MD on 03/24/2025 at 03:12 PM LOG HAULER Sign off status: Pending Visit Status: N /S (No-Show) * Provider: Jalen Key MD Date: 1 Generated for Kellie carvalho/Yee/Anabela on: 1 05/25/2024 03:12 PM LOG HAULER
--- OUTSIDE RECORDS SUMMARY | 2025-02-07 08:45 | XMS_ITS ---
Author Organization [facility] Address [address] [place] [address] Care Team Providers Care Media Senior Recruiter Name Role Phone Tam Key Primary Care Provider REASON FOR VISIT 2w Encounters Encounter Location Date Provider Diagnosis [facility] [address] [place] [address] 02/07/2025 Tam Key Plan Of Treatment Next Appt Details Provider Name:Tam Key, 04/10/2025 10:15:00 AM, [address] [place], [address], Progress Notes * Nabila CONTRERASDOB:[birth year] (59 yo F)Acc No.[id number]:02/07/2025 Progress Notes Patient: Herberth Nabila nunez Provider: Jalen Key MD :1965 A ge:59 Y S ex:Female Date:02/07/2025 Address:[address] [place] [phone] Subjective: * Chief Complaints: * 2 w Care Plan Details* * Electronic signature of Carol Ann Key MD on 03/24/2025 at 03:12 PM WRISTER Sign off status: Pending Visit Status: C ANCPHONE (Voice) * Provider: Jalen Key MD Date: 1 04/09/2024 Generated for Kellie carvalho/Yee/Anabela on: 1 05/25/2024 03:12 PM WRISTER
--- OUTSIDE RECORDS SUMMARY | 2025-03-10 08:15 | XMS_ITS ---
Author Organization [facility] Address [address] [place] [address] Care Team Providers Care Audience Development Manager Name Role Phone Tam Key Primary Care Provider REASON FOR VISIT 1 month f/u Cont Med refill Encounters Encounter Location Date Provider Diagnosis [facility] [address] [place] [address] 03/10/2025 Tam Key Plan Of Treatment Next Appt Details Provider Name:Tam Key, 04/10/2025 10:15:00 AM, [address] [place], [address], Progress Notes * Nabila CONTRERASDOB:[birth year] (59 yo F)Acc No.[id number]:03/10/2025 Progress Notes Patient: Herberth Nabila nunez Provider: Jalen Key MD :1965 A ge:59 Y S ex:Female Date:03/10/2025 Address:[address] [place] [phone] Subjective: * Chief Complaints: * 1 month f/u Cont Med refill Care Plan Details* * Electronic signature of Carol Ann Key MD on 03/24/2025 at 03:12 PM SCRIPT WORKER Sign off status: Pending Visit Status: N /S (No-Show) * Provider: Jalen Key MD Date: 05/11/2024 Generated for Kellie carvalho/Yee/Anabela on: 05/25/2024 03:12 PM SCRIPT WORKER
[2025-03-24 13:39] LABS: Hematocrit 24.6 % (35.0-49.0); Hemoglobin 8.3 g/dL (12.0-15.0); Immature Granulocyte Percent A 0.4 % (0.0-0.0); Lymphocytes Absolute Auto 2.57 K/mm3 (1.10-4.50); Mean Corpuscular HGB Conc 33.7 g/dL (32-36); Mean Corpuscular Hemoglobin 30.2 pg (27.0-31.0); Mean Corpuscular Volume 89.5 fL (78.0-102.0); Nucleated Red Blood Cells Absolute Auto 0.00 K/mm3 (0.00-0.00); Nucleated Red Blood Cells Perc 0.0 % (0-0.0); Platelet Count Result 456 K/mm3 (150-420); Red Blood Count 2.75 M/mm3 (4.20-5.40); White Blood Count 7.6 K/mm3 (4.8-10.8)
[2025-03-24 13:47] LABS: Alanine Aminotransferase 18 U/L (6-35); Albumin Level 3.0 g/dL (3.5-5.1); Alkaline Phosphatase 181 U/L (38-126); Anion Gap 7 mmol/L (4-12); Aspartate Amino Transferase 35 U/L (14-36); Bilirubin,Total 0.3 mg/dL (0.2-1.3); Blood Urea Nitrogen 10 mg/dL (7-17); Calcium 8.6 mg/dL (8.4-10.2); Carbon Dioxide 26 mmol/L (22-30); Chloride 105 mmol/L (98-107); Estimated Glomerular Filt Rate > 60; Glucose 83 mg/dL (65-110); Magnesium 1.9 mg/dL (1.6-2.3); Osmolality Calculated 284 mOsm/kg (285-295); Potassium 4.2 mmol/L (3.4-5.0); Sodium 138 mmol/L (137-145); Total Protein 6.3 g/dL (6.3-8.2); Triglycerides 109 mg/dL (<150)
--- OUTSIDE RECORDS SUMMARY | 2025-03-24 15:12 | XMS_ITS | Clinical Summary ---
Author Organization [facility] Address [address] [place] [address] Care Team Providers Care Vp Cardiovascular Name Role Phone Unavailable Primary Care Provider Unavailabl e Encounters Date Type Department Care Team Description 02/10/2025 Lab Requisition [facility] [address] [place] [address] Tam Key Other chronic pain 02/10/2025 Lab Requisition [facility] [address] [place] [address] Tam Key Other chronic pain from Last [...] SERUM OR PLASMA Routine 02/10/2025 3:11 PM SUPERVISOR AREA Other chronic pain CANNABINOIDS, CONF Routine 02/10/2025 3: 10 PM SUPERVISOR AREA Other chronic pain [facility] Routine 02/10/2025 3:10 PM SUPERVISOR AREA Other chronic pain DRUG SCREEN 9 PANEL W/CONF Routine 02/10/2025 3:10 PM SUPERVISOR AREA Other chronic pain OUTREACH VENIPUNCTURE Routine 02/10/2025 3:10 PM SUPERVISOR AREA Other chronic pain HEPATITIS C ANTIBODY Routine [...] Quantitative, Serum or Plasma (02/10/2025 3:11 PM SUPERVISOR AREA) Tramadol, Serum/Plasma None Det ng/mL 02/19/2025 8:04 AM SUPERVISOR AREA [facility] Comment: Serum or Plasma Reporting Limit: 10 ng/mL Synonym(s): Ultrex(R); Ultram(R) Peak plasma levels following a single 100 mg oral dose: 230-380 ng/mL. Steady-state plasma levels following a 100 mg 4 times daily regimen: 420-770 ng/mL. Analysis by [facility] Liquid Chromatography/ Tandem Mass Spectrometry (LC-MS/MS) O-Desmethyltramad ol, Serum/Plasma None Det ng/mL 02/19/2025 8:04 AM SUPERVISOR AREA [facility] Comment: Serum or Plasma Reporting Limit: [...] developed and its performance characteristics determined by [facility]. It has not been cleared or approved by the US Food and Drug Administration. Digital data review may have taken place remotely by qualified [facility] staff utilizing a secure VPN connection for some or all of the reported results. This is in accordance with and follows CLIA regulations. Testing performed at [facility] [address] [place] [id number] Thanh Myers, PhD, F-ABFT, DABCC-TC, Candy Depositing Machine Operator [facility] [id number] Blood Venous blood specimen / Unknown 02/10/2025 3:11 PM SUPERVISOR AREA 02/11/2025 2:33 AM SUPERVISOR AREA [facility] LAB MICROBIOLOGY - GENERAL ORDER AUGUST Final Result Performing Organization Address City/[facility]/ZIP Co de Phone Number [facility] [address] [place] [address] * Outreach Venipuncture (02/10/2025 3:10 PM SUPERVISOR AREA) Blood Venous blood specimen / Unknown 02/10/2025 3:10 PM SUPERVISOR AREA 02/11/2025 2:34 AM SUPERVISOR AREA [facility] LAB BLOOD ORDERABLES Final Resul t [facility] [address] [address] ([facility]) [place] [address] * - [facility] Misc Test (02/10/2025 3:10 PM SUPERVISOR AREA) [facility] Result SEE NOTE 02/14/2025 6:38 PM SUPERVISOR AREA [facility] Comment: Test name Result Flag Units [...] developed and its performance characteristics determined by [facility]. It has not been cleared or approved by the US Food and Drug Administration. This test was performed in a CLIA certified laboratory and is intended for clinical purposes. Performed By: [facility] [address] [place], [place] [id number] Candy Depositing Machine Operator: Jose Holliday MD, PhD CLIA Number: [id number] Blood Venous blood specimen / Unknown 02/10/2025 3:10 PM SUPERVISOR AREA 02/11/2025 2:38 AM SUPERVISOR AREA [facility] LAB BLOOD ORDERABLES Final Resul t [address] [address] * Drug Screen 9 Panel W/Conf (02/10/2025 3:10 PM SUPERVISOR AREA) [facility] Amphetamines, S/P, Screen Negative 02/14/2025 1:57 AM SUPERVISOR AREA [facility] Comment: Presumptively Negative by immunoassay. Testing by mass spectrometry is available on request. Interpretive Information: Amphetamines Screen, S/P Methodology: Immunoassay Positive Cutoff: 20 ng/mL Methamphetamine, S/P, Screen Negative 02/14/2025 1:57 AM SUPERVISOR AREA [facility] Comment: Presumptively Negative by immunoassay. Testing by mass spectrometry is available on request. Interpretive Information: Methamphetamine Screen, S/P Methodology: Immunoassay Positive Cutoff: 20 ng/mL Barbiturates, S/P, Screen Negative 02/14/2025 1:57 AM SUPERVISOR AREA [facility] Comment: Presumptively Negative by immunoassay. Testing by mass spectrometry is available on request. Interpretive Information: Barbiturates Screen, S/P Methodology: Immunoassay Positive Cutoff: 50 ng/mL Benzodiazepines, S/P, Screen Negative 02/14/2025 1:57 AM SUPERVISOR AREA [facility] Comment: Presumptively Negative by immunoassay. Testing by mass spectrometry is available on request. Interpretive Information: Benzodiazepines Screen, S/P Methodology: Immunoassay Positive Cutoff: 50 ng/mL Buprenorphine, S/P, Screen Negative 02/14/2025 1:57 AM SUPERVISOR AREA [facility] Comment: Presumptively Negative by immunoassay. Testing by mass spectrometry is available on request. Interpretive Information: Buprenorphine Screen, S/P Methodology: Immunoassay Positive Cutoff: 1 ng/mL Cocaine, S/P, Screen Negative 02/14/2025 1:57 AM SUPERVISOR AREA [facility] Comment: Presumptively Negative by immunoassay. Testing by mass spectrometry is available on request. Interpretive Information: Cocaine Screen, S/P Methodology: Immunoassay Positive Cutoff: 20 ng/mL Methadone, S/P, Screen Negative 02/14/2025 1:57 AM SUPERVISOR AREA [facility] Comment: Presumptively Negative by immunoassay. Testing by mass spectrometry is available on request. Interpretive Information: Methadone Screen, S/P Methodology: Immunoassay Positive Cutoff: 25 ng/mL Opiates, S/P, Screen Negative 02/14/2025 1:57 AM SUPERVISOR AREA [facility] Comment: Presumptively Negative by immunoassay. Testing by mass spectrometry is available on request. Interpretive Information: Opiates Screen, S/P Methodology: Immunoassay Positive Cutoff: 20 ng/mL Oxycodone, S/P, Screen Negative 02/14/2025 1:57 AM SUPERVISOR AREA [facility] Comment: Presumptively Negative by immunoassay. Testing by mass spectrometry is available on request. Interpretive Information: Oxycodone/Oxymorphone Screen, S/P Methodology: Immunoassay Positive Cutoff: 20 ng/mL Phencyclidine, S/P, Screen Negative 02/14/2025 1:57 AM SUPERVISOR AREA [facility] Comment: Presumptively Negative by immunoassay. Testing by mass spectrometry is available on request. Interpretive Information: Phencyclidine Screen, S/P Methodology: Immunoassay Positive Cutoff: 10 ng/mL Cannabinoids, S/P, Screen Presumptivepos ng/mL 02/14/2025 1:57 AM SUPERVISOR AREA [facility] Comment: Presumptive positive results are automatically reflexed to confirmation testing by mass spectrometry. Interpretive Information: Carboxy-THC Screen, S/P Methodology: Immunoassay Positive Cutoff: 20 ng/mL This test does not distinguish between the delta-8 and delta-9 forms of Carboxy-THC or their metabolites. Drug Screen Comments, Serum or Plasma See Note 02/14/2025 1:57 AM SUPERVISOR AREA [facility] Comment: Interpretive Information: Drug Screen [...] developed and its performance characteristics determined by [employer]. It has not been cleared or approved by the US Food and Drug Administration. This test was performed in a CLIA certified laboratory and is intended for clinical purposes. Performed By: [address] [address] Candy Depositing Machine Operator: Jose Holliday MD, PhD CLIA Number: [id number] Blood Venous blood specimen / Unknown 02/10/2025 3:10 PM SUPERVISOR AREA 02/11/2025 2:34 AM SUPERVISOR AREA Tam Yesi LAB BLOOD ORDERABLES Final Resul t [facility] [address] [place] [address] * Cannabinoids, Conf (02/10/2025 3:10 PM SUPERVISOR AREA) 18-Gcy-8-carboxy-TH C, S/P, Quant 159 ng/mL 02/16/2025 7:04 AM SUPERVISOR AREA [facility] Comment: INTERPRETIVE INFORMATION: THC Metabolite, Serum or Plasma, Quantitative Methodology: Quantitative Liquid Chromatography-Tandem Mass Spectrometry. Positive cutoff: 5 ng/mL For medical purposes only; not valid for forensic use. The drug analyte detected in this assay, 9-carboxy THC, is a metabolite of euzdg-7-bpvzmjbalsulpajfwplp (THC). Detection of 9-carboxy THC suggests use of, or exposure to, a product containing THC. This test cannot distinguish between prescribed or non-prescribed forms of THC, nor can it distinguish between active or passive use. The plasma half-life for 9-carboxy THC metabolite is estimated to range from 4-12 hours. This test was developed and its performance characteristics determined by [employer]. It has not been cleared or approved by the US Food and Drug Administration. This test was performed in a CLIA certified laboratory and is intended for clinical purposes. Performed By: [facility] [address] [place] [address] Candy Depositing Machine Operator: Jose Holliday MD, PhD CLIA Number: [id number] Blood Venous blood specimen / Unknown 02/10/2025 3:10 PM SUPERVISOR AREA 02/11/2025 2:34 AM SUPERVISOR AREA Tam [facility] LAB BLOOD ORDERABLES Final Resul t Performing Organization Address [facility] Co de Phone Number [facility] [address] [place] [address] * Hepatitis C antibody (01/08/2024 12:25 PM CDT) HEPATITIS C AB Negative Negative GOMEZ HONING MACHINE OPERATOR [id number] INSTRUMENT 01/09/2024 6:10 AM CDT [facility] Blood Venous blood specimen / Unknown 01/08/2024 12:25 PM CDT 01/09/2024 4:33 AM CDT [facility] LAB BLOOD ORDERABLES Final Resul t Performing Organization Address City/[facility] Co de Phone Number [facility] [address] [address] ([place] [address] * HIV Antibody/Antigen Screen with Reflex (01/08/2024 [...] ORDERABLES Final Resul t Performing Organization Address City/State/[facility] Co de Phone Number [facility] [address] [address] ([facility]) [place] [address] from Last 3 Months or Most Recently Relevant to Health Maintenance Insurance [place] MEDICA[place] [employer] MEDICARE ADVANTAGE-MEDICARE [facility]
--- OUTSIDE RECORDS SUMMARY | 2025-03-24 15:12 | XMS_ITS | Encounter Summary ---
Author Organization Health Address [address] [place] [address] Care Team Providers Care Healthcare Business Analyst Name Role Phone Unavailable Primary Care Provider Unavailabl e Encounter Details Date Type Department Care Team (Latest Contact Info) Description 01/08/2024 Lab Requisition CLIN[facility] PATH LAB [address] [place] [address] Rose Hodge Encounter for screening for infections [...] Final Resul t [facility] [address] [facility] [address] [address] ([facility]) [place] [address] * Magnesium (01/08/2024 12:25 PM CDT) MAGNESIUM 1.8 1.8 - 2.4 MG/DL 01/09/2024 5:24 AM CDT [facility] Blood Venous blood specimen / Unknown 01/08/2024 12:25 PM CDT 01/09/2024 4:33 AM CDT [facility] LAB BLOOD ORDERABLES Final Resul t Performing Organization Address [facility] Co de Phone Number [facility] [address] [facility] [address] [address] ([facility]) [place] [address] * Total Syphilis (01/08/2024 12:25 PM CDT) Total Syphilis Non-Reacti ve Non-Reacti ve 01/09/2024 6:01 AM CDT [facility] Blood Venous blood specimen / Unknown 01/08/2024 12:25 PM CDT 01/09/2024 4:33 AM CDT [facility] LAB BLOOD ORDERABLES Final Resul t Performing Organization Address [facility] Co de Phone Number [facility] [address] [facility] [address] [address] ([facility]) [place] [address] * HIV Antibody/Antigen Screen with Reflex (01/08/2024 [...] Final Resul t [facility] [address] [facility] Room [address] [place] [address] ([facility]) [place] [address] documented in this encounter Visit Diagnoses Diagnosis Encounter for screening for infections with a predominantly sexual mode of transmission Other specified health status documented in this encounter
--- OUTSIDE RECORDS SUMMARY | 2025-03-24 15:12 | XMS_ITS | Clinical Summary ---
Author Organization [facility] Address [address] [place] [address] Care Team Providers Care Product Safety Specialist Name Role Phone Yesi Caldera MD, [facility] Primary Care Provider [phone] Allergies No known active allergies Medications * [...] the vein every 12 (twelve) hours. Total [id number]=[id number], Infusion volume 1800 ml, cycle 12 hours [...] the vein daily. Flush CVC lumens per [facility] method after use and daily when line [...] Department Care Team Description 03/04/2025 3:02 PM INTERACTIVE DEVELOPER - 03/05/2025 10:[address] [facility] Hospital Encounter [address] [address] Jerod Bashir MD Zhen, MD Will Toro [...] often do you attend chur ch or cheondoism services? 1 to 4 times per year [...] care, and heating? Not very hard 01/01/2023 [facility] - Occupational [...] place to sleep or slept in a correction (including now)? No 01/01/2023 Hunger Vital Sign [...] Sex Assigned at Female 03/04/2025 5:15 PM INTERACTIVE DEVELOPER Legal Sex Female 9:10 PM INTERACTIVE DEVELOPER Gender Identity Not on file Sexual Orientation Not on file Last Filed Vital Signs Vital Sign Reading Time Taken Comments Blood Pressure 115/70 03/05/2025 8:04 PM INTERACTIVE DEVELOPER Pulse 93 03/05/2025 8:04 PM INTERACTIVE DEVELOPER Temperature 36.7 C (98.1 F) 03/05/2025 8:04 PM INTERACTIVE DEVELOPER Respiratory Rate 18 03/05/2025 4:00 PM INTERACTIVE DEVELOPER Oxygen Saturation 100% 03/05/2025 8:04 PM INTERACTIVE DEVELOPER Inhaled Oxygen Concentration - - Weight 69.9 kg (154 lb) 03/04/2025 3:13 PM INTERACTIVE DEVELOPER Height 154.9 cm (5' 1) 03/04/2025 3:13 PM INTERACTIVE DEVELOPER Body Mass Index 29.1 03/04/2025 3:13 PM INTERACTIVE DEVELOPER Plan of Treatment Health Maintenance Due Date [...] Comments LACTIC ACID STAT 03/05/2025 5:40 AM INTERACTIVE DEVELOPER PHOSPHORUS, INORGANIC PHOSPHATE STAT 03/05/2025 5:40 AM INTERACTIVE DEVELOPER MAGNESIUM STAT 03/05/2025 5:40 AM INTERACTIVE DEVELOPER HC CBC AUTO W/AUTO DIFF STAT 03/05/2025 5:40 AM INTERACTIVE DEVELOPER BASIC METABOLIC PANEL STAT 03/05/2025 5:40 AM INTERACTIVE DEVELOPER POCT GLUCOSE - DOCKED DEVICE Routine 03/05/2025 5:[address] ABD+PEL W CON STAT 03/04/2025 4:42 PM INTERACTIVE DEVELOPER LIPASE STAT 03/04/2025 3:23 PM INTERACTIVE DEVELOPER COMPREHENSIVE METABOLIC PANEL STAT 03/04/2025 3:23 PM INTERACTIVE DEVELOPER HC CBC AUTO W/AUTO DIFF STAT 03/04/2025 3:23 PM INTERACTIVE DEVELOPER HEPATITIS PANEL,ACUTE Routine 11/20/2023 1:04 AM CDT from Last 3 Months or Most Recently Relevant to Health Maintenance Results * PHOSPHORUS, INORGANIC PHOSPHATE (03/05/2025 5:40 AM INTERACTIVE DEVELOPER) PHOSPHORUS 3.0 2.5 - 4.9 MG/DL 03/05/2025 6:22 AM INTERACTIVE DEVELOPER [facility] BLOOD VENOUS BLOOD SPECIMEN / Unknown 03/05/2025 5:40 AM INTERACTIVE DEVELOPER us Carlos Richey MD LABORATORY Final Result Performing Organization Address [facility] Co de Phone Number [facility] [address] [place] [address], [phone] * MAGNESIUM (03/05/2025 5:40 AM INTERACTIVE DEVELOPER) [facility] MAGNESIUM 1.8 1.6 - 2.6 MG/DL 03/05/2025 6:22 AM INTERACTIVE DEVELOPER [facility] BLOOD VENOUS BLOOD SPECIMEN / Unknown 03/05/2025 5:40 AM INTERACTIVE DEVELOPER us Carlos Richey MD LABORATORY Final Result Performing Organization Address [facility] de Phone Number [facility] [address] [place] [address], [phone] * LACTIC ACID (03/05/2025 5:40 AM INTERACTIVE DEVELOPER) [facility] LACTIC ACID VENOUS 1.2 0.4 - 2.0 MMOL/L 03/05/2025 6:15 AM INTERACTIVE DEVELOPER [facility] BLOOD VENOUS BLOOD SPECIMEN / Unknown 03/05/2025 5:40 AM INTERACTIVE DEVELOPER us Carlos Richey MD LABORATORY Final Result Performing Organization Address [facility] de Phone Number [facility] [address] [place] [address], [phone] * (ABNORMAL) CBC W/DIFF (03/05/2025 5:40 AM INTERACTIVE DEVELOPER) Only the most recent of2 resultswithin the time period is included. Pathologist [facility] WBC 7.04 4.00 - 10.80 x10'3/uL 03/05/2025 5:57 AM [facility] RBC 3.30(L) 4.10 - 5.40 x10'6/uL 03/05/2025 5:57 AM [facility] HGB 9.6(L) 12.0 - 16.0 G/DL 03/05/2025 5:57 AM [facility] HCT 29.1(L) 36.0 - 47.0 % 03/05/2025 5:57 AM [facility] MCV 88.2 78.0 - 100.0 FL 03/05/2025 5:57 AM [facility] MCH 29.1 27.0 - 31.0 PG 03/05/2025 5:57 AM [facility] MCHC 33.0 33.0 - 36.0 G/DL 03/05/2025 5:57 AM [facility] RDW 18.7(H) 11.5 - 14.5 % 03/05/2025 5:57 AM [facility] PLT 542(H) 150 - 350 x10'3/uL 03/05/2025 5:57 AM [facility] MPV 9.2 7.4 - 10.4 FL 03/05/2025 5:57 AM [facility] DIFFERENTIAL TYPE AUTOMATED DIFFERENTIAL 03/05/2025 5:57 AM [facility] SEG NEUTROPHILS 58.5 % 5:57 AM [facility] LYMPHOCYTES 33.9 % 03/05/2025 5:57 AM [facility] MONOCYTES 5.7 % 03/05/2025 5:57 AM [facility] EOSINOPHILS 1.0 % 03/05/2025 5:57 AM [facility] BASOPHILS 0.6 % 03/05/2025 5:57 AM INTERACTIVE DEVELOPER [facility] IMMATURE GRANS % 0.3 % 03/05/20 5:57 AM INTERACTIVE DEVELOPER [facility] ABS. NEUTROPHILS 4.12 1.60 - 8.30 x10'3/uL 03/05/2025 5:57 AM INTERACTIVE DEVELOPER [facility] ABS. LYMPHOCYTES 2.39 0.80 - 4.70 x10'3/uL 03/05/2025 5:57 AM INTERACTIVE DEVELOPER [facility] ABS. MONOCYTES 0.40 0.00 - 1.50 x10'3/uL 03/05/2025 5:57 AM INTERACTIVE DEVELOPER [facility] ABS. EOSINOPHILS 0.07 0.00 - 0.40 x10'3/uL 03/05/2025 5:57 AM [facility] ABS. BASOPHILS 0.04 0.00 - 0.20 x10'3/uL 03/05/2025 5:57 AM [facility] ABS. IMMATURE GRANULOCYTES 0.02 0.00 - 0.03 x10'3/uL 03/05/2025 5:57 AM [facility] ABS. NUCLEATED RBC'S 0.00 0.00 - 0.01 x10'3/uL 03/05/2025 5:57 AM [facility] NRBC % 0.0 % 03/05/2025 5:57 AM [facility] BLOOD VENOUS BLOOD SPECIMEN / Unknown 03/05/2025 5:40 AM INTERACTIVE DEVELOPER us Carlos Richey MD LABORATORY Final Result [facility] [address] [place] [address], [phone] * (ABNORMAL) BASIC METABOLIC PANEL (03/05/2025 5:40 AM INTERACTIVE DEVELOPER) SODIUM S/P/B 138 136 - 145 MMOL/L 03/05/2025 6:22 AM [facility] POTASSIUM S/P/B 3.7 3.5 - 5.1 MMOL/L 03/05/2025 6:22 AM [facility] CHLORIDE S/P/B 104 97 - 115 MMOL/L 03/05/2025 6:22 AM [facility] CO2 25.1 21.0 - 32.0 MMOL/L 03/05/2025 6:22 AM [facility] GLUCOSE 148(H) 74 - 106 MG/DL 03/05/2025 6:22 AM [facility] BUN 13 7 - 18 MG/DL 03/05/2025 6:22 AM [facility] CREATININE S/P/B 0.47(L) 0.55 - 1.02 MG/DL 03/05/2025 6:22 AM [facility] CALCIUM S/P/B 9.5 8.5 - 10.1 MG/DL 03/05/2025 6:22 AM [facility] ANION GAP 8.9 2.0 - 10.0 MMOL/L 03/05/2025 6:22 AM [facility] OSMOLALITY (CALC) 289 MOSM/KG 025 6:22 AM [facility] Comment:REFERENCE RANGE NOT ESTABLISHED GFR ESTIMATE >90 >90 ML/MIN/1. 73 M2 03/05/2025 6:22 AM [facility] GFR NOTES GFR REFERENCE S: 03/05/2025 6:22 AM [facility] Comment: THE ESTIMATED GFR [...] BLOOD SPECIMEN / Unknown 03/05/2025 5:40 AM INTERACTIVE DEVELOPER us Carlos Richey MD LABORATORY Final Result Performing Organization Address [facility] Co de Phone Number [facility] [address] [place] [address], [place] [phone] * (ABNORMAL) POCT glucose (03/05/2025 5:28 AM INTERACTIVE DEVELOPER) GLUCOSE POC 133(H) 70 - 109 03/05/2025 6:49 AM INTERACTIVE DEVELOPER [facility] 03/05/2025 5:28 AM INTERACTIVE DEVELOPER us Carlos Richey MD POCT ORDERABLES - DEVICE Final Result Performing Organization Address [facility] de Phone Number [facility] [address] [place] [address], [place] [phone] * CT ABD+PEL W CON (03/04/2025 4:42 PM INTERACTIVE DEVELOPER) Anatomical Region Laterality Modality Abdomen Computed Tomogra phy 03/04/2025 5:27 PM INTERACTIVE DEVELOPER Impressions 03/04/2025 6:26 PM INTERACTIVE DEVELOPER IMPRESSION: 1. Decompressed small bowel within the [...] 03/04/2025 5:27 PM Narrative 03/04/2025 6:26 PM INTERACTIVE DEVELOPER [address] [address] EXAMINATION: CT ABD+PEL W CON EXAM TIME: [...] Procedure Note Woody Salomon MD - 03/04/[address] [address] EXAMINATION: CT ABD+PEL W CON EXAM TIME: [...] Result * (ABNORMAL) LIPASE (03/04/2025 3:23 PM INTERACTIVE DEVELOPER) Pathologist [facility] LIPASE 8(L) 13 - 75 UNITS/L 03/04/2025 3:59 PM INTERACTIVE DEVELOPER [facility] BLOOD VENOUS BLOOD SPECIMEN / Unknown 03/04/2025 3:23 PM INTERACTIVE DEVELOPER Jerod Bashir MD LABORATORY Final Result [facility] [address] [place] [address], [id number] * (ABNORMAL) COMPREHENSIVE METABOLIC PANEL (03/04/2025 3:23 PM INTERACTIVE DEVELOPER) Pathologist [facility] SODIUM S/P/B 136 136 - 145 MMOL/L 03/04/2025 3:59 PM INTERACTIVE DEVELOPER [facility] POTASSIUM S/P/B 3.7 3.5 - 5.1 MMOL/L 03/04/2025 3:59 PM [facility] CHLORIDE S/P/B 103 97 - 115 MMOL/L 03/04/2025 3:59 PM [facility] CO2 25.3 21.0 - 32.0 MMOL/L 03/04/2025 3:59 PM [facility] GLUCOSE 147(H) 74 - 106 MG/DL 03/04/2025 3:59 PM [facility] BUN 17 7 - 18 MG/DL 03/04/2025 3:59 PM [facility] CREATININE S/P/B 0.43(L) 0.55 - 1.02 MG/DL 03/04/2025 3:59 PM [facility] CALCIUM S/P/B 9.2 8.5 - 10.1 MG/DL 03/04/2025 3:59 PM [facility] BILIRUBIN TOTAL S/P/B 0.3 0.2 - 1.0 MG/DL 03/04/2025 3:59 PM [facility] ALKALINE PHOSPHATASE S/P/B 180(H) 46 - 118 U/L 03/04/2025 3:59 PM [facility] AST 22 15 - 37 U/L 03/04/2025 3:59 PM [facility] ALT 16 13 - 56 U/L 03/04/2025 3:59 PM [facility] TOTAL PROTEIN S/P/B 8.0 6.4 - 8.2 G/DL 03/04/2025 3:59 PM [facility] ALBUMIN S/P/B 2.6(L) 3.4 - 5.0 G/DL 03/04/2025 3:59 PM [facility] ANION GAP 7.7 2.0 - 10.0 MMOL/L 03/04/2025 3:59 PM [facility] OSMOLALITY (CALC) 286 MOSM/KG 025 3:59 PM INTERACTIVE DEVELOPER [facility] Comment:REFERENCE RANGE NOT ESTABLISHED GFR ESTIMATE >90 >90 ML/MIN/1. 73 M2 03/04/2025 3:59 PM INTERACTIVE DEVELOPER [facility] GFR NOTES GFR REFERENCE S: 03/04/2025 3:59 PM INTERACTIVE DEVELOPER [facility] Comment: THE ESTIMATED GFR IS CALCULATED [...] BLOOD SPECIMEN / Unknown 03/04/2025 3:23 PM INTERACTIVE DEVELOPER us Jerod Bashir MD LABORATORY Final Result [facility] [address] [place] [address], [id number] * HEPATITIS PANEL,ACUTE (11/20/2023 1:04 AM CDT) HEPATITIS B SURFACE AG NON-REACT ROSENDA NON-REACT ROSENDA 11/20/2023 2:44 AM CDT [facility] Comment:HBsAg NOT DETECTED. HEP B CORE IGM NON-REACT ROSENDA NON-REACT ROSENDA 11/20/2023 2:44 AM CDT [facility] Comment: IgM ANTI HBc NOT DETECTED. DOES NOT EXCLUDE THE POSSIBILITY OF EXPOSURE TO OR INFECTION WITH HBV. NO RETEST REQUIRED. HIGH DOSES OF BIOTIN MAY INTERFERE WITH THIS TEST RESULT. CORRELATION TO CLINICAL HISTORY AND PRESENTATION RECOMMENDED. HAV IGM NON-REACT ROSENDA NON-REACT ROSENDA 11/20/2023 2:44 AM CDT [facility] Comment: IgM ANTI HAV NOT DETECTED. DOES NOT EXCLUDE THE POSSIBILITY OF EXPOSURE TO OR INFECTION WITH HAV. LEVELS OF IgM ANTI HAV MAY BE BELOW THE CUTOFF IN EARLY INFECTION. HEPATITIS C AB NON-REACT ROSENDA NON-REACT ROSENDA 11/20/2023 2:44 AM CDT [facility] Comment: ANTIBODIES TO HCV NOT DETECTED. DOES NOT EXCLUDE THE POSSIBILITY OF EXPOSURE TO HCV. 11/20/2023 1:04 AM CDT us Mikhail Vieira MD LABORATORY Final Result [facility] [address] 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
--- OUTSIDE RECORDS SUMMARY | 2025-03-24 15:12 | XMS_ITS | Encounter Summary ---
Author Organization Health Address [address] [place] [address] Care Team Providers Care Rn Call Center Name Role Phone Unavailable Primary Care Provider Unavailabl e Encounter Details Date Type Department Care Team (Late st Contact Info) Description 02/10/2025 Lab Requisition [facility] [address] [place] [address] Tam Key Other chronic pain Social History [...] Comments OUTREACH VENIPUNCTURE Routine 02/10/2025 3:10 PM ACTION INSTALLER Other chronic pain [facility] Routine 02/10/2025 3:10 PM ACTION INSTALLER Other chronic pain DRUG SCREEN 9 PANEL W/CONF Routine 02/10/2025 3:10 PM ACTION INSTALLER Other chronic pain CANNABINOIDS, CONF Routine 02/10/2025 3: 10 PM ACTION INSTALLER Other chronic pain documented in this encounter Results * Cannabinoids, Conf (02/10/2025 3:10 PM ACTION INSTALLER) 47-Vhl-2-carboxy-TH C, S/P, Quant 159 ng/mL 02/16/2025 7:04 AM ACTION INSTALLER [facility] Comment: INTERPRETIVE INFORMATION: THC Metabolite, Serum or Plasma, Quantitative Methodology: Quantitative Liquid Chromatography-Tandem Mass Spectrometry. Positive cutoff: 5 ng/mL For medical purposes only; not valid for forensic use. The drug analyte detected in this assay, 9-carboxy THC, is a metabolite of vqzsf-0-alftlnpadkcxacqauklz (THC). Detection of 9-carboxy THC suggests use of, or exposure to, a product containing THC. This test cannot distinguish between prescribed or non-prescribed forms of THC, nor can it distinguish between active or passive use. The plasma half-life for 9-carboxy THC metabolite is estimated to range from 4-12 hours. This test was developed and its performance characteristics determined by [facility]. It has not been cleared or approved by the [place] Food and Drug Administration. This test was performed in a CLIA certified laboratory and is intended for clinical purposes. Performed By: [facility] [address] [place] [address] Coding Auditor: Jose Holliday MD, PhD CLIA Number: [id number] Blood Venous blood specimen / Unknown 02/10/2025 3:10 PM ACTION INSTALLER 02/11/2025 2:34 AM ACTION INSTALLER [facility] BLOOD ORDERABLES Final Resul t [facility] [address] [place] [address] * - [facility] Test (02/10/2025 3:10 PM ACTION INSTALLER) [facility] Test Result SEE NOTE 02/14/2025 6:38 PM ACTION INSTALLER [facility] Comment: Test name Result Flag [...] developed and its performance characteristics determined by [facility]. It has not been cleared or approved by the [place] Food and Drug Administration. This test was performed in a CLIA certified laboratory and is intended for clinical purposes. Performed By: [facility] [address] [place] [address] Coding Auditor: Jose Holliday MD, PhD CLIA Number: [id number] Blood Venous blood specimen / Unknown 02/10/2025 3:10 PM ACTION INSTALLER 02/11/2025 2:38 AM ACTION INSTALLER [facility] BLOOD ORDERABLES Final Resul t [address] [address] * Drug Screen 9 Panel W/Conf (02/10/2025 3:10 PM ACTION INSTALLER) Amphetamines, S/P, Screen Negative 02/14/2025 1:57 AM ACTION INSTALLER [facility] Comment: Presumptively Negative by immunoassay. Testing by mass spectrometry is available on request. Interpretive Information: Amphetamines Screen, S/P Methodology: Immunoassay Positive Cutoff: 20 ng/mL Methamphetamine, S/P, Screen Negative 02/14/2025 1:57 AM ACTION INSTALLER [facility] Comment: Presumptively Negative by immunoassay. Testing by mass spectrometry is available on request. Interpretive Information: Methamphetamine Screen, S/P Methodology: Immunoassay Positive Cutoff: 20 ng/mL Barbiturates, S/P, Screen Negative 02/14/2025 1:57 AM ACTION INSTALLER [facility] Comment: Presumptively Negative by immunoassay. Testing by mass spectrometry is available on request. Interpretive Information: Barbiturates Screen, S/P Methodology: Immunoassay Positive Cutoff: 50 ng/mL Benzodiazepines, S/P, Screen Negative 02/14/2025 1:57 AM ACTION INSTALLER [facility] Comment: Presumptively Negative by immunoassay. Testing by mass spectrometry is available on request. Interpretive Information: Benzodiazepines Screen, S/P Methodology: Immunoassay Positive Cutoff: 50 ng/mL Buprenorphine, S/P, Screen Negative 02/14/2025 1:57 AM ACTION INSTALLER [facility] Comment: Presumptively Negative by immunoassay. Testing by mass spectrometry is available on request. Interpretive Information: Buprenorphine Screen, S/P Methodology: Immunoassay Positive Cutoff: 1 ng/mL Cocaine, S/P, Screen Negative 02/14/2025 1:57 AM ACTION INSTALLER [facility] Comment: Presumptively Negative by immunoassay. Testing by mass spectrometry is available on request. Interpretive Information: Cocaine Screen, S/P Methodology: Immunoassay Positive Cutoff: 20 ng/mL Methadone, S/P, Screen Negative 02/14/2025 1:57 AM ACTION INSTALLER [facility] Comment: Presumptively Negative by immunoassay. Testing by mass spectrometry is available on request. Interpretive Information: Methadone Screen, S/P Methodology: Immunoassay Positive Cutoff: 25 ng/mL Opiates, S/P, Screen Negative 02/14/2025 1:57 AM ACTION INSTALLER [facility] Comment: Presumptively Negative by immunoassay. Testing by mass spectrometry is available on request. Interpretive Information: Opiates Screen, S/P Methodology: Immunoassay Positive Cutoff: 20 ng/mL Oxycodone, S/P, Screen Negative 02/14/2025 1:57 AM ACTION INSTALLER [facility] Comment: Presumptively Negative by immunoassay. Testing by mass spectrometry is available on request. Interpretive Information: Oxycodone/Oxymorphone Screen, S/P Methodology: Immunoassay Positive Cutoff: 20 ng/mL Phencyclidine, S/P, Screen Negative 02/14/2025 1:57 AM ACTION INSTALLER [facility] Comment: Presumptively Negative by immunoassay. Testing by mass spectrometry is available on request. Interpretive Information: Phencyclidine Screen, S/P Methodology: Immunoassay Positive Cutoff: 10 ng/mL Cannabinoids, S/P, Screen Presumptivepos ng/mL 02/14/2025 1:57 AM ACTION INSTALLER [facility] Comment: Presumptive positive results are automatically reflexed to confirmation testing by mass spectrometry. Interpretive Information: Carboxy-THC Screen, S/P Methodology: Immunoassay Positive Cutoff: 20 ng/mL This test does not distinguish between the delta-8 and delta-9 forms of Carboxy-THC or their metabolites. Drug Screen Comments, Serum or Plasma See Note 02/14/2025 1:57 AM ACTION INSTALLER [facility] Comment: Interpretive Information: Drug Screen [...] developed and its performance characteristics determined by [facility]. It has not been cleared or approved by the [place] Food and Drug Administration. This test was performed in a CLIA certified laboratory and is intended for clinical purposes. Performed By: [facility] [address] [place] [address] Coding Auditor: Jose Holliday MD, PhD CLIA Number: [id number] Blood Venous blood specimen / Unknown 02/10/2025 3:10 PM ACTION INSTALLER 02/11/2025 2:34 AM ACTION INSTALLER [facility] BLOOD ORDERABLES Final Resul t Performing Organization Address [facility] de Phone Number [facility] [address] [place] [address] * Outreach Venipuncture (02/10/2025 3:10 PM ACTION INSTALLER) Blood Venous blood specimen / Unknown 02/10/2025 3:10 PM ACTION INSTALLER 02/11/2025 2:34 AM ACTION INSTALLER [facility] BLOOD ORDERABLES Final Resul t [facility] [address] [facility] Room [address] [place] [address] ([facility]) [place] [address] documented in this encounter Visit Diagnoses Diagnosis Other chronic pain documented in this encounter
--- OUTSIDE RECORDS SUMMARY | 2025-03-24 15:12 | XMS_ITS | Clinical Summary ---
Author Organization [employer] Address [address] [place] [address] Care Team Providers Care Extract Operator Name Role Phone Unavailable Primary Care Provider Unavailabl e Source Comments This disclosure is being made pursuant to the [employer] program and maynot contain all information available regarding this patient.[employer] Immunizations Immunization Administration Dates Next Due Influenza [...] panel (06/14/2012) Cholesterol 209(H) >0 <200 MG/DL [facility] Triglycerides 89 >0 <200 MG/DL [facility] HDL Cholesterol 66 >>60 < MG/DL [facility] LDL, Calculated 125.2 > < MG/DL [facility] Cholesterol/HDL Ratio 3.2 > < [facility] 06/14/2012 us Scooter Prescott MD LAB BLOOD ORDERABLES Final R esult [facility] from Last 3 Months or Most Recently Relevant to Health Maintenance
--- OUTSIDE RECORDS SUMMARY | 2025-03-24 15:12 | XMS_ITS | Encounter Summary ---
Author Organization [facility] Address [address] [place] [address] Care Team Providers Care Biometry Teacher Name Role Phone Unavailable Primary Care Provider Unavailabl e Encounter Details Date Type Department Care Team (Late st Contact Info) Description 02/05/2024 Lab Requisition [facility] PATH LAB [address] [place] [address] TuckerRenetta anthonyica Urinary tract infection, site not [...] Comments URINE CULTURE Routine 02/05/2024 10:00 AM OUTSOLE FLEXER Urinary tract infection, site not specified documented in this encounter Results * (ABNORMAL) Urine culture (02/05/2024 10:00 AM OUTSOLE FLEXER) Urine Culture >100,000 CFU/ML Escherichia coli(A) 02/09/2024 7:03 AM OUTSOLE FLEXER [facility] Urine Culture >100,000 CFU/ML Klebsiella pneumoniae(A) 02/09/2024 7:03 AM OUTSOLE FLEXER [facility] Urine Urine specimen obtained by clean catch procedure / Unknown 02/05/2024 10:00 AM OUTSOLE FLEXER 02/06/2024 4:08 AM OUTSOLE FLEXER Narrative Organism Antibiotic Method Susceptibility Escherichia coli [...] Escherichia coli Ceftazidime LAB SUSCEPTIBIL ITY METHOD (KIP) <=1 ug/ml: Susceptible Escherichia coli Ceftriaxone LAB [...] MICROBIOLOGY - GENERAL ORDER AUGUST Final Result [facility] [address] [facility] [address] [place] [address] ([facility]) [place] [address] documented in this encounter Visit Diagnoses Diagnosis Urinary tract infection, site not specified documented in this encounter
--- OUTSIDE RECORDS SUMMARY | 2025-03-24 15:12 | XMS_ITS | Encounter Summary ---
Author Organization Health Address [address] [place] [address] Care Team Providers Care Commercial Real Estate Attorney Name Role Phone Unavailable Primary Care Provider Unavailabl e Encounter Details Date Type Department Care Team (Late st Contact Info) Description 02/10/2025 Lab Requisition [facility] [address] [place] [address] Tam Key Other chronic pain Social History [...] SERUM OR PLASMA Routine 02/10/2025 3:11 PM [facility]UCK[facility] HAND Other chronic pain documented in this encounter Results * Tramadol and Metabolite, Quantitative, Serum or Plasma (02/10/2025 3:11 PM [facility]) Tramadol, Serum/Plasma None Det ng/mL 02/19/2025 8:04 AM [facility] Comment: Serum or Plasma Reporting Limit: 10 ng/mL Synonym(s): Ultrex(R); Ultram(R) Peak plasma levels following a single 100 mg oral dose: 230-380 ng/mL. Steady-state plasma levels following a 100 mg 4 times daily regimen: 420-770 ng/mL. Analysis by High Performance Liquid Chromatography/ Tandem Mass Spectrometry (LC-MS/MS) O-Desmethyltramad ol, Serum/Plasma None Det ng/mL 02/19/2025 8:04 AM [facility] Comment: Serum or Plasma Reporting [...] developed and its performance characteristics determined by [facility]. It has not been cleared or approved by the [place] Food and Drug Administration. Digital data review may have taken place remotely by qualified [facility] staff utilizing a secure VPN connection for some or all of the reported results. This is in accordance with and follows CLIA regulations. Testing performed at [facility] [address] [place] [id number] Thanh Myers, PhD, [facility], [facility], Tool Maker [facility] [id number] Blood Venous blood specimen / Unknown 02/10/2025 3:11 PM TRUCKER HAND 02/11/2025 2:33 AM TR[facility] HAND Tam Key LAB MICROBIOLOGY - GENERAL ORDER AUGUST Final Result [facility] [address] [place] [address] documented in this encounter Visit Diagnoses Diagnosis Other chronic pain documented in this encounter
--- OUTSIDE RECORDS SUMMARY | 2025-03-24 15:12 | XMS_ITS | Encounter Summary ---
Author Organization Health Address [address] [place] [address] Care Team Providers Care Telecommunications Line Installer Name Role Phone Unavailable Primary Care Provider Unavailabl e Encounter Details Date Type Department Care Team (Latest Contact Info) Description 01/08/2024 Lab Requisition [facility] [address] [place] [address] Rose Hodge Encounter for screening for other [...] 32(L) >40 MG/DL 01/09/2024 5:34 AM CDT [facility] TRIGLYCERIDE 152(H) <150 MG/DL 01/09/2024 5:34 AM CDT [facility] LDL, CALCULATED 98 <130 MG/DL 5:34 AM CDT [facility] Blood Venous blood specimen / Unknown 01/08/2024 12:25 PM CDT 01/09/2024 4:33 AM CDT [employer] LAB BLOOD ORDERABLES Final Resul t [facility] [address] [place] [address] ([place] [address] * (ABNORMAL) Prealbumin (01/08/2024 12:25 PM CDT) Pathologist [facility] PREALBUMIN 12(L) 18 - 38 MG/DL 01/09/2024 5:34 AM CDT [facility] Blood Venous blood specimen / Unknown 01/08/2024 12:25 PM CDT 01/09/2024 4:33 AM CDT [employer] LAB BLOOD ORDERABLES Final Resul t [facility] [address] [place] [address] ([facility]) [place] [address] * Hepatitis C antibody (01/08/2024 12:25 PM CDT) Pathologist [facility] HEPATITIS C AB Negative Negative GOMEZ ALARM OPERATOR I2000 INSTRUMENT 01/09/2024 6:10 AM CDT [facility] Blood Venous blood specimen / Unknown 01/08/2024 12:25 PM CDT 01/09/2024 4:33 AM CDT us Rose Hodge LAB BLOOD ORDERABLES Final Resul t [facility] [address] [facility] Room [address] [facility] [address] ([facility]) [place] [address] * (ABNORMAL) DIFFERENTIAL (01/08/2024 12:25 PM CDT) [facility] Differential Type Automated Differential 01/09/2024 5:09 AM [...] NUCLEATED RBC'S 0.0 /100 5:09 AM CDT [facility] Blood Venous blood specimen / Unknown 01/08/2024 12:25 PM CDT 01/09/2024 4:33 AM CDT us Rose Hodge LAB BLOOD ORDERABLES Final Resul t [facility] [address] [facility] [address] [facility] [address] ([facility]) [place] [address] * (ABNORMAL) CBC (01/08/2024 12:25 PM CDT) WBC 11.2 3.9 - 12.0 K/UL 01/09/2024 5:09 AM CDT [facility] RBC 3.48(L) 3.80 - 5.40 M/UL 01/09/2024 5:09 AM CDT [facility] HEMOGLOBIN 11.1(L) 11.7 - 16.0 GM/DL 01/09/2024 5:09 AM CDT [facility] HEMATOCRIT 34.4(L) 35.0 - 49.0 % 01/09/2024 5:09 AM CDT [facility] MCV 98.9 80.0 - 99.0 FL 01/09/2024 5:09 AM CDT [facility] MCH 32.1 26.0 - 35.0 PG 01/09/2024 5:09 AM CDT [facility] MCHC 32.4 32.0 - 37.0 GM/DL 01/09/2024 5:09 AM CDT [facility] RDW 21.4(H) 11.6 - 15.0 % 01/09/2024 5:09 AM CDT [facility] PLATELET 432 150 - 450 K/UL 01/09/2024 5:09 AM CDT [facility] MPV 9.0 6.5 - 11.0 FL 01/09/2024 5:09 AM CDT [facility] Blood Venous blood specimen / Unknown 01/08/2024 12:25 PM CDT 01/09/2024 4:33 AM CDT us Rose Hodge LAB BLOOD ORDERABLES Final Resul t [facility] [address] [facility] Room [address] [place] [address] ([facility]) [place] [address] * (ABNORMAL) Comprehensive metabolic panel (01/08/2024 12:25 [...] >=60 mL/min/1.7 3m*2 01/09/2024 5:34 AM CDT [facility] Blood Venous blood specimen / Unknown 01/08/2024 12:25 PM CDT 01/09/2024 4:33 AM CDT [employer] LAB BLOOD ORDERABLES Final Resul t Performing Organization Address City/[facility] Co de Phone Number [facility] [address] [address] ([facility]) [place] [address] * TSH W/ Reflex Free T4 (01/08/2024 12:25 PM CDT) TSH W/ FT4 REFLEX 2.18 0.35 - 4.00 MCIU/ML 01/09/2024 5:38 AM CDT [facility] Blood Venous blood specimen / Unknown 01/08/2024 12:25 PM CDT 01/09/2024 4:33 AM CDT [facility] LAB BLOOD ORDERABLES Final Resul t Performing Organization Address City/[facility] Co de Phone Number [facility] [address] [place] [address] ([facility]) [place] [address] documented in this encounter Visit Diagnoses Diagnosis [...]
--- OUTSIDE RECORDS SUMMARY | 2025-03-24 15:13 | XMS_ITS | Encounter Summary ---
Author Organization [facility] Address [address] [place] [address] Care Team Providers Care Gluten Settling Tender Name Role Phone Yesi Caldera MD, Tam Primary Care Provider [phone] Reason for Visit * Reason Onset Date Comments Advice 11/21/2024 Nurse Triage - A fter Hours ([id number]) Encounter Details Date Type Department Care Team (Late st Contact Info) Description 11/21/2024 Telephone [facility] Home Care [facility] [address] [place] [address] Tam Key MD [address] [place] [address] Advice (Nurse Triage - After Hours ([id number]) ) Social History Tobacco Use Types Packs/Day [...] week 01/01/2023 How often do you attend [facility] or [facility] services? 1 to 4 times per year [...] care, and heating? Not very hard 01/01/2023 [facility] - Occupational Stress [...] place to sleep or slept in a nursing home (including now)? No 01/01/2023 Comments Unknown Sex and Gender Information Value Date Recorded Sex Assigned at Female 03/04/2025 5:15 PM TALENT ACQUISITION CONSULTANT Legal Sex Female 9:10 PM TALENT ACQUISITION CONSULTANT Gender Identity Not on file Sexual Orientation [...] PM CDT Nurse Triage - After Hours ([id number]) Comments Calling To See If You Have This Pt On Your Case Load Is She Getting Home Health Services -County:[facility]) Assessment Notes 1st attempt chart accessed no answer music only plays [facility].RN 2nd attempt chart accessed Reached a verifiable voicemail from a Marianela Special Agent In Charge at [facility] [place] [place], no contact No Contact or Duplicate [...] documented as of this encounter Care Teams Gluten Settling Tender Relationship Specialty Start Date End Date Tam Key MD [address] [place] [address] PCP - General FAMILY PRACTICE 03/29/24 documented as of this encounter
--- OUTSIDE RECORDS SUMMARY | 2025-03-24 15:13 | XMS_ITS | Patient Health Record ---
Author Organization [facility] Address [address] [place] [address] Care Team Providers Care Pillowcase Sewer Name Role Phone Tam Key Primary Care Provider Rose Hodge Unavailable [phone] Allergies No Known Allergies Results Component Value Reference Range Flag Notes DRUG SCREEN 9, SERUM OR PLAS MA W/ CONFIRM * Reviewed date:02/16/2025 10:58:47 PM Interpretation:THC Performing Lab:[facility], [address] [facility], [place] [address] Notes/Report: AMPHETAMINES, S/P, SCREEN Negative N Presumptively [...] developed and its performance characteristics determined by [facility]. It has not been cleared or approved by the US Food and Drug Administration. This test was performed in a CLIA certified laboratory and is intended for clinical purposes. Performed By: [facility] [address] [place], [place] [id number] Arborer: Jose Holliday MD, PhD CLIA Number: [id number] TRAMADOL AND METABOLITE, JUAN NTITATIVE, SERUM OR PLASMA Reviewed date:02/22/2025 11:24:10 AM Interpretation:Negative Performing Lab:[facility], [address] [place] [address] Notes/Report: TRAMADOL, SERUM/PLASMA None Det Serum or [...] developed and its performance characteristics determined by [facility]. It has not been cleared or approved by the US Food and Drug Administration. Digital data review may have taken place remotely by qualified [facility] staff utilizing a secure VPN connection for some or all of the reported results. This is in accordance with and follows CLIA regulations. Testing performed at [facility] [address] [place] [phone] Thanh Myers, PhD, -AB, [facility] Arborer [facility] [id number] [place] MISCELLANEOUS TEST Reviewed date:02/16/2025 10:58:47 PM Interpretation:Negative Performing Lab:[facility], [address] [place] [address] Notes/Report: [facility] TEST RESULT SEE NOTE N Test name [...] developed and its performance characteristics determined by [facility]. It has not been cleared or approved by the US Food and Drug Administration. This test was performed in a CLIA certified laboratory and is intended for clinical purposes. Performed By: [facility] [address] [place] [address] Arborer: Jose Holliday MD, PhD CLIA Number: [id number] CANNABINOIDS, CONF Reviewed date:02/16/2025 10:58:47 PM Interpretation:159 Performing Lab:[facility], [address] [place] [address] Notes/Report: 57-ZMG-3-CARBOXY-THC, S/P, QUANT 159 N INTERPRETIVE INFORMATION: THC Metabolite, Serum or Plasma, Quantitative Methodology: Quantitative Liquid Chromatography-Tandem Mass Spectrometry. Positive cutoff: 5 ng/mL For medical purposes only; not valid for forensic use. The drug analyte detected in this assay, 9-carboxy THC, is a metabolite of lfccm-4-lgjjbpplwdhfmkbsg nol (THC). Detection of 9-carboxy THC suggests use of, or exposure to, a product containing THC. This test cannot distinguish between prescribed or non-prescribed forms of THC, nor can it distinguish between active or passive use. The plasma half-life for 9-carboxy THC metabolite is estimated to range from 4-12 hours. This test was developed and its performance characteristics determined by [facility]. It has not been cleared or approved by the US Food and Drug Administration. This test was performed in a CLIA certified laboratory and is intended for clinical purposes. Performed By: [facility] [address] [place] [address] Arborer: Jose Holliday MD, PhD CLIA Number: [id number] Reason For Referral Reason Please dispense ONE BLOOD PRESSURE APPARATUS with APPROPRIATE SIZED CUFF. Thank you. Diagnosis 1 Hypertension, unspec ified type (I10) Diagnosis 2 Severe protein-calor ie malnutrition (E43) Diagnosis 3 Metabolic encephalop athy (G93.41) Referral Organization [facility] Referring Provider First Name [facility] Referring Provider Last Name [facility] Referring Provider [facility] Referred Provider Specialty DME Referral Priority Routine Reason Please evaluate and treat this lady with iron deficiency anemia secondary to multiple abdominal surgeries, GI bleed and resultant total parenteral nutrition. TPN insufficient with iron content. kindly also evaluate for iron infusion. Diagnosis 1 Iron deficiency anem ia (D50.9) Referral Organization [facility] Referring Provider First Name [facility] Referring Provider Last Name [facility] Referring Provider [facility] Referred Provider Specialty Hematology General Notes Niko Huff 02/14 11:07:48 AM RESEARCH ENVIRONMENTAL ENGINEER > Faxed to [facility] Referrals. Referral Priority Routine Reason Please dispense ONE BLOOD PRESSURE APPARATUS with APPROPRIATE SIZED CUFF. Thank you. Diagnosis 1 Hypertension, unspec ified type (I10) Referral Organization [facility] Referring Provider First Name [facility] Referring Provider Last Name [facility] Referring Provider [facility] Referred Provider Specialty DME Referral [...] ered FLU VAC TRIVAL (3 ROCKY) NO IN SV >6 MO Unknown 01/08/2016 Administered FLU VAC TRIVAL (3 ROCKY) NO IN SV >6 MO Unknown 01/02/2024 Administered Flucelvax, [...] phone, visiting friends or family, going to oriental orthodox or club meetings) I choose not to [...] had a Sexually transmitted disease ? 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) Active confirmed Problem Metabolic encephalopathy (60555596) Metabolic encephalopathy (G93.41) Active confirmed Problem Intestinal malabsorption (302258691) Intestinal malabsorption, unspecified (K90.9) Active confirmed Problem Fibromyalgia (097784972) Fibromyalgia (M79.7) Active confirmed Problem Adult osteomalacia due to malnutrition (238323460) 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) Active confirmed Problem Allergic rhinitis (01855080) Allergic rhinitis (J30.9) Active confirmed Problem Obesity (887427964) Obesity (BMI 30-39.9) (E66.9) Active confirmed Problem Insomnia (376200463) Insomnia (G47.00) Active confirmed Problem Hyperlipidemia (84334670) Hyperlipidemia (E78.5) 024 Active confirmed Problem Chronic pain (87160340) Other chronic pain (G89.29) Active confirmed Problem Vitamin D deficiency (74003185) Vitamin D deficiency (E55.9) Active confirmed Problem Anemia (641598444) Anemia (D64.9) Active confir med Problem Anxiety disorder (520258216) Anxiety disorder (F41.9) Active confirmed Problem Constipation (95458199) Constipation (K59.00) Active confirmed Problem Sleep apnea (48293627) Sleep apnea (G47.30) Active confirmed Problem Dental caries (64454768) Dental caries (K02.9) Active confirmed Problem Malnutrition (6881517) Malnutrition (E46) Active confirmed Problem Gastritis (2555475) Gastritis (K29.70) Active confirmed Problem Iron deficiency anemia (09424261) Iron deficiency anemia (D50.9) Active confirmed Problem Arachnoid cyst (09082839) Arachnoid cyst (G93.0) Active confirmed Problem Steatosis of liver (382790081) Hepatic steatosis (K76.0) Active confirmed Problem Major depressive disorder (665164025) Major depressive disorder (F32.9) Active confirmed Problem Post traumatic stress disorder (51530242) Post traumatic stress disorder (F43.10) Active confirmed Problem Osteoarthritis (948806410) Osteoarthritis (M19.90) Active confirmed Problem Chronic pain (12382435) Chronic pain (G89.29) Active confirmed Problem Bladder incontinence (361027080) Bladder incontinence (R32) Active confirmed Problem 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) Active confirmed Problem Thyroid nodule (800459496) Thyroid nodule (E04.1) Active confirmed Problem Nightmares (738095238) Nightmares (F51.5) Active confirmed Problem Severe protein calorie malnutrition (451333919) Severe protein-calorie malnutrition (E43) Active confirmed Problem History of endocrine disorder (280642697) Hx of caloric malnutrition (Z86.39) Active confirmed Problem Microcytic anemia (133287418) Microcytic anemia (D50.9) Active confirmed Problem Hallucinations (0413048) Auditory hallucination (R44.0) Active confirmed Problem Colostomy present (075412734) Status post colostomy (Z93.3) Active confirmed Problem Periodontal disease (5446654) Periodontal disease (K05.6) Active confirmed Problem Osteoarthritis of knee (531339660) Knee osteoarthritis (M17.9) Active confirmed Problem Memory deficit (681779727) Memory deficit (R41.3) Active confirmed Problem Malabsorption (21652039) Malabsorption (K90.9) Active confirmed Problem Dependence on wheelchair (585792749) Wheelchair dependence (Z99.3) 024 Active confirmed Problem Essential hypertension (48510080) Hypertension, unspecified type (I10) Active confirmed Problem Intestinal malabsorption (745667004) Intestinal malabsorption, unspecified type (K90.9) Active confirmed Problem BMI 30+ - obesity (795257642) BMI 32.0-32.9,adult (Z68.32) Active confirmed Problem Gastroesophageal reflux disease with esophagitis and hemorrhage (K21.01) Active confirmed Problem Body mass index 30+ - obesity (023892871) BMI 30.0-30.9,adult (Z68.30) Active confirmed Problem Body mass index 30.00 to 34.99 (014941934048055) BMI 31.0-31.9,adult (Z68.31) Active confirmed Problem History of psychiatric disorder (668550038) H/O borderline personality disorder (Z86.59) Active confirmed Problem Persistent vomiting (215298390) Persistent vomiting (R11.15) Active confirmed Vital Signs [...] 02/10/2025 Encounters Encounter Location Date Provider Diagnosis [address] [address] 10/31/2024 Tam Key Metabolic encephalopathy G93.41 ; Hypertension, unspecified type I10 ; BMI 29.0-29.9,adult Z68.29 ; Exercise counseling Z71.82 and Dietary counseling Z71.[address] [address] 01/24/2025 Tam Key Open wound T14.8XXA ; Intestinal malabsorption, unspecified K90.9 ; Insomnia G47.00 ; Status post colostomy Z93.3 ; Acute lower UTI N39.0 ; BMI 28.0-28.9,adult Z68.28 ; Exercise counseling Z71.82 ; Dietary counseling Z71.3 ; Chronic pain G89.29 ; Conversion disorder with seizures or convulsions F44.5 ; Bladder incontinence R32 and Major depressive disorder F32.[address] [address] 02/10/2025 Tam Key Insomnia G47.00 ; Chronic pain G89.29 ; Abdominal wound dehiscence, sequela T81.321S ; Hypertension, unspecified type I10 ; Iron deficiency anemia D50.9 ; BMI 27.0-27.9,adult Z68.27 ; Exercise counseling Z71.82 and Dietary counseling Z71.[address] [facility] [place] [address] 03/29/2024 Tam Key [address] [place] [address] 04/04/[address] [facility] [address] [place] [address] 04/17/2024 [facility] [address] [place] [address] 04/17/[address] [facility] [address] [place] [address] 04/18/20[address] [facility] [address] [place] [address] 04/18/2024 Tam Key Unspecified abdomina l pain R10.[address] [facility] [address] [place] [address] 05/01/2024 [facility] [address] [place] [address] 05/16/20[address] [facility] [address] [place] [address] 06/28/2024 Tam Key Insomnia G47.[address] [facility] [address] [place] [address] 07/01/2024 [facility] [address] [place] [address] 07/17/2024 [facility] [address] [place] [address] 07/17/2024 Tam Key Insomnia G47.00 ; Unspecified abdominal pain R10.9 and Acute lower UTI N39.[address] [facility] [address] [place] [address] 09/06/2024 Tam Key Insomnia G47.[address] [facility] [address] [place] [address] 10/08/[address] [facility] [address] [place] [address] 10/11/[address] [facility] [address] [place] [address] 10/23/2024 [facility] [address] [place] [address] 10/25/2024 [facility] [address] [place] [address] 11/04/2024 Tam Yesi [facility] [address] [place] [address] 11/05/2024 Tam Yesi Unspecified abdomina l pain R10.9 [facility] [address] [place] [address] 11/06/2024 Tam Key Unspecified abdomina l pain R10.9 [facility] [address] [place] [address] 11/06/2024 [facility] [address] [place] [address] 11/11/20[address] [facility] [address] [place] [address] 12/03/2024 [facility] [address] [place] [address] 12/09/2024 [facility] [address] [place] [address] 12/26/2024 [facility] [address] [place] [address] 12/30/2024 [facility] [address] [place] [address] 01/06/2025 [facility] [address] [place] [address] 01/24/2025 [facility] [address] [place] [address] 01/26/2025 Tam Yesi Iron deficiency anem ia D50.[address] [facility] [address] [place] [address] 01/27/[address] [facility] [address] [place] [address] 01/27/2025 [facility] [address] [place] [address] 01/27/[address] [facility] [address] [place] [address] 02/11/2025 [facility] [address] [place] [address] 02/16/2025 [facility] [address] [place] [address] 02/18/2025 [facility] [address] [place] [address] 02/25/2025 [facility] [address] [place] [address] 03/04/2025 [facility] [address] [place] [address] 03/11/2025 [facility] [address] [place] [address] 03/11/2025 [facility] [address] [place] [address] 03/18/2025 Rose Hodge Assessments Encounter Date Diagnosis (ICD Code) Assessment Notes Treatment Notes Treatment Clinical Notes Section Notes 04/18/2024 Unspecified abdominal pain (ICD-10 - R10.9) [...] Unspecified abdominal pain (ICD-10 - R10.9) 01/24/2025 Intestinal malabsorption, unspecified (ICD-10 - K90.9) 01/24/2025 Open wound (ICD-10 - T14.8XXA) 01/26/2025 Iron deficiency anemia (ICD-10 - D50.9) [...] continue daily dressing per surgical team recommendations. 10/31/2024 BMI 29.0-29.9,adult (ICD-10 - Z68.29) Body Mass Index: Care Instructions material was printed 01/24/2025 Insomnia (ICD-10 - G47.00) Persistent insomnia reported by proxy, with liquid melatonin 20 mg nightly providing no relief. - Continued liquid melatonin 20 mg at night. - Considered increasing mirtazapine dose to improve sleep. 07/17/2024 Unspecified abdominal pain (ICD-10 - R10.9) 10/31/2024 Exercise counseling (ICD-10 - Z71.82) 07/17/2024 Acute lower UTI (ICD-10 - N39.0) 01/24/2025 Status post colostomy (ICD-10 - Z93.3) 02/10/2025 Hypertension, unspecified type (ICD-10 - I10) [...] Index: Care Instructions material was published 01/24/2025 BMI 28.0-28.9,adult (ICD-10 - Z68.28) Body Mass Index: Care Instructions material was published 01/24/2025 Exercise counseling (ICD-10 - Z71.82) 02/10/2025 Exercise counseling (ICD-10 - Z71.82) Patient advised to exercise 30-45 minutes per day 5 to 7 days a week. Patient advised to build up gradually as tolerated. 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 She has a history of frequent hospital visits for pain management. Current medications have become ineffective, and she requested liquid formulations due to swallowing difficulties. - Ordered liquid oxycodone 5 mg three times a day, with option to increase to 10 mg three times a day if needed. - Discontinued hydrocodone due to lack of efficacy. - Provided instructions to avoid pills and use only liquid or crushed medications. 01/24/2025 Conversion disorder with seizures or convulsions (ICD-10 - F44.5) 01/24/2025 Bladder incontinence (ICD-10 - R32) 01/24/2025 Major depressive disorder (ICD-10 - F32.9) Emotional distress and frequent crying reported by proxy. Patient expressed fear of dying. She is taking Topamax for depression. - Continued Topamax for depression. - Continued Abilify and olanzapine as part of psychiatric regimen. - Considered increasing mirtazapine dose for mood and sleep. 10/31/2024 Other medications previously sent to pharmacy under care of Carmelina 01/24/2025 Other [id number]// 77306/5A CETAMINOPHEN 325 MG / HYDROcodone BITARTRATE 7.5 MG ORAL MUBLLB79.0307. 5 MG/325.0 MG22.50Sahni Tam - [id number] art Pharmacy [facility], [id number] 70/ oxyCODO NE HCL15.035 MG37.50Mou Adilson - [id number]-s art Pharmacy [facility], [id number] / Methoca hlfoha26.57842 0 MGNANA - [id number]-g art Pharmacy [facility], [id number] / Gabapen tin90.986557 MGNANA - [id number]-e art Pharmacy [facility], [id number] 60507/ ETAMI NOPHEN 325 MG / HYDROcodone BITARTRATE 5 MG ORAL MYDSEE59.075.0 MG/325.0 DU93QdhslgmiauAustin hernandez - [id number]-k art Pharmacy [facility], [id number] /09/2024oxyCODON E YCK137.041 MG/GV48NdkjzwChava platt Md - [id number], ,[id number] /oxyCODONE HCL70.021 MG/ML52.50Ramirez Jennings - [id number], ,[id number] /oxyCODONE HCL70.021 MG/ML52.50Kmaddie Somersley - [id number], ,NA0IL1 Plan Of Treatment Pending Test Test Name Order Date MISCELLANEOUS SO * 02/10/2025 Next Appt Details Provider Name:Tam Key, 04/10/2025 10:15:00 AM, [address] [place], [address], Insurance Providers Payer Name Payer Address Payer Phone Subscriber Number Group Number Insured Name Patient Relationship to Insured Coverage Start Date Coverage End Date MarginLeft [address] [place] [address] [id number] Nabila Clark Self - patient is the insured Medicaid [facility] Secondary To Medicare [address] [place] [address] [id number] Nabila Clark Self - patient is the insured [facility] [address] [place] [address] [id number] Nabila Clark Self - patient is the [...] bypass 1994 cholecystectomy Hospitalization History Reason Date(Month/Year) [facility] admis paty for 17 days perforated ulcer. malnutrition, severe GI bleeding 01/2024
--- OUTSIDE RECORDS SUMMARY | 2025-03-24 15:13 | XMS_ITS | Clinical Summary ---
Author Organization [facility] Address [address] [place] [address] Phone Care Team Providers Care Ethical Hacker Name Role Phone Chava Sherman MD Primary Care Provider [phone] Allergies No known active allergies Medications albuterol [...] Encounters Date Type Department Care Team Description 03/18/2025 External Device Data [facility] ABSTRACTION Provider, Abstract 03/04/2025 External Device Data [facility] ABSTRACTION Provider, [...] Advance Directives For more information, please contact: [phone] * Full Code (Latest Code Status on File) Date Activated Date Inactivated Comments 06/18/2024 8:12 PM 06/22/2024 12:19 PM Care Teams Ethical Hacker Relationship Specialty Start Date End Date Chava Sherman MD [address] [place] [phone] PCP - General Internal Medicine 06/19/24
--- OUTSIDE RECORDS SUMMARY | 2025-03-24 15:14 | XMS_ITS | Encounter Summary ---
Author Organization [facility] Address [address] [place] [address] Care Team Providers Care Public Area Supervisor Name Role Phone Chava Sherman MD Primary Care Provider Encounter Details Date Type Department Care Team (Late st Contact Info) Description 08/24/2024 Lab Requisition [facility] [address] [place] [phone] Pérez Pinzon MD [address] [place] [address] Social History Tobacco Use Types [...] 4.8(H) <=0.5 mg/dL 08/24/2024 4:49 AM CDT [facility] Blood 08/24/2024 3:34 AM CDT 08/24/2024 4:31 AM CDT Pérez Pinzon MD CHEMISTRY ORDERABLES Final Resul t [facility] Birdback [facility] [id number] [address] [place] [phone] documented in this encounter Visit Diagnoses Not on filedocumented in this encounter Care Teams Public Area Supervisor Relationship Specialty Start Date End Date Chava Sherman MD [address] [place] [phone] PCP - General Internal Medicine 06/19/24 documented as of this encounter
--- OUTSIDE RECORDS SUMMARY | 2025-03-24 15:14 | XMS_ITS | Encounter Summary ---
Author Organization [facility] Address [address] [place] [address] Care Team Providers Care Library Clerk Name Role Phone Chava Sherman MD Primary Care Provider Encounter Details Date Type Department Care Team (Late st Contact Info) Description 10/03/[address] [facility] Laboratory Services [address] [place] [address] [place] [address] [phone] Pérez Pinzon MD [address] [place] [address] Social History Tobacco Use Types [...] - 4.8 mg/dL 10/03/2024 7:52 AM CDT [facility] Blood Collection / Unknown 10/03/2024 3:00 AM CDT 10/03/2024 7:00 AM CDT us Pérez Pinzon MD CHEMISTRY ORDERABLES Final Resul t Performing Organization Address City/[facility]/ZIP Co de Phone Number [facility] [id number] [address] [place] [phone] * TRIGLYCERIDE (10/03/2024 3:00 AM CDT) Pathologist [facility] TRIGLYCERIDE 72 <150 mg/dL 10/03/2024 7:52 AM CDT [facility] Blood Collection / Unknown 10/03/2024 3:00 AM CDT 10/03/2024 7:00 AM CDT Narrative [facility] - 10/03/2024 7:52 AM CDT TRIGLYCERIDES mg/dL Normal < 150 Borderline High 150 - 199 High 200 - 499 Very High >= 500 Based on AHA/NCEP Guidelines. us Pérez Pinzno MD CHEMISTRY ORDERABLES Final Resul t Performing Organization Address City/[facility]/ZIP Co de Phone Number [facility] [id number] [address] [place] [phone] * MAGNESIUM LEVEL (10/03/2024 3:00 AM CDT) MAGNESIUM 1.9 1.6 - 2.6 mg/dL 10/03/2024 7:52 AM [facility] Blood Collection / Unknown 10/03/2024 3:00 AM CDT 10/03/2024 7:00 AM CDT Pérez Pinzon MD CHEMISTRY ORDERABLES Final Resul t [facility] [id number] [address] [place] [address] * (ABNORMAL) COMPREHENSIVE METABOLIC PANEL (10/03/2024 3:00 AM CDT) SODIUM 138 136 - 145 mmol/L 10/03/2024 7:52 AM [facility] POTASSIUM 4.1 3.2 - 4.9 mmol/L 10/03/2024 7:52 AM [facility] CHLORIDE 107 98 - 111 mmol/L 10/03/2024 7:52 AM [facility] CO2 25 22 - 29 mmol/L 10/03/2024 7:52 AM [facility] CALCIUM 8.7 8.4 - 10.5 mg/dL 10/03/2024 7:52 AM [facility] BUN 22 6 - 24 mg/dL 10/03/2024 7:52 AM [facility] CREATININE 0.53 0.50 - 1.20 mg/dL 10/03/2024 7:52 AM [facility] GLUCOSE 133(H) 70 - 115 mg/dL 10/03/2024 7:52 AM [facility] TOTAL PROTEIN 6.8 6.0 - 8.4 g/dL 10/03/2024 7:52 AM [facility] ALBUMIN 3.0(L) 3.5 - 5.2 g/dL 10/03/2024 7:52 AM [facility] BILIRUBIN TOTAL 0.1(L) 0.3 - 1.2 mg/dL 10/03/2024 7:52 AM [facility] ALKALINE PHOSPHATASE 183(H) 25 - 117 U/L 10/03/2024 7:52 AM [facility] AST 24 <=33 U/L 10/03/2024 7:52 AM [facility] ALT 19 <=55 U/L 10/03/2024 7:52 AM [facility] GFR >60 >=60 mL/min/1.7 3 sq meter 10/03/2024 7:52 AM [facility] Comment:eGFR calculated with 2020 CKD-EPI equation. Vegetarian diet, extremely high or low muscle mass, and may affect results. Cystatin C with Glomerular Filtration Rate is a suitable alternative for these patients. ANION GAP 6(L) 7 - 16 mmol/L 10/03/2024 7:52 AM [facility] Blood Collection / Unknown 10/03/2024 3:00 AM CDT 10/03/2024 7:00 AM CDT us Pérez Pinzon MD CHEMISTRY ORDERABLES Final Resul t [facility] [id number] [address] [place] [address] documented in this encounter Visit Diagnoses Not on filedocumented in this encounter Care Teams Library Clerk Relationship Specialty Start Date End Date Chava Sherman MD [address] [place] [phone] PCP - General Internal Medicine 06/19/24 documented as of this encounter
--- OUTSIDE RECORDS SUMMARY | 2025-03-24 15:14 | XMS_ITS | Encounter Summary ---
Author Organization [facility] Address [address] [place] [address] Care Team Providers Care Plug Wirer Name Role Phone Chava Sherman MD Primary Care Provider [phone] Encounter Details Date Type Department Care Team (Late st Contact Info) Description 08/26/2024 Lab Requisition [facility] Laboratory Services [address] [place] [address] [phone] Pérez Pinzon MD [address] [place] [address] Social History Tobacco Use Types [...] * TRIGLYCERIDE (08/26/2024 3:00 AM CDT) Pathologist [facility] TRIGLYCERIDE 90 <150 mg/dL 08/26/2024 5:39 AM CDT [facility] Blood 08/26/2024 3:00 AM CDT 08/26/2024 4:57 AM CDT Narrative [facility] - 08/26/2024 5:39 AM CDT TRIGLYCERIDES mg/dL Normal < 150 Borderline High 150 - 199 High 200 - 499 Very High >= 500 Based on AHA/NCEP Guidelines. us Pérez Pinzon MD CHEMISTRY ORDERABLES Final Resul t Performing Organization Address [facility]/ZIP Co de Phone Number [facility] [id number] [address] [place] [address] [phone] * PHOSPHORUS (08/26/2024 3:00 AM CDT) Pathologist [facility] PHOSPHORUS 4.3 2.5 - 4.8 mg/dL 08/26/2024 5:39 AM CDT [facility] Blood 08/26/2024 3:00 AM CDT 08/26/2024 4:57 AM CDT us Pérez Pinzon MD CHEMISTRY ORDERABLES Final Resul t Performing Organization Address City/[facility]/ZIP Co de Phone Number [facility] [id number] [address] [place] [address] [phone] * MAGNESIUM LEVEL (08/26/2024 3:00 AM CDT) [facility] MAGNESIUM 1.9 1.6 - 2.6 mg/dL 08/26/2024 5:39 AM T [facility] Blood 08/26/2024 3:00 AM CDT 08/26/2024 4:57 AM CDT Pérez Pinzon MD CHEMISTRY ORDERABLES Final Resul t [facility] [id number] [address] [place] [address] * (ABNORMAL) COMPREHENSIVE METABOLIC PANEL (08/26/2024 3:00 AM CDT) [facility] SODIUM 136 136 - 145 mmol/L 08/26/2024 5:39 AM [facility] POTASSIUM 4.3 3.2 - 4.9 mmol/L 08/26/2024 5:39 AM [facility] CHLORIDE 104 98 - 111 mmol/L 08/26/2024 5:39 AM [facility] CO2 25 22 - 29 mmol/L 08/26/2024 5:39 AM [facility] CALCIUM 8.8 8.4 - 10.5 mg/dL 08/26/2024 5:39 AM [facility] BUN 23 6 - 24 mg/dL 08/26/2024 5:39 AM [facility] CREATININE 0.42(L) 0.50 - 1.20 mg/dL 08/26/2024 5:39 AM [facility] GLUCOSE 93 70 - 115 mg/dL 08/26/2024 5:39 AM [facility] TOTAL PROTEIN 7.0 6.0 - 8.4 g/dL 08/26/2024 5:39 AM [facility] ALBUMIN 2.7(L) 3.5 - 5.2 g/dL 08/26/2024 5:39 AM [facility] BILIRUBIN TOTAL 0.2(L) 0.3 - 1.2 mg/dL 08/26/2024 5:39 AM CDT [facility] LABORATORY [facility] ALKALINE PHOSPHATASE 194(H) 25 - 117 U/L 08/26/2024 5:39 AM [facility] AST 33 <=33 U/L 08/26/2024 5:39 AM [facility] ALT 18 <=55 U/L 08/26/2024 5:39 AM [facility] GFR >60 >=60 mL/min/1.7 3 sq meter 08/26/2024 5:39 AM [facility] Comment:eGFR calculated with 2020 CKD-EPI equation. Vegetarian diet, extremely high or low muscle mass, and may affect results. Cystatin C with Glomerular Filtration Rate is a suitable alternative for these patients. ANION GAP 7 7 - 16 mmol/L 08/26/2024 5:39 AM [facility] Blood 08/26/2024 3:00 AM CDT 08/26/2024 4:57 AM CDT Pérez Pinzon MD CHEMISTRY ORDERABLES Final Resul t [facility] [id number] [address] [place] [phone] documented in this encounter Visit Diagnoses Not on filedocumented in this encounter Care Teams Plug Wirer Relationship Specialty Start Date End Date Chava Sherman MD [address] [place] [phone] PCP - General Internal Medicine 06/19/24 documented as of this encounter
--- OUTSIDE RECORDS SUMMARY | 2025-03-24 15:14 | XMS_ITS | Encounter Summary ---
Author Organization [facility] Address [address] [place] [address] Care Team Providers Care Creasing And Cutting Press Feeder Name Role Phone Chava Sherman MD Primary Care Provider Encounter Details Date Type Department Care Team (Late st Contact Info) Description 08/29/2024 Lab Re[address] [facility] Laboratory Services [address] [place] [address] [place] [address] [phone] Pérez Pinzon MD [address] [place] [address] Social History Tobacco Use Types [...] - 4.8 mg/dL 08/29/2024 7:42 AM CDT [facility] Blood Collection / Unknown 08/29/2024 2:25 AM CDT 08/29/2024 6:20 AM CDT us Pérez Pinzon MD CHEMISTRY ORDERABLES Final Resul t [facility] [id number] [address] [place] [phone] * TRIGLYCERIDE (08/29/2024 2:25 AM CDT) TRIGLYCERIDE 99 <150 mg/dL 08/29/2024 7:42 AM CDT [facility] Blood Collection / Unknown 08/29/2024 2:25 AM CDT 08/29/2024 6:20 AM CDT Narrative [facility] - 08/29/2024 7:42 AM CDT TRIGLYCERIDES mg/dL Normal < 150 Borderline High 150 - 199 High 200 - 499 Very High >= 500 Based on AHA/NCEP Guidelines. us Pérez Pinzon MD CHEMISTRY ORDERABLES Final Resul t Performing Organization Address City/[facility]/ZIP Co de Phone Number [facility] [id number] [address] [place] [phone] * MAGNESIUM LEVEL (08/29/2024 2:25 AM CDT) Pathologist [facility] MAGNESIUM 1.9 1.6 - 2.6 mg/dL 08/29/2024 7:42 AM CDT [facility] Blood Collection / Unknown 08/29/2024 2:25 AM CDT 08/29/2024 6:20 AM CDT Pérez Pinzon MD CHEMISTRY ORDERABLES Final Resul t [facility] [employer] [place] [employer] [facility] [id number] [address] [place] [address] * (ABNORMAL) CBC WITH DIFFERENTIAL (08/29/2024 2:25 AM CDT) Pathologist [facility] WBC 6.7 3.5 - 11.0 K/uL 08/29/2024 7:50 AM T [facility] [place] [facility] RBC 2.66(L) 3.80 - 5.00 M/uL 08/29/2024 7:50 AM T [facility] [employer] [place] [employer] [facility] HEMOGLOBIN 8.2(L) 11.7 - 15.7 g/dL 08/29/2024 7:50 AM [facility] [employer] [place] [employer] [facility] HEMATOCRIT 24.9(L) 35.0 - 47.0 % 08/29/2024 7:50 AM [facility] [employer] [place] [employer] [facility] MCV 93.6 80.8 - 100.0 fL 08/29/2024 7:50 AM [facility] LABORATORY [facility] MCH 30.6 26.4 - 34.0 pg 08/29/2024 7:50 AM T [facility] LABORATORY [facility] MCHC 32.7 31.4 - 36.3 g/dL 08/29/2024 7:50 AM [facility]ORATORY [facility] RDW 19.5(H) 11.0 - 15.0 % 08/29/2024 7:50 AM [facility] LABORATORY [facility] PLATELETS 443 150 - 450 K/uL 08/29/2024 7:50 AM CDT [facility]ORATORY [facility] MPV 8.3 7.5 - 11.2 fL 08/29/2024 7:50 AM CDT [facility]OR[facility] NEUTROPHILS 51 50 - 75 % 08/29/2024 7:50 AM CDT [facility]OR[facility] LYMPHOCYTES 35 19 - 48 % 08/29/2024 7:50 AM CDT [facility]OR[facility] MONOCYTES 7 0 - 10 % 08/29/2024 7:50 AM CDT [facility]OR[facility] EOSINOPHILS 6 0 - 6 % 08/29/2024 7:50 AM CDT [facility]ORAT[facility] BASOPHILS 1 0 - 2 % 08/29/2024 7:50 AM CDT [facility]ORAT[facility] NEUTROPHIL ABSOLUTE 3.39 >=0.50 K/uL 08/29/2024 7:50 AM CDT [facility]OR[facility]ORY [facility] LYMPHOCYTE ABSOLUTE 2.35 K/uL 08/29/2024 7:50 AM CDT [facility] LABORATORY [facility] MONOCYTE ABSOLUTE 0.43 K/uL 08/29/2024 7:50 AM CDT [facility]ORAT[facility] EOSINOPHIL ABSOLUTE 0.42 K/uL 08/29/2024 7:50 AM CDT [facility]ORATORY [facility] BASOPHILS ABSOLUTE 0.07 K/uL 08/29/2024 7:50 AM CDT [facility]OR[facility] Blood 08/29/2024 2:25 AM CDT 08/29/2024 6:20 AM CDT us Pérez Pinzon MD HEMATOLOGY ORDERABLES Final Resu lt [facility] [id number] [address] [place] [address] * (ABNORMAL) COMPREHENSIVE METABOLIC PANEL (08/29/2024 2:25 AM CDT) SODIUM 137 136 - 145 mmol/L 08/29/2024 7:42 AM CDT [facility] [employer] [place] [facility] POTASSIUM 3.8 3.2 - 4.9 mmol/L 08/29/2024 7:42 AM CDT [facility] LABORATORY [facility] CHLORIDE 108 98 - 111 mmol/L 08/29/2024 7:42 AM [facility] CO2 25 22 - 29 mmol/L 08/29/2024 7:42 AM [facility] CALCIUM 8.8 8.4 - 10.5 mg/dL 08/29/2024 7:42 AM [facility] BUN 21 6 - 24 mg/dL 08/29/2024 7:42 AM [facility] CREATININE 0.49(L) 0.50 - 1.20 mg/dL 08/29/2024 7:42 AM [facility] GLUCOSE 92 70 - 115 mg/dL 08/29/2024 7:42 AM [facility] TOTAL PROTEIN 7.3 6.0 - 8.4 g/dL 08/29/2024 7:42 AM [facility] ALBUMIN 2.8(L) 3.5 - 5.2 g/dL 08/29/2024 7:42 AM [facility] BILIRUBIN TOTAL 0.2(L) 0.3 - 1.2 mg/dL 08/29/2024 7:42 AM [facility] ALKALINE PHOSPHATASE 190(H) 25 - 117 U/L 08/29/2024 7:42 AM [facility] AST 39(H) <=33 U/L 08/29/2024 7:42 AM [facility] ALT 20 <=55 U/L 08/29/2024 7:42 AM [facility] GFR >60 >=60 mL/min/1.7 3 sq meter 08/29/2024 7:42 AM [facility] Comment:eGFR calculated with 2020 CKD-EPI equation. Vegetarian diet, extremely high or low muscle mass, and may affect results. Cystatin C with Glomerular Filtration Rate is a suitable alternative for these patients. ANION GAP 4(L) 7 - 16 mmol/L 08/29/2024 7:42 AM [facility] Blood Collection / Unknown 08/29/2024 2:25 AM CDT 08/29/2024 6:20 AM CDT us Pérez Pinzon MD CHEMISTRY ORDERABLES Final Resul t [facility] [id number] [address] [place] [address] documented in this encounter Visit Diagnoses Not on filedocumented in this encounter Care Teams [employer] Feeder Relationship Specialty Start Date End Date Chava Sherman MD [address] [place] [phone] PCP - General Internal Medicine 06/19/24 documented as of this encounter
--- OUTSIDE RECORDS SUMMARY | 2025-03-24 15:14 | XMS_ITS | Encounter Summary ---
Author Organization [facility] Address [address] [place] [address] Care Team Providers Care Account Assistant Name Role Phone Chava Sherman MD Primary Care Provider Encounter Details Date Type Department Care Team (Late st Contact Info) Description 09/05/2024 Lab Requisition [facility] Laboratory Services [address] [place] [address] [place] [address] [phone] Pérez Pinzon MD [address] [place] [address] Social History Tobacco Use Types [...] - 4.8 mg/dL 09/05/2024 7:19 AM CDT [facility] Blood Collection / Unknown 09/05/2024 2:45 AM CDT 09/05/2024 5:15 AM CDT us Pérez Pinzon MD CHEMISTRY ORDERABLES Final Resul t Performing Organization Address City/[facility]/ZIP Co de Phone Number [facility] [id number] [address] [place] [phone] * TRIGLYCERIDE (09/05/2024 2:45 AM CDT) TRIGLYCERIDE 68 <150 mg/dL 09/05/2024 7:19 AM CDT [facility] Blood Collection / Unknown 09/05/2024 2:45 AM CDT 09/05/2024 5:15 AM CDT Narrative [facility] - 09/05/2024 7:19 AM CDT TRIGLYCERIDES mg/dL Normal < 150 Borderline High 150 - 199 High 200 - 499 Very High >= 500 Based on AHA/NCEP Guidelines. us Pérez Pinzon MD CHEMISTRY ORDERABLES Final Resul t Performing Organization Address City/[facility]/ZIP Co de Phone Number [facility] [id number] [address] [place] [phone] * MAGNESIUM LEVEL (09/05/2024 2:45 AM CDT) Pathologist [facility] MAGNESIUM 1.9 1.6 - 2.6 mg/dL 09/05/2024 7:19 AM T [facility] Blood Collection / Unknown 09/05/2024 2:45 AM CDT 09/05/2024 5:15 AM CDT Pérez Pinzon MD CHEMISTRY ORDERABLES Final Resul t [facility] [id number] [address] [place] [address] * (ABNORMAL) CBC WITH DIFFERENTIAL (09/05/2024 2:45 AM CDT) [facility] WBC 7.5 3.5 - 11.0 K/uL 09/05/2024 7:37 AM T [facility] RBC 2.67(L) 3.80 - 5.00 M/uL 09/05/2024 7:37 AM [facility] HEMOGLOBIN 8.4(L) 11.7 - 15.7 g/dL 09/05/2024 7:37 AM [facility] HEMATOCRIT 25.2(L) 35.0 - 47.0 % 09/05/2024 7:37 AM [facility] MCV 94.6 80.8 - 100.0 fL 09/05/2024 7:37 AM [facility] MCH 31.5 26.4 - 34.0 pg 09/05/2024 7:37 AM [facility] MCHC 33.3 31.4 - 36.3 g/dL 09/05/2024 7:37 AM [facility] RDW 20.0(H) 11.0 - 15.0 % 09/05/2024 7:37 AM [facility] PLATELETS 441 150 - 450 K/uL 09/05/2024 7:37 AM CDT [facility] LABORATORY [facility] MPV 8.1 7.5 - 11.2 fL 09/05/2024 7:37 AM CDT [facility] LABORATORY [facility] NEUTROPHILS 47(L) 50 - 75 % 09/05/2024 7:37 AM [facility] LYMPHOCYTES 40 19 - 48 % 09/05/2024 7:37 AM CDT [facility] MONOCYTES 7 0 - 10 % 09/05/2024 7:37 AM CDT [facility] EOSINOPHILS 4 0 - 6 % 09/05/2024 7:37 AM CDT [facility] LABORATORY [facility] BASOPHILS 2 0 - 2 % 09/05/2024 7:37 AM CDT [facility] NEUTROPHIL ABSOLUTE 3.49 >=0.50 K/uL 09/05/2024 7:37 AM [facility] LYMPHOCYTE ABSOLUTE 2.98 K/uL 09/05/2024 7:37 AM CDT [facility] MONOCYTE ABSOLUTE 0.52 K/uL 09/05/2024 7:37 AM [facility] EOS[facility]OLUTE 0.33 K/uL 09/05/2024 7:37 AM [facility] BASOPHILS ABSOLUTE 0.15 K/uL 09/05/2024 7:37 AM [facility] Blood 09/05/2024 2:45 AM CDT 09/05/2024 5:15 AM CDT Pérez Pinzon MD HEMATOLOGY ORDERABLES Final Resu lt [facility] [id number] [facility] [place] [address] * (ABNORMAL) COMPREHENSIVE METABOLIC PANEL (09/05/2024 2:45 AM CDT) SODIUM 135(L) 136 - 145 mmol/L 09/05/2024 7:19 AM CDT [facility] POTASSIUM 4.4 3.2 - 4.9 mmol/L 09/05/2024 7:19 AM [facility] CHLORIDE 107 98 - 111 mmol/L 09/05/2024 7:19 AM [facility] CO2 25 22 - 29 mmol/L 09/05/2024 7:19 AM [facility] CALCIUM 8.5 8.4 - 10.5 mg/dL 09/05/2024 7:19 AM [facility] BUN 21 6 - 24 mg/dL 09/05/2024 7:19 AM [facility] CREATININE 0.49(L) 0.50 - 1.20 mg/dL 09/05/2024 7:19 AM [facility] GLUCOSE 91 70 - 115 mg/dL 09/05/2024 7:19 AM [facility] TOTAL PROTEIN 6.8 6.0 - 8.4 g/dL 09/05/2024 7:19 AM [facility] ALBUMIN 2.6(L) 3.5 - 5.2 g/dL 09/05/2024 7:19 AM [facility] BILIRUBIN TOTAL 0.1(L) 0.3 - 1.2 mg/dL 09/05/2024 7:19 AM [facility] ALKALINE PHOSPHATASE 187(H) 25 - 117 U/L 09/05/2024 7:19 AM [facility] AST 26 <=33 U/L 09/05/2024 7:19 AM [facility] ALT 11 <=55 U/L 09/05/2024 7:19 AM [facility] GFR >60 >=60 mL/min/1.7 3 sq meter 09/05/2024 7:19 AM [facility] Comment:eGFR calculated with 2020 CKD-EPI equation. Vegetarian diet, extremely high or low muscle mass, and may affect results. Cystatin C with Glomerular Filtration Rate is a suitable alternative for these patients. ANION GAP 3(L) 7 - 16 mmol/L 09/05/2024 7:19 AM [facility] Blood Collection / Unknown 09/05/2024 2:45 AM CDT 09/05/2024 5:15 AM CDT us Pérez Pinzon MD CHEMISTRY ORDERABLES Final Resul t [facility] [id number] [place] [address] documented in this encounter Visit Diagnoses Not on filedocumented in this encounter Care Teams Account Assistant Relationship Specialty Start Date End Date Chava Sherman MD [address] [place] [id number] PCP - General Internal Medicine 06/19/24 documented as of this encounter
--- OUTSIDE RECORDS SUMMARY | 2025-03-24 15:14 | XMS_ITS ---
Author Organization [facility] Care Team Providers Care Foam Rubber Molder Name Role Phone Adam Carina Unavailable Unavailable Deon Hankins Unavailable Unavailable Dash Echeverria Unavailable Unavailable Lawrence Prescott Unavailable Unavailable Bianca, Dasha Unavailable Unavailable Fyartemio, Antonio Unavailable Unavailable Gerard, Krushen Unavailable Unavailable Allergies and adverse reactions No Known Allergies Care Team Name Role Address Phone Organization Dates Dash Echeverria PCP [address] [place], [address], [facility] (Office): [phone] [facility] 07/21/2023 - 10/17/2023 Carina Medina [address] [facility] [address], [place], [address], [facility] (Office): [facility] 07/21/2023 - 10/17/2023 Deon Hankins [address] [facility] [address], [place], [address], [place] (Office): [facility] 07/21/2023 - 10/17/2023 Lawrence Prescott [address] [place], [address], [facility] (Office): [facility] 07/21/2023 - 10/17/2023 Dasha Bianca [facility] (Office): [facility] 07/21/2023 - 10/17/2023 Antonio Tolentino [address] [place], [address], [facility] (Office): : [facility] 07/21/2023 - 10/17/2023 Clay Gee Hetal Fernández [facility], [place], [address], [facility] (Office): : [facility] 07/21/2023 - 10/17/2023 Goals Section Goals [...] information 2023 Code: 51 Code System OID:2.16.840.1 .670878.3.221. 5 Code System Name: Source of Payment Typology (PHDSC) Display: Managed Care (Private) Translation: Code: Code System: OID:2.16.840.1 .194129.6.255. 1336 Code System Name: Insurance Type Code ([id number]) Display Name: Health Maintenance Organization (HMO) Plan Code: SELF Code System Name: HL7 RoleCode Code System OID:2.16.840.1 .[id number] Display Name: Self [id number] Root: [id number] Payer Name: Human Address: [place] [address] City: [place] State: [place] Country: [facility] Code: 2 Code System OID:2.16.840.1 .208237.3.221. 5 Code System Name: Source of Payment Typology (PHDSC) Display: Medicaid Translation: Code: 48 Code System: OID:2.16.840.1 .152538.6.255. 1336 Code System Name: Insurance Type Code ([id number]) Display Name: Medicaid Plan of Treatment Section Interventions Intervention Code Code System Display Name Proposed D ate Problems Problem # Description Date of onset Resolved Date Code CodeSystem Concern Status 1 PEPTIC ULCER, SITE UNSPECIFIED, UNSPECIFIED ACUTE OR CHRONIC, WITHOUT HEMORRHAGE OR PERFORATION [address] active 2 PERSONAL HISTORY OF OTHER DISEASES OF THE DIGESTIVE SYSTEM [address] active 3 OTHER INSOMNIA [address] active 4 SCHIZOAFFECTIVE DISORDER, BIPOLAR TYPE [address] active 5 ACUTE KIDNEY FAILURE, UNSPECIFIED [address] active 6 ALTERED MENTAL STATUS, UNSPECIFIED [address] active 7 BARIATRIC SURGERY STATUS [address] active 8 BIPOLAR DISORDER, UNSPECIFIED [address] active 9 DIFFICULTY IN WALKING, NOT ELSEWHERE CLASSIFIED [address] active 10 ESSENTIAL (PRIMARY) HYPERTENSION [address] active 11 GASTRO-ESOPHAGEAL REFLUX DISEASE WITHOUT ESOPHAGITIS [address] active 12 GASTROINTESTINAL HEMORRHAGE, UNSPECIFIED [address] active 13 GASTROSTOMY STATUS [address] active 14 HYPERLIPIDEMIA, UNSPECIFIED [address] active 15 MUSCLE WEAKNESS (GENERALIZED) [address] active 16 NEED FOR ASSISTANCE WITH PERSONAL CARE [id number] active 17 OBSTRUCTIVE SLEEP APNEA (ADULT) (PEDIATRIC) [address] active 18 OTHER RETENTION OF URINE [address] active 19 PERSONAL HISTORY OF URINARY (TRACT) INFECTIONS [address] active 20 PNEUMONIA DUE TO MYCOPLASMA PNEUMONIAE [address] active 21 PRESENCE OF UROGENITAL IMPLANTS [address] active 22 SCHIZOAFFECTIVE DISORDER, UNSPECIFIED [address] active 23 SEPSIS, UNSPECIFIED ORGANISM 024 11/06/[address] completed 24 TYPE 2 DIABETES MELLITUS WITHOUT COMPLICATIONS [address] active 25 UNSPECIFIED PROTEIN-CALORIE MALNUTRITION [address] active Reason for Referral No Reasons for Referral Entered Social History Social History Observation Description Start Date End Date Code Code System Current Smoking Status Tobacco smoking consumption unknown 048044419 SNOMED CT Sex Assigned At Female 1965 72204-3 [facility] Gender Identity Sexual Orientation Vital Signs Code Code System Vitals Name Values and Units Timing Information 01723-6 [facility] Pain Level Value=0.0 10/17/2023 9279-1 [facility] Respiratory Rate Value=18.0 Units=/m in 10/15/2023 8462-4 [facility] Blood Pressure-Diastolic Value=70 Un its=mmHg 10/15/2023 8480-6 [facility] Blood Pressure-Systolic Mgsmg=825 Un its=mmHg 10/15/2023 8310-5 [facility] Body Temperature Value=97.8 Units= F 10/15/2023 8867-4 [facility] Heart rate Value=86.0 Units=/min 01119-7 [facility] O2 % BldC Oximetry Value=98.0 Units= % 10/15/2023 97234-0 [facility] Weight Isulc=911.0 Units=Lbs 01/2024 8302-2 [facility] Height Value=61.0 Units=Inches 10/10/2023
--- OUTSIDE RECORDS SUMMARY | 2025-03-24 15:14 | XMS_ITS | Encounter Summary ---
Author Organization [facility] Address [address] [place] [address] Care Team Providers Care Cake Batter Mixer Name Role Phone Chava Sherman MD Primary Care Provider Encounter Details Date Type Department Care Team (Late st Contact Info) Description 08/16/[address] [facility] Laboratory Services [address] [place] [address] [place] [address] [phone] Pérez Pinzon MD [address] [place] [address] Social History Tobacco Use Types [...] - 4.8 mg/dL 08/16/2024 2:[address] [facility] Blood Collection / Unknown 08/16/2024 12:59 PM CDT 08/16/2024 2:30 PM CDT us Pérez Pinzon MD CHEMISTRY ORDERABLES Final Resul t Performing Organization Address City/[facility]/ZIP Co de Phone Number [facility] [id number] [address] [place] [address] [phone] * MAGNESIUM LEVEL (08/16/2024 12:59 PM CDT) MAGNESIUM 1.8 1.6 - 2.6 mg/dL 08/16/2024 2:[address] [facility] Blood Collection / Unknown 08/16/2024 12:59 PM CDT 08/16/2024 2:30 PM CDT us Pérez Pinzon MD CHEMISTRY ORDERABLES Final Resul t [facility] [id number] [address] [place] [address] * (ABNORMAL) COMPREHENSIVE METABOLIC PANEL (08/16/2024 12:59 PM CDT) SODIUM 134(L) 136 - 145 mmol/L 08/16/2024 2:[address] [facility] POTASSIUM 4.4 3.2 - 4.9 mmol/L 08/16/2024 2:52 PM [facility] CHLORIDE 104 98 - 111 mmol/L 08/16/2024 2:52 PM [facility] CO2 25 22 - 29 mmol/L 08/16/2024 2:52 PM [facility] CALCIUM 8.4 8.4 - 10.5 mg/dL 08/16/2024 2:52 PM [facility] BUN 22 6 - 24 mg/dL 08/16/2024 2:52 PM [facility] CREATININE 0.50 0.50 - 1.20 mg/dL 08/16/2024 2:52 PM [facility] GLUCOSE 161(H) 70 - 115 mg/dL 08/16/2024 2:52 PM [facility] TOTAL PROTEIN 6.5 6.0 - 8.4 g/dL 08/16/2024 2:52 PM [facility] ALBUMIN 2.4(L) 3.5 - 5.2 g/dL 08/16/2024 2:52 PM [facility] BILIRUBIN TOTAL 0.2(L) 0.3 - 1.3 mg/dL 08/16/2024 2:52 PM [facility] ALKALINE PHOSPHATASE 205(H) 25 - 117 U/L 08/16/2024 2:52 PM [facility] AST 32 <=33 U/L 08/16/2024 2:52 PM [facility] ALT 23 <=55 U/L 08/16/2024 2:52 PM [facility] GFR >60 >=60 mL/min/1.7 3 sq meter 08/16/2024 2:52 PM [facility] Comment:eGFR calculated with 2020 CKD-EPI equation. Vegetarian diet, extremely high or low muscle mass, and may affect results. Cystatin C with Glomerular Filtration Rate is a suitable alternative for these patients. ANION GAP 5(L) 7 - 16 mmol/L 08/16/2024 2:52 PM [facility] Blood Collection / Unknown 08/16/2024 12:59 PM CDT 08/16/2024 2:30 PM CDT Pérez Pinzon MD CHEMISTRY ORDERABLES Final Resul t [facility] [id number] [address] [place] [address] documented in this encounter Visit Diagnoses Not on filedocumented in this encounter Care Teams Cake Batter Mixer Relationship Specialty Start Date End Date Chava Sherman MD [address] [place] [phone] PCP - General Internal Medicine 06/19/24 documented as of this encounter
--- OUTSIDE RECORDS SUMMARY | 2025-03-24 15:14 | XMS_ITS | Encounter Summary ---
Author Organization [facility] Address [address] [place] [address] Care Team Providers Care Director Of Occupational Health Name Role Phone Chava Sherman MD Primary Care Provider [phone] Encounter Details Date Type Department Care Team (Late st Contact Info) Description 08/10/2024 Lab Requisition [facility] Laboratory Services [address] [place] [address] [phone] Pérez Pinzon MD [address] [place] [address] Social History Tobacco Use Types [...] - 4.8 mg/dL 08/10/2024 5:47 AM CDT [facility] Blood 08/10/2024 4:48 AM CDT 08/10/2024 5:28 AM CDT us Pérez Pinzon MD CHEMISTRY ORDERABLES Final Resul t Performing Organization Address [facility]/ZIP Co de Phone Number [facility] [id number] [address] [place] [address] [phone] * MAGNESIUM LEVEL (08/10/2024 4:48 AM CDT) Pathologist [facility] MAGNESIUM 2.0 1.6 - 2.6 mg/dL 08/10/2024 5:47 AM CDT [facility] Blood 08/10/2024 4:48 AM CDT 08/10/2024 5:28 AM CDT us Pérez Pinzon MD CHEMISTRY ORDERABLES Final Resul t Performing Organization Address City/[facility]/ZIP Co de Phone Number [facility] [id number] [address] [place] [address] [phone] * (ABNORMAL) COMPREHENSIVE METABOLIC PANEL (08/10/2024 4:48 AM CDT) Pathologist [facility] SODIUM 134(L) 136 - 145 mmol/L 08/10/2024 5:47 AM CDT [facility] POTASSIUM 4.4 3.2 - 4.9 mmol/L 08/10/2024 5:47 AM [facility] 105 98 - 111 mmol/L 08/10/2024 5:47 AM [facility] CO2 21(L) 22 - 29 mmol/L 08/10/2024 5:47 AM [facility] CALCIUM 8.4 8.4 - 10.5 mg/dL 08/10/2024 5:47 AM [facility] BUN 18 6 - 24 mg/dL 08/10/2024 5:47 AM [facility] CREATININE 0.50 0.50 - 1.20 mg/dL 08/10/2024 5:47 AM [facility] GLUCOSE 153(H) 70 - 115 mg/dL 08/10/2024 5:47 AM [facility] TOTAL PROTEIN 7.3 6.0 - 8.4 g/dL 08/10/2024 5:47 AM [facility] ALBUMIN 2.4(L) 3.5 - 5.2 g/dL 08/10/2024 5:47 AM [facility] BILIRUBIN TOTAL 0.3 0.3 - 1.3 mg/dL 08/10/2024 5:47 AM [facility] ALKALINE PHOSPHATASE 266(H) 25 - 117 U/L 08/10/2024 5:47 AM [facility] AST 42(H) <=33 U/L 08/10/2024 5:47 AM [facility] ALT 37 <=55 U/L 08/10/2024 5:47 AM [facility] GFR >60 >=60 mL/min/1.7 3 sq meter 08/10/2024 5:47 AM [facility] Comment:eGFR calculated with 2020 CKD-EPI equation. Vegetarian diet, extremely high or low muscle mass, and may affect results. Cystatin C with Glomerular Filtration Rate is a suitable alternative for these patients. ANION GAP 8 7 - 16 mmol/L 08/10/2024 5:47 AM [facility] Blood 08/10/2024 4:48 AM CDT 08/10/2024 5:28 AM CDT us Pérez Pinzon MD CHEMISTRY ORDERABLES Final Resul t [facility] [id number] [address] [place] [phone] documented in this encounter Visit Diagnoses Not on filedocumented in this encounter Care Teams Director Of Occupational Health Relationship Specialty Start Date End Date Chava Sherman MD [address] [place] [phone] PCP - General Internal Medicine 06/19/24 documented as of this encounter
--- OUTSIDE RECORDS SUMMARY | 2025-03-24 15:14 | XMS_ITS | Encounter Summary ---
Author Organization [facility] Address [address] [place] [address] Care Team Providers Care Preparation Supervisor Name Role Phone Chava Sherman MD Primary Care Provider [phone] Encounter Details Date Type Department Care Team (Late st Contact Info) Description 10/10/2024 Lab Requisition [facility] Laboratory Services [address] [place] [address] [place] [address] [phone] Pérez Pinzon MD [address] [place] [address] Social History Tobacco Use Types [...] CBC WITH DIFFERENTIAL (10/10/2024 3:25 AM CDT) [facility] WBC 5.7 3.5 - 11.0 K/uL 10/10/2024 7:25 AM CDT [facility] [employer] [facility] NRBCS 1 % 10/10/2024 7:25 AM CDT [facility] RBC 2.71(L) 3.80 - 5.00 M/uL 10/10/2024 7:25 AM T [facility] HEMOGLOBIN 8.3(L) 11.7 - 15.7 g/dL 10/10/2024 7:25 AM [facility] HEMATOCRIT 25.3(L) 35.0 - 47.0 % 10/10/2024 7:25 AM [facility] [employer] [facility] MCV 93.4 80.8 - 100.0 fL 10/10/2024 7:25 AM [facility] MCH 30.6 26.4 - 34.0 pg 10/10/2024 7:25 AM [facility] MCHC 32.8 31.4 - 36.3 g/dL 10/10/2024 7:25 AM [facility] RDW 15.7(H) 11.0 - 15.0 % 10/10/2024 7:25 AM T [facility] RDW-STDEV 53.2 37.0 - 54.0 fL 10/10/2024 7:25 AM [facility] [employer] [facility] PLATELETS 365 150 - 450 K/uL 10/10/2024 7:25 AM [facility] MPV 9.9 7.5 - 11.2 fL 10/10/2024 7:25 AM [facility] NEUTROPHILS 35(L) 50 - 75 % 10/10/2024 7:25 AM CDT [facility] LYMPHOCYTES 51(H) 19 - 48 % 10/10/2024 7:25 AM CDT [facility] MONOCYTES 8 0 - 10 % 10/10/2024 7:25 AM CDT [facility] EOSINOPHILS 5 0 - 6 % 10/10/2024 7:25 AM CDT [facility] BASOPHILS 1 0 - 2 % 10/10/2024 7:25 AM CDT [facility] IMMATURE GRANULOCYTES 0 % 10/10/2024 7:25 AM CDT [facility] NEUTROPHIL ABSOLUTE 2.01 >=0.50 K/uL 10/10/2024 7:25 AM CDT [facility] LYMPHOCYTE ABSOLUTE 2.92 K/uL 10/10/2024 7:25 AM CDT [facility] MONOCYTE ABSOLUTE 0.44 K/uL 025 7:25 AM CDT [facility] EOSINOPHIL ABSOLUTE 0.30 K/uL 10/10/2024 7:25 AM CDT [facility] BASOPHILS ABSOLUTE 0.04 K/uL 10/10/2024 7:25 AM CDT [facility] IMMATURE GRANULOCYTES ABSOLUTE 0.01 K/uL 10/10/2024 7:25 AM T [facility] Blood 10/10/2024 3:25 AM CDT 10/10/2024 6:15 AM CDT Pérez Pinzon MD HEMATOLOGY ORDERABLES Final Resu lt [facility] [id number] [facility] [place] [address] * (ABNORMAL) COMPREHENSIVE METABOLIC PANEL (10/10/2024 3:25 AM CDT) SODIUM 138 136 - 145 mmol/L 10/10/2024 7:18 AM CDT [facility] POTASSIUM 4.2 3.2 - 4.9 mmol/L 10/10/2024 7:18 AM [facility] CHLORIDE 105 98 - 111 mmol/L 10/10/2024 7:18 AM [facility] CO2 28 22 - 29 mmol/L 10/10/2024 7:18 AM [facility] CALCIUM 8.7 8.4 - 10.5 mg/dL 10/10/2024 7:18 AM [facility] BUN 23 6 - 24 mg/dL 10/10/2024 7:18 AM [facility] CREATININE 0.48(L) 0.50 - 1.20 mg/dL 10/10/2024 7:18 AM [facility] GLUCOSE 101 70 - 115 mg/dL 10/10/2024 7:18 AM [facility] TOTAL PROTEIN 6.3 6.0 - 8.4 g/dL 10/10/2024 7:18 AM [facility] ALBUMIN 2.9(L) 3.5 - 5.2 g/dL 10/10/2024 7:18 AM [facility] BILIRUBIN TOTAL 0.1(L) 0.3 - 1.2 mg/dL 10/10/2024 7:18 AM [facility] ALKALINE PHOSPHATASE 167(H) 25 - 117 U/L 10/10/2024 7:18 AM [facility] AST 25 <=33 U/L 10/10/2024 7:18 AM [facility] ALT 19 <=55 U/L 10/10/2024 7:18 AM [facility] GFR >60 >=60 mL/min/1.7 3 sq meter 10/10/2024 7:18 AM [facility] Comment:eGFR calculated with 2020 CKD-EPI equation. Vegetarian diet, extremely high or low muscle mass, and may affect results. Cystatin C with Glomerular Filtration Rate is a suitable alternative for these patients. ANION GAP 5(L) 7 - 16 mmol/L 10/10/2024 7:18 AM [facility] Blood Collection / Unknown 10/10/2024 3:25 AM CDT 10/10/2024 6:15 AM CDT Pérez Pinzon MD CHEMISTRY ORDERABLES Final Resul t [facility] [id number] [address] [place] [address] documented in this encounter Visit Diagnoses Not on filedocumented in this encounter Care Teams Preparation Supervisor Relationship Specialty Start Date End Date Chava Sherman MD [address] [place] [phone] PCP - General Internal Medicine 06/19/24 documented as of this encounter
--- OUTSIDE RECORDS SUMMARY | 2025-03-24 15:14 | XMS_ITS | Encounter Summary ---
Author Organization [facility] Address [address] [place] [address] Care Team Providers Care Welding Machine Operator Helper Gas Name Role Phone Chava Sherman MD Primary Care Provider [phone] Encounter Details Date Type Department Care Team (Late st Contact Info) Description 10/07/2024 Lab Requisition [facility] Laboratory Services [address] [place] [address] [place] [address] [phone] Pérez Pinzon MD [address] [place] [address] Social History Tobacco Use Types [...] - 4.8 mg/dL 10/07/2024 9:01 AM CDT [facility] Blood Collection / Unknown 10/07/2024 1:50 AM CDT 10/07/2024 7:07 AM CDT us Pérez Pinzon MD CHEMISTRY ORDERABLES Final Resul t [facility] [id number] [address] [place] [address] * TRIGLYCERIDE (10/07/2024 1:50 AM CDT) TRIGLYCERIDE 66 <150 mg/dL 10/07/2024 9:01 AM CDT [facility] Blood Collection / Unknown 10/07/2024 1:50 AM CDT 10/07/2024 7:07 AM CDT Narrative [facility] - 10/07/2024 9:01 AM CDT TRIGLYCERIDES mg/dL Normal < 150 Borderline High 150 - 199 High 200 - 499 Very High >= 500 Based on AHA/NCEP Guidelines. us Pérez Pinzon MD CHEMISTRY ORDERABLES Final Resul t Performing Organization Address City/[facility]/ZIP Co de Phone Number [facility] [id number] [address] [place] [address] * MAGNESIUM LEVEL (10/07/2024 1:50 AM CDT) Pathologist [facility] MAGNESIUM 1.7 1.6 - 2.6 mg/dL 10/07/2024 9:01 AM CDT [facility] Blood Collection / Unknown 10/07/2024 1:50 AM CDT 10/07/2024 7:07 AM CDT Pérez Pinzon MD CHEMISTRY ORDERABLES Final Resul t [facility] [id number] [address] [place] [address] * (ABNORMAL) CBC WITH DIFFERENTIAL (10/07/2024 1:50 AM CDT) Pathologist [facility] WBC 6.7 3.5 - 11.0 K/uL 10/07/2024 8:19 AM CDT [facility] RBC 2.82(L) 3.80 - 5.00 M/uL 10/07/2024 8:19 AM T [facility] HEMOGLOBIN 8.6(L) 11.7 - 15.7 g/dL 10/07/2024 8:19 AM T [facility] HEMATOCRIT 26.6(L) 35.0 - 47.0 % 10/07/2024 8:19 AM T [facility] MCV 94.3 80.8 - 100.0 fL 10/07/2024 8:19 AM T [facility] [employer] [facility] MCH 30.5 26.4 - 34.0 pg 10/07/2024 8:19 AM T [facility] MCHC 32.3 31.4 - 36.3 g/dL 10/07/2024 8:19 AM T [facility] [employer] [facility] RDW 15.9(H) 11.0 - 15.0 % 10/07/2024 8:19 AM T [facility] RDW-STDEV 54.9(H) 37.0 - 54.0 fL 10/07/2024 8:19 AM T [facility] LABORATORY [facility] PLATELETS 316 150 - 450 K/uL 10/07/2024 8:19 AM [facility]ORATORY [facility] MPV 9.9 7.5 - 11.2 fL 10/07/2024 8:19 AM [facility]ORATORY [facility] NEUTROPHILS 40(L) 50 - 75 % 10/07/2024 8:19 AM T [facility]ORATORY [facility] LYMPHOCYTES 47 19 - 48 % 10/07/2024 8:19 AM T [facility] LABORATORY [facility] MONOCYTES 8 0 - 10 % 10/07/2024 8:19 AM [facility]OR[facility]ORY [facility] EOSINOPHILS 5 0 - 6 % 10/07/2024 8:19 AM [facility] BASOPHILS 1 0 - 2 % 10/07/2024 8:19 AM [facility] [employer] [facility] IMMATURE GRANULOCYTES 0 % 10/07/2024 8:19 AM [facility] [employer] [facility] NEUTROPHIL ABSOLUTE 2.67 >=0.50 K/uL 10/07/2024 8:19 AM [facility]ORATORY [facility] LYMPHOCYTE ABSOLUTE 3.13 K/uL 10/07/2024 8:19 AM [facility] MONOCYTE ABSOLUTE 0.51 K/uL 025 8:19 AM [facility] [employer] [facility] EOSINOPHIL ABSOLUTE 0.31 K/uL 10/07/2024 8:19 AM [facility]ORATORY [facility] BASOPHILS ABSOLUTE 0.03 K/uL 10/07/2024 8:19 AM [facility]OR[facility] IMMATURE GRANULOCYTES ABSOLUTE 0.01 K/uL 10/07/2024 8:19 AM [facility] [employer] [facility] Blood 10/07/2024 1:50 AM CDT 10/07/2024 7:07 AM CDT us Pérez Pinzon MD HEMATOLOGY ORDERABLES Final Resu lt [facility] [id number] [facility] [place], [place] [address] * (ABNORMAL) COMPREHENSIVE METABOLIC PANEL (10/07/2024 1:50 AM CDT) SODIUM 136 136 - 145 mmol/L 10/07/2024 9:01 AM [facility] POTASSIUM 4.6 3.2 - 4.9 mmol/L 10/07/2024 9:01 AM [facility] CHLORIDE 103 98 - 111 mmol/L 10/07/2024 9:01 AM [facility] CO2 26 22 - 29 mmol/L 10/07/2024 9:01 AM [facility] CALCIUM 8.3(L) 8.4 - 10.5 mg/dL 10/07/2024 9:01 AM [facility] BUN 23 6 - 24 mg/dL 10/07/2024 9:01 AM [facility] CREATININE 0.56 0.50 - 1.20 mg/dL 10/07/2024 9:01 AM [facility] GLUCOSE 107 70 - 115 mg/dL 10/07/2024 9:01 AM [facility] TOTAL PROTEIN 6.2 6.0 - 8.4 g/dL 10/07/2024 9:01 AM [facility] ALBUMIN 2.8(L) 3.5 - 5.2 g/dL 10/07/2024 9:01 AM [facility] BILIRUBIN TOTAL 0.1(L) 0.3 - 1.2 mg/dL 10/07/2024 9:01 AM [facility] ALKALINE PHOSPHATASE 153(H) 25 - 117 U/L 10/07/2024 9:01 AM [facility] AST 24 <=33 U/L 10/07/2024 9:01 AM [facility] ALT 15 <=55 U/L 10/07/2024 9:01 AM CDT [facility] GFR >60 >=60 mL/min/1.7 3 sq meter 10/07/2024 9:01 AM [facility] Comment:eGFR calculated with 2020 CKD-EPI equation. Vegetarian diet, extremely high or low muscle mass, and may affect results. Cystatin C with Glomerular Filtration Rate is a suitable alternative for these patients. ANION GAP 7 7 - 16 mmol/L 10/07/2024 9:01 AM [facility] Blood Collection / Unknown 10/07/2024 1:50 AM CDT 10/07/2024 7:07 AM CDT us Pérez Pinzon MD CHEMISTRY ORDERABLES Final Resul t [facility] [id number] [address] [place] [address] documented in this encounter Visit Diagnoses Not on filedocumented in this encounter Care Teams Welding Machine Operator Helper Gas Relationship Specialty Start Date End Date Chava Sherman MD [address] [place] [phone] PCP - General Internal Medicine 06/19/24 documented as of this encounter
--- OUTSIDE RECORDS SUMMARY | 2025-03-24 15:14 | XMS_ITS | Encounter Summary ---
Author Organization [facility] Address [address] [place] [address] Care Team Providers Care Document Control Clerk Name Role Phone Chava Sherman MD Primary Care Provider Encounter Details Date Type Department Care Team (Late st Contact Info) Description 09/09/2024 Lab Requisition [facility] Laboratory Services [address] [place] [address] [place] [address] [phone] Pérez Pinzon MD [address] [place] [address] Social History Tobacco Use Types [...] - 4.8 mg/dL 09/09/2024 7:53 AM CDT [facility] Blood Collection / Unknown 09/09/2024 3:20 AM CDT 09/09/2024 6:05 AM CDT us Pérez Pinzon MD CHEMISTRY ORDERABLES Final Resul t Performing Organization Address City/[facility]/ZIP Co de Phone Number [facility] [id number] [address] [place] [address] [id number] * TRIGLYCERIDE (09/09/2024 3:20 AM CDT) Pathologist [facility] TRIGLYCERIDE 63 <150 mg/dL 09/09/2024 7:53 AM CDT [facility] Blood Collection / Unknown 09/09/2024 3:20 AM CDT 09/09/2024 6:05 AM CDT Narrative [facility] - 09/09/2024 7:53 AM CDT TRIGLYCERIDES mg/dL Normal < 150 Borderline High 150 - 199 High 200 - 499 Very High >= 500 Based on AHA/NCEP Guidelines. us Pérez Pinzon MD CHEMISTRY ORDERABLES Final Resul t Performing Organization Address City/[facility]/ZIP Co de Phone Number [facility] [id number] [address] [place] [address] * MAGNESIUM LEVEL (09/09/2024 3:20 AM CDT) MAGNESIUM 1.9 1.6 - 2.6 mg/dL 09/09/2024 7:53 AM T [facility] Blood Collection / Unknown 09/09/2024 3:20 AM CDT 09/09/2024 6:05 AM CDT Pérez Pinzon MD CHEMISTRY ORDERABLES Final Resul t [facility] [id number] [address] [place] [address] * (ABNORMAL) COMPREHENSIVE METABOLIC PANEL (09/09/2024 3:20 AM CDT) SODIUM 135(L) 136 - 145 mmol/L 09/09/2024 7:53 AM [facility] POTASSIUM 4.1 3.2 - 4.9 mmol/L 09/09/2024 7:53 AM [facility] CHLORIDE 106 98 - 111 mmol/L 09/09/2024 7:53 AM [facility] CO2 23 22 - 29 mmol/L 09/09/2024 7:53 AM [facility] CALCIUM 8.4 8.4 - 10.5 mg/dL 09/09/2024 7:53 AM [facility] BUN 21 6 - 24 mg/dL 09/09/2024 7:53 AM [facility] CREATININE 0.47(L) 0.50 - 1.20 mg/dL 09/09/2024 7:53 AM [facility] GLUCOSE 108 70 - 115 mg/dL 09/09/2024 7:53 AM [facility] TOTAL PROTEIN 6.9 6.0 - 8.4 g/dL 09/09/2024 7:53 AM [facility] ALBUMIN 2.8(L) 3.5 - 5.2 g/dL 09/09/2024 7:53 AM [facility] BILIRUBIN TOTAL 0.2(L) 0.3 - 1.2 mg/dL 09/09/2024 7:53 AM [facility] ALKALINE PHOSPHATASE 184(H) 25 - 117 U/L 09/09/2024 7:53 AM [facility] AST 21 <=33 U/L 09/09/2024 7:53 AM [facility] ALT 9 <=55 U/L 09/09/2024 7:53 AM [facility] GFR >60 >=60 mL/min/1.7 3 sq meter 09/09/2024 7:53 AM [facility] Comment:eGFR calculated with 2020 CKD-EPI equation. Vegetarian diet, extremely high or low muscle mass, and may affect results. Cystatin C with Glomerular Filtration Rate is a suitable alternative for these patients. ANION GAP 6(L) 7 - 16 mmol/L 09/09/2024 7:53 AM [facility] Blood Collection / Unknown 09/09/2024 3:20 AM CDT 09/09/2024 6:05 AM CDT us Pérez Pinzon MD CHEMISTRY ORDERABLES Final Resul t [facility] [id number] [address] [place] [address] documented in this encounter Visit Diagnoses Not on filedocumented in this encounter Care Teams Document Control Clerk Relationship Specialty Start Date End Date Chava Sherman MD [address] [place], [place] [phone] PCP - General Internal Medicine 06/19/24 documented as of this encounter
--- OUTSIDE RECORDS SUMMARY | 2025-03-24 15:14 | XMS_ITS | Encounter Summary ---
Author Organization [facility] Address [address] [place] [address] Care Team Providers Care Bag Bailer Name Role Phone Chava Sherman MD Primary Care Provider Encounter Details Date Type Department Care Team (Late st Contact Info) Description 09/26/2024 Lab Requisition [facility] Laboratory Services [address] [place] [address] [place] [address] [phone] Pérez Pinzon MD [address] [place] [address] Social History Tobacco Use Types [...] - 4.8 mg/dL 09/26/2024 7:41 AM CDT [facility] Blood Collection / Unknown 09/26/2024 2:27 AM CDT 09/26/2024 6:46 AM CDT us Pérez Pinzon MD CHEMISTRY ORDERABLES Final Resul t [facility] [id number] [address] [place] [address] * TRIGLYCERIDE (09/26/2024 2:27 AM CDT) TRIGLYCERIDE 73 <150 mg/dL 09/26/2024 7:41 AM CDT [facility] Blood Collection / Unknown 09/26/2024 2:27 AM CDT 09/26/2024 6:46 AM CDT Narrative [facility] - 09/26/2024 7:41 AM CDT TRIGLYCERIDES mg/dL Normal < 150 Borderline High 150 - 199 High 200 - 499 Very High >= 500 Based on AHA/NCEP Guidelines. us Pérez Pinzon MD CHEMISTRY ORDERABLES Final Resul t Performing Organization Address City/[facility]/ZIP Co de Phone Number [facility] [id number] [address] [place] [address] * MAGNESIUM LEVEL (09/26/2024 2:27 AM CDT) Pathologist [facility] MAGNESIUM 1.8 1.6 - 2.6 mg/dL 09/26/2024 7:[address] [facility] Blood Collection / Unknown 09/26/2024 2:27 AM CDT 09/26/2024 6:46 AM CDT Pérez Pinzon MD CHEMISTRY ORDERABLES Final Resul t [facility] [id number] [address] [place] [address] * (ABNORMAL) CBC WITH DIFFERENTIAL (09/26/2024 2:27 AM CDT) Pathologist [facility] WBC 6.6 3.5 - 11.0 K/uL 09/26/2024 7:49 AM CDT [facility] RBC 2.99(L) 3.80 - 5.00 M/uL 09/26/2024 7:49 AM T [facility] HEMOGLOBIN 9.1(L) 11.7 - 15.7 g/dL 09/26/2024 7:49 AM T [facility] HEMATOCRIT 28.2(L) 35.0 - 47.0 % 09/26/2024 7:49 AM CDT [facility] MCV 94.3 80.8 - 100.0 fL 09/26/2024 7:49 AM CDT [facility] [employer] [facility] MCH 30.4 26.4 - 34.0 pg 09/26/2024 7:49 AM CDT [facility] MCHC 32.3 31.4 - 36.3 g/dL 09/26/2024 7:49 AM CDT [facility] [employer] [facility] RDW 17.2(H) 11.0 - 15.0 % 09/26/2024 7:49 AM CDT [facility] RDW-STDEV 59.5(H) 37.0 - 54.0 fL 09/26/2024 7:49 AM T [facility] LABORATORY [facility] PLATELETS 378 150 - 450 K/uL 09/26/2024 7:49 AM [facility] MPV 10.7 7.5 - 11.2 fL 09/26/2024 7:49 AM [facility] NEUTROPHILS 30(L) 50 - 75 % 09/26/2024 7:49 AM [facility] LYMPHOCYTES 57(H) 19 - 48 % 09/26/2024 7:49 AM T [facility] MONOCYTES 7 0 - 10 % 09/26/2024 7:49 AM [facility] EOSINOPHILS 5 0 - 6 % 09/26/2024 7:49 AM [facility] BASOPHILS 1 0 - 2 % 09/26/2024 7:49 AM [facility] [employer] [facility] IMMATURE GRANULOCYTES 0 % 09/26/2024 7:49 AM [facility] [employer] [facility] NEUTROPHIL ABSOLUTE 2.02 >=0.50 K/uL 09/26/2024 7:49 AM [facility] LYMPHOCYTE ABSOLUTE 3.74 K/uL 09/26/2024 7:49 AM [facility] MONOCYTE ABSOLUTE 0.44 K/uL 025 7:49 AM [facility] [employer] [facility] EOSINOPHIL ABSOLUTE 0.34 K/uL 09/26/2024 7:49 AM [facility] BASOPHILS ABSOLUTE 0.05 K/uL 09/26/2024 7:49 AM [facility] IMMATURE GRANULOCYTES ABSOLUTE 0.01 K/uL 09/26/2024 7:49 AM [facility] [employer] [facility] Blood 09/26/2024 2:27 AM CDT 09/26/2024 6:46 AM CDT us Pérez Pinzon MD HEMATOLOGY ORDERABLES Final Resu lt [facility] [id number] [address] [place] [address] * (ABNORMAL) COMPREHENSIVE METABOLIC PANEL (09/26/2024 2:27 AM CDT) [facility] Signature SODIUM 137 136 - 145 mmol/L 09/26/2024 7:41 AM T [facility] POTASSIUM 3.9 3.2 - 4.9 mmol/L 09/26/2024 7:41 AM T [facility] CHLORIDE 110 98 - 111 mmol/L 09/26/2024 7:41 AM [facility] CO2 23 22 - 29 mmol/L 09/26/2024 7:41 AM [facility] CALCIUM 8.6 8.4 - 10.5 mg/dL 09/26/2024 7:41 AM [facility] BUN 26(H) 6 - 24 mg/dL 09/26/2024 7:41 AM [facility] CREATININE 0.48(L) 0.50 - 1.20 mg/dL 09/26/2024 7:41 AM [facility] GLUCOSE 103 70 - 115 mg/dL 09/26/2024 7:41 AM [facility] TOTAL PROTEIN 6.5 6.0 - 8.4 g/dL 09/26/2024 7:41 AM [facility] ALBUMIN 2.9(L) 3.5 - 5.2 g/dL 09/26/2024 7:41 AM [facility] BILIRUBIN TOTAL 0.1(L) 0.3 - 1.2 mg/dL 09/26/2024 7:41 AM [facility] ALKALINE PHOSPHATASE 166(H) 25 - 117 U/L 09/26/2024 7:41 AM [facility] AST 30 <=33 U/L 09/26/2024 7:41 AM [facility] ALT 24 <=55 U/L 09/26/2024 7:41 AM CDT [facility] GFR >60 >=60 mL/min/1.7 3 sq meter 09/26/2024 7:41 AM [facility] Comment:eGFR calculated with 2020 CKD-EPI equation. Vegetarian diet, extremely high or low muscle mass, and may affect results. Cystatin C with Glomerular Filtration Rate is a suitable alternative for these patients. ANION GAP 4(L) 7 - 16 mmol/L 09/26/2024 7:[address] [facility] Blood Collection / Unknown 09/26/2024 2:27 AM CDT 09/26/2024 6:46 AM CDT us Pérez Pinzon MD CHEMISTRY ORDERABLES Final Resul t [facility] [id number] [address] [place] [address] documented in this encounter Visit Diagnoses Not on filedocumented in this encounter Care Teams Bag Bailer Relationship Specialty Start Date End Date Chava Sherman MD [address] [place] [phone] PCP - General Internal Medicine 06/19/24 documented as of this encounter
--- OUTSIDE RECORDS SUMMARY | 2025-03-24 15:14 | XMS_ITS | Clinical Summary ---
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 OPERATOR Gender Identity Not on file Sexual Orientation Not on file 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 [employer] Not on file Not on file Not on file Last Filed Vital Signs Vital Sign Reading Time Taken Comments Blood Pressure 100/60 05/27/2010 2:56 PM CONCRETE MIXER OPERATOR Pulse 60 05/27/2010 2:56 PM CONCRETE MIXER OPERATOR Temperature 36.9 C (98.5 F) 05/27/2010 2:56 PM CONCRETE MIXER OPERATOR Respiratory Rate - - Oxygen Saturation - - Inhaled Oxygen Concentration - - Weight 84.8 kg (187 lb) 05/27/2010 2:56 PM CONCRETE MIXER OPERATOR With steel toe shoes Height 154.9 cm (5' 1) 04/24/2009 2:27 PM CONCRETE MIXER OPERATOR Body Mass Index 35.33 04/24/2009 2:27 PM CONCRETE MIXER OPERATOR Plan of Treatment Health Maintenance Due Date [...] Procedure Name Priority Date/Time Associated Diagnosis Comments [facility] DIA BILATERAL DIGITAL W CAD Routine 07/08/2009 1:48 PM CDT Breast lump from Last 3 Months or Most Recently Relevant to Health Maintenance Results * [facility] DIAG BILATERAL DIGITAL W CAD (07/08/2009 1:48 [...] CDT Dictating Physician: Rose Dow M.D. Exam: [facility] Bilateral Digital W CAD and bilateral breast [...] 07/08/2009 Dictating Physician: Rose Dow M.D. Exam: [facility] Bilateral Digital W CAD and bilateral [...] Most Recently Relevant to Health Maintenance Insurance [facility] Advance Directives * No Code Status (Latest Code Status on File) Date Activated Date Inactivated Comments 05/27/2010 2:58 PM Patient doesn' t have and not interested Care Teams Travel Trailer Components Assembler Relationship Specialty Start Date End Date Radha Spivey MD [address] [place] [address] PCP - General Family Medicine 02/06/14
--- OUTSIDE RECORDS SUMMARY | 2025-03-24 15:14 | XMS_ITS | Encounter Summary ---
Author Organization [facility] Address [address] [place] [address] Care Team Providers Care Complaints Coordinator Name Role Phone Chava Sherman MD Primary Care Provider Encounter Details Date Type Department Care Team (Late st Contact Info) Description 08/21/2024 Lab Requisition [facility] Laboratory Services [address] [place] [address] [place] [address] [phone] Pérez Pinzon MD [address] [place] [address] Social History Tobacco Use Types [...] CBC WITH DIFFERENTIAL (08/21/2024 4:00 AM CDT) [facility] WBC 8.4 3.5 - 11.0 K/uL 08/21/2024 7:21 AM [facility] RBC 2.68(L) 3.80 - 5.00 M/uL 08/21/2024 7:21 AM [facility] HEMOGLOBIN 8.1(L) 11.7 - 15.7 g/dL 08/21/2024 7:21 AM [facility] HEMATOCRIT 24.8(L) 35.0 - 47.0 % 08/21/2024 7:21 AM [facility] MCV 92.4 80.8 - 100.0 fL 08/21/2024 7:21 AM [facility] MCH 30.2 26.4 - 34.0 pg 08/21/2024 7:21 AM [facility] MCHC 32.7 31.4 - 36.3 g/dL 08/21/2024 7:21 AM [facility] RDW 20.6(H) 11.0 - 15.0 % 08/21/2024 7:21 AM [facility] PLATELETS 469(H) 150 - 450 K/uL 08/21/2024 7:21 AM [facility] MPV 8.7 7.5 - 11.2 fL 08/21/2024 7:21 AM [facility] NEUTROPHILS 60 50 - 75 % 08/21/2024 7:21 AM [facility] LYMPHOCYTES 28 19 - 48 % 08/21/2024 7:21 AM [facility] MONOCYTES 7 0 - 10 % 08/21/2024 7:21 AM [facility] EOSINOPHILS 4 0 - 6 % 08/21/2024 7:21 AM [facility] BASOPHILS 2 0 - 2 % 08/21/2024 7:21 AM [facility] NEUTROPHIL ABSOLUTE 5.07 >=0.50 K/uL 08/21/2024 7:[address] [facility] LYMPHOCYTE ABSOLUTE 2.34 K/uL 08/21/2024 7:[address] [facility] MONOCYTE ABSOLUTE 0.56 K/uL 08/21/2024 7:[address] [facility] EOSINOPHIL ABSOLUTE 0.31 K/uL 08/21/2024 7:[address] [facility] - [facility] BASOPHILS ABSOLUTE 0.17 K/uL 08/21/2024 7:[address] [facility] Blood Collection / Unknown 08/21/2024 4:00 AM CDT 08/21/2024 5:54 AM CDT Pérez Pinzon MD HEMATOLOGY ORDERABLES Final Resu lt [facility] [id number] [address] [place] [address] [phone] documented in this encounter Visit Diagnoses Not on filedocumented in this encounter Care Teams Complaints Coordinator Relationship Specialty Start Date End Date Chava Sherman MD [address] [place] [phone] PCP - General Internal Medicine 06/19/24 documented as of this encounter
--- OUTSIDE RECORDS SUMMARY | 2025-03-24 15:14 | XMS_ITS | Encounter Summary ---
Author Organization [facility] Address [address] [place] [address] Care Team Providers Care Data Warehouse Developer Name Role Phone Chava Sherman MD Primary Care Provider [phone] Encounter Details Date Type Department Care Team (Late st Contact Info) Description 09/02/2024 Lab Requisition [facility] Laboratory Services [address] [place] [address] [place] [address] [phone] Pérez Pinzon MD [address] [place] [phone] Social History Tobacco Use Types [...] - 4.8 mg/dL 09/02/2024 7:33 AM CDT [facility] [employer] [facility] Blood Collection / Unknown 09/02/2024 3:16 AM CDT 09/02/2024 6:31 AM CDT us Pérez Pinzon MD CHEMISTRY ORDERABLES Final Resul t Performing Organization Address City/[facility]/ZIP Co de Phone Number [facility] [employer] [facility] [id number] [address] [place] [address] [phone] * MAGNESIUM LEVEL (09/02/2024 3:16 AM CDT) MAGNESIUM 1.9 1.6 - 2.6 mg/dL 09/02/2024 7:33 AM CDT [facility] [employer] [facility] Blood Collection / Unknown 09/02/2024 3:16 AM CDT 09/02/2024 6:31 AM CDT us Pérez Pinzon MD CHEMISTRY ORDERABLES Final Resul t [facility] [employer] [facility] [id number] [address] [place] [address] * (ABNORMAL) COMPREHENSIVE METABOLIC PANEL (09/02/2024 3:16 AM CDT) SODIUM 139 136 - 145 mmol/L 09/02/2024 7:33 AM CDT [facility] [employer] [facility] POTASSIUM 4.4 3.2 - 4.9 mmol/L 09/02/2024 7:33 AM [facility] CHLORIDE 108 98 - 111 mmol/L 09/02/2024 7:33 AM [facility] CO2 24 22 - 29 mmol/L 09/02/2024 7:33 AM [facility] CALCIUM 8.5 8.4 - 10.5 mg/dL 09/02/2024 7:33 AM [facility] BUN 22 6 - 24 mg/dL 09/02/2024 7:33 AM [facility] CREATININE 0.47(L) 0.50 - 1.20 mg/dL 09/02/2024 7:33 AM [facility] GLUCOSE 97 70 - 115 mg/dL 09/02/2024 7:33 AM [facility] TOTAL PROTEIN 6.6 6.0 - 8.4 g/dL 09/02/2024 7:33 AM [facility] ALBUMIN 2.6(L) 3.5 - 5.2 g/dL 09/02/2024 7:33 AM [facility] BILIRUBIN TOTAL 0.1(L) 0.3 - 1.2 mg/dL 09/02/2024 7:33 AM [facility] ALKALINE PHOSPHATASE 189(H) 25 - 117 U/L 09/02/2024 7:33 AM [facility] AST 26 <=33 U/L 09/02/2024 7:33 AM [facility] ALT 12 <=55 U/L 09/02/2024 7:33 AM [facility] GFR >60 >=60 mL/min/1.7 3 sq meter 09/02/2024 7:33 AM [facility] Comment:eGFR calculated with 2020 CKD-EPI equation. Vegetarian diet, extremely high or low muscle mass, and may affect results. Cystatin C with Glomerular Filtration Rate is a suitable alternative for these patients. ANION GAP 7 7 - 16 mmol/L 09/02/2024 7:33 AM [facility] Blood Collection / Unknown 09/02/2024 3:16 AM CDT 09/02/2024 6:31 AM CDT us Pérez Pinzon MD CHEMISTRY ORDERABLES Final Resul t [facility] [id number] [address] [place] [address] documented in this encounter Visit Diagnoses Not on filedocumented in this encounter Care Teams Data Warehouse Developer Relationship Specialty Start Date End Date Chava Sherman MD [address] [place] [phone] PCP - General Internal Medicine 06/19/24 documented as of this encounter
--- OUTSIDE RECORDS SUMMARY | 2025-03-24 15:14 | XMS_ITS | Encounter Summary ---
Author Organization [facility] Address [address] [place] [address] Care Team Providers Care Fiber Technician Name Role Phone Chava Sherman MD Primary Care Provider [phone] Encounter Details Date Type Department Care Team (Late st Contact Info) Description 08/10/2024 Lab Requisition [facility] Laboratory Services [address] [place] [address] [phone] Pérez Pinzon MD [address] [place] [phone] Social History Tobacco Use Types [...] - 38 mg/dL 08/12/2024 8:58 AM CDT [facility] Blood 08/10/2024 2:00 AM CDT 08/10/2024 3:51 AM CDT us Pérez Pinzon MD CHEMISTRY ORDERABLES Final Resul t [facility] [id number] [address] [place] [address] * PROTIME-INR (08/10/2024 2:00 AM CDT) PROTIME 11.3 9.0 - 11.5 Seconds 08/10/2024 4:27 AM CDT [facility] INR 1.1 <=3.0 08/10/2024 4:27 AM CDT [facility] Blood 08/10/2024 2:00 AM CDT 08/10/2024 3:51 AM CDT us Pérez Pinzon MD HEMATOLOGY ORDERABLES Final Resu lt [facility] [id number] [address] [place] [phone] * T4 TOTAL (08/10/2024 2:00 AM CDT) Pathologist [facility] T4 TOTAL 6.4 4.5 - 11.7 ug/dL 08/12/2024 9:18 AM CDT [facility] Blood 08/10/2024 2:00 AM CDT 08/10/2024 3:51 AM CDT us Pérez Pinzon MD CHEMISTRY ORDERABLES Final Resul t [facility] [id number] [address] [place], [place] [address] * T4 FREE (08/10/2024 2:00 AM CDT) [facility] T4 FREE 1.01 0.70 - 1.48 ng/dL 08/10/2024 8:50 AM CDT [facility] Blood 08/10/2024 2:00 AM CDT 08/10/2024 3:51 AM CDT us Pérez Pinzon MD CHEMISTRY ORDERABLES Edited Resu lt - Final Performing Organization Address [facility]/ZIP Co de Phone Number [facility] [id number] [address] [place] [address] [phone] * TSH (08/10/2024 2:00 AM CDT) [facility] TSH 1.74 0.27 - 4.20 uIU/mL 08/10/2024 8:50 AM CDT [facility] Blood 08/10/2024 2:00 AM CDT 08/10/2024 3:51 AM CDT us Pérez Pinzon MD CHEMISTRY ORDERABLES Edited Resu lt - Final Performing Organization Address City/[facility]/ZIP Co de Phone Number [facility] [id number] [address] [place] [phone] documented in this encounter Visit Diagnoses Not on filedocumented in this encounter Care Teams Fiber Technician Relationship Specialty Start Date End Date Chava Sherman MD [address] [place] [phone] PCP - General Internal Medicine 06/19/24 documented as of this encounter
--- OUTSIDE RECORDS SUMMARY | 2025-03-24 15:14 | XMS_ITS | Encounter Summary ---
Author Organization [facility] Address [address] [place] [address] Care Team Providers Care Marketing Performance Analyst Name Role Phone Chava Sherman MD Primary Care Provider Encounter Details Date Type Department Care Team (Late st Contact Info) Description 08/12/2024 Lab Requisition [facility] Laboratory Services [address] [place] [address] [place] [address] [phone] Pérez Pinzon MD [address] [place] [phone] Social History Tobacco Use Types [...] mg/dL 08/12/2024 7:08 AM CDT [facility] Blood Collection / Unknown 08/12/2024 3:11 AM CDT 08/12/2024 5:54 AM CDT us Pérez Pinzon MD CHEMISTRY ORDERABLES Final Resul t Performing Organization Address City/[facility]/ZIP Co de Phone Number [facility] [id number] [address] [place] [address] [phone] * (ABNORMAL) TRIGLYCERIDE (08/12/2024 3:11 AM CDT) TRIGLYCERIDE 157(H) <150 mg/dL 08/12/2024 7:08 AM CDT [facility] Blood Collection / Unknown 08/12/2024 3:11 AM CDT 08/12/2024 5:54 AM CDT Narrative [facility] - 08/12/2024 7:08 AM CDT TRIGLYCERIDES mg/dL Normal < 150 Borderline High 150 - 199 High 200 - 499 Very High >= 500 Based on AHA/NCEP Guidelines. us Pérez Pinzon MD CHEMISTRY ORDERABLES Final Resul t Performing Organization Address City/[facility]/ZIP Co de Phone Number [facility] [id number] [address] [place] [phone] * MAGNESIUM LEVEL (08/12/2024 3:11 AM CDT) MAGNESIUM 1.9 1.6 - 2.6 mg/dL 08/12/2024 7:08 AM [facility] Blood Collection / Unknown 08/12/2024 3:11 AM CDT 08/12/2024 5:54 AM CDT Pérez Pinzon MD CHEMISTRY ORDERABLES Final Resul t [facility] [id number] [address] [place] [address] [phone] * (ABNORMAL) COMPREHENSIVE METABOLIC PANEL (08/12/2024 3:11 AM CDT) SODIUM 134(L) 136 - 145 mmol/L 08/12/2024 7:08 AM [facility] POTASSIUM 4.2 3.2 - 4.9 mmol/L 08/12/2024 7:08 AM [facility] CHLORIDE 107 98 - 111 mmol/L 08/12/2024 7:08 AM [facility] CO2 22 22 - 29 mmol/L 08/12/2024 7:08 AM [facility] CALCIUM 8.9 8.4 - 10.5 mg/dL 08/12/2024 7:08 AM [facility] BUN 26(H) 6 - 24 mg/dL 08/12/2024 7:08 AM [facility] CREATININE 0.49(L) 0.50 - 1.20 mg/dL 08/12/2024 7:08 AM [facility] GLUCOSE 102 70 - 115 mg/dL 08/12/2024 7:08 AM [facility] TOTAL PROTEIN 7.5 6.0 - 8.4 g/dL 08/12/2024 7:08 AM [facility] ALBUMIN 2.7(L) 3.5 - 5.2 g/dL 08/12/2024 7:08 AM [facility] BILIRUBIN TOTAL 0.3 0.3 - 1.3 mg/dL 08/12/2024 7:08 AM [facility] ALKALINE PHOSPHATASE 229(H) 25 - 117 U/L 08/12/2024 7:08 AM [facility] AST 37(H) <=33 U/L 08/12/2024 7:08 AM [facility] ALT 28 <=55 U/L 08/12/2024 7:08 AM [facility] GFR >60 >=60 mL/min/1.7 3 sq meter 08/12/2024 7:08 AM [facility] Comment:eGFR calculated with 2020 CKD-EPI equation. Vegetarian diet, extremely high or low muscle mass, and may affect results. Cystatin C with Glomerular Filtration Rate is a suitable alternative for these patients. ANION GAP 5(L) 7 - 16 mmol/L 08/12/2024 7:08 AM [facility] Blood Collection / Unknown 08/12/2024 3:11 AM CDT 08/12/2024 5:54 AM T Pérez Pinzon MD CHEMISTRY ORDERABLES Final Resul t [facility] [id number] [address] [place] [address] documented in this encounter Visit Diagnoses Not on filedocumented in this encounter Care Teams Marketing Performance Analyst Relationship Specialty Start Date End Date Chava Sherman MD [address] [place] [phone] PCP - General Internal Medicine 06/19/24 documented as of this encounter
--- OUTSIDE RECORDS SUMMARY | 2025-03-24 15:14 | XMS_ITS | Encounter Summary ---
Author Organization [facility] Address [address] [place] [address] Care Team Providers Care Rubber Compounder Name Role Phone Chava Sherman MD Primary Care Provider [phone] Encounter Details Date Type Department Care Team (Late st Contact Info) Description 08/15/2024 Lab Requisition [facility] Laboratory Services [address] [place] [address] [place] [address] [phone] Pérez Pinzon MD [address] [place] [phone] Social History Tobacco Use Types [...] t [facility] [id number] [address] [place] [address] * TRIGLYCERIDE (08/15/2024 2:15 AM CDT) TRIGLYCERIDE [...] ORDERABLES Final Resul t Performing Organization Address City/[facility]/ZIP Co de Phone Number [facility] [id number] [address] [place] [phone] * MAGNESIUM LEVEL (08/15/2024 2:15 AM CDT) Pathologist [facility] MAGNESIUM 1.8 1.6 - 2.6 mg/dL 08/15/2024 8:38 AM CDT [facility] Blood Collection / Unknown 08/15/2024 2:15 AM CDT 08/15/2024 5:53 AM CDT Préez Pinzon MD CHEMISTRY ORDERABLES Final Resul t [facility] [id number] [address] [place] [address] * (ABNORMAL) CBC WITH DIFFERENTIAL (08/15/2024 2:15 AM CDT) [facility] WBC 14.9(H) 3.5 - 11.0 K/uL 08/15/2024 7:59 AM T [facility] RBC 2.49(L) 3.80 - 5.00 M/uL 08/15/2024 7:59 AM T [facility] HEMOGLOBIN 7.5(L) 11.7 - 15.7 g/dL 08/15/2024 7:59 AM [facility] HEMATOCRIT 22.8(L) 35.0 - 47.0 % 08/15/2024 7:59 AM [facility] MCV 91.6 80.8 - 100.0 fL 08/15/2024 7:59 AM T [facility] MCH 30.0 26.4 - 34.0 pg 08/15/2024 7:59 AM T [facility] MCHC 32.8 31.4 - 36.3 g/dL 08/15/2024 7:59 AM T [facility] RDW 20.8(H) 11.0 - 15.0 % 08/15/2024 7:59 AM [facility] PLATELETS 477(H) 150 - 450 K/uL 08/15/2024 7:59 AM CDT [facility] MPV 8.3 7.5 - 11.2 fL 08/15/2024 7:59 AM CDT [facility] NEUTROPHILS 73 50 - 75 % 08/15/2024 7:59 AM CDT [facility] LYMPHOCYTES 17(L) 19 - 48 % 08/15/2024 7:59 AM CDT [facility] MONOCYTES 7 0 - 10 % 08/15/2024 7:59 AM CDT [facility] EOSINOPHILS 3 0 - 6 % 08/15/2024 7:59 AM CDT [facility] BASOPHILS 1 0 - 2 % 08/15/2024 7:59 AM CDT [facility] NEUTROPHIL ABSOLUTE 10.80 >=0.50 K/uL 08/15/2024 7:59 AM CDT [facility] LYMPHOCYTE ABSOLUTE 2.46 K/uL 08/15/2024 7:59 AM CDT [facility] MONOCYTE ABSOLUTE 1.03 K/uL 08/15/2024 7:59 AM CDT [facility] EOSINOPHIL ABSOLUTE 0.48 K/uL 08/15/2024 7:59 AM CDT [facility] BASOPHILS ABSOLUTE 0.09 K/uL 08/15/2024 7:59 AM CDT [facility] Blood 08/15/2024 2:15 AM CDT 08/15/2024 5:53 AM CDT Pérez Pinzon MD HEMATOLOGY ORDERABLES Final Resu lt [facility] [employer] [facility] [id number] [address] [place] [phone] * (ABNORMAL) COMPREHENSIVE METABOLIC PANEL (08/15/2024 2:15 AM CDT) SODIUM 134(L) 136 - 145 mmol/L 08/15/2024 8:38 AM CDT [facility] POTASSIUM 3.9 3.2 - 4.9 mmol/L 08/15/2024 8:38 AM [facility] CHLORIDE 104 98 - 111 mmol/L 08/15/2024 8:38 AM [facility] CO2 25 22 - 29 mmol/L 08/15/2024 8:38 AM [facility] CALCIUM 8.3(L) 8.4 - 10.5 mg/dL 08/15/2024 8:38 AM [facility] BUN 18 6 - 24 mg/dL 08/15/2024 8:38 AM [facility] CREATININE 0.54 0.50 - 1.20 mg/dL 08/15/2024 8:38 AM [facility] GLUCOSE 161(H) 70 - 115 mg/dL 08/15/2024 8:38 AM [facility] TOTAL PROTEIN 6.5 6.0 - 8.4 g/dL 08/15/2024 8:38 AM [facility] ALBUMIN 2.5(L) 3.5 - 5.2 g/dL 08/15/2024 8:38 AM [facility] BILIRUBIN TOTAL 0.3 0.3 - 1.3 mg/dL 08/15/2024 8:38 AM [facility] ALKALINE PHOSPHATASE 218(H) 25 - 117 U/L 08/15/2024 8:38 AM [facility] AST 22 <=33 U/L 08/15/2024 8:38 AM [facility] ALT 16 <=55 U/L 08/15/2024 8:38 AM [facility] GFR >60 >=60 mL/min/1.7 3 sq meter 08/15/2024 8:38 AM [facility] Comment:eGFR calculated with 2020 CKD-EPI equation. Vegetarian diet, extremely high or low muscle mass, and may affect results. Cystatin C with Glomerular Filtration Rate is a suitable alternative for these patients. ANION GAP 5(L) 7 - 16 mmol/L 08/15/2024 8:38 AM [facility] Blood Collection / Unknown 08/15/2024 2:15 AM CDT 08/15/2024 5:53 AM CDT Pérez Pinzon MD CHEMISTRY ORDERABLES Final Resul t [facility] [id number] [address] [place] [address] documented in this encounter Visit Diagnoses Not on filedocumented in this encounter Care Teams Rubber Compounder Relationship Specialty Start Date End Date Chava Sherman MD [address] [place] [phone] PCP - General Internal Medicine 06/19/24 documented as of this encounter
--- OUTSIDE RECORDS SUMMARY | 2025-03-24 15:14 | XMS_ITS | Encounter Summary ---
Author Organization [facility] Address [address] [place] [address] Care Team Providers Care Transmission Systems Operator Name Role Phone Chava Sherman MD Primary Care Provider Encounter Details Date Type Department Care Team (Late st Contact Info) Description 09/16/2024 Lab Requisition [facility] Laboratory Services [address] [place] [address] [place] [address] [phone] Pérez Pinzon MD [address] [place] [phone] Social History Tobacco Use Types [...] - 4.8 mg/dL 09/16/2024 7:14 AM CDT [facility] Blood Collection / Unknown 09/16/2024 3:49 AM CDT 09/16/2024 6:01 AM CDT us Pérez Pinzon MD CHEMISTRY ORDERABLES Final Resul t Performing Organization Address City/[facility]/ZIP Co de Phone Number [facility] [id number] [address] [place] [address] [phone] * TRIGLYCERIDE (09/16/2024 3:49 AM CDT) Pathologist [facility] TRIGLYCERIDE 63 <150 mg/dL 09/16/2024 7:14 AM CDT [facility] Blood Collection / Unknown 09/16/2024 3:49 AM CDT 09/16/2024 6:01 AM CDT Narrative [facility] - 09/16/2024 7:14 AM CDT TRIGLYCERIDES mg/dL Normal < 150 Borderline High 150 - 199 High 200 - 499 Very High >= 500 Based on AHA/NCEP Guidelines. us Préez Pinzon MD CHEMISTRY ORDERABLES Final Resul t Performing Organization Address City/[facility]/ZIP Co de Phone Number [facility] [id number] [address] [place] [phone] * MAGNESIUM LEVEL (09/16/2024 3:49 AM CDT) MAGNESIUM 1.9 1.6 - 2.6 mg/dL 09/16/2024 7:14 AM T [facility] Blood Collection / Unknown 09/16/2024 3:49 AM CDT 09/16/2024 6:01 AM CDT Pérez Pinzon MD CHEMISTRY ORDERABLES Final Resul t [facility] [id number] [address] [place] [address] * (ABNORMAL) COMPREHENSIVE METABOLIC PANEL (09/16/2024 3:49 AM CDT) SODIUM 137 136 - 145 mmol/L 09/16/2024 7:14 AM [facility] POTASSIUM 4.0 3.2 - 4.9 mmol/L 09/16/2024 7:14 AM [facility] CHLORIDE 108 98 - 111 mmol/L 09/16/2024 7:14 AM [facility] CO2 23 22 - 29 mmol/L 09/16/2024 7:14 AM [facility] CALCIUM 8.4 8.4 - 10.5 mg/dL 09/16/2024 7:14 AM [facility] BUN 23 6 - 24 mg/dL 09/16/2024 7:14 AM [facility] CREATININE 0.48(L) 0.50 - 1.20 mg/dL 09/16/2024 7:14 AM [facility] GLUCOSE 101 70 - 115 mg/dL 09/16/2024 7:14 AM [facility] TOTAL PROTEIN 6.8 6.0 - 8.4 g/dL 09/16/2024 7:14 AM [facility] ALBUMIN 2.6(L) 3.5 - 5.2 g/dL 09/16/2024 7:[address] [facility] TOTAL 0.1(L) 0.3 - 1.2 mg/dL 09/16/2024 7:14 AM [facility] ALKALINE PHOSPHATASE 191(H) 25 - 117 U/L 09/16/2024 7:14 AM [facility] AST 34(H) <=33 U/L 09/16/2024 7:14 AM [facility] ALT 15 <=55 U/L 09/16/2024 7:14 AM [facility] GFR >60 >=60 mL/min/1.7 3 sq meter 09/16/2024 7:14 AM [facility] Comment:eGFR calculated with 2020 CKD-EPI equation. Vegetarian diet, extremely high or low muscle mass, and may affect results. Cystatin C with Glomerular Filtration Rate is a suitable alternative for these patients. ANION GAP 6(L) 7 - 16 mmol/L 09/16/2024 7:14 AM [facility] Blood Collection / Unknown 09/16/2024 3:49 AM CDT 09/16/2024 6:01 AM CDT us Pérez Pinzon MD CHEMISTRY ORDERABLES Final Resul t [facility] [id number] [place] [address] documented in this encounter Visit Diagnoses Not on filedocumented in this encounter Care Teams Transmission Systems Operator Relationship Specialty Start Date End Date Chava Sherman MD [address] [place], [place] [phone] PCP - General Internal Medicine 06/19/24 documented as of this encounter
--- OUTSIDE RECORDS SUMMARY | 2025-03-24 15:14 | XMS_ITS | Encounter Summary ---
Author Organization [facility] Address 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 If inpatient, place patient in Contact Isolation. GRAM STAIN >25 PMN WBC/LPF 7:19 AM CDT [facility] GRAM STAIN Smear contains </=10 squamous epithelial cells per low power field 08/12/2024 7:19 AM CDT [facility] GRAM STAIN 1+ (Rare or Occasional) Mixed sandeep with no predominate morphology 08/12/2024 7:19 AM CDT [facility] Sputum 08/09/2024 9:00 PM CDT 08/10/2024 3:59 [...] MICROBIOLOGY - GENERAL ORDERABLE S Final Result [facility] [id number] [address] [place] [address] [phone] documented in this encounter Visit Diagnoses Not on filedocumented in this encounter Care Teams Barrel Washer Machine Relationship Specialty Start Date End Date Chava Sherman MD [address] [place] [phone] PCP - General Internal Medicine 06/19/24 documented as of this encounter
--- OUTSIDE RECORDS SUMMARY | 2025-03-24 15:14 | XMS_ITS | Encounter Summary ---
Author Organization [facility] Address [address] [place] [address] Care Team Providers Care Window Shade Cutter And Mounter Name Role Phone Chava Sherman MD Primary Care Provider [phone] Encounter Details Date Type Department Care Team (Late st Contact Info) Description 08/22/2024 Lab Requisition [facility] Laboratory Services [address] [place] [address] [place] [address] [phone] Pérez Pinzon MD [address] [place] [address] Social History Tobacco Use Types [...] - 4.8 mg/dL 08/22/2024 7:59 AM CDT [facility] Blood Collection / Unknown 08/22/2024 1:45 AM CDT 08/22/2024 6:39 AM CDT us Pérez Pinzon MD CHEMISTRY ORDERABLES Final Resul t [facility] [id number] [address] [place] [phone] * TRIGLYCERIDE (08/22/2024 1:45 AM CDT) TRIGLYCERIDE 87 <150 mg/dL 08/22/2024 7:59 AM CDT [facility] Blood Collection / Unknown 08/22/2024 1:45 AM CDT 08/22/2024 6:39 AM CDT Narrative [facility] - 08/22/2024 7:59 AM CDT TRIGLYCERIDES mg/dL Normal < 150 Borderline High 150 - 199 High 200 - 499 Very High >= 500 Based on AHA/NCEP Guidelines. us Pérez Pinzon MD CHEMISTRY ORDERABLES Final Resul t Performing Organization Address City/[facility]/ZIP Co de Phone Number [facility] [id number] [address] [place] [phone] * MAGNESIUM LEVEL (08/22/2024 1:45 AM CDT) Pathologist [facility] MAGNESIUM 1.9 1.6 - 2.6 mg/dL 08/22/2024 7:59 AM CDT [facility] Blood Collection / Unknown 08/22/2024 1:45 AM CDT 08/22/2024 6:39 AM CDT Pérez Pinzon MD CHEMISTRY ORDERABLES Final Resul t [facility] CS-Keys [facility] [id number] [address] [place] [address] * (ABNORMAL) CBC WITH DIFFERENTIAL (08/22/2024 1:45 AM CDT) [facility] WBC 10.8 3.5 - 11.0 K/uL 08/22/2024 7:50 AM T [facility] RBC 2.50(L) 3.80 - 5.00 M/uL 08/22/2024 7:50 AM T [facility] HEMOGLOBIN 7.5(L) 11.7 - 15.7 g/dL 08/22/2024 7:50 AM [facility] HEMATOCRIT 23.1(L) 35.0 - 47.0 % 08/22/2024 7:50 AM T [facility] MCV 92.5 80.8 - 100.0 fL 08/22/2024 7:50 AM T [facility] CS-Keys [facility] MCH 30.1 26.4 - 34.0 pg 08/22/2024 7:50 AM T [facility] CS-Keys [facility] MCHC 32.6 31.4 - 36.3 g/dL 08/22/2024 7:50 AM T [facility] CS-Keys [facility] RDW 20.2(H) 11.0 - 15.0 % 08/22/2024 7:50 AM [facility]ORAT[facility] PLATELETS 470(H) 150 - 450 K/uL 08/22/2024 7:50 AM CDT [facility] LABORATORY SERVICES - [facility] MPV 8.7 7.5 - 11.2 fL 08/22/2024 7:50 AM CDT [facility]ORATORY SERVICES - [facility] NEUTROPHILS 69 50 - 75 % 08/22/2024 7:50 AM CDT [facility] LABORATORY [facility] LYMPHOCYTES 21 19 - 48 % 08/22/2024 7:50 AM CDT [facility] LABORATORY SERVICES - [facility] MONOCYTES 7 0 - 10 % 08/22/2024 7:50 AM CDT [facility]ORATORY SERVICES - [facility] EOSINOPHILS 2 0 - 6 % 08/22/2024 7:50 AM CDT [facility]ORATORY SERVICES - [facility] BASOPHILS 1 0 - 2 % 08/22/2024 7:50 AM CDT [facility]ORATORY SERVICES - [facility] NEUTROPHIL ABSOLUTE 7.49 >=0.50 K/uL 08/22/2024 7:50 AM CDT [facility] LABORATORY [facility] LYMPHOCYTE ABSOLUTE 2.27 K/uL 08/22/2024 7:50 AM CDT [facility] LABORATORY [facility] MONOCYTE ABSOLUTE 0.80 K/uL 08/22/2024 7:50 AM CDT [facility] LABORATORY [facility] EOSINOPHIL ABSOLUTE 0.20 K/uL 08/22/2024 7:50 AM CDT [facility] LABORATORY SERVICES - [facility] BASOPHILS ABSOLUTE 0.09 K/uL 08/22/2024 7:50 AM CDT [facility] LABORATORY [facility] Blood 08/22/2024 1:45 AM CDT 08/22/2024 6:39 AM CDT Pérez Pinzon MD HEMATOLOGY ORDERABLES Final Resu lt [facility] LABORATORY [facility] [id number] [address] [place] [address] * (ABNORMAL) COMPREHENSIVE METABOLIC PANEL (08/22/2024 1:45 AM CDT) SODIUM 139 136 - 145 mmol/L 08/22/2024 7:59 AM CDT [facility] LABORATORY [facility] LAB POTASSIUM 4.4 3.2 - 4.9 mmol/L 08/22/2024 7:59 AM CDT [facility] CHLORIDE 105 98 - 111 mmol/L 08/22/2024 7:59 AM [facility] CO2 26 22 - 29 mmol/L 08/22/2024 7:59 AM [facility] CALCIUM 8.7 8.4 - 10.5 mg/dL 08/22/2024 7:59 AM [facility] BUN 17 6 - 24 mg/dL 08/22/2024 7:59 AM [facility] CREATININE 0.45(L) 0.50 - 1.20 mg/dL 08/22/2024 7:59 AM [facility] GLUCOSE 115 70 - 115 mg/dL 08/22/2024 7:59 AM [facility] TOTAL PROTEIN 6.8 6.0 - 8.4 g/dL 08/22/2024 7:59 AM [facility] ALBUMIN 2.9(L) 3.5 - 5.2 g/dL 08/22/2024 7:59 AM [facility] BILIRUBIN TOTAL 0.2(L) 0.3 - 1.2 mg/dL 08/22/2024 7:59 AM [facility] ALKALINE PHOSPHATASE 178(H) 25 - 117 U/L 08/22/2024 7:59 AM [facility] AST 20 <=33 U/L 08/22/2024 7:59 AM [facility] ALT 10 <=55 U/L 08/22/2024 7:59 AM [facility] GFR >60 >=60 mL/min/1.7 3 sq meter 08/22/2024 7:59 AM [facility] Comment:eGFR calculated with 2020 CKD-EPI equation. Vegetarian diet, extremely high or low muscle mass, and may affect results. Cystatin C with Glomerular Filtration Rate is a suitable alternative for these patients. ANION GAP 8 7 - 16 mmol/L 08/22/2024 7:59 AM [facility] Blood Collection / Unknown 08/22/2024 1:45 AM CDT 08/22/2024 6:39 AM CDT Pérez Pinzon MD CHEMISTRY ORDERABLES Final Resul t [facility] LABORATORY SERVICES - [facility] OUT[facility]ACH [facility] [id number] [address] [place] [address] documented in this encounter Visit Diagnoses Not on filedocumented in this encounter Care Teams Window Shade Cutter And Mounter Relationship Specialty Start Date End Date Chava Sherman MD [address] [place] [address] [phone] PCP - General Internal Medicine 06/19/24 documented as of this encounter
--- OUTSIDE RECORDS SUMMARY | 2025-03-24 15:14 | XMS_ITS | Encounter Summary ---
Author Organization [facility] Address [address] [place] [address] Care Team Providers Care Motion Picture Equipment Supervisor Name Role Phone Chava Sherman MD Primary Care Provider [phone] Encounter Details Date Type Department Care Team (Late st Contact Info) Description 08/30/2024 Lab Requisition [facility] Laboratory Services [address] [place] [address] [place] [address] [phone] Pérez Pinzon MD [address] [place] [address] Social History Tobacco Use Types [...] - 145 mmol/L 08/30/2024 7:24 AM CDT [facility] POTASSIUM 4.2 3.2 - 4.9 mmol/L 08/30/2024 7:24 AM [facility] CHLORIDE 107 98 - 111 mmol/L 08/30/2024 7:24 AM CDT [facility] CO2 24 22 - 29 mmol/L 08/30/2024 7:24 AM [facility] CALCIUM 8.5 8.4 - 10.5 mg/dL 08/30/2024 7:24 AM T [facility] BUN 24 6 - 24 mg/dL 08/30/2024 7:24 AM [facility] CREATININE 0.47(L) 0.50 - 1.20 mg/dL 08/30/2024 7:24 AM [facility] GLUCOSE 103 70 - 115 mg/dL 08/30/2024 7:24 AM [facility] GFR >60 >=60 mL/min/1.7 3 sq meter 08/30/2024 7:24 AM [facility] Comment:eGFR calculated with 2020 CKD-EPI equation. Vegetarian diet, extremely high or low muscle mass, and may affect results. Cystatin C with Glomerular Filtration Rate is a suitable alternative for these patients. ANION GAP 6(L) 7 - 16 mmol/L 08/30/2024 7:24 AM [facility] Blood Collection / Unknown 08/30/2024 2:55 AM CDT 08/30/2024 6:38 AM CDT us Pérez Pinzon MD CHEMISTRY ORDERABLES Final Resul t [facility] [id number] [address] [place] [address] documented in this encounter Visit Diagnoses Not on filedocumented in this encounter Care Teams Motion Picture Equipment Supervisor Relationship Specialty Start Date End Date Chava Sherman MD [address] [place] [address] PCP - General Internal Medicine 06/19/24 documented as of this encounter
--- OUTSIDE RECORDS SUMMARY | 2025-03-24 15:14 | XMS_ITS | Encounter Summary ---
Author Organization [facility] Address [address] [place] [address] Care Team Providers Care Tucking Machine Operator Name Role Phone Chava Sherman MD Primary Care Provider Encounter Details Date Type Department Care Team (Late st Contact Info) Description 09/12/2024 Lab Requisition [facility] Laboratory Services [address] [place] [address] [place] [address] [phone] Pérez Pinzon MD [address] [place] [address] Social History Tobacco Use Types [...] - 4.8 mg/dL 09/12/2024 7:39 AM CDT [facility] Blood Collection / Unknown 09/12/2024 2:30 AM CDT 09/12/2024 5:35 AM CDT us Pérez Pinzon MD CHEMISTRY ORDERABLES Final Resul t [facility] [id number] [address] [place] [address] * TRIGLYCERIDE (09/12/2024 2:30 AM CDT) TRIGLYCERIDE 62 <150 mg/dL 09/12/2024 7:39 AM CDT [facility] Blood Collection / Unknown 09/12/2024 2:30 AM CDT 09/12/2024 5:35 AM CDT Narrative [facility] - 09/12/2024 7:39 AM CDT TRIGLYCERIDES mg/dL Normal < 150 Borderline High 150 - 199 High 200 - 499 Very High >= 500 Based on AHA/NCEP Guidelines. us Pérez Pinzon MD CHEMISTRY ORDERABLES Final Resul t Performing Organization Address City/[facility]/ZIP Co de Phone Number [facility] [id number] [address] [place] [address] * MAGNESIUM LEVEL (09/12/2024 2:30 AM CDT) Pathologist [facility] MAGNESIUM 1.9 1.6 - 2.6 mg/dL 09/12/2024 7:39 AM CDT [facility] Blood Collection / Unknown 09/12/2024 2:30 AM CDT 09/12/2024 5:35 AM CDT Pérez Pinzon MD CHEMISTRY ORDERABLES Final Resul t [facility] [id number] [address] [place] [address] * (ABNORMAL) CBC WITH DIFFERENTIAL (09/12/2024 2:30 AM CDT) Pathologist [facility] WBC 7.7 3.5 - 11.0 K/uL 09/12/2024 9:16 AM CDT [facility] RBC 2.96(L) 3.80 - 5.00 M/uL 09/12/2024 9:16 AM T [facility] HEMOGLOBIN 8.9(L) 11.7 - 15.7 g/dL 09/12/2024 9:16 AM T [facility] HEMATOCRIT 28.2(L) 35.0 - 47.0 % 09/12/2024 9:16 AM T [facility] MCV 95.3 80.8 - 100.0 fL 09/12/2024 9:16 AM T [facility] [employer] [facility] MCH 30.1 26.4 - 34.0 pg 09/12/2024 9:16 AM T [facility] MCHC 31.6 31.4 - 36.3 g/dL 09/12/2024 9:16 AM T [facility] [employer] [facility] RDW 18.7(H) 11.0 - 15.0 % 09/12/2024 9:16 AM T [facility] [employer] [facility] RDW-STDEV 66.4(H) 37.0 - 54.0 fL 09/12/2024 9:16 AM T [facility] LAB[facility]AT[facility] PLATELETS 428 150 - 450 K/uL 09/12/2024 9:16 AM [facility] [employer] [facility] MPV 10.4 7.5 - 11.2 fL 09/12/2024 9:16 AM T [facility] [employer] [facility] NEUTROPHILS 50 50 - 75 % 09/12/2024 9:16 AM T [facility] [employer] [facility] LYMPHOCYTES 37 19 - 48 % 09/12/2024 9:16 AM T [facility] MONOCYTES 8 0 - 10 % 09/12/2024 9:16 AM T [facility] EOSINOPHILS 4 0 - 6 % 09/12/2024 9:16 AM [facility] [employer] [facility] BASOPHILS 1 0 - 2 % 09/12/2024 9:16 AM [facility] [employer] [facility] IMMATURE GRANULOCYTES 0 % 09/12/2024 9:16 AM [facility] [employer] [facility] NEUTROPHIL ABSOLUTE 3.84 >=0.50 K/uL 09/12/2024 9:16 AM [facility] [employer] [facility] LYMPHOCYTE ABSOLUTE 2.88 K/uL 09/12/2024 9:16 AM [facility] [employer] [facility] MONOCYTE ABSOLUTE 0.60 K/uL 025 9:16 AM [facility] [employer] [facility] EOSINOPHIL ABSOLUTE 0.32 K/uL 09/12/2024 9:16 AM [facility] [employer] [facility] BASOPHILS ABSOLUTE 0.05 K/uL 09/12/2024 9:16 AM [facility] IMMATURE GRANULOCYTES ABSOLUTE 0.01 K/uL 09/12/2024 9:16 AM [facility] [employer] [facility] Blood 09/12/2024 2:30 AM CDT 09/12/2024 5:35 AM CDT us Pérez Pinzon MD HEMATOLOGY ORDERABLES Final Resu lt [facility] [id number] [address] [place] [address] * (ABNORMAL) COMPREHENSIVE METABOLIC PANEL (09/12/2024 2:30 AM CDT) SODIUM 135(L) 136 - 145 mmol/L 09/12/2024 7:39 AM T [facility] POTASSIUM 4.1 3.2 - 4.9 mmol/L 09/12/2024 7:39 AM [facility] CHLORIDE 106 98 - 111 mmol/L 09/12/2024 7:39 AM [facility] CO2 26 22 - 29 mmol/L 09/12/2024 7:39 AM [facility] CALCIUM 8.7 8.4 - 10.5 mg/dL 09/12/2024 7:39 AM [facility] BUN 22 6 - 24 mg/dL 09/12/2024 7:39 AM [facility] CREATININE 0.47(L) 0.50 - 1.20 mg/dL 09/12/2024 7:39 AM [facility] GLUCOSE 104 70 - 115 mg/dL 09/12/2024 7:39 AM [facility] TOTAL PROTEIN 7.2 6.0 - 8.4 g/dL 09/12/2024 7:39 AM [facility] ALBUMIN 2.8(L) 3.5 - 5.2 g/dL 09/12/2024 7:39 AM [facility] BILIRUBIN TOTAL 0.2(L) 0.3 - 1.2 mg/dL 09/12/2024 7:39 AM [facility] ALKALINE PHOSPHATASE 189(H) 25 - 117 U/L 09/12/2024 7:39 AM [facility] AST 26 <=33 U/L 09/12/2024 7:39 AM [facility] ALT 11 <=55 U/L 09/12/2024 7:39 AM CDT [facility] GFR >60 >=60 mL/min/1.7 3 sq meter 09/12/2024 7:39 AM T [facility] Comment:eGFR calculated with 2020 CKD-EPI equation. Vegetarian diet, extremely high or low muscle mass, and may affect results. Cystatin C with Glomerular Filtration Rate is a suitable alternative for these patients. ANION GAP 3(L) 7 - 16 mmol/L 09/12/2024 7:39 AM T [facility] Blood Collection / Unknown 09/12/2024 2:30 AM CDT 09/12/2024 5:35 AM CDT us Pérez Pinzon MD CHEMISTRY ORDERABLES Final Resul t [facility] [id number] [address] [place] [address] documented in this encounter Visit Diagnoses Not on filedocumented in this encounter Care Teams Tucking Machine Operator Relationship Specialty Start Date End Date Chava Sherman MD [address] [place] [place] [phone] PCP - General Internal Medicine 06/19/24 documented as of this encounter
--- OUTSIDE RECORDS SUMMARY | 2025-03-24 15:14 | XMS_ITS | Encounter Summary ---
Author Organization [facility] Address [address] [place] [address] Care Team Providers Care Deodorizer Operator Name Role Phone Chava Sherman MD Primary Care Provider [phone] Encounter Details Date Type Department Care Team (Late st Contact Info) Description 08/17/2024 Lab Requisition [facility] Laboratory Services [address] [place] [address] [phone] Pérez Pinzon MD [address] [place] [address] Social History Tobacco Use Types [...] 0.04 <=0.49 ng/mL 08/17/2024 4:05 AM CDT [facility] Blood 08/17/2024 2:32 AM CDT 08/17/2024 3:21 AM CDT Narrative [facility] - 08/17/2024 4:05 AM CDT Interpretation of [...] Pinzon MD CHEMISTRY ORDERABLES Final Resul t [facility] [id number] [address] [place] [phone] * (ABNORMAL) C-REACTIVE PROTEIN (08/17/2024 2:32 AM CDT) Pathologist [facility] CRP 4.6(H) <=0.5 mg/dL 08/17/2024 3:53 AM CDT [facility]ORATORY SERVICES [facility] Blood 08/17/2024 2:32 AM CDT 08/17/2024 3:21 AM CDT Pérez Pinzon MD CHEMISTRY ORDERABLES Final Resul t [facility]ORATORY SERVICES - [facility] [id number] [address] [place] [address] [phone] documented in this encounter Visit Diagnoses Not on filedocumented in this encounter Care Teams Deodorizer Operator Relationship Specialty Start Date End Date Chava Sherman MD [address] [place] [phone] PCP - General Internal Medicine 06/19/24 documented as of this encounter
--- OUTSIDE RECORDS SUMMARY | 2025-03-24 15:14 | XMS_ITS | Data Portability ---
Author Organization [facility], [address] Neurology ([place]) Address [address] 4th [place] [address] Assessment Encounter Date Assessment Date Assessment LastModified by Organization Details LastModified Time 01/23/2024 01/23/2024 Ms. Clark is a 58 -year-old female with history significant for Janessa-en-Y gastric bypass surgery in 2000, history of VBG to gastric bypass with complications of ulcers at her anastomosis perforation. She had complications requiring exploratory laparotomy with temporary abdominal closure with eventual J-tube placement. history of bipolar illness, obesity, malnutrition, history of B12 deficiency, severe malnutrition, adynamic ileus, bacteremia, splenic infarct type 2 diabetes. History of borderline personality disorder. She also has multiple episodes of GI bleed, hematochezia hematemesis multiple blood transfusion esophageal and duodenal ulcer. Multiple hospital admission because of GI bleed. I am seeing this patient first time this morning. -GI bleed due to esophageal and small bowel ulcer. Patient is not having any acute complaint of hematemesis or hematochezia no acute abdominal pain. She had multiple history of GI bleed requiring multiple hospital admission and blood transfusion last EGD was done on December 05 which showed esophageal ulcer and small bowel ulcer. Based on the hospital record there was possibility of changes of gastric bypass with active bleeding marginal ulcer at GJ site and associated enterocolonic fistula. Patient needs to follow-up with surgeon Dr. Davis or Dr. Botello. We are going to reach out to them to find out who is actively involved in her case currently. Will continue with famotidine pantoprazole and sucralfate with sip of water only. Otherwise she is on TPN. -History of Janessa-en-Y gastric bypass, per record it was complicated by multiple bleeds marginal ulcer perforation status post exploratory laparotomy JG revision G-tube placement recurrent ulcer bleed. Vitamins are being repleted via TPN patient must seen her surgeon outpatient sooner. -History of adynamic ileus, I have advised to hold on any narcotics which can exacerbate the situation. Patient is on TPN. Need to see surgeon sooner for any other outpatient surgical planning. -Severe malnourished continue TPN outpatient monitor serial electrolytes magnesium phosphate. Chronic abdominal pain likely related to ulcer disease. Currently she is not having any acute abdominal signs symptoms. Splenic infarct reviewed report there was not any acute management per GI This seizure affective disorder patient is on Abilify and levetiracetam Patient had a bacteremia severe finish Vanco and cefepime and course and repeat blood cultures were negative. -I have explained patient and her daughter in detail that she needs to follow-up with outpatient surgery with Dr. Davis or Dr. Botello sooner, for any further surgical reccomendations pending TPN planning. -She was also supposed to follow-up with GI, [facility], we need to get the record she would need repeat of EGD and other scope he to check on those complicated ulcers. I have explained patient and her daughter in detail that she is very complicated and high risk patient she needs a compliant follow-up with surgeon GI neurology and all other specialist physician. Failure to do so can lead to more GI bleed and further complication that cannot result in frequent hospital admission possibly . They both voiced understanding and agreed with plan. [email or web address] Not available 01/26/2024 12:53:01 03/15/2024 03/15/2024 HISTORY OF PRESE NT ILLNESS: Ms. Clark is a 58-year-old with a complicated medical/surgical history of Janessa-en-Y gastric bypass surgery in 2000, complicated by ulcers, anastomotic perforation, exploratory laparotomy, severe B12 deficiency, bacteriemia, type 2 diabetes, obesity was recently hospitalized in March 2023 for acute abdominal pain. CT scan at that time showed partial large bowel obstruction secondary to colitis at the splenic flexure secondary to her bariatric surgical history. She was started on IV antibiotics and TPN. Platelet counts had dropped to 80,000 from normal counts. A HIT panel was ordered and was only low positive. It was felt to be low probability to begin with. Platelet counts improved spontaneously. She has planned to follow up with reconstruction at [facility]. She is accompanied by her daughter to the clinic. She is currently back on TPN and is being treated for a UTI. Her PCP started her on an antibiotic for another few days. She has ongoing blood in her stools and dark stools and it does not matter what form of tube feeds they use. Denied any nosebleeds. REVIEW OF SYSTEMS: CONST: Fatigue, changes in sleep habits. RESP: No shortness of breath. CV: No chest pain. Ankle swelling. GI: Nausea, vomiting, and diarrhea. : No urinary symptoms or frequency. SKIN: Hair loss and nail changes. MSK: Joint aches and pains. NEURO: Numbness and tingling, incoordination. Reviewed past medical history, surgical history, family history, social history. No changes except as noted. PHYSICAL EXAMINATION: CONST: Middle-aged female appearing old than stated age, sitting in a wheelchair, in no acute distress. RESP: Chest clear to auscultation. Respirations even and unlabored. CV: Heart regular rate and rhythm without murmur. GI: Abdomen soft, nontender. PSYCH: Appropriate mood and affect. NEURO: No speech difficulty. Alert and orientated to person, place, and time. Reviewed pertinent diagnostic tests, lab work, and imaging. These were reviewed with the patient. LAB DATA: 03/15/2024 - CBC: WBC 11.1, Hgb 9.9, MCV 94.9, platelet count 555, ANC 8.0, ALC 2.2. ASSESSMENT AND PLAN: 1. Thrombocytopenia. HIT panel with low probability. Low counts were felt to be likely related to the infection and obstruction. She is currently being treated for a UTI. Platelet counts have recovered. Obtain iron, B12, and folic acid again. - RTC in 4 months to check her platelet counts closely with repeat CBC, BMP, and iron studies as well. The patient verbalized understanding of plan of care and will call us sooner if needed with any questions or concerns. [email or web address] Not available 03/21/2024 06:25:00 Plan of Treatment Reminders Order Date Submit Date Provider Last Modified By Organization Details Last Modified Time Details Appointments None recorded. Lab CBC w/ auto diff 2023 024 [facility] - [facility], [address] [place] [address], [id number], 14:35:29 CMP, serum or plasma 2023 [facility], [address] [place] [address], [id number], 17:35:00 hemoglobin A1c + average glucose, QN, blood 2023 [facility], [address] [place] [address], 01170, 15:50:42 hepatic function panel, serum 2023 [facility], [address] [place] [address], [id number], 15:56:08 urinalysis complete, reflex culture 2023 [email or web address] 4 [facility], [address] [place] [address], [id number], 13:15:19 Referral None recorded. Procedures None recorded. Surgeries None recorded. Imaging None recorded. Medication Orders None recorded. Patient TargetsNo targets recorded. Patient InstructionsNo instructions recorded. Reason for Referral None Reported. Results Created Date Observation Date Name Description Value Unit Range Abnormal Flag Note LastModifiedBy Organization Detail LastModifiedTime 01/23/2001/23/2024 CBC w/ auto diff CBC with differential Not Available [facility] - [facility] [address] [place] [address], 12343, 01/23/2024 14:35:29 01/23/2001/23/2024 CBC w/ auto diff WBC 13.0 K/uL 3.8-11 .2 high Not Available [facility] - [facility] [address] [place] [address], 91223, 01/23/2024 14:35:29 01/23/2001/23/2024 CBC w/ auto diff RBC 3.70 M/uL 3.92-5 .10 low Not Available [facility] - [facility] [address] [place] [address], 44391, 01/23/2024 14:35:29 01/23/20 24 01/23/2024 CBC w/ auto diff HGB 11.6 g/dL 11.8-1 5.3 low Not Available [facility] - [facility] [address] [place] [address], 36240, 01/23/2024 14:35:29 01/23/2001/23/2024 CBC w/ auto diff HCT 33.6 % 36.5-4 4.8 low Not Available [facility] - [facility] [address] [place] [address], 91928, 01/23/2024 14:35:29 01/23/2001/23/2024 CBC w/ auto diff MCV 90.8 fL 80.0-9 9.0 Not Available [facility] - [facility] [address] [place] [address], 26240, 01/23/2024 14:35:29 01/23/2001/23/2024 CBC w/ auto diff MCH 31.4 pg 25.5-3 3.6 Not Available [facility] - [facility] [address] [place] [address], 39492, 01/23/2024 14:35:29 01/23/2001/23/2024 CBC w/ auto diff MCHC 34.5 g/dL 32.0-3 6.0 Not Available [facility] - [facility] [address] [place] [address], 21673, 01/23/2024 14:35:29 01/23/20 24 01/23/2024 CBC w/ auto diff RDW-SD 60.5 fL 35.1 - 46.3 high Not Available [facility] - [facility] [address] [place] [address], 02861, 01/23/2024 14:35:29 01/23/20 24 01/23/2024 CBC w/ auto diff plt 362 K/uL 130-40 0 Not Available [facility] - [facility] [address] [place] [address], 01686, 01/23/2024 14:35:29 01/23/20 24 01/23/2024 CBC w/ auto diff MPV 11.8 fL 9.3-12 .8 Not Available [facility] - [facility] [address] [place] [address], 67369, 01/23/2024 14:35:29 01/23/20 24 01/23/2024 CBC w/ auto diff pau% 59.8 % not estab Not Available [facility] - [facility] [address] [place] [address], 34203, 01/23/2024 14:35:29 01/23/2001/23/2024 CBC w/ auto diff lym% 31.4 % not estab Not Available [facility] - [facility] [address] [place] [address], 77325, 01/23/2024 14:35:29 01/23/20 24 01/23/2024 CBC w/ auto diff mono% 6.7 % not estab Not Available [facility] - [facility] [address] [place] [address], 03098, 01/23/2024 14:35:29 01/23/20 24 01/23/2024 CBC w/ auto diff eos% 1.5 % not estab Not Available [facility] - [facility] [address] [place] [address], 91411, 01/23/2024 14:35:29 01/23/20 24 01/23/2024 CBC w/ auto diff baso% 0.3 % not estab Not Available [facility] - [facility] [address] [place] [address], 85237, 01/23/2024 14:35:29 01/23/20 24 01/23/2024 CBC w/ auto diff abs pau 7.7 K/uL 1.8-7. 5 high Not Available [facility] - [facility] [address] [place] [address], 17368, 01/23/2024 14:35:29 01/23/20 24 01/23/2024 CBC w/ auto diff abs lym 4.1 K/uL 1.1-3. 3 high Not Available [facility] - [facility] [address] [place] [address], 16532, 01/23/2024 14:35:29 01/23/20 24 01/23/2024 CBC w/ auto diff abs mono 0.9 K/uL 0.1-1. 0 Not Available [facility] - [facility] [address] [place] [address], 12484, 01/23/2024 14:35:29 01/23/20 24 01/23/2024 CBC w/ auto diff abs eos 0.2 K/uL 0.0-0. 7 Not Available [facility] - [facility] [address] [place] [address], 92790, 01/23/2024 14:35:29 01/23/20 24 01/23/2024 CBC w/ auto diff abs baso 0.0 K/uL 0.0-0. 2 Not Available [facility] - [facility] [address] [place] [address], 05046, 01/23/2024 14:35:29 01/23/20 24 01/23/2024 CBC w/ auto diff imm. gran % 0.3 % 0-5 Not Available [facility] - [facility] [address] [place] [address], 35530, 01/23/2024 14:35:29 01/23/20 24 01/23/2024 CBC w/ auto diff NRBC % 0.0 % 0.0-0. 2 Not Available [facility] - [facility] [address] [place] [address], 67920, 01/23/2024 14:35:29 01/23/2001/23/2024 hemog lobin A1c + avera ge gluco se, QN, blood hemoglobin A1C Not Available [facility] [address] [place] [address], 91308, 01/23/2024 15:50:42 01/23/20 24 01/23/2024 hemog lobin A1c + avera ge gluco se, QN, blood HGB A1C 5.4 %_A1C 4.3 - 5.6 Not Available [facility] [address] [place] [address], 65726, 01/23/2024 15:50:42 01/23/2001/23/2024 hemog lobin A1c + avera ge gluco se, QN, blood estimated average glucose 108 mg/dL Not Available [facility] [address] [place] [address], 85382, 01/23/2024 15:50:42 01/23/2001/23/2024 hepat ic funct ion panel , serum liver function panel Not Available [facility] [address] [place] [address], 69694, 01/23/2024 16:04:59 01/23/2001/23/2024 hepat ic funct ion panel , serum direct bilirubin 0.3 mg/dL 0.1-0. 5 Sampl e sligh tly hemol yzed, resul ts may be false ly decre ased. Not Available [facility] - [facility] [address] [place] [address], 71427, 01/23/2024 16:04:59 01/23/20 24 01/23/2024 hepat ic funct ion panel , serum indirect bilirubin 0.2 mg/dL 0.1-0. 6 Not Available [facility] - [facility] [address] [place] [address], 92020, 01/23/2024 16:04:59 10/22/20 24 01/23/2024 CMP, serum or plasm a comp. met. panel Not Available [facility] [address] [place] [address], 53883, 01/23/2024 17:35:00 01/23/2001/23/2024 CMP, serum or plasm a sodium 130 mmol/ L 136-14 6 low Not Available [facility] - [facility] [address] [place] [address], 54091, 01/23/2024 17:35:00 01/23/2001/23/2024 CMP, serum or plasm a potassium 4.8 mmol/ L 3.5-5. 1 Not Available [facility] [address] [place] [address], 58412, 01/23/2024 17:35:00 01/23/20 24 01/23/2024 CMP, serum or plasm a chloride 102 mmol/ L 98-110 Not Available [facility] [address] [place] [address], 08860, 01/23/2024 17:35:00 01/23/20 24 01/23/2024 CMP, serum or plasm a CO2 20 mEq/L 20-32 Not Available [facility] [address] [place] [address], 24968, 01/23/2024 17:35:00 01/23/20 24 01/23/2024 CMP, serum or plasm a anion gap 13 mmol/ L 10-22 Not Available [facility] - [facility] [address] [place] [address], 75182, 01/23/2024 17:35:00 01/23/2001/23/2024 CMP, serum or plasm a glucose 134 mg/dL 70-100 high Not Available [facility] [address] [place] [address], 81069, 01/23/2024 17:35:00 01/23/20 24 01/23/2024 CMP, serum or plasm a calcium 8.9 mg/dL 8.4-10 .4 Not Available [facility] - [facility] [address] [place] [address], 80125, 01/23/2024 17:35:00 01/23/2001/23/2024 CMP, serum or plasm a total protein 7.4 g/dL 6.4-8. 3 Not Available [facility] [address] [place] [address], 24659, 01/23/2024 17:35:00 01/23/20 24 01/23/2024 CMP, serum or plasm a albumin 3.1 g/dL 3.5-5. 3 low Not Available [facility] [address] [place] [address], 55835, 01/23/2024 17:35:00 01/23/2001/23/2024 CMP, serum or plasm a ALP 236 U/L 44 - 127 high Not Available [facility] [address] [place] [address], 76707, 01/23/2024 17:35:00 01/23/20 24 01/23/2024 CMP, serum or plasm a AST (SGOT) 62 U/L 10-40 high Not Available [facility] [address] [place] [address], 70008, 01/23/2024 17:35:00 01/23/20 24 01/23/2024 CMP, serum or plasm a total bilirubin 0.5 mg/dL 0.2-1. 0 Not Available [facility] - [facility] [address] [place] [address], 59219, 01/23/2024 17:35:00 01/23/20 24 01/23/2024 CMP, serum or plasm a ALT (SGPT) 57 U/L 8-35 high Not Available [facility] [address] [place] [address], 68312, 01/23/2024 17:35:00 01/23/20 24 01/23/2024 CMP, serum or plasm a BUN 23 mg/dL 7-21 high Not Available [facility] - [facility] [address] [place] [address], 58928, 01/23/2024 17:35:00 01/23/20 24 01/23/2024 CMP, serum or plasm a creatinine 0.6 mg/dL 0.7-1. 3 low Not Available [facility] - [facility] [address] [place] [address], 27366, 01/23/2024 17:35:00 01/23/20 24 01/23/2024 CMP, serum or plasm a GFR(non-afri can swedish) 110 Not Available [facility] - [facility] [address] [place] [address], 16191, 01/23/2024 17:35:00 01/23/20 24 01/23/2024 CMP, serum or plasm a GFR() 133 ([employer] DOT KIDNE Y DISEA SE HAS A GFR LESS THAN 60 ML/WA N/1.7 3 MM FOR A PERIO D OF THREE MONTH S OR MORE. ) Not Available [facility] - [facility] [address] [place] [address], 18547, 01/23/2024 17:35:00 03/04/20 24 03/06/2024 HEPAR IN AB heparin associated antibodies 0.111 OD Patie nt's serum is negat libby for antib odies impli cated in the patho genes is of hepar in-in duced throm bocyt openi a (HIT) . Negat libby resul ts have appro ximat johana a 90% predi ctive value for exclu ding immun e-med iated HIT (HIT Type II) but do not compl etely exclu de HIT, espec ially when the clini franky proba bilit y is high. Clini franky corre latio n is requi red. A direc t corre latio n has not been estab lishe d betwe en optic al densi ty (OD) value and the throm bosis risk. Nonet heles s, one study (J Throm bosis Haemo stasi s 2:213 3-372003) found that patie nts with the OD value s great er than or equal to 1.0 had a six-f old throm bosis risk milad red with patie nts with OD value s betwe en 0.400 and 0.990 (abso lute throm bosis risk 36% vs. 9%). Not Available [facility] Only - [facility] [address] [place] [address], [place], [address], 03/06/2024 15:28:41 03/15/2003/15/2024 CBC w/ auto diff CBC with differential Not Available [facility] - [facility] [address] [place] [address], 58201, 03/15/2024 12:12:26 03/15/20 24 03/15/2024 CBC w/ auto diff WBC 11.1 K/uL 3.8-11 .2 Not Available [facility] - [facility] [address] [place] [address], 00732, 03/15/2024 12:12:26 03/15/20 24 03/15/2024 CBC w/ auto diff RBC 3.13 M/uL 3.92-5 .10 low Not Available [facility] [address] [place] [address], 51925, 03/15/2024 12:12:26 03/15/20 24 03/15/2024 CBC w/ auto diff HGB 9.9 g/dL 11.8-1 5.3 low Not Available [facility] [address] [place] [address], 49458, 03/15/2024 12:12:26 03/15/20 24 03/15/2024 CBC w/ auto diff HCT 29.7 % 36.5-4 4.8 low Not Available [facility] [address] [place] [address], 69250, 03/15/2024 12:12:26 03/15/20 24 03/15/2024 CBC w/ auto diff MCV 94.9 fL 80.0-9 9.0 Not Available [facility] [address] [place] [address], 28910, 03/15/2024 12:12:26 03/15/20 24 03/15/2024 CBC w/ auto diff MCH 31.6 pg 25.5-3 3.6 Not Available [facility] [address] [place] [address], 13907, 03/15/2024 12:12:26 03/15/20 24 03/15/2024 CBC w/ auto diff MCHC 33.3 g/dL 32.0-3 6.0 Not Available [facility] [address] [place] [address], 71181, 03/15/2024 12:12:26 03/15/20 24 03/15/2024 CBC w/ auto diff RDW-SD 57.3 fL 35.1 - 46.3 high Not Available [facility] [address] [place] [address], 51174, 03/15/2024 12:12:26 03/15/20 24 03/15/2024 CBC w/ auto diff plt 555 K/uL 130-40 0 high Not Available [facility] - [facility] [address] [place] [address], 18739, 03/15/2024 12:12:26 03/15/20 24 03/15/2024 CBC w/ auto diff MPV 9.9 fL 9.3-12 .8 Not Available [facility] - [facility] [address] [place] [address], 98329, 03/15/2024 12:12:26 03/15/20 24 03/15/2024 CBC w/ auto diff pau% 72.1 % not estab Not Available [facility] [address] [place] [address], 04970, 03/15/2024 12:12:26 03/15/20 24 03/15/2024 CBC w/ auto diff lym% 20.1 % not estab Not Available [facility] [address] [place] [address], 21072, 03/15/2024 12:12:26 03/15/20 24 03/15/2024 CBC w/ auto diff mono% 5.9 % not estab Not Available [facility] [address] [place] [address], 56275, 03/15/2024 12:12:26 03/15/20 24 03/15/2024 CBC w/ auto diff eos% 0.9 % not estab Not Available [facility] [address] [place] [address], 53771, 03/15/2024 12:12:03/15/20 24 03/15/2024 CBC w/ auto diff baso% 0.5 % not estab Not Available [facility] [address] [place] [address], 59234, 03/15/2024 12:12:26 03/15/20 24 03/15/2024 CBC w/ auto diff abs pau 8.0 K/uL 1.8-7. 5 high Not Available [facility] [address] [place] [address], 95340, 03/15/2024 12:12:26 03/15/20 24 03/15/2024 CBC w/ auto diff abs lym 2.2 K/uL 1.1-3. 3 Not Available [facility] [address] [place] [address], 84667, 03/15/2024 12:12:26 03/15/20 24 03/15/2024 CBC w/ auto diff abs mono 0.7 K/uL 0.1-1. 0 Not Available [facility] [address] [place] [address], 40673, 03/15/2024 12:12:26 03/15/20 24 03/15/2024 CBC w/ auto diff abs eos 0.1 K/uL 0.0-0. 7 Not Available [facility] [address] [place] [address], 41712, 03/15/2024 12:12:26 03/15/20 24 03/15/2024 CBC w/ auto diff abs baso 0.1 K/uL 0.0-0. 2 Not Available [facility] [address] [place] [address], 85153, 03/15/2024 12:12:26 03/15/20 24 03/15/2024 CBC w/ auto diff imm. gran % 0.5 % 0-5 Diffe renti al verif ied by scan Sligh t aniso cytos is Sligh t poiki locyt osis Sligh t polyc hroma ileana Sligh t hypoc hroma ileana Few targe t cells Plate lets appea r incre ased Few plate let clump s prese nt Not Available [facility] - [facility] [address] [place] [address], 67874, 03/15/2024 12:12:26 03/15/20 24 03/15/2024 CBC w/ auto diff NRBC % 0.0 % 0.0-0. 2 Not Available [facility] [address] [place] [address], 78253, 03/15/2024 12:12:26 03/15/20 24 03/15/2024 retic ulocy te count , auto, blood reticulocyte high Not Available [facility] - [facility] [address] [place] [address], 24289, 03/15/2024 14:25:01 03/15/20 24 03/15/2024 retic ulocy te count , auto, blood reticulocyte 5.7 % 0.6-1. 7 high Not Available [facility] [address] [place] [address], 78780, 03/15/2024 14:25:01 03/15/20 24 03/15/2024 retic ulocy te count , auto, blood imm. retic % 27.1 % 2.3-15 .9 high Not Available [facility] [address] [place] [address], 79068, 03/15/2024 14:25:01 03/15/20 24 03/15/2024 folat e, serum folate-serum 9.40 NG/mL 5.9 - >24 <4 = Defic ient Speci mens that conta in high level s of bioti n may cause false ly high Folat e resul ts. Not Available [facility] [address] [place] [address], 41897, 03/15/2024 16:16:26 03/15/20 24 03/15/2024 vitam in B12, serum vitamin B12 813 pg/mL 180-91 4 <145 pg/mL = Defic ient 145 - 180 pg/mL = Inter media te Not Available [facility] - [facility] [address] [place] [address], 93191, 03/15/2024 16:18:56 03/15/20 24 03/15/2024 iron panel , serum or plasm a iron panel Not Available [facility] [address] [place] [address], 06327, 03/15/2024 18:04:59 03/15/20 24 03/15/2024 iron panel , serum or plasm a iron 28 ug/dL 50-212 low Sampl e sligh tly hemol yzed, resul ts may be false ly decre ased. Not Available [facility] [address] [place] [address], 72664, 03/15/2024 18:04:59 03/15/20 24 03/15/2024 iron panel , serum or plasm a % saturation 14 % 20-55 low Not Available [facility] [address] [place] [address], 89502, 03/15/2024 18:04:59 03/15/20 24 03/15/2024 iron panel , serum or plasm a ferritin 850 NG/mL 12-150 high Not Available [facility] [address] [place] [address], 92082, 03/15/2024 18:04:59 03/15/2003/15/2024 iron panel , serum or plasm a TIBC. 194 ug/dL 205 - 512 low Not Available [facility] [address] [place] [address], 83646, 03/15/2024 18:04:59 12/25/19 24 12/09/2023 XR, angio gram, visce [facility] [address] [place] [address] Name: NABILA CLARK 7 Age: 58 : 1965 Exam Date: 2023 ACCESS ION: [id number] ORDERI SAUL MD: RODDY JACOME EXAMIN ATION: Viscer al angiog tara and emboli zation IMPRES FERDINAND: 1. Celiac and spleni c angiog debra demons trated multip le short gastri c and distal spleni c pseudo aneury sm with active arteri al extrav asatio n. 2. Succes sful emboli zation of short gastri c and distal spleni c artery pseudo aneury sm were perfor med using coil and glue. 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 CTA demons trated active extrav asatio n PROCED URE: 1. Ultras ound guided right common femora l arteri otomy. 2. Select libby Cathet erizat ion and first order angiog geovanni of the celiac artery . 3. Select libby Cathet erizat ion and angiog geovanni of the 2nd order branch es of spleni c artery via select libby cathet er positi on . 4. Select libby Cathet erizat ion and angiog geovanni of the 3rd order branch es of short gastri c artery via select libby cathet er positi on. 5. Select libby Cathet erizat ion and angiog geovanni of the 2nd order branch es of left gastic artery via select libby cathet er positi on. 6. Select libby Cathet erizat ion and first order angiog geovanni of the inferi or mesent rhea artery . 7. Coil emboli zation of short gastri c artery . 8. Glue emboli zation of distal spleni c artery and short gastri c arteri es. 8. Limite d right common femora l angiog geovanni. 9. Hemost asis of right common femora l arteri otomy with manual compre ssion. Prior to the proced ure, both verbal and writte n inform ed consen t obtain ed from the patien t's POA. A pre-pr ocedur e timeou t was perfor med identi fying patien t, proced ure, site and consen t. Maximu m Steril e Solomon r Techni que was utiliz ed. 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 Hand hygien e, a large steril e sheet for drapin g the patien t and 2% chlorh exidin e for scrubb ing were utiliz ed. The patien t was placed on the interv ention al table in the supine positi on. The right groin was preppe d and draped in usual steril e fashio n. 1% lidoca ine admini stered for local anesth esia. Ultras ound demons trated patent right common femora l artery . Under ultras ound guidan ce, right common femora l arteri otomy made with a microp unctur e needle . Image was saved. Microp unctur e needle ultima tely exchan ged for a 11 cm 5 [place] sheath . The celiac artery was cathet erized with a 5 [place] SOS cathet er. Angiog geovanni perfor med which demons trated multip le distal spleni c and short gastri c pseudo aneury sms. A 2.8 [place] Progre at microc athete r and 0.016 Fathom microw brian was advanc ed and spleni c artery was cathet erized . Angiog tara perfor med which redemo nstrat ed the pseudo aneury sms. Cathet er was advanc ed furthe r into the second and third order branch es of the proxim al short gastri c artery pseudo aneury sm. Active extrav asatio n was identi fied. Subseq uently , the pseudo aneury sm outflo w emboli zation was perfor med with 3mm x 4cm concer to, 3mm x 4cm concer to and inflow with 3mm x 4cm Azur CX 18. Therea fter, the Progre at cathet er was exchan ged for a Merit Maestr o microc athete r 2.8 Fr for distal cathet erizat ion using Synchr o 200 cm microw brian. The distal spleni c and short gastri c artery were cathet erized . Angiog tara perfor med demons trated multip le pseudo aneury sms in the distal spleni c and short gastri c arteri al branch es. Active extrav asatio n was identi fied. Glue emboli zation of the pseudo aneury sms were perfor med to treat the distal spleni c and short gasrti c bleedi ng source . Subseq uently , the left gastri c and inferi or mesent rhea arteri es were cathet erized and angiog tara was perfor med. No active extrav ation. The cathet ers were remove d. Limite d right common femora l angiog geovanni perfor med was unsucc essful . Right common femora l arteri otomy hemost asis was achiev ed with manual compre ssion. The proced ure was well tolera daysi with no immedi ate compli cation . Face to face Anesth esia/s edatio n Level of anesth esia: Modera te sedati on . Anesth esia admini stered by: Contin uous monito ring by sarah latham traine d observ er . Durati on of anesth esia/s edatio n: Sedati on meds: 0 Sedati on start time: 0 Sedati on stop time: 0. Flouro scopy: Fluoro time (min): 9.7 Number of films used: 15 Radiat ion Dose in mGy: [address] Materi al: 40ml of omnipa [id number] FINDIN GS: 1. Angiog tara demons trates patent celiac artery axis. Multip le pseudo aneury sms involv ing the distal spleni c and short gastri c artery branch es were identi fied with acttiv e extrav asatio n. 2. Succes sful emboli zation of the pseudo aneury sms were treate d with coil and glue to comple te stasis . Left gastri c and inferi or mesent rhea arteri y angiog debra showed no active extrav ation or pseudo aneury sm. COMPLI CATION S: Patien t tolera daysi the proced ure well withou t immedi ate compli cation . Premed icatio n for IV Contra st Allerg y was not utiliz ed. All items insert ed into the patien t during the proced ure were visual ly inspec daysi upon insert ion and exit and found to beinta ct. Attest ation I, Agusto Cr MD, attest that I was presen t for the entire proced ure. [facility] PQRS / Depart mental Docume ntatio n: Measur e 21: Prophy lactic antibi otic consis ting of a first or second genera tion cephal ospori n was not given accord ing to standa rd practi ce. Measur e 22: Prophy lactic antibi otic was discon tinued after the proced ure accord ing to standa rd practi ce. Measur e 23: Venous Thromb oembol ic Prophy laxis was given within 24 hours of the proced ure accord ing to standa rd practi ce. Measur e 145: Fluoro time (min): 9.7 Number of films used: 15 Radiat ion Dose in mGy: 436 Measur e 195: Caroti d stenos is measur ement above is in refere nce to the distal Process Project Engineer al Caroti d Artery diamet er accord ing to NASCET guidel scarlet. All instru ments were remove d and inspec daysi at the end of the case. They were found to be intact . Premed icatio n for IV Contra st was not utiliz ed. Final Report Dictat ed: 16:42 Agusto Cr MD Signed : 08:02 Agusto Cr MD [id number] Or Only - [facility] Rad [address] [place] [address], [id number], 12/25/2023 09:27:09 12/25/19 24 12/09/2023 XR, angio gram, visce [facility] [address] [place] [address] [phone] Name: NABILA CLARK 7 Age: 58 : 1965 Exam Date: 2023 ACCESS ION: [id number] ORDERI NG MD: RODDY JACOME EXAMIN ATION: Viscer al angiog tara and emboli zation IMPRES FERDINAND: 1. Celiac and spleni c angiog debra demons trated multip le short gastri c and distal spleni c pseudo aneury sm with active arteri al extrav asatio n. 2. Succes sful emboli zation of short gastri c and distal spleni c artery pseudo aneury sm were perfor med using coil and glue. 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 CTA demons trated active extrav asatio n PROCED URE: 1. Ultras ound guided right common femora l arteri otomy. 2. Select libby Cathet erizat ion and first order angiog geovanni of the celiac artery . 3. Select libby Cathet erizat ion and angiog geovanni of the 2nd order branch es of spleni c artery via select libby cathet er positi on . 4. Select libby Cathet erizat ion and angiog geovanni of the 3rd order branch es of short gastri c artery via select libby cathet er positi on. 5. Select libby Cathet erizat ion and angiog geovanni of the 2nd order branch es of left gastic artery via select libby cathet er positi on. 6. Select libby Cathet erizat ion and first order angiog geovanni of the inferi or mesent rhea artery . 7. Coil emboli zation of short gastri c artery . 8. Glue emboli zation of distal spleni c artery and short gastri c arteri es. 8. Limite d right common femora l angiog geovanni. 9. Hemost asis of right common femora l arteri otomy with manual compre ssion. Prior to the proced ure, both verbal and writte n inform ed consen t obtain ed from the patien t's POA. A pre-pr ocedur e timeou t was perfor med identi fying patien t, proced ure, site and consen t. Simonu m Steril e Solomon r Techni que was utiliz ed. 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 Hand hygien e, a large steril e sheet for drapin g the patien t and 2% chlorh exidin e for scrubb ing were utiliz ed. The patien t was placed on the interv ention al table in the supine positi on. The right groin was preppe d and draped in usual steril e fashio n. 1% lidoca ine admini stered for local anesth esia. Ultras ound demons trated patent right common femora l artery . Under ultras ound guidan ce, right common femora l arteri otomy made with a microp unctur e needle . Image was saved. Microp unctur e needle ultima tely exchan ged for a 11 cm 5 [place] sheath . The celiac artery was cathet erized with a 5 [place] SOS cathet er. Angiog geovanni perfor med which demons trated multip le distal spleni c and short gastri c pseudo aneury sms. A 2.8 [place] Progre at microc athete r and 0.016 Fathom microw brian was advanc ed and spleni c artery was cathet erized . Angiog tara perfor med which redemo nstrat ed the pseudo aneury sms. Cathet er was advanc ed furthe r into the second and third order branch es of the proxim al short gastri c artery pseudo aneury sm. Active extrav asatio n was identi fied. Subseq uently , the pseudo aneury sm outflo w emboli zation was perfor med with 3mm x 4cm concer to, 3mm x 4cm concer to and inflow with 3mm x 4cm Azur CX 18. Therea fter, the Progre at cathet er was exchan ged for a Merit Maestr o microc athete r 2.8 Fr for distal cathet erizat ion using Synchr o 200 cm microw brian. The distal spleni c and short gastri c artery were cathet erized . Angiog tara perfor med demons trated multip le pseudo aneury sms in the distal spleni c and short gastri c arteri al branch es. Active extrav asatio n was identi fied. Glue emboli zation of the pseudo aneury sms were perfor med to treat the distal spleni c and short gasrti c bleedi ng source . Subseq uently , the left gastri c and inferi or mesent rhea arteri es were cathet erized and angiog tara was perfor med. No active extrav ation. The cathet ers were remove d. Limite d right common femora l angiog geovanni perfor med was unsucc essful . Right common femora l arteri otomy hemost asis was achiev ed with manual compre ssion. The proced ure was well tolera daysi with no immedi ate compli cation . Face to face Anesth esia/s edatio n Level of anesth esia: Modera te sedati on . Anesth esia admini stered by: Contin uous monito ring by sarah latham traine d observ er . Durati on of anesth esia/s edatio n: Sedati on meds: 0 Sedati on start time: 0 Sedati on stop time: 0. Flouro scopy: Fluoro time (min): 9.7 Number of films used: 15 Radiat ion Dose in mGy: [address] Materi al: 40ml of omnipa [id number] FINDIN GS: 1. Angiog tara demons trates patent celiac artery axis. Multip le pseudo aneury sms involv ing the distal spleni c and short gastri c artery branch es were identi fied with acttiv e extrav asatio n. 2. Succes sful emboli zation of the pseudo aneury sms were treate d with coil and glue to comple te stasis . Left gastri c and inferi or mesent rhea arteri y angiog debra showed no active extrav ation or pseudo aneury sm. COMPLI CATION S: Patien t tolera daysi the proced ure well withou t immedi ate compli cation . Premed icatio n for IV Contra st Allerg y was not utiliz ed. All items insert ed into the patien t during the proced ure were visual ly inspec daysi upon insert ion and exit and found to beinta ct. Attest ation I, Agusto Cr MD, attest that I was presen t for the entire proced ure. [facility] PQRS / Depart mental Docume ntatio n: Measur e 21: Prophy lactic antibi otic consis ting of a first or second genera tion cephal ospori n was not given accord ing to standa rd practi ce. Measur e 22: Prophy lactic antibi otic was discon tinued after the proced ure accord ing to standa rd practi ce. Measur e 23: Venous Thromb oembol ic Prophy laxis was given within 24 hours of the proced ure accord ing to standa rd practi ce. Measur e 145: Fluoro time (min): 9.7 Number of films used: 15 Radiat ion Dose in mGy: 436 Measur e 195: Caroti d stenos is measur ement above is in refere nce to the distal Process Project Engineer al Caroti d Artery diamet er accord ing to NASCET guidel scarlet. All instru ments were remove d and inspec daysi at the end of the case. They were found to be intact . Premed icatio n for IV Contra st was not utiliz ed. Final Report Dictat ed: 16:42 Agusto Cr MD Signed : 08:02 Agusto Cr MD [id number] Or Only - [facility] [address] [place] [address], [id number], 12/25/2023 09:27:09 12/25/19 24 12/09/2023 ang embo art /thomas hemor rhage [facility] [address] [place] [address] Name: NABILA CLARK 7 Age: 58 : 1965 Exam Date: 2023 ACCESS ION: [id number] CESAR HUGHES MD: NAA , RAKSHI T R. EXAMIN ATION: Viscer al angiog tara and emboli zation IMPRES FERDIANND: 1. Celiac and spleni c angiog debra demons trated multip le short gastri c and distal spleni c pseudo aneury sm with active arteri al extrav asatio n. 2. Succes sful emboli zation of short gastri c and distal spleni c artery pseudo aneury sm were perfor med using coil and glue. 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 CTA demons trated active extrav asatio n PROCED URE: 1. Ultras ound guided right common femora l arteri otomy. 2. Select libby Cathet erizat ion and first order angiog geovanni of the celiac artery . 3. Select libby Cathet erizat ion and angiog geovanni of the 2nd order branch es of spleni c artery via select libby cathet er positi on . 4. Select libby Cathet erizat ion and angiog geovanni of the 3rd order branch es of short gastri c artery via select libby cathet er positi on. 5. Select libby Cathet erizat ion and angiog geovanni of the 2nd order branch es of left gastic artery via select libby cathet er positi on. 6. Select libby Cathet erizat ion and first order angiog geovanni of the inferi or mesent rhea artery . 7. Coil emboli zation of short gastri c artery . 8. Glue emboli zation of distal spleni c artery and short gastri c arteri es. 8. Limite d right common femora l angiog geovanni. 9. Hemost asis of right common femora l arteri otomy with manual compre ssion. Prior to the proced ure, both verbal and writte n inform ed consen t obtain ed from the patien t's POA. A pre-pr ocedur e timeou t was perfor med identi fying patien t, proced ure, site and consen t. Robert m Steril e Solomon r Techni que was utiliz ed. 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 Hand hygien e, a large steril e sheet for drapin g the patien t and 2% chlorh exidin e for scrubb ing were utiliz ed. The patien t was placed on the interv ention al table in the supine positi on. The right groin was preppe d and draped in usual steril e fashio n. 1% lidoca ine admini stered for local anesth esia. Ultras ound demons trated patent right common femora l artery . Under ultras ound guidan ce, right common femora l arteri otomy made with a microp unctur e needle . Image was saved. Microp unctur e needle ultima tely exchan ged for a 11 cm 5 [place] sheath . The celiac artery was cathet erized with a 5 [place] SOS cathet er. Angiog geovanni perfor med which demons trated multip le distal spleni c and short gastri c pseudo aneury sms. A 2.8 [place] Progre at microc athete r and 0.016 Fathom microw brian was advanc ed and spleni c artery was cathet erized . Angiog tara perfor med which redemo nstrat ed the pseudo aneury sms. Cathet er was advanc ed furthe r into the second and third order branch es of the proxim al short gastri c artery pseudo aneury sm. Active extrav asatio n was identi fied. Subseq uently , the pseudo aneury sm outflo w emboli zation was perfor med with 3mm x 4cm concer to, 3mm x 4cm concer to and inflow with 3mm x 4cm Azur CX 18. Therea fter, the Progre at cathet er was exchan ged for a Merit Maestr o microc athete r 2.8 Fr for distal cathet erizat ion using Synchr o 200 cm microw brian. The distal spleni c and short gastri c artery were cathet erized . Angiog tara perfor med demons trated multip le pseudo aneury sms in the distal spleni c and short gastri c arteri al branch es. Active extrav asatio n was identi fied. Glue emboli zation of the pseudo aneury sms were perfor med to treat the distal spleni c and short gasrti c bleedi ng source . Subseq uently , the left gastri c and inferi or mesent rhea arteri es were cathet erized and angiog tara was perfor med. No active extrav ation. The cathet ers were remove d. Limite d right common femora l angiog geovanni perfor med was unsucc essful . Right common femora l arteri otomy hemost asis was achiev ed with manual compre ssion. The proced ure was well tolera daysi with no immedi ate compli cation . Face to face Anesth esia/s edatio n Level of anesth esia: Modera te sedati on . Anesth esia admini stered by: Contin uous monito ring by sarah latham traine d observ er . Durati on of anesth esia/s edatio n: Sedati on meds: 0 Sedati on start time: 0 Sedati on stop time: 0. Flouro scopy: Fluoro time (min): 9.7 Number of films used: 15 Radiat ion Dose in mGy: [address] Materi al: 40ml of omnipa [id number] FINDIN GS: 1. Angiog tara demons trates patent celiac artery axis. Multip le pseudo aneury sms involv ing the distal spleni c and short gastri c artery branch es were identi fied with acttiv e extrav asatio n. 2. Succes sful emboli zation of the pseudo aneury sms were treate d with coil and glue to comple te stasis . Left gastri c and inferi or mesent rhea arteri y angiog debra showed no active extrav ation or pseudo aneury sm. COMPLI CATION S: Patien t tolera daysi the proced ure well withou t immedi ate compli cation . Premed icatio n for IV Contra st Allerg y was not utiliz ed. All items insert ed into the patien t during the proced ure were visual ly inspec daysi upon insert ion and exit and found to beinta ct. Attest ation I, Agusto Cr MD, attest that I was presen t for the entire proced ure. [facility] PQRS / Depart mental Docume ntatio n: Measur e 21: Prophy lactic antibi otic consis ting of a first or second genera tion cephal ospori n was not given accord ing to standa rd practi ce. Measur e 22: Prophy lactic antibi otic was discon tinued after the proced ure accord ing to standa rd practi ce. Measur e 23: Venous Thromb oembol ic Prophy laxis was given within 24 hours of the proced ure accord ing to standa rd practi ce. Measur e 145: Fluoro time (min): 9.7 Number of films used: 15 Radiat ion Dose in mGy: 436 Measur e 195: Caroti d stenos is measur ement above is in refere nce to the distal Process Project Engineer al Caroti d Artery diamet er accord ing to NASCET guidel scarlet. All instru ments were remove d and inspec daysi at the end of the case. They were found to be intact . Premed icatio n for IV Contra st was not utiliz ed. Final Report Dictat ed: 16:42 Agusto Cr MD Signed : 08:02 Agusto Cr MD [id number] Or Only - [facility] [address] [place] [address], [id number], 12/25/2023 09:28:15 12/25/19 24 12/07/2023 XR, angio gram, visce [facility] [address] [place] [address] Name: NABILA CLARK 7 Age: 58 : 1965 Exam Date: 2023 ACCESS ION: [id number] CESAR HUGHES MD: RODDY JACOME EXAMIN ATION: Mesent rhea angiog tara IMPRES FERDINAND: 1. Celiac , superi or mesent rhea, left gastri c and spleni c angiog debra demons trate any active extrav asatio n. Provoc ative angiog geovanni failed to demons trate any active extrav asatio n. 2. No emboli zation was perfor med. COMPAR MARY: CT abdome n and pelvis . 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 CT demons trated active extrav asatio n. PROCED URE: 1. Ultras ound guided right common femora l arteri otomy. 2. Select libby cathet erizat ion and angiog geovanni of the superi or mesent rhea artery via select libby cathet er positi on. 3. Select libby Cathet erizat ion and angiog geovanni of the celiac of artery via select libby cathet er positi on. 4. Select libby Cathet erizat ion and third order angiog geovanni of the left gastri c artery via select libby cathet er positi on. 5. Select libby Cathet erizat ion and second order angiog geovanni of the spleni c artery via select libby cathet er positi on. 6. Limite d right common femora l angiog geovanni. 7. Angios eal device closur e of right common femora l arteri otomy. Prior to the proced ure, both verbal and writte n inform ed consen t obtain ed from the patien t's POA. A pre-pr ocedur e timeou t was perfor med identi fying patien t, proced ure, site and consen t. Robert m Steril e Solomon r Techni que was utiliz ed. 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 Hand hygien e, a large steril e sheet for drapin g the patien t and 2% chlorh exidin e for scrubb ing were utiliz ed. The patien t was placed on the interv ention al table in the supine positi on. The right groin was preppe d and draped in usual steril e fashio n. 1% lidoca ine admini stered for local anesth esia. Ultras ound demons trated patent right common femora l artery . Under ultras ound guidan ce, right common femora l arteri otomy made with a microp unctur e needle . Image was saved. Microp unctur e needle ultima tely exchan ged for a 11 cm 5 [place] sheath . The superi or mesent rhea artery was cathet erized with a 5-Fren ch SOS cathet er. Angiog tara demons trated normal arbori zation and no active extrav asatio n or pseudo aneury sm. The celiac artery was cathet erized with a 5 [place] SOS cathet er and [place] wire. Angiog geovanni demons trated patent celiac axis with patent common hepati c and spleni c and left gastri c arteri es and no active extrav asatio n was identi fied. A 2.1 [place] Merit Maestr o microc athete r and 0.016 Fathom microw brian was advanc ed and left gastri c artery was cathet erized . Angiog tara demons trated patent left gastri c artery supply ing the stomac h withou t any active extrav asatio n or pseudo aneury sm. Subseq uently , provoc ative angiog geovanni was perfor med after admini strati on of 800 mcg of nitrog lyceri n. No active extrav asatio n was identi fied. Subseq uently , the spleni c artery was cathet erized . Angiog tara demons trated no active extrav asatio n or pseudo aneury sm. No emboli zation was perfor med. Patien t remain ed stable throug hout the proced ure. The cathet ers were remove d. Limite d right common femora l angiog geovanni perfor med demons tratin g no pseudo aneury sm or dissec tion and punctu re amenab le to use of a closur e device . Right common femora l arteri otomy closed with a 6-Fr Angose al closur e device . The proced ure was well tolera daysi with no immedi ate compli cation . Face to face Anesth esia/s edatio n Level of anesth esia: Deep Sedati on . Anesth esia admini stered by: Anesth esiolo gy . Durati on of anesth esia/s edatio n: Sedati on meds: 0 Sedati on start time: 0 Sedati on stop time: 0. Flouro scopy: Fluoro time (min): 9.7 Number of films used: 15 Radiat ion Dose in mGy: [address] Materi al: 40ml of omnipa [id number] FINDIN GS: Angiog tara demons trates patent celiac artery axis , common hepati c, spleni c and left gastri c artery withou t aneury sm, dissec tion, or extrav asatio n. Patent superi or mesent rhea artery with normal arbori zation . No extrav asatio n or pseudo aneury sm. Patent right common femora l artery , profun da femori s artery , and proxim al superf icial femora l artery with right common femora l artery access . COMPLI CATION S: Patien t tolera daysi the proced ure well withou t immedi ate compli cation . Premed icatio n for IV Contra st Allerg y was not utiliz ed. All items insert ed into the patien t during the proced ure were visual ly inspec daysi upon insert ion and exit and found to beinta ct. Attest ation I, Esau Hernandez MD, attest that I was presen t for the entire proced ure. [facility] PQRS / Depart mental Docume ntatio n: Measur e 21: Prophy lactic antibi otic consis ting of a first or second genera tion cephal ospori n was not given accord ing to standa rd practi ce. Measur e 22: Prophy lactic antibi otic was discon tinued after the proced ure accord ing to standa rd practi ce. Measur e 23: Venous Thromb oembol ic Prophy laxis was given within 24 hours of the proced ure accord ing to standa rd practi ce. Measur e 145: Fluoro time (min): 9.7 Number of films used: 15 Radiat ion Dose in mGy: 436 Measur e 195: Caroti d stenos is measur ement above is in refere nce to the distal Process Project Engineer al Caroti d Artery diamet er accord ing to NASCET guidel scarlet. All instru ments were remove d and inspec daysi at the end of the case. They were found to be intact . Premed icatio n for IV Contra st was not utiliz ed. Final Report Dictat ed: 09:59 Esau Hernandez MD Signed : 09:59 Esau Hernandez MD ADDEND UM ACCESS ION: [id number] CESAR HUGHES MD: RODDY JACOME Addend um PROCED URE: Non-tu nneled cathet er placem ent Pre-pr ocedur e diagno sis: Upper gastro intest inal bleedi ng Post-p rocedu re diagno sis: Upper gastro intest inal bleedi ng Indica tion(s ): Admini strati on of intrav enous medica tions. . Compli cation s: No immedi ate compli cation s. IMPRES FERDINAND: Techni jose succes sful insert ion of non-tu nneled cathet er type:p ower trialy sis cathet er. Plan: The cathet er may be used immedi ately. ___ PROCED URE SUMMAR Y: Venous access with ultras ound anne ce. Non-tu nneled centra l venous cathet er insert ion with fluoro scophector rodríguez ce. PROCED URE DETAIL S: Pre-pr ocedur e Releva nt imagin g review : Xray chest Inform ed consen t for the proced ure was obtain ed and time-o ut was perfor med prior to the proced ure. Prophy lactic antibi otic admini stered : None. Prepar ation: The site was prepar ed and draped using all elemen ts of tammy l steril e solomon r techni que includ ing steril e gloves , steril e gown, cap, mask, large steril e sheet, steril e ultras ound probe cover, hand hygien e and cutane ous antise psis with 2% chlorh exidin e. Medica l reason for site prepar ation except ion: Not applic able. Anesth esia/s edatio n Level of anesth esia: Deep sedati on . Anesth esia admini stered by: Anesth esiolo gy. Durati on of anesth esia/s edatio n: Sedati on meds: 0 Sedati on start time: 0 Sedati on stop time: 0. Access Local anesth esia was admini stered . The vessel was sonogr aphica lly evalua daysi and judged to be patent . Real time ultras ound was used to visual ize needle entry into the vessel and a perman ent image access US image was stored . Vein access ed: Right internal affairs commander al jugula r . Access techni que: 18 gauge access needle . Cathet er placem ent The access site was dilate d and the cathet er was placed into the vein over a wire under fluoro scopic guidan ce. Cathet er tip locati on was fluoro scopic ally verifi ed and image archiv ed. Cathet er size: 12 [place] Cathet er length : 16 cm Cathet er tip positi on, Centra l or Peripe ral: Centra l (infer ior to the C7-T1 interv ertebr al disc and medial to the latera l rib margin ). The tip is: 2 VBUs below alonso . Unique Device Identi fier (BRANDT): Please see Centra l Line Check list docume ntatio n. Cathet er flush: Cathet er flush: Normal saline . Closur e The cathet er was secure d. A steril e bandag e was applie d. Cathet er secure ment techni que: Non-ab sorbab le suture . Contra st Contra st volume , agent and route of admini strati on: 0ml of omnipa [id number] . Refere nce air kerma: N/A Kerma area produc t: N/A Additi onal Detail s Specim ens remove d: None Estima daysi blood loss: Less than 10 cc. Standa rdized report : SIR_CV A_NonT unnele dCathe ter1.0 Attest ation I, Esau Hernandez MD, attest that I was presen t for the entire proced ure.. I review ed the stored images and agree with the report as baylee n. Final Report Dictat ed: 10:15 Esau Hernandez MD Signed : 10:15 Esau Hernandez MD ADDEND UM ACCESS ION: [id number] CESAR HUGHES MD: RODDY JACOME Addend um EXAMIN ATION: Viscer al angiog tara and emboli zation IMPRES FERDINAND: 1. Celiac and spleni c angiog debra demons trated multip le short gastri c and distal spleni c pseudo aneury sm with active arteri al extrav asatio n. 2. Succes sful emboli zation of short gastri c and distal spleni c artery pseudo aneury sm were perfor med using coil and glue. 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 CTA demons trated active extrav asatio n PROCED URE: 1. Ultras ound guided right common femora l arteri otomy. 2. Select libby Cathet erizat ion and first order angiog geovanni of the celiac artery . 3. Select libby Cathet erizat ion and angiog geovanni of the 2nd order branch es of spleni c artery via select libby cathet er positi on . 4. Select libby Cathet erizat ion and angiog geovanni of the 3rd order branch es of short gastri c artery via select libby cathet er positi on. 5. Select libby Cathet erizat ion and angiog geovanni of the 2nd order branch es of left gastic artery via select libby cathet er positi on. 6. Select libby Cathet erizat ion and first order angiog geovanni of the inferi or mesent rhea artery . 7. Coil emboli zation of short gastri c artery . 8. Glue emboli zation of distal spleni c artery and short gastri c arteri es. 8. Limite d right common femora l angiog geovanni. 9. Hemost asis of right common femora l arteri otomy with manual compre ssion. Prior to the proced ure, both verbal and writte n inform ed consen t obtain ed from the patien t's POA. A pre-pr ocedur e timeou t was perfor med identi fying patien t, proced ure, site and consen t. Robert m Steril e Solomon r Techni que was utiliz ed. 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 Hand hygien e, a large steril e sheet for drapin g the patien t and 2% chlorh exidin e for scrubb ing were utiliz ed. The patien t was placed on the interv ention al table in the supine positi on. The right groin was preppe d and draped in usual steril e fashio n. 1% lidoca ine admini stered for local anesth esia. Ultras ound demons trated patent right common femora l artery . Under ultras ound guidan ce, right common femora l arteri otomy made with a microp unctur e needle . Image was saved. Microp unctur e needle ultima tely exchan ged for a 11 cm 5 [place] sheath . The celiac artery was cathet erized with a 5 [place] SOS cathet er. Angiog geovanni perfor med which demons trated multip le distal spleni c and short gastri c pseudo aneury sms. A 2.8 [place] Progre at microc athete r and 0.016 Fathom microw brian was advanc ed and spleni c artery was cathet erized . Angiog tara perfor med which redemo nstrat ed the pseudo aneury sms. Cathet er was advanc ed furthe r into the second and third order branch es of the proxim al short gastri c artery pseudo aneury sm. Active extrav asatio n was identi fied. Subseq uently , the pseudo aneury sm outflo w emboli zation was perfor med with 3mm x 4cm concer to, 3mm x 4cm concer to and inflow with 3mm x 4cm Azur CX 18. Therea fter, the Progre at cathet er was exchan ged for a Merit Maestr o microc athete r 2.8 Fr for distal cathet erizat ion using Synchr o 200 cm microw brian. The distal spleni c and short gastri c artery were cathet erized . Angiog tara perfor med demons trated multip le pseudo aneury sms in the distal spleni c and short gastri c arteri al branch es. Active extrav asatio n was identi fied. Glue emboli zation of the pseudo aneury sms were perfor med to treat the distal spleni c and short gasrti c bleedi ng source . Subseq uently , the left gastri c and inferi or mesent rhea arteri es were cathet erized and angiog tara was perfor med. No active extrav ation. The cathet ers were remove d. Limite d right common femora l angiog geovanni perfor med was unsucc essful . Right common femora l arteri otomy hemost asis was achiev ed with manual compre ssion. The proced ure was well tolera daysi with no immedi ate compli cation . Face to face Anesth esia/s edatio n Level of anesth esia: Modera te sedati on . Anesth esia admini stered by: Contin uous monito ring by sarah latham traine d observ er . Durati on of anesth esia/s edatio n: Sedati on meds: 0 Sedati on start time: 0 Sedati on stop time: 0. Flouro scopy: Fluoro time (min): 9.7 Number of films used: 15 Radiat ion Dose in mGy: [address] Materi al: 40ml of omnipa [id number] FINDIN GS: 1. Angiog tara demons trates patent celiac artery axis. Multip le pseudo aneury sms involv ing the distal spleni c and short gastri c artery branch es were identi fied with acttiv e extrav asatio n. 2. Succes sful emboli zation of the pseudo aneury sms were treate d with coil and glue to comple te stasis . Left gastri c and inferi or mesent rhea arteri y angiog debra showed no active extrav ation or pseudo aneury sm. COMPLI CATION S: Patien t tolera daysi the proced ure well withou t immedi ate compli cation . Premed icatio n for IV Contra st Allerg y was not utiliz ed. All items insert ed into the patien t during the proced ure were visual ly inspec daysi upon insert ion and exit and found to beinta ct. Attest ation I, Agusto Cr MD, attest that I was presen t for the entire proced ure. [facility] PQRS / Depart mental Docume ntatio n: Measur e 21: Prophy lactic antibi otic consis ting of a first or second genera tion cephal ospori n was not given accord ing to standa rd practi ce. Measur e 22: Prophy lactic antibi otic was discon tinued after the proced ure accord ing to standa rd practi ce. Measur e 23: Venous Thromb oembol ic Prophy laxis was given within 24 hours of the proced ure accord ing to standa rd practi ce. Measur e 145: Fluoro time (min): 9.7 Number of films used: 15 Radiat ion Dose in mGy: 436 Measur e 195: Caroti d stenos is measur ement above is in refere nce to the distal Process Project Engineer al Caroti d Artery diamet er accord ing to NASCET guidel scarlet. All instru ments were remove d and inspec daysi at the end of the case. They were found to be intact . Premed icatio n for IV Contra st was not utiliz ed. Final Report Dictat ed: 16:42 Agusto Cr MD Signed : 16:42 Agusto Cr MD ADDEND UM ACCESS ION: [id number] CESAR HUGHES MD: RODDY JACOME Please disreg bryanna the ADDEND UM to the origin al report done on 12-07-19. Final Report Dictat ed: 12:53 Agusto Cr MD Signed : 08:02 Agusto Cr MD [id number] Or Only - [facility] [address] [place] [address], [id number], 12/25/2023 09:27:08 12/25/19 24 12/07/2023 ang arter iogra m [facility] [address] [place] [address] Name: NABILA CLARK 7 Age: 58 : 1965 Exam Date: 2023 ACCESS ION: [id number] CESAR HUGHES MD: RODDY JACOME EXAMIN ATION: Mesent rhea angiog tara IMPRES FERDINAND: 1. Celiac , superi or mesent rhea, left gastri c and spleni c angiog debra demons trate any active extrav asatio n. Provoc ative angiog geovanni failed to demons trate any active extrav asatio n. 2. No emboli zation was perfor med. COMPAR MARY: CT abdome n and pelvis . 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 CT demons trated active extrav asatio n. PROCED URE: 1. Ultras ound guided right common femora l arteri otomy. 2. Select libby cathet erizat ion and angiog geovanni of the superi or mesent rhea artery via select libby cathet er positi on. 3. Select libby Cathet erizat ion and angiog geovanni of the celiac of artery via select libby cathet er positi on. 4. Select libby Cathet erizat ion and third order angiog geovanni of the left gastri c artery via select libby cathet er positi on. 5. Select libby Cathet erizat ion and second order angiog geovanni of the spleni c artery via select libby cathet er positi on. 6. Limite d right common femora l angiog geovanni. 7. Angios eal device closur e of right common femora l arteri otomy. Prior to the proced ure, both verbal and writte n inform ed consen t obtain ed from the patien t's POA. A pre-pr ocedur e timeou t was perfor med identi fying patien t, proced ure, site and consen t. Maximu m Steril e Solomon r Techni que was utiliz ed. 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 Hand hygien e, a large steril e sheet for drapin g the patien t and 2% chlorh exidin e for scrubb ing were utiliz ed. The patien t was placed on the interv ention al table in the supine positi on. The right groin was preppe d and draped in usual steril e fashio n. 1% lidoca ine admini stered for local anesth esia. Ultras ound demons trated patent right common femora l artery . Under ultras ound guidan ce, right common femora l arteri otomy made with a microp unctur e needle . Image was saved. Microp unctur e needle ultima tely exchan ged for a 11 cm 5 [place] sheath . The superi or mesent rhea artery was cathet erized with a 5-Fren ch SOS cathet er. Angiog tara demons trated normal arbori zation and no active extrav asatio n or pseudo aneury sm. The celiac artery was cathet erized with a 5 [place] SOS cathet er and [place] wire. Angiog geovanni demons trated patent celiac axis with patent common hepati c and spleni c and left gastri c arteri es and no active extrav asatio n was identi fied. A 2.1 [place] Merit Maestr o microc athete r and 0.016 Fathom microw brian was advanc ed and left gastri c artery was cathet erized . Angiog tara demons trated patent left gastri c artery supply ing the stomac h withou t any active extrav asatio n or pseudo aneury sm. Subseq uently , provoc ative angiog geovanni was perfor med after admini strati on of 800 mcg of nitrog lyceri n. No active extrav asatio n was identi fied. Subseq uently , the spleni c artery was cathet erized . Angiog tara demons trated no active extrav asatio n or pseudo aneury sm. No emboli zation was perfor med. Patien t remain ed stable throug hout the proced ure. The cathet ers were remove d. Limite d right common femora l angiog geovanni perfor med demons tratin g no pseudo aneury sm or dissec tion and punctu re amenab le to use of a closur e device . Right common femora l arteri otomy closed with a 6-Fr Angose al closur e device . The proced ure was well tolera daysi with no immedi ate compli cation . Face to face Anesth esia/s edatio n Level of anesth esia: Deep Sedati on . Anesth esia admini stered by: Anesth esiolo gy . Durati on of anesth esia/s edatio n: Sedati on meds: 0 Sedati on start time: 0 Sedati on stop time: 0. Flouro scopy: Fluoro time (min): 9.7 Number of films used: 15 Radiat ion Dose in mGy: [address] Materi al: 40ml of omnipa [id number] FINDIN GS: Angiog tara demons trates patent celiac artery axis , common hepati c, spleni c and left gastri c artery withou t aneury sm, dissec tion, or extrav asatio n. Patent superi or mesent rhea artery with normal arbori zation . No extrav asatio n or pseudo aneury sm. Patent right common femora l artery , profun da femori s artery , and proxim al superf icial femora l artery with right common femora l artery access . COMPLI CATION S: Patien t tolera daysi the proced ure well withou t immedi ate compli cation . Premed icatio n for IV Contra st Allerg y was not utiliz ed. All items insert ed into the patien t during the proced ure were visual ly inspec daysi upon insert ion and exit and found to beinta ct. Attest ation I, Esau Hernandez MD, attest that I was presen t for the entire proced ure. [facility] PQRS / Depart mental Docume ntatio n: Measur e 21: Prophy lactic antibi otic consis ting of a first or second genera tion cephal ospori n was not given accord ing to standa rd practi ce. Measur e 22: Prophy lactic antibi otic was discon tinued after the proced ure accord ing to standa rd practi ce. Measur e 23: Venous Thromb oembol ic Prophy laxis was given within 24 hours of the proced ure accord ing to standa rd practi ce. Measur e 145: Fluoro time (min): 9.7 Number of films used: 15 Radiat ion Dose in mGy: 436 Measur e 195: Caroti d stenos is measur ement above is in refere nce to the distal Process Project Engineer al Caroti d Artery diamet er accord ing to NASCET guidel scarlet. All instru ments were remove d and inspec daysi at the end of the case. They were found to be intact . Premed icatio n for IV Contra st was not utiliz ed. Final Report Dictat ed: 09:59 Esau Hernandez MD Signed : 09:59 Esau Hernandez MD ADDEND UM ACCESS ION: [id number] CESAR HUGHES MD: RODDY JACOME Addend um PROCED URE: Non-tu nneled cathet er placem ent Pre-pr ocedur e diagno sis: Upper gastro intest inal bleedi ng Post-p rocedu re diagno sis: Upper gastro intest inal bleedi ng Indica tion(s ): Admini strati on of intrav enous medica tions. . Compli cation s: No immedi ate compli cation s. IMPRES FERDINAND: Techni jose succes sful insert ion of non-tu nneled cathet er type:p ower trialy sis cathet er. Plan: The cathet er may be used immedi ately. ___ PROCED URE SUMMAR Y: Venous access with ultras ound guidiam ce. Non-tu nneled centra l venous cathet er insert ion with fluoro scopic anne ce. PROCED URE DETAIL S: Pre-pr ocedur e Releva nt imagin g review : Xray chest Inform ed consen t for the proced ure was obtain ed and time-o ut was perfor med prior to the proced ure. Prophy lactic antibi otic admini stered : None. Prepar ation: The site was prepar ed and draped using all elemen ts of tammy l steril e solomon r techni que includ ing steril e gloves , steril e gown, cap, mask, large steril e sheet, steril e ultras ound probe cover, hand hygien e and cutane ous antise psis with 2% chlorh exidin e. Medica l reason for site prepar ation except ion: Not applic able. Anesth esia/s edatio n Level of anesth esia: Deep sedati on . Anesth esia admini stered by: Anesth esiolo gy. Durati on of anesth esia/s edatio n: Sedati on meds: 0 Sedati on start time: 0 Sedati on stop time: 0. Access Local anesth esia was admini stered . The vessel was sonogr aphica lly evalua daysi and judged to be patent . Real time ultras ound was used to visual ize needle entry into the vessel and a perman ent image access US image was stored . Vein access ed: Right internal affairs commander al jugula r . Access techni que: 18 gauge access needle . Cathet er placem ent The access site was dilate d and the cathet er was placed into the vein over a wire under fluoro scopic guidan ce. Cathet er tip locati on was fluoro scopic ally verifi ed and image archiv ed. Cathet er size: 12 [place] Cathet er length : 16 cm Cathet er tip positi on, Centra l or Peripe ral: Centra l (infer ior to the C7-T1 interv ertebr al disc and medial to the latera l rib margin ). The tip is: 2 VBUs below alonso . Unique Device Identi fier (BRANDT): Please see Centra l Line Check list docume ntatio n. Cathet er flush: Cathet er flush: Normal saline . Closur e The cathet er was secure d. A steril e bandag e was applie d. Cathet er secure ment techni que: Non-ab sorbab le suture . Contra st Contra st volume , agent and route of admini strati on: 0ml of omnipa [id number] . Refere nce air kerma: N/A Kerma area produc t: N/A Additi onal Detail s Specim ens remove d: None Estima daysi blood loss: Less than 10 cc. Standa rdized report : SIR_CV A_NonT unnele dCathe ter1.0 Attest ation I, Esau Hernandez MD, attest that I was presen t for the entire proced ure.. I review ed the stored images and agree with the report as baylee n. Final Report Dictat ed: 10:15 Esau Hernandez MD Signed : 10:15 Esau Hernandez MD ADDEND UM ACCESS ION: [id number] ORDERI NG MD: RODDY JACOME Addend um EXAMIN ATION: Viscer al angiog tara and emboli zation IMPRES FERDINAND: 1. Celiac and spleni c angiog debra demons trated multip le short gastri c and distal spleni c pseudo aneury sm with active arteri al extrav asatio n. 2. Succes sful emboli zation of short gastri c and distal spleni c artery pseudo aneury sm were perfor med using coil and glue. 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 CTA demons trated active extrav asatio n PROCED URE: 1. Ultras ound guided right common femora l arteri otomy. 2. Select libby Cathet erizat ion and first order angiog geovanni of the celiac artery . 3. Select libby Cathet erizat ion and angiog geovanni of the 2nd order branch es of spleni c artery via select libby cathet er positi on . 4. Select libby Cathet erizat ion and angiog geovanni of the 3rd order branch es of short gastri c artery via select libby cathet er positi on. 5. Select libby Cathet erizat ion and angiog geovanni of the 2nd order branch es of left gastic artery via select libby cathet er positi on. 6. Select libby Cathet erizat ion and first order angiog geovanni of the inferi or mesent rhea artery . 7. Coil emboli zation of short gastri c artery . 8. Glue emboli zation of distal spleni c artery and short gastri c arteri es. 8. Limite d right common femora l angiog geovanni. 9. Hemost asis of right common femora l arteri otomy with manual compre ssion. Prior to the proced ure, both verbal and writte n inform ed consen t obtain ed from the patien t's POA. A pre-pr ocedur e timeou t was perfor med identi fying patien t, proced ure, site and consen t. Simonu m Steril e Solomon r Techni que was utiliz ed. 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 Hand hygien e, a large steril e sheet for drapin g the patien t and 2% chlorh exidin e for scrubb ing were utiliz ed. The patien t was placed on the interv ention al table in the supine positi on. The right groin was preppe d and draped in usual steril e fashio n. 1% lidoca ine admini stered for local anesth esia. Ultras ound demons trated patent right common femora l artery . Under ultras ound guidan ce, right common femora l arteri otomy made with a microp unctur e needle . Image was saved. Microp unctur e needle ultima tely exchan ged for a 11 cm 5 [place] sheath . The celiac artery was cathet erized with a 5 [place] SOS cathet er. Angiog geovanni perfor med which demons trated multip le distal spleni c and short gastri c pseudo aneury sms. A 2.8 [place] Progre at microc athete r and 0.016 Fathom microw brian was advanc ed and spleni c artery was cathet erized . Angiog tara perfor med which redemo nstrat ed the pseudo aneury sms. Cathet er was advanc ed furthe r into the second and third order branch es of the proxim al short gastri c artery pseudo aneury sm. Active extrav asatio n was identi fied. Subseq uently , the pseudo aneury sm outflo w emboli zation was perfor med with 3mm x 4cm concer to, 3mm x 4cm concer to and inflow with 3mm x 4cm Azur CX 18. Therea fter, the Progre at cathet er was exchan ged for a Merit Maestr o microc athete r 2.8 Fr for distal cathet erizat ion using Synchr o 200 cm microw brian. The distal spleni c and short gastri c artery were cathet erized . Angiog tara perfor med demons trated multip le pseudo aneury sms in the distal spleni c and short gastri c arteri al branch es. Active extrav asatio n was identi fied. Glue emboli zation of the pseudo aneury sms were perfor med to treat the distal spleni c and short gasrti c bleedi ng source . Subseq uently , the left gastri c and inferi or mesent rhea arteri es were cathet erized and angiog tara was perfor med. No active extrav ation. The cathet ers were remove d. Limite d right common femora l angiog geovanni perfor med was unsucc essful . Right common femora l arteri otomy hemost asis was achiev ed with manual compre ssion. The proced ure was well tolera daysi with no immedi ate compli cation . Face to face Anesth esia/s edatio n Level of anesth esia: Modera te sedati on . Anesth esia admini stered by: Contin uous monito ring by sarah daniel observ er . Durati on of anesth esia/s edatio n: Sedati on meds: 0 Sedati on start time: 0 Sedati on stop time: 0. Flouro scopy: Fluoro time (min): 9.7 Number of films used: 15 Radiat ion Dose in mGy: [address] Materi al: 40ml of omnipa [id number] FINDIN GS: 1. Angiog tara demons trates patent celiac artery axis. Multip le pseudo aneury sms involv ing the distal spleni c and short gastri c artery branch es were identi fied with acttiv e extrav asatio n. 2. Succes sful emboli zation of the pseudo aneury sms were treate d with coil and glue to comple te stasis . Left gastri c and inferi or mesent rhea arteri y angiog debra showed no active extrav ation or pseudo aneury sm. COMPLI CATION S: Patien t tolera daysi the proced ure well withou t immedi ate compli cation . Premed icatio n for IV Contra st Allerg y was not utiliz ed. All items insert ed into the patien t during the proced ure were visual ly inspec daysi upon insert ion and exit and found to beinta ct. Attest ation I, Agusto Shaye MD, attest that I was presen t for the entire proced ure. CMS PQRS / Depart mental Docume ntatio n: Measur e 21: Prophy lactic antibi otic consis ting of a first or second genera tion cephal ospori n was not given accord ing to standa rd practi ce. Measur e 22: Prophy lactic antibi otic was discon tinued after the proced ure accord ing to standa rd practi ce. Measur e 23: Venous Thromb oembol ic Prophy laxis was given within 24 hours of the proced ure accord ing to standa rd practi ce. Measur e 145: Fluoro time (min): 9.7 Number of films used: 15 Radiat ion Dose in mGy: 436 Measur e 195: Caroti d stenos is measur ement above is in refere nce to the distal Process Project Engineer al Caroti d Artery diamet er accord ing to NASCET guidel scarlet. All instru ments were remove d and inspec daysi at the end of the case. They were found to be intact . Premed icatio n for IV Contra st was not utiliz ed. Final Report Dictat ed: 16:42 Agusto Cr MD Signed : 16:42 Agusto Cr MD ADDEND UM ACCESS ION: [id number] CESAR HUGHES MD: RODDY JACOME Please disreg bryanna the ADDEND UM to the origin al report done on 12-07-19. Final Report Dictat ed: 12:53 Agusto Cr MD Signed : 08:02 Agusto Cr MD [email or web address] Or Only - [facility] Rad [address] [facility], [place], [address], 12/25/2023 09:27:09 01/30/20 24 06/06/2023 imagi ng/di agnos tic resul t No observ ation record ed. [email or web address] Not Available 03:52:02 10/07/19 25 04/03/2017 imagi ng/di agnos tic resul t No observ ation record ed. [email or web address] Not Available 0 10/06/2024 03:02:16 10/07/19 25 04/03/2017 imagi ng/di agnos tic resul t No observ ation record ed. [email or web address] Not Available 0 10/06/2024 03:02:16 10/07/19 25 04/03/2017 imagi ng/di agnos tic resul t No observ ation record ed. [email or web address] Not Available 0 10/06/2024 03:02:17 10/07/1904/03/2017 imagi ng/di agnos tic resul t No observ ation record ed. [email or web address] Not Available 0 10/06/2024 03:02:18 10/07/1904/03/2017 imagi ng/di agnos tic resul t No observ ation record ed. [email or web address] Not Available 0 10/06/2024 03:02:18 10/07/1904/03/2017 imagi ng/di agnos tic resul t No observ ation record ed. [email or web address] Not Available 0 10/06/2024 03:02:19 10/07/1904/03/2017 imagi ng/di agnos tic resul t No observ ation record ed. [email or web address] Not Available 0 10/06/2024 03:02:20 10/07/1904/03/2017 imagi ng/di agnos tic resul t No observ ation record ed. [email or web address] Not Available 0 10/06/2024 03:02:20 10/07/19 25 06/04/2019 imagi ng/di agnos tic resul t No observ ation record ed. [email or web address] Not Available 0 10/06/2024 03:02:43 10/07/19 25 10/18/2017 imagi ng/di agnos tic resul t No observ ation record ed. [email or web address] Not Available 0 10/06/2024 03:02:59 10/07/19 25 10/18/2017 imagi ng/di agnos tic resul t No observ ation record ed. [email or web address] Not Available 0 10/06/2024 03:03:00 Result Notes None recorded. Problems Name Problem SNOMED Code Status Onset Date Resolution Date Notes Provider Name and Address Organization Details Recorded Time Type 2 diabetes mellitus 11420219 Active Not Available [facility] 4 09:58:09 Schizoaffecti ve disorder 20356508 Active Not Available [facility] 4 09:58:15 Ascending aorta dilatation 624030291 Active Not Available [facility] 4 09:58:19 Abdominal pain 67404332 Active 2022 Carito Truter [facility] 4 11:05:18 History of gastrointesti nal tract bypass 483655930 Active 2022 Carito Truter [facility] 4 11:05:18 Intra-abdomin al hernia 15030113 Active 2022 Carito Truter [facility] 4 11:05:18 History of excision of intestinal structure 246228651 Active 2022 Carito Truter [facility] 4 11:05:18 Soto's esophagus 893360709 Active 2023 Ana Paula Suarez [facility] 4 21:15:44 Hyperlipidemi a 44559558 Active 2023 Ana Paula Suarez [facility] 4 21:16:18 Iron deficiency anemia 46405091 Active 2023 Ana Paula Suarez [facility] 4 21:16:39 Sleep apnea 84449302 Active 2023 Ana Paula Suarez [facility] 4 21:17:14 History of bypass of stomach 438143320 Active 2023 Ana Paula Suarez [facility] 4 21:14:10 Intestinal malabsorption 378534470 Active 2023 Ana Paula Suarez null, [facility] 4 21:14:36 Edema 446262764 Active 2023 Angella Lozoya null, [facility] 4 17:47:09 Rheumatoid arthritis 32168109 Active 2023 Angellatoshia Lozoya null, [facility] 4 17:48:11 Gastroesophag eal reflux disease 423025971 Active 2023 Angella Lozoya null, [facility] 4 17:53:40 Depressive disorder 12203668 Active 2023 Angella Lozoya null, [facility] 4 16:51:05 Lumbar radiculopathy 594169053 [facility] 4 16:51:33 Mixed anxiety and depressive disorder 211965084 Active 2023 Angella Lozoya null, [facility] 4 16:52:51 Obesity 647746786 Active 2023 Angella Lozoya null, [facility] 4 16:55:14 Generalized anxiety disorder 15370397 Active 2023 [facility] 4 16:56:15 Essential hypertension 70051707 Active 2023 Angella Lozoya null, [facility] 4 16:57:12 Gastroesophag eal reflux disease without esophagitis 159379608 Active 2023 Angellatoshia Lozoya null, [facility] 4 16:58:24 Altered mental status 726839321 Active 2023 Carito Truter null, [facility] 4 11:05:18 Leukocytosis 107936568 Active 2023 Carito Truter null, [facility] 4 11:05:18 Gastrointesti nal hemorrhage 55039925 Active 2023 Sergio Solis MD [address], [place], [address] , [facility] 4 12:54:46 Intestinal obstruction 01034353 Active 2023 Sergio Solis MD [address], [place], [address] , [facility] 4 12:54:54 Splenic infarction 69883052 Active 2023 Sergio Solis MD [address], [place], [address] , [facility] 4 12:55:31 Schizoaffecti ve disorder, bipolar type 15868530 Active 2023 Sergio Solis MD [address], [place], [address] , [facility] 4 12:55:47 Anemia 268540525 Active 2023 Shawna Thompson [facility] 4 12:30:56 Liver enzymes level above reference range 026458866 Active 2023 [facility] 4 12:30:46 Thrombocytope dot disorder 304230844 Active 2023 [facility] 4 15:32:08 Problem Notes Documentation Provider Name and Address Organization Details Recorded Time Consult Note : Result Status: FINAL -----[facility]-----Consultation: [place] Hem/Onc Consult Patient: NABILA CLARK Age: 58 years Sex: Female : 1965 Associated Diagnoses: None Author: Tre ALCALA, Luanne Impression and Plan 1. Worsening thrombocytopenia- No exposure to enoxaparin or heparin like products in the last 3 months except for this admission (in our system). There might have been exposure to Lovenox at [place] in 2023. She received Lovenox 40 mg on 03/01-through 03/03. Discontinued today. HIT probability is low to intermediate depending on whether she received heparin products or not at [place] (limited records available to clarify this). I suspect recent antibiotic use for UTI or an evolving sepsis playing a role in her low platelet counts but will definitely need to rule out HIT. Continue to trend the counts at this time. Will order HIT panel and follow-up. No anticoagulation at this time given low counts. Basic Information Source of history: Self. History limitation: None. Chief Complaint Chronic abdominal pain and vomiting History of Present Illness 58-year-old female with complex surgical history including Janessa-en-Y bypass with recurrent marginal ulcers, recurrent upper GI bleeding, chronic enterocolic fistula/abscess activity is being admitted for chronic abdominal pain and vomiting. General surgery is following the patient, there is partial large bowel obstruction secondary to colitis and fistula. Recently on IV Ceftriaxone for UTI. Review of records show that she had normal platelet counts until 02/27. She was hospitalized in December 2023 with a GI hemorrhage and marginal ulcer related bleeding requiring a transfer to [place]. At that time there is no documentation for heparin products. Her Hgb is chronically low and in between 8 to 10 g/dL with normal MCV. WBC normal. At [place], patient recalls being given Lovenox injections in the belly to prevent blood clots. Subjective Review of Systems Constitutional: Weakness. Respiratory: Shortness of breath. Cardiovascular: Palpitations. Gastrointestinal: Negative. Genitourinary: Hematuria. Hematology/Lymphatics: Bruising tendency. Endocrine: Cold intolerance. Musculoskeletal: Neck pain, Joint pain, Muscle pain. Neurologic: Alert and oriented X4. Psychiatric: Anxiety. Health Status Allergies: Allergic Reactions (All) Severity Not Documented DexmedeTOMIDine- Bradycardia. Canceled/Inactive Reactions (All) No known allergies Pertinent Medications:. Histories Past medical history: History of iron deficiency, B12 deficiency, malnutrition, GERD, hepatic steatosis, Soto's esophagus. Surgical history: Complicated, multiple revisions of Janessa-en-Y gastric bypass surgery, exploratory laparotomy for jejunostomy tube placement, lap cholecystectomy, , endoscopies, splenic artery angioembolization Family history: Negative for any bleeding disorders Social history: History of smoking. Physical Examination VS/Measurements Most Recent Vital Signs Date Temp BP HR RR SpO2 ETCO2 L/O2% Mode 03/04 07:30 36.4 111/73 80 18 100 ------- ------ Room air 03/03 20:00 36.8 96/57 63 20 99 ------- ------ Room air Intake and Output Intake and Ouput - 24 hours Intake/Output Summary Intake 24hr Totals Intake Totals: 2359 Enteral Tube Intake 353 Gastric Tube Amount Irrigant 60 IV Intake 200 Oral Intake 360 TPN/PPN Intake 1386 General: Alert and oriented, No acute distress. Neck: Supple, Non-tender. Respiratory: Lungs are clear to auscultation, Respirations are non-labored. Cardiovascular: Normal rate, Regular rhythm, No murmur. Gastrointestinal: Soft, Non-tender, G tube in place.. Neurologic: Alert, Oriented, No focal defects. Psychiatric: Cooperative, Appropriate mood affect. Review / Management Laboratory Results: Performed On: 03/04/24 11:44 136 , 105 , 15 / 103 4.0 , 27 , 0.4 \ Performed On: 03/04/24 05:17 7.9 \ 8.1 / 56 / 25 \ Electronically Signed By: Tre ALCALA, Luanne ALCALA 03/04/2024 20:06 Please Refer to [facility] PowerChart for the Most Current Version of This Document. Not Available [facility] 03/04/2024 21:06:59 Consult Note : Result Status: FINAL INFECTIOUS DISEASES CONSULT NOTE-----[facility]-----Consultation: [place] ID consult note Reason for consultation: Bacteremia and fungemia Consulting physician and service: Dr Groves Date of service: 03/26/24 HPI: This is a 58-year-old woman with a past medical history of diabetes, dyslipidemia, rheumatoid arthritis and schizoaffective disorder who was transferred to [facility] on 03/24/2024 for escalation of care. The patient had a previous admission at [facility] in 01/2024 (records not available) for abdominal pain and she was started on TPN at that time. She also has a J tube but was told not to use it for tube feedings. She is strict NPO. She is not clear on why TPN was started. The PICC line has been working well since this was inserted about 2 months ago with no reistance to flushing or blod draws. There is no surrounding warmth or erythema. It has not needed any replacement or re positioning since it was inserted. The patient also has a J tube which was inserted about 5 years ago after a gastric bypass reversal. Her initial gastric bypass was in 2000. 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 Per chart review, she had dark stools on the day of admission, but the patient's main complaint is actually abdominal pain. She had no fever or chills at home. Blood cultures upon admission are positive (as detailed below) and ID has been asked to see for further management Current Antimicrobials: Fluconazole 03/26/2024- Pip-tazo 03/26/2024- Past medical history: Diabetes Dyslipidemia Rheumatoid arthritis Schizoaffective disorder Past surgical history: Janessa-en-Y gastric bypass procedure Social history: Former cigarette smoker Denies alcohol use Denies use intravenous illicit drugs Family History: Not pertinent for diabetes or malignancy immediate family members Review of systems: All other systems negative to 11 component review except for those noted in the interval history. Objective/ Physical Exam: General: well nourished woman lying in bed in no acute distress HEENT: PERRL, EOMI, pink conjunctiva, anicteric, moist oral mucosa, no thrush Neck: supple, no cervical lymphadenopathy Lungs: clear to auscultation bilaterally Heart: normal S1 and S2 with no murmurs, rubs or gallops Abdomen: soft with diffuse tenderness to light palpation; scar overton from prior surgery in the midabdomen; J tube in place Extremities: no cyanosis, clubbing or edema Neuro: AAO x 3 and moving all 4 limbs spontaneously Lines: PICC line in right upper chest wall Data Review: Microbiology: Blood cultures 03/24/2024: Yeast and GPC seen on gram stain Radiology: CT abdomen/pelvis with contrast 03/24/2024: IMPRESSION: 1. Persistent gas and fluid collection measuring about 3.7 cm interposed between the splenic flexure of the colon and gastric pouch as evidence for chronic abscess or fistula. No free intraperitoneal air. Evidence of localized colitis in the adjacent colon with slight wall thickening and pericolonic fat stranding.2. Small right pleural effusion. Assessment: - fungemia, present on admission, in the setting of patient receiving TPN via a PICC line - central line associated blood stream infection - elevated inflammatory markers - asymptomatic bacteruria - colitis per imaging, consistent with clinical exam - chronic abscess cavity in the abdomen with enterocolic fistula Plan: - continue IV pip-tazo, increase the dose to 4.5g q8h. This is to target mostly the colitis. She does have a chronic abscess cavity/enterocolic fistula in the abdomen. Unless this were to be resected, would elect not to treat - blood cultures from admission did show GPC on gram stain. Add IV vancomycin, appreciate pharmacy assistance in dosing - blood cultures also showed yeast in gram stain, not seen on gram culture yet. Until we know exactly what pathogen we are dealing with, would prefer to use echinocandin therapy. Stop fluconazole. Start IV micafungin 100mg q24h - monitor for toxicity - PICC line needs to be removed - repeat blood cultures - needs TTE and SHIVA - will need outpatient dilated eye exam due to fungemia - ID will continue to follow My recommendations were discussed with the primary team. Thank you for allowing me to participate in the care of your patient. Josefina So MD Most Recent Vital Signs Date Temp BP HR RR SpO2 ETCO2 L/O2% Mode 03/26/2024 08:20 36.5 109 /75 89 20 96 / 03/25/2024 19:00 37.2 116 /70 85 18 98 / 03/25/2024 13:05 37.3 100 /65 91 18 96 / 03/25/2024 08:00 / / Room air 03/25/2024 07:41 37.3 111 /72 95 18 95 / Measurements Admit Weight: Last Weight: Last BMI: Last Height: Lab Results CBC Event Name Event Result Date/Time Hemoglobin 9.6 gm/dl Low 03/26/24 Hematocrit 28 % Low 03/26/24 RBC 2.91 M/CUMM Low 03/26/24 MCV 96 High 03/26/24 MCH 32.9 pg 03/26/24 MCHC 34.1 G/DL 03/26/24 RDW 16 % High 03/26/24 WBC 17.3 K/CUMM High 03/26/24 Platelets 388 K/CUMM 03/26/24 MPV 7.9 mL 03/26/24 Routine Chemistries Enzymes Event Name Event Result Date/Time Sodium 135 mmol/L Low 03/26/24 Potassium 3.7 mmol/L 03/26/24 Chloride 100 mmol/L 03/26/24 CO2 26 mmol/L 03/26/24 Anion gap 9 03/26/24 BUN 9 mg/dL 03/26/24 Creatinine 0.4 mG/dL Low 03/26/24 eGFR 116 mL/min/1.73m? 03/26/24 Glucose 57 mg/dL Low 03/26/24 Calcium 7.9 mg/dL Low 03/26/24 Magnesium 1.7 mg/dL Low 03/26/24 Phosphorus 3.2 mg/dL 03/26/24 Glycemic Control Event Name Event Result Date/Time Glucose 57 mg/dL Low 03/26/24 Allergies dexmedeTOMIDine Bradycardia Medications Medications (11) Active Scheduled: (5) enoxaparin 40mg syringe (Lovenox equiv) 40 mg 0.4 mL, SubQ, qDay levETIRAcetam 500mg/5mL vial 1,000 mg 10 mL, IV Push, BID micafungin 100 mg, IVPB, Q24H pantoprazole 40 mg Inj (Protonix equiv.) 40 mg, IV Push, qDay piperacillin-tazobactam PREMIX 4.5 gm 100 mL, IVPB, Q12H Continuous: (1) Lactated Ringers 1,000 mL 1,000 mL, IV, 100 mL/Hour(s) PRN: (5) calcium carbonate 500 mg (Tums equiv) 1,000 mg 2 Tablet(s), PO, TID HYDROmorphone 1 mg/1 ml inj 0.5 mg 0.5 mL, IV Push, Q2H ondansetron 2 mg/ml 2ml Inj (Zofran equiv) 4 mg 2 mL, IV Push, Q6H orphenadrine 60mg/2ml Inj (Norflex equiv) 60 mg 2 mL, IV Push, Q12H prochlorperazine 5 mg/ml 2 ml Inj (Compazine equiv) 5 mg 1 mL, IV Push, Q6H Electronically Signed By: Judah ALCALA, Josefina ACLALA 03/26/2024 16:27 Please Refer to [facility] PowerChart for the Most Current Version of This Document. Not Available [facility] 03/28/2024 12:58:15 Consult Note : Result Status: FINAL Impression/Plan-----[facility]-----Consultation: [place] Hospitalist consult note intractable abdominal pain PEG tube dependent localized cecal perforation managed non-operatively with IV antibiotics. plan: consulted by surgical team for pain management. discussed with pharmacy, limited options due to peg tube. Do have concern for pain seeking behavior, she has obvious opioid dependence given her frequent outpatient fills. Her vitals are not indicative of uncontrolled pain. would leave oxy as is, can increase to 10 mg if needed. add as need po dilaudid q4h for breakthrough pain. If above regimen doesnt work would try fentanyl patch, however, she is not the best candidate for this. thanks for this consult will follow. Chief Complaint abdominal abscess History of Present Illness Patient is a 58-year-old female with a complex surgical history, present presenting here from outside hospital with cecal perforation. She has been under the care of general surgery and treated medically. Hospital course has been complicated by intractable abdominal pain for which hospitalist was consulted. On exam patient yells 10 interviewer. She states she is chronically in pain. Histories Medical history Malnutrition, iron deficiency anemia, pancreatitis, Barretts esophagus, KIKI, schizoaffective disorder, borderline personality disorder, GERD, hepatic steatosis, hyperlipidemia, B12 deficiency. Surgical history: Vertical banded gastroplasty converted to Janessa-en-Y gastric bypass requiring multiple revisions, exploratory laparotomy with abdominal washout and jejunostomy tube placement, short gastric and splenic artery angio embolization, laparoscopic cholecystectomy, , right knee arthroscopy Social history: Alcohol use: Denies, Tobacco use: Former smoker, Drug use: Denies Physical Exam Date Temp BP HR RR SpO2 ETCO2 L/O2% Mode 04/18/2024 07:49 36.6 108 /72 102 18 99 / 04/17/2024 19:00 36.7 111 /73 75 18 100 / 04/17/2024 08:05 / / Room air 04/17/2024 07:50 36.7 104 /70 90 18 98 / 04/16/2024 20:00 37 101 /62 151 18 98 / Measurements Admit Weight: 76.1 kg 03/26/2024 15:00 Last Weight: 76.1 kg 04/18/2024 09:53 Last BMI: Last Height: Intake and Output This visit (24 hour periods starting at 00:00 HEAD STOCK OPERATOR) 04/18/24 * 04/17/24 04/16/24 Total Summary Intake mL -- 1,160 1,148 Output mL -- -- -- Fluid Balance -- 1,160 1,148 Intake (4) Gastric Tube Amount Irrigant mL -- 300 210 Gastric Tube Intake mL -- 343 50 IV Intake mL -- -- 250 TPN/PPN Intake mL -- 517 638 Total -- 1,160 1,148 Output (0) Counts (1) Stool Count -- 1 1 * This column has not completed the indicated time period. General: Alert and oriented, moderate distress, Well developed. Eye: Extraocular movements are intact, Normal conjunctiva. Respiratory: Lungs are clear to auscultation, Respirations are non-labored, Breath sounds are equal, Symmetrical chest wall expansion, Cardiovascular: Normal rate, Regular rhythm No edema. Gastrointestinal: Soft, Non-tender, Non-distended, Normal bowel sounds, peg tube Musculoskeletal: Normal range of motion. Normal Strength. Integumentary: Warm, No rash. Neurologic: Alert, Oriented, No focal defects. Psychiatric: Cooperative, Appropriate mood affect. Allergies dexmedeTOMIDine Bradycardia Medications Inpatient acetaminophen(Tylenol), 1000 mg= 31.23 mL, JTube, Q6H alteplase(alteplase (Cathflo Activase) 2mg injection), 2 mg, In Catheter, PERORDER, PRN Amino Acids 5%-D20% and Electrolytes (Clinimix E Sulfite-Free) 1,500 mL + multivitamin 10 mL + trac(Clinimix E Sulfite-Free 5% with 20% Dextrose and Electrolytes 1,500 mL + multivitamin 10 mL + trace), 1,511 mL, IV, Rate = 62.96 mL/Hour(s), Start 04/17/24 20:00:00 HEAD STOCK OPERATOR, Duration = 24 Hour(s), Stop 04/18/24 19:59:00 HEAD STOCK OPERATOR calcium carbonate(Tums), 1000 mg= 2 Tablet(s), PO, TID, PRN Dextrose 10% in Water 1,000 mL, 1000 mL, IV enoxaparin(Lovenox), 40 mg= 0.4 mL, SubQ, qDay HYDROmorphone(Dilaudid oral), 2 mg= 2 mL, PO, Q4H, PRN insulin lispro(insulin lispro Correctional Scale (Low Dose)), 1 dose, SubQ, Q4H levETIRAcetam(Keppra oral), 1000 mg= 10 mL, JTube, TID ondansetron(Zofran injectable), 4 mg= 2 mL, IV Push, Q6H, PRN orphenadrine(Norflex Injectable), 60 mg= 2 mL, IV Push, Q12H, PRN oxyCODONE, 7.5 mg= 7.5 mL, Feeding Tube, Q4H, PRN pantoprazole(Protonix injectable), 40 mg, IV Push, qDay piperacillin-tazobactam(Zosy n 4.5gm IVPB), 4.5 gm= 100 mL, IVPB, Q8H prochlorperazine(Compazine injectable), 5 mg= 1 mL, IV Push, Q6H, PRN sterile water(sterile water injectable solution), 2.2 mL, In Catheter, PERORDER, PRN Home amoxicillin-clavulanate(amox icillin-clavulanate 875 mg-125 mg oral tablet), 1 Tablet(s), PO, BID famotidine(famotidine 20 mg oral tablet), 20 mg= 1 Tablet(s), PO, BID HYDROcodone-acetaminophen(HY DROcodone-acetaminophen 7.5 mg-325 mg/15 mL oral solution), 5 mL, PO, Q8H, PRN levETIRAcetam(levETIRAcetam 100 mg/mL oral solution), 1000 mg= 10 mL, PO, TID ondansetron(ondansetron 4 mg oral tablet), 4 mg= 1 Tablet(s), PO, Q6H, PRN oxyBUTYnin(oxyBUTYnin 5 mg/5 mL oral syrup), 5 mg= 5 mL, PO, qDay pantoprazole(pantoprazole 40 mg oral delayed release tablet), 40 mg= 1 Tablet(s), PO, qDay sucralfate(sucralfate 1 g/10 mL oral suspension), 1 gm= 10 mL, PO, ACHS Lab Results CBC Event Name Event Result Date/Time Hemoglobin 10.2 gm/dl Low 04/18/24 Hematocrit 31 % Low 04/18/24 RBC 3.17 M/CUMM Low 04/18/24 MCV 98 High 04/18/24 MCH 32.2 pg 04/18/24 MCHC 32.8 G/DL 04/18/24 RDW 19.1 % High 04/18/24 WBC 9.3 K/CUMM 04/18/24 Absolute neutrophils 1.2 K/CUMM Low 04/13/24 Absolute basophils 0.1 K/CUMM 04/13/24 Absolute eosinophils 0.3 K/CUMM 04/13/24 Absolute monocytes 0.3 K/CUMM 04/13/24 Absolute lymphocytes 3.9 K/CUMM High 04/13/24 Neutrophils 21 % Low 04/13/24 Eosinophils 4 % 04/13/24 Basophils 1 % 04/13/24 Monocytes 6 % 04/13/24 Lymphocytes 68 % High 04/13/24 RBC morphology SNSC 04/13/24 Macrocytes Slight 04/13/24 Polychromatophilic RBCs Sl Increase 04/12/24 Dimorphic RBCs Present 04/13/24 [place] bodies Present 04/11/24 Target cells Moderate 04/12/24 Pappenheimer bodies Present 04/13/24 Platelets 386 K/CUMM 04/18/24 MPV 8.8 mL 04/18/24 Routine Chemistries Enzymes Event Name Event Result Date/Time Sodium 134 mmol/L Low 04/18/24 Potassium 3.6 mmol/L 04/18/24 Chloride 100 mmol/L 04/18/24 CO2 25 mmol/L 04/18/24 Anion gap 9 04/18/24 BUN 23 mg/dL 04/18/24 Creatinine 0.5 mG/dL Low 04/18/24 eGFR 110 mL/min/1.73m? 04/18/24 Glucose 122 mg/dL High 04/18/24 Calcium 8.4 mg/dL Low 04/18/24 Magnesium 1.8 mg/dL Low 04/18/24 Alk phos 190 IU/L High 04/15/24 AST 59 IU/L High 04/15/24 ALT 34 IU/L 04/15/24 Phosphorus 3.9 mg/dL 04/18/24 Bilirubin (total) 0.1 mg/dL Low 04/15/24 Total protein 5.8 gm/dl Low 04/15/24 Albumin 2.2 gm/dl Low 04/15/24 Lactic acid 1.3 mmol/L 04/09/24 Glycemic Control Event Name Event Result Date/Time Point of care glucose 141 mg/dL High 04/18/24 Point of care glucose 121 mg/dL High 04/18/24 Point of care glucose 136 mg/dL High 04/18/24 Point of care glucose 114 mg/dL High 04/17/24 Point of care glucose 112 mg/dL High 04/17/24 Point of care glucose 124 mg/dL High 04/17/24 Glucose 122 mg/dL High 04/18/24 Glucose 127 mg/dL High 04/17/24 Electronically Signed By: Shelby ALCALA, Diya ALCALA 04/18/2024 12:22 Please Refer to [facility] PowerChart for the Most Current Version of This Document. Not Available [facility] 04/18/2024 13:23:06 Procedures Surgical History Date Name Laterality Status Provider Name and Address Organization Details Recorded Time 03/15/2024 SC ONC PICC FLUSH completed [facility] 03/15/2024 11:07:34 Imaging Results None recorded. Procedure Notes None recorded. Medical Equipment None Reported. Allergies Allergen ID Allergen Name Allergen Category Reaction Reaction Severity Criticality Documentation Date Start Date Code Code System Note Provider Name and Address Organization Details Recorded Time [id number] No known allergy (situatio n) Not available Not available Not available Not available 03/15/2024 23283 6003 SNOMED [facility] Medications Name Sig Start Date Stop Date Status Note LastModified by Organization Details LastModified Time furosemide 40 mg tablet Take 1 tablet twice a day by oral route. 2023 active Not Available Not Available Not Avai lable gabapentin 600 mg tablet 600 mg 3 times a day by oral route. 11/28 completed Not Available Not Available Not Available hydrocodone 5 mg-acetamin ophen 325 mg tablet 2 {tbl}s every 6 hours by oral route. 11/19 completed Not Available Not Available Not Available sucralfate 100 mg/mL oral suspension TAKE 10 ML BY MOUTH BEFORE MEAL(S) AND AT BEDTIME FOR 7 DAYS active Not Available Not Available No t Available donepezil 10 mg tablet 10 mg by oral route. 11/19 completed Not Available Not Available Not Available sucralfate 1 gram tablet TAKE 1 TABLET BY MOUTH 4 TIMES DAILY active Not Available Not Available No t Available ondansetron HCl 4 mg tablet TAKE 1 TABLET BY MOUTH EVERY 6 HOURS NEEDED FOR NAUSEA AND VOMITING FOR 5 DAYS active Not Available Not Available No t Available Lantus U-100 Insulin 100 unit/mL subcutaneou s solution 20 units by sub-q route. 11/19 completed Not Available Not Available Not Available thiamine HCl (vitamin B1) 100 mg tablet 100 mg by oral route. 2023 active Not Available Not Available Not Avai lable Accu-Chek Softclix Lancets active Not Available Not Available Not Available diphenoxyla te-atropine 2.5 mg-0.025 mg tablet active Not Available Not Available Not Available gabapentin 250 mg/5 mL oral solution active Not Available Not Available Not Available acetaminoph en 300 mg-codeine 15 mg tablet active Not Available Not Available Not Available metronidazo le 500 mg tablet TAKE 1 TABLET BY MOUTH THREE TIMES DAILY FOR 7 DAYS (DO NOT DRINK ALCOHOL WHILE TAKING) active Not Available Not Available No t Available prochlorper azine maleate 10 mg tablet active Not Available Not Available No t Available ciprofloxac in 500 mg tablet TAKE 1 TABLET BY MOUTH TWICE DAILY FOR 7 DAYS 11/30 completed Not Available Not Available Not Available pantoprazol e 20 mg tablet,belinda yed release 40 mg by oral route. 11/28 completed Not Available Not Available Not Available prazosin 5 mg capsule 5 mg by oral route. 11/19 completed Not Available Not Available Not Available carbamazepi ne 200 mg tablet 200 mg twice a day by oral route. 11/19 completed Not Available Not Available Not Available potassium chloride ER 20 mEq tablet,exte nded release(par t/cryst) active Not Available Not Available Not Available famotidine 20 mg tablet TAKE 1 TABLET BY MOUTH TWICE DAILY active Not Available Not Available No t Available sodium chloride 0.9 % injection solution 10 mL by injection route. 11/28 completed Not Available Not Available Not Available cyanocobala min (vit B-12) 500 mcg tablet 500 ugs by oral route. 12/29 completed Not Available Not Available Not Available oxybutynin chloride 5 mg/5 mL oral syrup 5 mg twice a day by oral route. 12/08 completed Not Available Not Available Not Available potassium chloride 40 mEq/15 mL oral liquid active Not Available Not Available Not Available hydrocodone 7.5 mg-acetamin ophen 325 mg tablet active Not Available Not Available No t Available cephalexin 500 mg capsule 11/30 completed Not Available Not Available Not Available pantoprazol e 40 mg tablet,belinda yed release TAKE 1 TABLET BY MOUTH ONCE DAILY FOR 30 DAYS active Not Available Not Available No t Available ascorbic acid (vitamin C) 500 mg chewable tablet 500 mg by oral route. 12/29 completed Not Available Not Available Not Available zinc gluconate 50 mg tablet 50 mg by oral route. 12/29 completed Not Available Not Available Not Available folic acid 1 mg tablet Take 1 tablet every day by oral route. 2023 active Not Available Not Available Not Avai lable ergocalcife rol (vitamin D2) 1,250 mcg (50,000 unit) capsule 1.25 mg by oral route. 2022 active Not Available Not Available Not Avai lable famotidine 40 mg/5 mL (8 mg/mL) oral suspension active Not Available Not Available N ot Available nystatin 100,000 unit/gram topical powder twice a day by topical route. 12/28 completed Not Available Not Available Not Available levofloxaci n 750 mg tablet active Not Available Not Available Not Available ondansetron 4 mg disintegrat ing tablet 4 mg every 8 hours by oral route. 11/28 completed Not Available Not Available Not Available olanzapine 20 mg tablet 20 mg by oral route. active Not Available Not Available No t Available hydromorpho ne 1 mg/mL oral liquid TAKE 2 ML BY MOUTH EVERY 6 HOURS active Not Available Not Available No t Available amoxicillin 500 mg-potassiu m clavulanate 125 mg tablet 11/30 completed Not Available Not Available Not Available Ventolin HFA 90 mcg/actuati on aerosol inhaler 1 {puff} every 4 hours by inhalatio n route. 2023 active Not Available Not Available Not Avai lable olanzapine 5 mg disintegrat ing tablet 5 mg by oral route. 2023 active Not Available Not Available Not Avai lable midodrine 10 mg tablet 10 mg by oral route. 11/28 completed Not Available Not Available Not Available aripiprazol e 15 mg tablet 15 mg every 24 hours by oral route. 11/27 completed Not Available Not Available Not Available levofloxaci n 750 mg/150 mL in 5 % dextrose intravenous piggyback active Not Available Not Available No t Available lansoprazol e 30 mg delayed release,dis integrating tablet active Not Available Not Available Not Available aripiprazol e 5 mg tablet 15 mg every 24 hours by oral route. 12/28 completed Not Available Not Available Not Available cholestyram ine (with sugar) 4 gram oral powder 4 g twice a day by oral route. 2023 active Not Available Not Available Not Avai lable cholestyram ine (with sugar) 4 gram powder for susp in a packet active Not Available Not Available Not Available levetiracet am 100 mg/mL oral solution 1000 mg 3 times a day by oral route. active Not Available Not Available No t Available hydrocodone 7.5 mg-acetamin ophen 325 mg/15 mL oral solution 15 mL every 6 hours by oral route. active Not Available Not Available No t Available topiramate 50 mg tablet Take 1 tablet twice a day by oral route. 2023 active Not Available Not Available Not Avai lable mirtazapine 7.5 mg tablet Take 1 tablet every day by oral route. 2023 active Not Available Not Available Not Avai lable lactulose 10 gram/15 mL oral solution 20 g 3 times a day by oral route. 12/28 completed Not Available Not Available Not Available Lantus Solostar U-100 Insulin 100 unit/mL (3 mL) subcutaneou s pen active Not Available Not Available Not Available naloxone 4 mg/actuatio n nasal spray active Not Available Not Available Not Available Accu-Chek Guide test strips active Not Available Not Available Not Available UltiCare Pen Needle 32 gauge x 1/4 active Not Available Not Available Not Available Accu-Chek Guide Me Glucose Meter active Not Available Not Available Not Available Vitals Date Recorded Body height Heart rate Oxygen saturation Systolic And Diastolic Provider Name and Address Organization Details Last Updated DateTime 01/23/2024 154.94 cm 86 /min 97 % 102/74 mm[Hg] [facility] 01/23/2024 09:12:02 Date Recorded Body height Heart rate Oxygen saturation Heart rate Respiratory rate Body temperature Systolic And Diastolic Provider Name and Address Organization Details Last Updated DateTime 154.94 cm 106 /min 97 % 106 /min 16 /min 96.9 [degF] 118/70 mm[Hg] Carito Truter [facility] 4 11:04:33 Social History Question Answer Notes LastModified by Organizat ion Details LastModified Time Tobacco Smoking Status Former Smoker [facility] 01/23/2024 09:12:55 When Did You Quit Smoking? 30yrs Ago [email or web address] Information not available 01/23/2024 Sex: Unknown Functional Status None recorded. Mental Status None recorded. Family History Nothing Reported. Medical History No medical history recorded. Gynecological HistoryNo gynecological history recorded. Obstetrics History GPAL:G 0 P 0 0 0 0 Past Encounters Encounter ID Performer Location Encounter Start Date Encounter Closed Date Diagnosis/Indication Diagnosis SNOMED-CT Code Diagnosis ICD10 Code Diagnosis IMO Codes Diagnosis Note [id number] Sergio Solis MD [facility] ([place]) [address] [place] [address] [place] [address] 01/23/2024 08:28:30 01/23/2024 09:53:26 Transition of care 7763953916 105 Z78.9 68188463 Feeding problem 67526954 Z78.9 55624241 Type 2 perico betes mellitus 02234864 E11.69 Schizoaffe ctive disorder 03241027 F25.9 Ascending aorta dilatation 717704707 I77.810 Continue following with cardiology continue with blood pressure management . 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 Hyperlipidemia 60219944 E78.5 History of gastrointestinal tract bypass 330261854 Z98.84 55278218 Gastrointe stinal hemorrhage 31474138 K92.2 070916519 Intestinal obstruction 78504368 K56.7 600130 Splenic infarction 61695 003 D73.5 174171 Schizoaffe ctive disorder, bipolar type 89694980 F25.0 71092 [id number] Luanne Toledo MD [address] [facility] ([place]) [address] [place] [phone] 03/15/2024 10:42:16 03/18/2024 11:36:28 Thrombocytopenic disorder 436056283 D69.6 42728 Health Concerns Section Related Observation LastModified by Organization Detai ls LastModified Time None Recorded Concern Status LastModified by Organization Details LastModified Time None Recorded Advance Directives Directive None Recorded Payers Insurance Date Sequence Insurance Name Policy Number Policy Mcfarland Covered Member ID Mcfarland Member ID Guarantor Name 03/06/2025 1 [facility] (MEDICARE REPLACEMENT/AD VANTAGE - PPO) [id number] Nabila Clark [id number] Nabial Clark 03/20/2025 1 [facility] (MEDICARE REPLACEMENT/AD VANTAGE - PPO) [id number] Nabila Clark [id number] Nabila Clark 03/06/2025 2 [place] Nabila Clark [id number] Nabila Clark 03/06/2025 1 [employer] [place] ON [place] AFTER 2020 (MEDICAID REPLACEMENT - HMO) Nabila Clark [id number] Nabila Clark 03/13/2025 1 [place] Nabila Clark [id number] Nabila Clark 03/13/2025 2 [place] [facility] Nabila Clark [id number] Nabila Clark 03/06/2025 1 [place] [facility] Nabila Clark [id number] Nabila Clark Notes Date Note Type Note Provider Name and Address Organization Details Recorded Time 01/23/2024 text/html Ms. Clark is a 58 -year-old female with history significant for Janessa-en-Y gastric bypass surgery in 2000, history of VBG to gastric bypass with complications of ulcers at her anastomosis perforation. She had complications requiring exploratory laparotomy with temporary abdominal closure with eventual J-tube placement. history of bipolar illness, obesity, malnutrition, history of B12 deficiency, severe malnutrition, adynamic ileus, bacteremia, splenic infarct type 2 diabetes. History of borderline personality disorder. She also has multiple episodes of GI bleed, hematochezia hematemesis multiple blood transfusion esophageal and duodenal ulcer. Multiple hospital admission because of GI bleed. I am seeing this patient first time this morning.She recently had a hospital admission in [facility], from December 15 to January 03. I had talked with the hospitalist before discharge I have mentioned them that this patient is a classic candidate for fpc placement but they were discharging patient with home health service. I have mentioned that they should find out either GI or bariatric surgeon who manages her TPN.-I have talked with her daughter in detail. I have emphasized her the importance of following with GI specialist for repeating EGD to check on those esophageal and other ulcer of small bowel. I have also emphasized the importance of following with surgeon to take care of that G-tube and any recommendation regarding TPN. -There are home health nurse involved and [facility] TPN nurses also involved. We need to find that record and daughter needs to provide the record of the home health nurse and plans to do his infusion nurses.-Patient has no complaint of nausea vomiting diarrhea or constipation no hematochezia no blood in the stool no hematemesis. She does have a TPN and she also has J-tube. Surrounding skin is does not look infected She is using wheelchair because of general weakness All questions were answered. Sergio Solis MD [address] [place] [address], [phone], [facility] 01/26/2024 14:05:06 03/15/2024 text/html SC Oral ChemoReported by PatientSC Oral ChemoFor fully active; no restrictions, patient reportsno. For unable to perform self-care; confined to bed/chair, patient reportsyes. For are you taking your oral chemotherapy exactly as prescribed, patient reportsna. For have you missed any doses of your oral chemotherapy since your last visit to this office, patient reportsna. For do you have questions or concerns about your oral chemotherapy treatment, patient reportsna. For are you currently using any alternative therapies, patient reportsinsert text here: (no). For minimal activity/work restrictions, patient reportsno. For able to perform all self care but no work activities; up about >50% of the day, patient reportsno. For limited self-care; in bed/chair > 50% of the day, patient reportsno. For any physical health complaints today, patient reportsno. For any emotional health concerns?, patient reportsno. For are you exposed to second hand smoke?, patient reportsno. Luanne Toledo MD [address] [place] [address], [phone], [facility] 03/21/2024 06:25:07 OBGyn Episode No OBEpisode recorded.
--- OUTSIDE RECORDS SUMMARY | 2025-03-24 15:14 | XMS_ITS | Encounter Summary ---
Author Organization [facility] Address [address] [place] [address] Care Team Providers Care Fellmongering Machine Operator Name Role Phone Chava Sherman MD Primary Care Provider [phone] Encounter Details Date Type Department Care Team (Late st Contact Info) Description 09/23/2024 Lab Requisition [facility] [address] [place] [address] [place] [phone] Pérez Pinzon MD [address] [place] [address] Social History Tobacco Use Types [...] - 4.8 mg/dL 09/23/2024 8:38 AM CDT [facility] Blood Collection / Unknown 09/23/2024 2:45 AM CDT 09/23/2024 5:44 AM CDT us Pérez Pinzon MD CHEMISTRY ORDERABLES Final Resul t Performing Organization Address City/[facility]/ZIP Co de Phone Number [facility] [id number] [address] [place] [address] [phone] * TRIGLYCERIDE (09/23/2024 2:45 AM CDT) Pathologist [facility] TRIGLYCERIDE 67 <150 mg/dL 09/23/2024 8:38 AM CDT [facility] Blood Collection / Unknown 09/23/2024 2:45 AM CDT 09/23/2024 5:44 AM CDT Narrative [facility] - 09/23/2024 8:38 AM CDT TRIGLYCERIDES mg/dL Normal < 150 Borderline High 150 - 199 High 200 - 499 Very High >= 500 Based on AHA/NCEP Guidelines. us Pérez Pinzon MD CHEMISTRY ORDERABLES Final Resul t Performing Organization Address City/[facility]/ZIP Co de Phone Number [facility] [id number] [address] [place] [address] [phone] * MAGNESIUM LEVEL (09/23/2024 2:45 AM CDT) MAGNESIUM 1.9 1.6 - 2.6 mg/dL 09/23/2024 8:38 AM T [facility] Blood Collection / Unknown 09/23/2024 2:45 AM CDT 09/23/2024 5:44 AM CDT Pérez Pinzon MD CHEMISTRY ORDERABLES Final Resul t [facility] [id number] [address] [place] [address] * (ABNORMAL) COMPREHENSIVE METABOLIC PANEL (09/23/2024 2:45 AM CDT) SODIUM 138 136 - 145 mmol/L 09/23/2024 8:38 AM [facility] POTASSIUM 4.2 3.2 - 4.9 mmol/L 09/23/2024 8:38 AM [facility] CHLORIDE 109 98 - 111 mmol/L 09/23/2024 8:38 AM [facility] CO2 24 22 - 29 mmol/L 09/23/2024 8:38 AM [facility] CALCIUM 8.8 8.4 - 10.5 mg/dL 09/23/2024 8:38 AM [facility] BUN 23 6 - 24 mg/dL 09/23/2024 8:38 AM [facility] CREATININE 0.49(L) 0.50 - 1.20 mg/dL 09/23/2024 8:38 AM [facility] GLUCOSE 114 70 - 115 mg/dL 09/23/2024 8:38 AM [facility] TOTAL PROTEIN 7.0 6.0 - 8.4 g/dL 09/23/2024 8:38 AM [facility] ALBUMIN 2.9(L) 3.5 - 5.2 g/dL 09/23/2024 8:38 AM [facility] BILIRUBIN TOTAL 0.1(L) 0.3 - 1.2 mg/dL 09/23/2024 8:38 AM [facility] ALKALINE PHOSPHATASE 180(H) 25 - 117 U/L 09/23/2024 8:38 AM [facility] AST 31 <=33 U/L 09/23/2024 8:38 AM [facility] ALT 23 <=55 U/L 09/23/2024 8:38 AM [facility] GFR >60 >=60 mL/min/1.7 3 sq meter 09/23/2024 8:38 AM [facility] Comment:eGFR calculated with 2020 CKD-EPI equation. Vegetarian diet, extremely high or low muscle mass, and may affect results. Cystatin C with Glomerular Filtration Rate is a suitable alternative for these patients. ANION GAP 5(L) 7 - 16 mmol/L 09/23/2024 8:38 AM [facility] Blood Collection / Unknown 09/23/2024 2:45 AM CDT 09/23/2024 5:44 AM CDT us Pérez Pinzon MD CHEMISTRY ORDERABLES Final Resul t [facility] [id number] [address] [place] [address] documented in this encounter Visit Diagnoses Not on filedocumented in this encounter Care Teams Fellmongering Machine Operator Relationship Specialty Start Date End Date Chava Sherman MD [address] [place] [phone] PCP - General Internal Medicine 06/19/24 documented as of this encounter
--- OUTSIDE RECORDS SUMMARY | 2025-03-24 15:14 | XMS_ITS | Encounter Summary ---
Author Organization [facility] Address [address] [place] [address] Care Team Providers Care Formulation Technician Name Role Phone Chava Sherman MD Primary Care Provider Encounter Details Date Type Department Care Team (Late st Contact Info) Description 09/30/2024 Lab Requisition [facility] Laboratory Services [address] [place] [address] [place] [address] [phone] Pérez Pinzon MD [address] [place] [address] Social History Tobacco Use Types [...] - 4.8 mg/dL 09/30/2024 7:54 AM CDT [facility] Blood Collection / Unknown 09/30/2024 3:00 AM CDT 09/30/2024 5:58 AM CDT us Pérez Pinzon MD CHEMISTRY ORDERABLES Final Resul t Performing Organization Address City/[facility]/ZIP Co de Phone Number [facility] [id number] [address] [place] [address] [phone] * TRIGLYCERIDE (09/30/2024 3:00 AM CDT) Pathologist [facility] TRIGLYCERIDE 68 <150 mg/dL 09/30/2024 7:54 AM CDT [facility] Blood Collection / Unknown 09/30/2024 3:00 AM CDT 09/30/2024 5:58 AM CDT Narrative [facility] - 09/30/2024 7:54 AM CDT TRIGLYCERIDES mg/dL Normal < 150 Borderline High 150 - 199 High 200 - 499 Very High >= 500 Based on AHA/NCEP Guidelines. us Pérez Pinzon MD CHEMISTRY ORDERABLES Final Resul t Performing Organization Address City/[facility]/ZIP Co de Phone Number [facility] [id number] [address] [place] [address] * MAGNESIUM LEVEL (09/30/2024 3:00 AM CDT) MAGNESIUM 1.8 1.6 - 2.6 mg/dL 09/30/2024 7:54 AM [facility] Blood Collection / Unknown 09/30/2024 3:00 AM CDT 09/30/2024 5:58 AM CDT Pérez Pinzon MD CHEMISTRY ORDERABLES Final Resul t [facility] [id number] [address] [place] [address] * (ABNORMAL) COMPREHENSIVE METABOLIC PANEL (09/30/2024 3:00 AM CDT) SODIUM 137 136 - 145 mmol/L 09/30/2024 7:54 AM [facility] POTASSIUM 4.3 3.2 - 4.9 mmol/L 09/30/2024 7:54 AM [facility] CHLORIDE 106 98 - 111 mmol/L 09/30/2024 7:54 AM [facility] CO2 24 22 - 29 mmol/L 09/30/2024 7:54 AM [facility] CALCIUM 8.6 8.4 - 10.5 mg/dL 09/30/2024 7:54 AM [facility] BUN 20 6 - 24 mg/dL 09/30/2024 7:54 AM [facility] CREATININE 0.48(L) 0.50 - 1.20 mg/dL 09/30/2024 7:54 AM [facility] GLUCOSE 108 70 - 115 mg/dL 09/30/2024 7:54 AM [facility] TOTAL PROTEIN 6.7 6.0 - 8.4 g/dL 09/30/2024 7:54 AM [facility] ALBUMIN 3.0(L) 3.5 - 5.2 g/dL 09/30/2024 7:54 AM [facility] BILIRUBIN TOTAL 0.2(L) 0.3 - 1.2 mg/dL 09/30/2024 7:54 AM [facility] ALKALINE PHOSPHATASE 187(H) 25 - 117 U/L 09/30/2024 7:54 AM [facility] AST 28 <=33 U/L 09/30/2024 7:54 AM [facility] ALT 20 <=55 U/L 09/30/2024 7:54 AM [facility] GFR >60 >=60 mL/min/1.7 3 sq meter 09/30/2024 7:54 AM [facility] Comment:eGFR calculated with 2020 CKD-EPI equation. Vegetarian diet, extremely high or low muscle mass, and may affect results. Cystatin C with Glomerular Filtration Rate is a suitable alternative for these patients. ANION GAP 7 7 - 16 mmol/L 09/30/2024 7:54 AM [facility] Blood Collection / Unknown 09/30/2024 3:00 AM CDT 09/30/2024 5:58 AM CDT us Pérez Pinzon MD CHEMISTRY ORDERABLES Final Resul t [facility] [id number] [address] [place] [address] documented in this encounter Visit Diagnoses Not on filedocumented in this encounter Care Teams Formulation Technician Relationship Specialty Start Date End Date Chava Sherman MD [address] [place] [phone] PCP - General Internal Medicine 06/19/24 documented as of this encounter
--- OUTSIDE RECORDS SUMMARY | 2025-03-24 15:14 | XMS_ITS ---
Author Organization [facility] Care Team Providers Care Rackman Name Role Phone Dash Echeverria Unavailable Unavailable Monica Blood Unavailable Unavailable Allergies and adverse reactions No Known Allergies Care Team Name Role Address Phone Organization Dates Dash Echeverria [facility] [address] [place], [address], [place] (Office): : [facility] 06/12/2023 - 07/08/2023 Monica Blood [address] [facility] , [place], [address], [place] (Office): [facility] 06/12/2023 - 07/08/2023 Goals Section [...] completed tuberculin skin test; unspecified formulation lotNumber: [id number] expiry: 03/03/2026 Mfg: Mantoux Tubersol Given 0.1 ml Left Forearm subcutaneously 98 CVX created date: 03/28/2023 consent date: 03/28/2023 administer ed date: 03/14/2023 Educated by on 03/14/2023 TB 2 Step Mantoux Skin Test completed tuberculin skin test; unspecified formulation lotNumber: [id number] expiry: 03/28/2023 Mfg: Mantoux Tubersol Given 0.1 [...] free, steff-sucrose, 30 mcg/0.3 mL dose lotNumber: [id number] expiry: 08/02/2023 Mfg: pfizer Given 0.3 ml [...] information 2023 Code: 2 Code System OID:2.16.840 .1.271968.3. 221.5 Code System Name: Source of Payment Typology (PHDSC) Display: Medicaid Translation: Code: 48 Code System: OID:2.16.840 .1.860089.6. 255.1336 Code System Name: Insurance Type Code ([id number]) Display Name: Medicaid Code: SELF Code System Name: HL7 RoleCode Code System OID:2.16.840.1 .023399.5.111 Display Name: Self [id number] Root: [id number] Payer Name: [place] Address: [facility] City: [place] State: [place] Country: [facility] Code: 81 Code System OID:2.16.840 .1.978401.3. 221.5 Code System Name: Source of Payment Typology (PHDSC) Display: Self Pay Translation: Code: 09 Code System: OID:2.16.840 .1.765058.6. 255.1336 Code System Name: Insurance Type Code ([id number]) Display Name: Self-pay Code: 1 Code System OID:2.16.840 .1.672421.3. 221.5 Code System Name: Source of Payment Typology (PHDSC) Display: Medicare Translation: Code: MB Code System: OID:2.16.840 .1.271882.6. 255.1336 Code System Name: Insurance Type Code ([id number]) Display Name: Medicare Part B 2023 Code: 349 Code System OID:2.16.840 .1.254368.3. 221.5 Code System Name: Source of Payment Typology (PHDGA) Display: Other Translation: Code: C1 Code System: OID:2.16.840 .1.886429.6. 255.1336 Code System Name: Insurance Type Code ([id number]) Display Name: Commercial Insurance Code: SELF Code System Name: HL7 RoleCode Code System OID:2.16.840.1 .187900.5.111 Display Name: Self [id number] Root: [id number] Payer Name: [employer] Address: [address] 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 [address] active 6 BORDERLINE PERSONALITY DISORDER [address] active 7 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 [address] active 8 DEFICIENCY OF OTHER SPECIFIED B GROUP VITAMINS [address] active 9 DEPENDENCE ON RENAL DIALYSIS 3 04/23/[address] completed 10 DEPRESSION, UNSPECIFIED [address] active 11 ENCOUNTER FOR ATTENTION TO OTHER ARTIFICIAL OPENINGS OF DIGESTIVE TRACT [address] active 12 ENCOUNTER FOR SURGICAL AFTERCARE FOLLOWING SURGERY ON THE DIGESTIVE SYSTEM [address] active 13 END STAGE RENAL DISEASE [address] active 14 ESOPHAGITIS, UNSPECIFIED WITHOUT BLEEDING [address] active 15 FATTY (CHANGE OF) LIVER, NOT ELSEWHERE CLASSIFIED [address] active 16 FIBROMYALGIA [address] active 17 GASTRO-ESOPHAGEAL REFLUX DISEASE WITHOUT ESOPHAGITIS [address] active 18 HYPERLIPIDEMIA, UNSPECIFIED [address] active 19 IRON DEFICIENCY ANEMIA, UNSPECIFIED [address] active 20 MORBID (SEVERE) OBESITY DUE TO EXCESS CALORIES [address] active 21 OBSTRUCTIVE SLEEP APNEA (ADULT) (PEDIATRIC) [address] active 22 PERITONEAL ABSCESS [address] active 23 SCHIZOAFFECTIVE DISORDER, UNSPECIFIED [address] active 24 UNSPECIFIED GLAUCOMA [address] active 25 UNSPECIFIED OSTEOARTHRITIS, UNSPECIFIED SITE [address] active 26 UNSPECIFIED SEVERE PROTEIN-CALORIE MALNUTRITION [address] active Reason for Referral No Reasons for Referral Entered Social History Social History Observation Description Start Date End Date Code Code System Current Smoking Status Tobacco smoking consumption unknown 150449479 SNOMED CT Sex Assigned At Female 1965 20845-2 LOINC Gender Identity Female 94799902162546 [address] Sexual Orientation Heterosexual (finding) 24288520 SNOMED CT Vital Signs Code Code System Vitals Name Values and Units Timing Information 76823-9 LOINC Pain Level Value=4.0 07/08/2023 8462-4 LOINC Blood Pressure-Diastolic Value=70 Un its=mmHg 07/07/2023 8480-6 LOINC Blood Pressure-Systolic Dwkef=989 Un its=mmHg 07/07/2023 24554-0 LOINC O2 % BldC Oximetry Value=96.0 Units= % 07/07/2023 9279-1 LOINC Respiratory Rate Value=18.0 Units=/m in 07/07/2023 8310-5 LOINC Body Temperature Value=97.6 Units= F 07/07/2023 8867-4 LOINC Heart rate Value=74.0 Units=/min 08/2023 46089-6 LOINC Weight Bmecc=275.0 Units=Lbs 06/2023 8302-2 LOINC Height Value=61.0 Units=Inches 03/13/2023
--- OUTSIDE RECORDS SUMMARY | 2025-03-24 15:14 | XMS_ITS | Encounter Summary ---
Author Organization [facility] Address [address] [place] [address] Care Team Providers Care Volunteer Recruiter Name Role Phone Chava Sherman MD Primary Care Provider Encounter Details Date Type Department Care Team (Late st Contact Info) Description 08/10/2024 Lab Requisition [facility] Laboratory Services [address] [place] [address] [phone] Pérez Pinzon MD [address] [place] [address] Social History Tobacco Use Types [...] CBC WITH DIFFERENTIAL (08/10/2024 2:00 AM CDT) [facility] WBC 10.4 3.5 - 11.0 K/uL 08/10/2024 3:59 AM [facility] RBC 2.81(L) 3.80 - 5.00 M/uL 08/10/2024 3:59 AM [facility] HEMOGLOBIN 8.4(L) 11.7 - 15.7 g/dL 08/10/2024 3:59 AM [facility] HEMATOCRIT 25.5(L) 35.0 - 47.0 % 08/10/2024 3:59 AM [facility] MCV 90.9 80.8 - 100.0 fL 08/10/2024 3:59 AM [facility] MCH 30.0 26.4 - 34.0 pg 08/10/2024 3:59 AM [facility] MCHC 33.1 31.4 - 36.3 g/dL 08/10/2024 3:59 AM [facility] RDW 19.3(H) 11.0 - 15.0 % 08/10/2024 3:59 AM [facility] PLATELETS 482(H) 150 - 450 K/uL 08/10/2024 3:59 AM [facility] MPV 8.7 7.5 - 11.2 fL 08/10/2024 3:59 AM [facility] NEUTROPHILS 64 50 - 75 % 08/10/2024 3:59 AM [facility] LYMPHOCYTES 25 19 - 48 % 08/10/2024 3:59 AM [facility] MONOCYTES 7 0 - 10 % 08/10/2024 3:59 AM [facility] EOSINOPHILS 3 0 - 6 % 08/10/2024 3:59 AM [facility] BASOPHILS 1 0 - 2 % 08/10/2024 3:59 AM [facility] NEUTROPHIL ABSOLUTE 6.61 >=0.50 K/uL 08/10/2024 3:59 AM CDT [facility] LYMPHOCYTE ABSOLUTE 2.56 K/uL 08/10/2024 3:59 AM CDT [facility] MONOCYTE ABSOLUTE 0.73 K/uL 08/10/2024 3:59 AM CDT [facility] EOSINOPHIL ABSOLUTE 0.34 K/uL 08/10/2024 3:59 AM CDT [facility] BASOPHILS ABSOLUTE 0.14 K/uL 08/10/2024 3:59 AM CDT [facility] Blood 08/10/2024 2:00 AM CDT 08/10/2024 3:55 AM CDT us Pérez Pinzon MD HEMATOLOGY ORDERABLES Final Resu lt [facility] [id number] [address] [place] [address] [phone] documented in this encounter Visit Diagnoses Not on filedocumented in this encounter Care Teams Volunteer Recruiter Relationship Specialty Start Date End Date Chava Sherman MD [address] [place] [phone] PCP - General Internal Medicine 06/19/24 documented as of this encounter
--- OUTSIDE RECORDS SUMMARY | 2025-03-24 15:14 | XMS_ITS | Encounter Summary ---
Author Organization [facility] Address [address] [place] [address] Care Team Providers Care Precision Optics Technician Name Role Phone Chava Sherman MD Primary Care Provider Encounter Details Date Type Department Care Team (Late st Contact Info) Description 09/19/2024 Lab Requisition [facility] Laboratory Services [address] [place] [address] [place] [address] [phone] Pérez Pinzon MD [address] [place] [address] Social History Tobacco Use Types [...] - 4.8 mg/dL 09/19/2024 11:30 AM CDT [facility] Blood Collection / Unknown 09/19/2024 2:17 AM CDT 09/19/2024 6:14 AM CDT us Pérez Pinzon MD CHEMISTRY ORDERABLES Final Resul t [facility] [id number] [address] [place] [address] * TRIGLYCERIDE (09/19/2024 2:17 AM CDT) TRIGLYCERIDE 90 <150 mg/dL 09/19/2024 11:30 AM CDT [facility] Blood Collection / Unknown 09/19/2024 2:17 AM CDT 09/19/2024 6:14 AM CDT Narrative [facility] - 09/19/2024 11:30 AM CDT TRIGLYCERIDES mg/dL Normal < 150 Borderline High 150 - 199 High 200 - 499 Very High >= 500 Based on AHA/NCEP Guidelines. us Pérez Pinzon MD CHEMISTRY ORDERABLES Final Resul t Performing Organization Address City/[facility]/ZIP Co de Phone Number [facility] [id number] [address] [place] [address] * MAGNESIUM LEVEL (09/19/2024 2:17 AM CDT) Pathologist [facility] MAGNESIUM 2.1 1.6 - 2.6 mg/dL 09/19/2024 11:30 AM CDT [facility] Blood Collection / Unknown 09/19/2024 2:17 AM CDT 09/19/2024 6:14 AM CDT Pérez Pinzon MD CHEMISTRY ORDERABLES Final Resul t [facility] [id number] [address] [place] [address] * (ABNORMAL) CBC WITH DIFFERENTIAL (09/19/2024 2:17 AM CDT) Pathologist [facility] WBC 6.6 3.5 - 11.0 K/uL 09/19/2024 7:52 AM CDT [facility] RBC 2.99(L) 3.80 - 5.00 M/uL 09/19/2024 7:52 AM T [facility] HEMOGLOBIN 9.0(L) 11.7 - 15.7 g/dL 09/19/2024 7:52 AM T [facility] HEMATOCRIT 28.4(L) 35.0 - 47.0 % 09/19/2024 7:52 AM T [facility] MCV 95.0 80.8 - 100.0 fL 09/19/2024 7:52 AM T [facility] MCH 30.1 26.4 - 34.0 pg 09/19/2024 7:52 AM T [facility] MCHC 31.7 31.4 - 36.3 g/dL 09/19/2024 7:52 AM T [facility] [employer] [facility] RDW 17.6(H) 11.0 - 15.0 % 09/19/2024 7:52 AM T [facility] RDW-STDEV 61.9(H) 37.0 - 54.0 fL 09/19/2024 7:52 AM T [facility]OR[facility] PLATELETS 383 150 - 450 K/uL 09/19/2024 7:52 AM [facility] MPV 10.3 7.5 - 11.2 fL 09/19/2024 7:52 AM [facility] [employer] [facility] NEUTROPHILS 41(L) 50 - 75 % 09/19/2024 7:52 AM T [facility] LYMPHOCYTES 47 19 - 48 % 09/19/2024 7:52 AM T [facility] MONOCYTES 7 0 - 10 % 09/19/2024 7:52 AM [facility] EOSINOPHILS 4 0 - 6 % 09/19/2024 7:52 AM [facility] BASOPHILS 1 0 - 2 % 09/19/2024 7:52 AM [facility] IMMATURE GRANULOCYTES 0 % 09/19/2024 7:52 AM [facility] NEUTROPHIL ABSOLUTE 2.73 >=0.50 K/uL 09/19/2024 7:52 AM [facility] LYMPHOCYTE ABSOLUTE 3.08 K/uL 09/19/2024 7:52 AM [facility] MONOCYTE ABSOLUTE 0.43 K/uL 025 7:52 AM [facility] EOSINOPHIL ABSOLUTE 0.29 K/uL 09/19/2024 7:52 AM [facility] BASOPHILS ABSOLUTE 0.06 K/uL 09/19/2024 7:52 AM [facility] IMMATURE GRANULOCYTES ABSOLUTE 0.02 K/uL 09/19/2024 7:52 AM [facility] [facility] Blood 09/19/2024 2:17 AM CDT 09/19/2024 6:14 AM CDT us Pérez Pinzon MD HEMATOLOGY ORDERABLES Final Resu lt [facility] [id number] [facility] [place], [place] [address] * (ABNORMAL) COMPREHENSIVE METABOLIC PANEL (09/19/2024 2:17 AM CDT) SODIUM 136 136 - 145 mmol/L 09/19/2024 11:30 AM [facility] POTASSIUM 3.8 3.2 - 4.9 mmol/L 09/19/2024 11:30 AM [facility] CHLORIDE 107 98 - 111 mmol/L 09/19/2024 11:30 AM [facility] CO2 25 22 - 29 mmol/L 09/19/2024 11:30 AM [facility] CALCIUM 8.7 8.4 - 10.5 mg/dL 09/19/2024 11:30 AM [facility] BUN 23 6 - 24 mg/dL 09/19/2024 11:30 AM [facility] CREATININE 0.46(L) 0.50 - 1.20 mg/dL 09/19/2024 11:30 AM [facility] GLUCOSE 105 70 - 115 mg/dL 09/19/2024 11:30 AM [facility] TOTAL PROTEIN 6.9 6.0 - 8.4 g/dL 09/19/2024 11:30 AM [facility] ALBUMIN 2.9(L) 3.5 - 5.2 g/dL 09/19/2024 11:30 AM [facility] BILIRUBIN TOTAL 0.1(L) 0.3 - 1.2 mg/dL 09/19/2024 11:30 AM [facility] ALKALINE PHOSPHATASE 184(H) 25 - 117 U/L 09/19/2024 11:30 AM [facility] AST 34(H) <=33 U/L 09/19/2024 11:30 AM [facility] ALT 21 <=55 U/L 09/19/2024 11:30 AM T [facility] GFR >60 >=60 mL/min/1.7 3 sq meter 09/19/2024 11:30 AM [facility] Comment:eGFR calculated with 2020 CKD-EPI equation. Vegetarian diet, extremely high or low muscle mass, and may affect results. Cystatin C with Glomerular Filtration Rate is a suitable alternative for these patients. ANION GAP 4(L) 7 - 16 mmol/L 09/19/2024 11:30 AM [facility] Blood Collection / Unknown 09/19/2024 2:17 AM CDT 09/19/2024 6:14 AM CDT Pérez Pinzon MD CHEMISTRY ORDERABLES Final Resul t [facility] [id number] [address] [place] [address] documented in this encounter Visit Diagnoses Not on filedocumented in this encounter Care Teams Precision Optics Technician Relationship Specialty Start Date End Date Chava Sherman MD [address] [place] [phone] PCP - General Internal Medicine 06/19/24 documented as of this encounter
--- OUTSIDE RECORDS SUMMARY | 2025-04-18 18:00 | XMS_ITS | Clinical Summary ---
Author Organization Unknown Care Team Providers Care Valet Parker Name Role Phone ARNIE ALCALA, YAKELIN Unavailable Unavailable NICOLAS WHITE, OLIVIA Unavailable Unavailable AGGIE RN, ARMAAN Unavailable Unavailable LINDA RN, LONI Unavailable Unavailable LISA DAVENPORT, PATTI Unavailable Unavailable SHASTA LEMUS, SIMI Unavailable Unavailable Payers Payer Name Policy Type Policy Number Effective Date Expira tion Date [employer] MEDICARE FFS - ORDER DRIVEN [id number] MEDICARE - [place] - PDGM [id number] Problems Condition Name Condition Details Condition Category Status Onset Date Resolution Date Last Treatment Date Treating Clinician Comments OTH COMPLICATION S OF PROCEDURES, NEC, SUBS Active 2024-04 00:00: 00 CHRONIC OR UNSPECIFIED GASTROJEJUNA L ULCER WITH HEMORRHAGE Active 2024-04 00:00: 00 EPILEPSY, UNSP, NOT INTRACTABLE, WITHOUT STATUS EPILEPTICUS Active 04-03 00:00: 00 SCHIZOAFFECT ROSENDA DISORDER, UNSPECIFIED Active 04-03 00:00: 00 BIPOLAR DISORDER, UNSPECIFIED Active 04-03 00:00: 00 UNSPECIFIED PROTEIN-FRED NORBERTO MALNUTRITION Active 04-03 00:00: 00 ENCOUNTER FOR ATTENTION TO COLOSTOMY Active 04-03 00:00: 00 ANXIETY DISORDER, UNSPECIFIED Active 04-03 00:00: 00 OTHER SPECIFIED CHRONIC OBSTRUCTIVE PULMONARY DISEASE Active 04-03 00:00: 00 GASTRO-ESOPH AGEAL REFLUX DISEASE WITHOUT ESOPHAGITIS Active 04-03 00:00: 00 UNSPECIFIED GLAUCOMA Active 04-03 00:00: 00 FIBROMYALGIA Active 04-03 00:00: 00 OBESITY, UNSPECIFIED Active 04-03 00:00: 00 BODY MASS INDEX [BMI] 27.0-27.9, ADULT Active 04-03 00:00: 00 PERSONAL HISTORY OF NICOTINE DEPENDENCE Active 04-03 00:00: 00 DEPENDENCE ON WHEELCHAIR Active 04-03 00:00: 00 ENCOUNTER FOR ADJUSTMENT AND MANAGEMENT OF VAD Active 04-03 00:00: 00 OTHER DETENTION (CURRENT) DRUG THERAPY Active 04-03 00:00: 00 Allergies, Adverse Reactions, Alerts Allergy Name Allergy Type Status Severity Reaction(s) Onset Date Inactive Date Treating Clinician Comments IBUPROFEN Propensity to adverse reactions Active 10-22 15:33: 11 Medications Ordered Medication Name Filled Medication Name Start Date Stop Date Current Medication? Ordering Clinician Indication Dosage Frequency Signature (SIG) Comments Components acetaminoph en 500 mg capsule 10-22 00:00: 00 Yes [id number] 2 capsule EVERY 6 HOURS 2 capsule EVERY 6 HOURS (route: oral) Med Classific ation: Analgesic , Anti-infl ammatory or Antipyret ic albuterol sulfate HFA 90 mcg/actuati on aerosol inhaler 10-22 00:00: 00 Yes [id number] 2 puff EVERY 6 HOURS 2 puff EVERY 6 HOURS (route: inhalation ) Med Classific ation: Respirato ry Therapy Agents aripiprazol e 10 mg disintegrat ing tablet 10-22 00:00: 00 Yes [id number] 1 tablet BEDTIME 1 tablet BEDTIME (route: oral) Med Classific ation: Central Nervous System Agents gabapentin 300 mg capsule 10-22 00:00: 00 Yes [id number] 1 capsule 3 TIMES DAILY 1 capsule 3 TIMES DAILY (route: oral) Med Classific ation: Central Nervous System Agents levetiracet am 1,000 mg tablet 10-22 00:00: 00 Yes [id number] 1 tablet 2 TIMES DAILY 1 tablet 2 TIMES DAILY (route: oral) Med Classific ation: Central Nervous System Agents methocarbam ol 750 mg tablet 10-22 00:00: 00 03-11 23:59 :00 No [id number] 1 tablet 3 TIMES DAILY 1 tablet 3 TIMES DAILY (route: oral) Med Classific ation: Locomotor System midodrine 5 mg tablet 10-22 00:00: 00 12-20 23:59 :00 No [id number] 1 tablet 3 TIMES DAILY 1 tablet 3 TIMES DAILY (route: oral) Med Classific ation: Cardiovas cular Therapy Agents mirtazapine 7.5 mg tablet 10-22 00:00: 00 Yes [id number] 1 tablet BEDTIME 1 tablet BEDTIME (route: oral) Med Classific ation: Central Nervous System Agents omeprazole 40 mg capsule,del ayed release 10-22 00:00: 00 Yes [id number] 1 capsule 2 TIMES DAILY 1 capsule 2 TIMES DAILY (route: oral) Med Classific ation: Gastroint estinal Therapy Agents oxybutynin chloride 5 mg/5 mL oral syrup 10-22 00:00: 00 Yes [id number] 5 mL 2 TIMES DAILY 5 mL 2 TIMES DAILY (route: oral) Med Classific ation: Genitouri nary Therapy oxycodone 5 mg tablet 10-22 00:00: 00 03-11 23:59 :00 No [id number] 1 tablet EVERY 4 HOURS 1 tablet EVERY 4 HOURS (route: oral) Med Classific ation: Analgesic , Anti-infl ammatory or Antipyret ic sodium chloride 0.9 % injection solution 10-22 00:00: 00 Yes [id number] 10 mL DIRECTED 10 mL DIRECTED (route: injection) Med Classific ation: Electroly te Balance-N utritiona l Products sucralfate 1 gram tablet 10-22 00:00: 00 Yes [id number] 1 tablet 4 TIMES DAILY 1 tablet 4 TIMES DAILY (route: oral) Med Classific ation: Gastroint estinal Therapy Agents TPN Electrolyte s 35 mEq-20 mEq-5 mEq/20 mL intravenous solution 10-22 00:00: 00 Yes [id number] 1800 mL DIRECTED 1800 mL DIRECTED (route: intravenou s) Med Classific ation: Electroly te Balance-N utritiona l Products Wound Wash Saline 0.9 % [place] 10-22 00:00: 00 12-03 23:59 :00 No [id number] Per instruc tions DIRECTED Per instructio ns DIRECTED (route: topical) Med Classific ation: Dermatolo gical sodium chloride 0.9 % irrigation solution 10-22 00:00: 00 12-03 23:59 :00 No [id number] Per instruc tions DIRECTED Per instructio ns DIRECTED (route: irrigation ) Med Classific ation: Electroly te Balance-N utritiona l Products Vashe 0.033 % irrigation solution 12-03 00:00: 00 Yes [id number] Per instruc tions DIRECTED Per instructio ns DIRECTED (route: irrigation ) Med Classific ation: Dermatolo gical zinc gluconate 50 mg tablet 12-03 00:00: 00 Yes [id number] 1 tablet DAILY 1 tablet DAILY (route: oral) Med Classific ation: Electroly te Balance-N utritiona l Products midodrine 2.5 mg tablet 12-21 00:00: 00 Yes [id number] 1 tablet 3 TIMES DAILY 1 tablet 3 TIMES DAILY (route: oral) Med Classific ation: Cardiovas cular Therapy Agents ondansetron 4 mg disintegrat ing tablet 12-21 00:00: 00 Yes [id number] 1 tablet EVERY 6 HOURS 1 tablet EVERY 6 HOURS (route: oral) Med Classific ation: Gastroint estinal Therapy Agents menthol 0.44 %-zinc oxide 20.6 % topical ointment 2024-04 00:00: 00 Yes [id number] Per instruc tions DIRECTED Per instructio ns DIRECTED (route: topical) Med Classific ation: Dermatolo gical fentanyl 25 mcg/hr transdermal patch 2024-04 00:00: 00 03-11 23:59 :00 No [id number] 1 patch, transde rmal 72 hours EVERY 72 HOURS 1 patch, transderma l 72 hours EVERY 72 HOURS (route: transderma l) Med Classific ation: Analgesic , Anti-infl ammatory or Antipyret ic polyethylen e glycol 3350 17 gram/dose oral powder 2024-04 00:00: 00 Yes [id number] 17 g 2 TIMES DAILY 17 g 2 TIMES DAILY (route: oral) Med Classific ation: Gastroint estinal Therapy Agents Senna with Docusate Sodium 8.6 mg-50 mg tablet 2024-04 00:00: 00 Yes [id number] 2 tablet 2 TIMES DAILY 2 tablet 2 TIMES DAILY (route: oral) Med Classific ation: Gastroint estinal Therapy Agents oxycodone 5 mg/5 mL oral solution 2024-04 00:00: 00 Yes [id number] 5 mL EVERY 4 HOURS 5 mL EVERY 4 HOURS (route: oral) Med Classific ation: Analgesic , Anti-infl ammatory or Antipyret ic Vital Signs Vital Name Observation Time Observation Value Commen ts Temperature 2025-03-18 11:34:00.000 97.6 [degF] Temperature 2025-03-14 13:46:00.000 98.8 [degF] Temperature 2025-03-11 10:57:00.000 97.2 [degF] Temperature 2025-03-04 12:22:00.000 97.3 [degF] Temperature 2025-02-28 11:46:00.000 97.2 [degF] Temperature 2025-02-25 12:02:00.000 97.2 [degF] Temperature 2025-02-21 12:05:00.000 97.3 [degF] BMI (%) 2025-03-11 10:57:00.000 27 kg/m2 Height 2025-03-11 10:57:00.000 61 [in_us] Pulse 2025-03-18 11:34:00.000 76 /min Pulse 2025-03-14 13:46:00.000 80 /min Pulse 2025-03-11 10:57:00.000 83 /min Pulse 2025-03-04 11:39:00.000 97 /min Pulse 2025-02-28 11:46:00.000 80 /min Pulse 2025-02-25 12:02:00.000 96 /min Pulse 2025-02-21 12:05:00.000 68 /min O2 Saturation (%) 2025-03-18 11:34:00.000 98 % O2 Saturation (%) 2025-03-14 13:46:00.000 98 % O2 Saturation (%) 2025-03-11 10:57:00.000 98 % O2 Saturation (%) 2025-03-04 11:39:00.000 97 % O2 Saturation (%) 2025-02-28 11:46:00.000 100 % O2 Saturation (%) 2025-02-25 12:02:00.000 99 % O2 Saturation (%) 2025-02-21 12:05:00.000 97 % Respirations 2025-03-18 11:34:00.000 18 /min Respirations 2025-03-14 13:46:00.000 18 /min Respirations 2025-03-11 10:57:00.000 19 /min Respirations 2025-03-04 11:39:00.000 19 /min Respirations 2025-02-28 11:46:00.000 18 /min Respirations 2025-02-25 12:02:00.000 17 /min Respirations 2025-02-21 12:05:00.000 16 /min Weight (lbs) 2025-03-11 10:57:00.000 145 [lb_av] Systolic Blood Pressure 2025-03-18 11:34:00.000 142 mm [Hg] Systolic Blood Pressure 2025-03-14 13:46:00.000 122 mm [Hg] Systolic Blood Pressure 2025-03-11 10:57:00.000 132 mm [Hg] Systolic Blood Pressure 2025-03-04 11:39:00.000 138 mm [Hg] Systolic Blood Pressure 2025-02-28 11:46:00.000 134 mm [Hg] Systolic Blood Pressure 2025-02-25 12:02:00.000 138 mm [Hg] Systolic Blood Pressure 2025-02-21 12:05:00.000 128 mm [Hg] Diastolic Blood Pressure 2025-03-18 11:34:00.000 64 mm [Hg] Diastolic Blood Pressure 2025-03-14 13:46:00.000 70 mm [Hg] Diastolic Blood Pressure 2025-03-11 10:57:00.000 80 mm [Hg] Diastolic Blood Pressure 2025-03-04 11:39:00.000 90 mm [Hg] Diastolic Blood Pressure 2025-02-28 11:46:00.000 80 mm [Hg] Diastolic Blood Pressure 2025-02-25 12:02:00.000 82 mm [Hg] Diastolic Blood Pressure 2025-02-21 12:05:00.000 80 mm [Hg] Plan of Treatment Planned Activity Planned Date Details Comments Future Scheduled Test SKILLED NU RSE FOR TEACHING/REINFORCEMENT OF OSTOMY CARE INCLUDING APPLIANCE AND STOMAL CARE. [code = SKILLED NURSE FOR TEACHING/REINFORCEMENT OF OSTOMY CARE INCLUDING APPLIANCE AND STOMAL CARE.] Future Scheduled Test SKILLED NU RSE TO EVALUATE PATIENT, IDENTIFY PRIMARY AND CO-MORBID CONDITIONS CODED PER CODING GUIDELINES, AND DEVELOP PATIENT SPECIFIC PLAN OF CARE THAT INCLUDES PATIENT GOAL FOR HOME HEALTH. PLAN OF CARE TO INCLUDE 3 PRN VISIT(S) FOR OASIS DATA COLLECTION/COMPREHENSIVE ASSESSMENT AT TIMEPOINTS PER FEDERAL REGULATIONS. THIS INCLUDES VISITS FOR LAVINIA, RECERT, SCIC, AND/OR DC. [code = SKILLED NURSE TO EVALUATE PATIENT, IDENTIFY PRIMARY AND CO-MORBID CONDITIONS CODED PER CODING GUIDELINES, AND DEVELOP PATIENT SPECIFIC PLAN OF CARE THAT INCLUDES PATIENT GOAL FOR HOME HEALTH. PLAN OF CARE TO INCLUDE 3 PRN VISIT(S) FOR OASIS DATA COLLECTION/COMPREHENSIVE ASSESSMENT AT TIMEPOINTS PER FEDERAL REGULATIONS. THIS INCLUDES VISITS FOR LAVINIA, RECERT, SCIC, AND/OR DC.] Future Scheduled Test [facility] MAY ACCEPT ORDERS FROM THE FOLLOWING PHYSICIANS: DR YLLE ADJUNCT INSTRUCTOR/TREATING PROVIDERS [code = HOME HEALTH AGENCY MAY ACCEPT ORDERS FROM THE FOLLOWING PHYSICIANS: DR LYLE ADJUNCT INSTRUCTOR/TREATING PROVIDERS] Future Scheduled Test SKILLED NU RSE FOR ADMINISTRATION AND TEACHING OF PARENTERAL NUTRITION INCLUDING MANAGEMENT OF WEEKLY STERILE DRESSING CHANGES TO ACCESS SITE, AND SIDE EFFECTS/COMPLICATIONS TO REPORT. [code = SKILLED NURSE FOR ADMINISTRATION AND TEACHING OF PARENTERAL NUTRITION INCLUDING MANAGEMENT OF WEEKLY STERILE DRESSING CHANGES TO ACCESS SITE, AND SIDE EFFECTS/COMPLICATIONS TO REPORT.] Future Scheduled Test SKILLED NU RSE FOR O/A, TEACHING RELATED TO CHRONIC GASTROJEJUNAL ULCER WITH HEMORRHAGE FOR EARLY IDENTIFICATION OF EXACERBATION OF DISEASE PROCESS. [code = SKILLED NURSE FOR O/A, TEACHING RELATED TO CHRONIC GASTROJEJUNAL ULCER WITH HEMORRHAGE FOR EARLY IDENTIFICATION OF EXACERBATION OF DISEASE PROCESS.] Future Scheduled Test SKILLED NU RSE FOR O/A AND SKILLED TEACHING RELATED TO SIGNS AND SYMPTOMS OF INFECTION AND INFECTION CONTROL MEASURES. [code = SKILLED NURSE FOR O/A AND SKILLED TEACHING RELATED TO SIGNS AND SYMPTOMS OF INFECTION AND INFECTION CONTROL MEASURES.] Future Scheduled Test NEED FOR S KILLED TEACHING AND INTERVENTION RELATED TO SURGICAL WOUND TO ABDOMEN SKILLED NURSE OR TRAINED PATIENT/CAREGIVER TO PERFORM WOUND CARE USING CLEAN TECHNIQUE, CLEANSE/IRRIGATE WITH WOUND WASH, PAT DRY WITH GAUZE, APPLY THIN LAYER OF MENTHOL-ZINC OXIDE OINTMENT TO PERIWOUND, APPLY VASHE DAMPENED SPONGE GAUZE TO WOUND BED, COVER WITH OPTILOCK AND ABDS SECURE WITH TAPE. WOUND CARE TO BE PERFORMED TWICE DAILY AND PRN IF SOILED OR DISLODGED. 1-2 PRN SKILLED NURSE VISITS FOR WOUND CARE DUE TO COMPLICATIONS. SKILLED NURSE TO OBTAIN WOUND CULTURE PRN S/S OF INFECTION. WOUND CARE WILL BE PERFORMED BY TRAINED CAREGIVER ON DAYS WHEN SKILLED NURSE IS NOT SCHEDULED FOR A VISIT. DISCONTINUE WOUND CARE/SUPPLIES ONCE WOUND IS HEALED. [code = NEED FOR SKILLED TEACHING AND INTERVENTION RELATED TO SURGICAL WOUND TO ABDOMEN SKILLED NURSE OR TRAINED PATIENT/CAREGIVER TO PERFORM WOUND CARE USING CLEAN TECHNIQUE, CLEANSE/IRRIGATE WITH WOUND WASH, PAT DRY WITH GAUZE, APPLY THIN LAYER OF MENTHOL-ZINC OXIDE OINTMENT TO PERIWOUND, APPLY VASHE DAMPENED SPONGE GAUZE TO WOUND BED, COVER WITH OPTILOCK AND ABDS SECURE WITH TAPE. WOUND CARE TO BE PERFORMED TWICE DAILY AND PRN IF SOILED OR DISLODGED. 1-2 PRN SKILLED NURSE VISITS FOR WOUND CARE DUE TO COMPLICATIONS. SKILLED NURSE TO OBTAIN WOUND CULTURE PRN S/S OF INFECTION. WOUND CARE WILL BE PERFORMED BY TRAINED CAREGIVER ON DAYS WHEN SKILLED NURSE IS NOT SCHEDULED FOR A VISIT. DISCONTINUE WOUND CARE/SUPPLIES ONCE WOUND IS HEALED.] Future Scheduled Test SKILLED NU RSE TO INSTRUCT PATIENT/CAREGIVER ON COPD TO INCLUDE TEACHING AND SELF-MANAGEMENT RELATED TO COPD DISEASE PROCESS, SIGNS AND SYMPTOMS, AND COMPLICATIONS. [code = SKILLED NURSE TO INSTRUCT PATIENT/CAREGIVER ON COPD TO INCLUDE TEACHING AND SELF-MANAGEMENT RELATED TO COPD DISEASE PROCESS, SIGNS AND SYMPTOMS, AND COMPLICATIONS.] Future Scheduled Test SKILLED NU RSE TO INSTRUCT PATIENT/CAREGIVER ON PREVENTION OF SEPSIS, AND SIGNS AND SYMPTOMS OF SEPSIS TO REPORT. [code = SKILLED NURSE TO INSTRUCT PATIENT/CAREGIVER ON PREVENTION OF SEPSIS, AND SIGNS AND SYMPTOMS OF SEPSIS TO REPORT.] Future Scheduled Test USING ASEP TIC TECHNIQUE, SKILLED NURSE TO OBTAIN BLOOD SPECIMEN VIA VENIPUNCTURE OR PICC LINE FOR LABS TWICE WEEKLY: CBC W/ DIFF, CMP, MAGNESIUM, TRIGLYCERIDES, PHOSPHOROUS FAX RESULTS TO [facility] [phone] GAITAN [phone] [code = USING ASEPTIC TECHNIQUE, SKILLED NURSE TO OBTAIN BLOOD SPECIMEN VIA VENIPUNCTURE OR PICC LINE FOR LABS TWICE WEEKLY: CBC W/ DIFF, CMP, MAGNESIUM, TRIGLYCERIDES, PHOSPHOROUS FAX RESULTS TO [facility] [phone] GAITAN [phone]] Future Scheduled Test PATIENT MANZANO S A RISK OF HOSPITALIZATION AND ED USE. SKILLED NURSE TO ESTABLISH SUPPORT MEASURES TO MINIMIZE RISK OF HOSPITALIZATION AND ED USE, AND INSTRUCT PATIENT/CAREGIVER ON METHODS TO REDUCE AVOIDABLE HOSPITALIZATION AND ED USE. [code = PATIENT HAS A RISK OF HOSPITALIZATION AND ED USE. SKILLED NURSE TO ESTABLISH SUPPORT MEASURES TO MINIMIZE RISK OF HOSPITALIZATION AND ED USE, AND INSTRUCT PATIENT/CAREGIVER ON METHODS TO REDUCE AVOIDABLE HOSPITALIZATION AND ED USE.] Future Scheduled Test SKILLED NU RSE TO PROVIDE INSTRUCTION TO PATIENT/CAREGIVER RELATED TO DISCHARGE PLANNING. [code = SKILLED NURSE TO PROVIDE INSTRUCTION TO PATIENT/CAREGIVER RELATED TO DISCHARGE PLANNING.] Future Scheduled Test SKILLED NU RSE TO PERFORM ENVIRONMENTAL SAFETY RISK ASSESSMENT AND FALL RISK ASSESSMENT AND PROVIDE INSTRUCTION TO IMPLEMENT ENVIRONMENTAL SAFETY AND FALL PREVENTION STRATEGIES THROUGHOUT THE CERTIFICATION PERIOD. SKILLED NURSE WILL MAINTAIN SITUATIONAL AWARENESS AND WILL NOTIFY CLINICAL REVERSE ENGINEER AND PHYSICIAN/PROVIDER WITH ANY CHANGE IN CONDITION. [code = SKILLED NURSE TO PERFORM ENVIRONMENTAL SAFETY RISK ASSESSMENT AND FALL RISK ASSESSMENT AND PROVIDE INSTRUCTION TO IMPLEMENT ENVIRONMENTAL SAFETY AND FALL PREVENTION STRATEGIES THROUGHOUT THE CERTIFICATION PERIOD. SKILLED NURSE WILL MAINTAIN SITUATIONAL AWARENESS AND WILL NOTIFY CLINICAL REVERSE ENGINEER AND PHYSICIAN/PROVIDER WITH ANY CHANGE IN CONDITION.] Future Scheduled Test SKILLED NU RSE FOR OBSERVATION AND ASSESSMENT OF PATIENT S PAIN LEVEL AND EFFECTIVENESS OF PAIN MANAGEMENT REGIMEN. SKILLED NURSE TO INSTRUCT PATIENT/CAREGIVER REGARDING PHARMACOLOGIC AND NON-PHARMACOLOGIC PAIN CONTROL MEASURES. SKILLED NURSE TO REPORT TO PHYSICIAN IF PAIN LEVEL IS OUTSIDE OF ESTABLISHED PARAMETERS. [code = SKILLED NURSE FOR OBSERVATION AND ASSESSMENT OF PATIENT S PAIN LEVEL AND EFFECTIVENESS OF PAIN MANAGEMENT REGIMEN. SKILLED NURSE TO INSTRUCT PATIENT/CAREGIVER REGARDING PHARMACOLOGIC AND NON-PHARMACOLOGIC PAIN CONTROL MEASURES. SKILLED NURSE TO REPORT TO PHYSICIAN IF PAIN LEVEL IS OUTSIDE OF ESTABLISHED PARAMETERS.] Future Scheduled Test SKILLED NU RSE TO ASSESS PATIENT'S SKIN INTEGRITY AND INSTRUCT PATIENT/CAREGIVER ON MEASURES TO PREVENT PRESSURE ULCERS. [code = SKILLED NURSE TO ASSESS PATIENT'S SKIN INTEGRITY AND INSTRUCT PATIENT/CAREGIVER ON MEASURES TO PREVENT PRESSURE ULCERS.] Future Scheduled Test SKILLED NU RSE TO PROVIDE ASSESSMENT AND TEACHING/REINFORCEMENT OF MANAGEMENT OF BIPOLAR DEPRESSION INCLUDING DISEASE PROCESS, MEDICATION MANAGEMENT, COPING SKILLS AND IDENTIFY CHANGES ASSOCIATED WITH DEPRESSIVE DISORDERS FOR EARLY INTERVENTION. [code = SKILLED NURSE TO PROVIDE ASSESSMENT AND TEACHING/REINFORCEMENT OF MANAGEMENT OF BIPOLAR DEPRESSION INCLUDING DISEASE PROCESS, MEDICATION MANAGEMENT, COPING SKILLS AND IDENTIFY CHANGES ASSOCIATED WITH DEPRESSIVE DISORDERS FOR EARLY INTERVENTION.] Future Scheduled Test SN TO INST RUCT PATIENT/CAREGIVER ON COPD MANAGEMENT UTILIZING THE BREATHING WITH CARE SPECIALTY PROGRAM. [code = SN TO INSTRUCT PATIENT/CAREGIVER ON COPD MANAGEMENT UTILIZING THE BREATHING WITH CARE SPECIALTY PROGRAM.] Future Scheduled Test SKILLED NU RSE TO REVIEW PATIENT MEDICATIONS (PRESCRIPTION/OTC). INSTRUCT PATIENT/CAREGIVER ON ALL MEDICATIONS INCLUDING PURPOSE, WHEN TO TAKE, IMPORTANCE OF MEDICATION ADHERENCE, MONITORING OF EFFECTIVENESS, ADVERSE DRUG REACTIONS, POSSIBLE SIDE EFFECTS, AND WHEN TO NOTIFY AGENCY OR PHYSICIAN/PROVIDER OF ANY CONCERNS. [code = SKILLED NURSE TO REVIEW PATIENT MEDICATIONS (PRESCRIPTION/OTC). INSTRUCT PATIENT/CAREGIVER ON ALL MEDICATIONS INCLUDING PURPOSE, WHEN TO TAKE, IMPORTANCE OF MEDICATION ADHERENCE, MONITORING OF EFFECTIVENESS, ADVERSE DRUG REACTIONS, POSSIBLE SIDE EFFECTS, AND WHEN TO NOTIFY AGENCY OR PHYSICIAN/PROVIDER OF ANY CONCERNS.] Goal 2024-12-03 Patient Goal - S [facility] AND STAY OUT OF THE HOSPITAL. Goal 2025-03-11 Patient Goal - S [facility] AND STAY OUT OF THE HOSPITAL. Goal 2025-02-14 Patient Goal - S [facility] AND STAY OUT OF THE HOSPITAL. Goal 2025-01-22 Patient Goal - S [facility] AND STAY OUT OF THE HOSPITAL. Goal Patient Goal - S [facility] AND STAY OUT OF THE HOSPITAL. Goal 2024-12-20 Patient Goal - S [facility] AND STAY OUT OF THE HOSPITAL. Goal Provider Goal - PATIENT/CAREGIVER WILL VERBALIZE KNOWLEDGE OF AND DEMONSTRATE INDEPENDENCE IN OSTOMY CARE BY THE END OF THE CERTIFICATION PERIOD. Goal Provider Goal - A PLAN OF CARE WILL BE ESTABLISHED THAT MEETS PATIENT'S RETIREMENT NEEDS AND INCLUDES PATIENT GOAL FOR HOME HEALTH. Goal Provider Goal - ADDITIONAL ORDERS WILL BE RECEIVED FROM ALTERNATE PHYSICIAN IN A TIMELY MANNER THROUGHOUT THE CERTIFICATION PERIOD. Goal Provider Goal - PATIENT/CAREGIVER WILL VERBALIZE/ DEMONSTRATE MANAGEMENT OF AND TOLERANCE TO PARENTERAL NUTRITION. Goal Provider Goal - EXACERBATIONS OF GASTROINTESTINAL DISEASE WILL BE PROMPTLY IDENTIFIED AND INTERVENTIONS IMPLEMENTED TO MINIMIZE RISKS TO PATIENT BY END OF EPISODE. Goal Provider Goal - PATIENT/CAREGIVER WILL VERBALIZE/DEMONSTRATE UNDERSTANDING OF S/S OF INFECTION AND INFECTION CONTROL MEASURES. SIGNS AND SYMPTOMS OF INFECTION WILL BE IDENTIFIED AND PHYSICIAN NOTIFIED FOR PROMPT INTERVENTION THROUGHOUT THE CERTIFICATION PERIOD. Goal Provider Goal - WOUND CARE WILL BE COMPLETED AND PATIENT WILL HAVE IMPROVED WOUND STATUS EVIDENCED BY NO SIGNS AND SYMPTOMS OF INFECTION, DECREASED WOUND SIZE, AND/OR NO COMPLICATIONS BY THE END OF THE CERTIFICATION PERIOD. Goal Provider Goal - PATIENT/CAREGIVER WILL VERBALIZE/DEMONSTRATE KNOWLEDGE AND MANAGEMENT OF COPD BY END OF EPISODE. Goal Provider Goal - PATIENT WILL BE FREE FROM INFECTION AND PATIENT/CAREGIVER WILL VERBALIZE UNDERSTANDING OF SIGNS AND SYMPTOMS AND METHODS TO PREVENT SEPSIS BY END OF THE EPISODE. Goal Provider Goal - SKILLED NURSE TO PERFORM LAB PROCEDURE AND REPORT RESULTS TO PHYSICIAN. Goal Provider Goal - PATIENT WILL HAVE SUPPORT MEASURES ESTABLISHED TO PREVENT HOSPITALIZATION AND ED USE AND PATIENT/CAREGIVER WILL VERBALIZE/DEMONSTRATE METHODS TO REDUCE AVOIDABLE HOSPITALIZATION AND ED USE BY END OF EPISODE. Goal Provider Goal - PATIENT/CAREGIVER WILL VERBALIZE UNDERSTANDING OF DISCHARGE PLANNING INSTRUCTIONS BY DATE OF DISCHARGE. Goal Provider Goal - PATIENT/CAREGIVER WILL VERBALIZE/DEMONSTRATE EFFECTIVE ENVIRONMENTAL SAFETY AND FALL PREVENTION STRATEGIES, WILL REMAIN SAFE IN THE COMMUNITY, AND WILL BE FREE OF DANGER TO SELF AND OTHERS THROUGHOUT THE CERTIFICATION PERIOD. Goal Provider Goal - PATIENT/CAREGIVER WILL DEMONSTRATE UNDERSTANDING OF PHARMACOLOGIC AND NONPHARMACOLOGIC PAIN CONTROL MEASURES AND PATIENT WILL HAVE IMPROVEMENT IN PAIN INTERFERING WITH ACTIVITY EVIDENCED BY PAIN AT A LEVEL THAT IS ACCEPTABLE TO THE PATIENT AND PAIN LEVEL WITHIN ESTABLISHED PARAMETERS BY END OF CERTIFICATION PERIOD. Goal Provider Goal - PATIENT/CAREGIVER WILL VERBALIZE UNDERSTANDING OF PRESSURE ULCER PREVENTION BY END OF THE EPISODE. Goal Provider Goal - PATIENT/CAREGIVER WILL VERBALIZE/DEMONSTRATE UNDERSTANDING OF THE MANAGEMENT OF DEPRESSION THROUGHOUT THE CERTIFICATION PERIOD AND SYMPTOMS ARE IDENTIFIED AND MANAGED TO MAINTAIN PATIENT SAFETY IN THE HOME. Goal Provider Goal - PATIENT/CAREGIVER WILL DEMONSTRATE MANAGEMENT OF COPD A RESULT OF PARTICIPATION IN BREATHING WITH CARE SPECIALTY PROGRAM. Goal Provider Goal - PATIENT/CAREGIVER WILL VERBALIZE UNDERSTANDING OF EDUCATION PROVIDED ON MEDICATIONS BY THE END OF THE CERTIFICATION PERIOD. Encounters Start Date/Time End Date/Time Encounter Type Admission Type Attending [facility] Care Department Encounter ID Discharge Date Discharge Status Discharge Condition Discharge Reason Percent Goals Met 2025-02-19 00:00:00 2025-04-19 00:00:00 Outpatient [facility]ERT[facility] [id number]
== END 2025-03-24 13:25 | disposition home or self-care (01) ==
LOC: CHSLAB 13:30
DX: K28.4 Chronic or unspecified gastrojejunal ulcer with hemorrhage (principal); G40.909 Epilepsy, unspecified, not intractable, without status epilepticus; E46 Unspecified protein-calorie malnutrition; K21.9 Gastro-esophageal reflux disease without esophagitis; Z43.3 Encounter for attention to colostomy; Z68.27 Body mass index [BMI] 27.0-27.9, adult; Z45.2 Encounter for adjustment and management of vascular access device; Z79.899 Other long term (current) drug therapy
CPT/HCPCS: 36415; 80053; 83735; 84100; 84478; 85025